=== PATIENT | female | born 1960 | race Caucasian/White ===

== ENCOUNTER 2022-11-28 16:02 | Outpatient (OUT) | payer OTHER, SELFPAY ==
--- NOTE | 2022-11-28 16:08 | MM_ITS ---
Patient: MONICA SMITH Exam Date: 11/28/2022 : 1960 Gender:F Ordering : KATH Deidre [facility] Admission #: [id number] Family : Order #: [id number] CLICK HERE TO VIEW EXAM RADIOLOGY REPORT PROCEDURE: MM TOMOSYNTHESIS SCREENING BI COMPARISON: MG MAMM SCREEN 3D KAROL CAD, 10/01/2021. MG MAMM SCREEN KAROL W CAD, 04/05/2020. MG MAMM SCREEN KAROL W CAD, 07/21/2018. MG MAMM KAROL SCRN W CAD DIG, 08/06/2013. INDICATIONS: Screening mammogram Z12.31 Calculator Name NCI Breast Cancer Risk Assessment Tool 5 Year Breast Cancer Risk 0.80% Lifetime Breast Cancer Risk 4.60% Personal Breast Cancer No Personal Ovarian Cancer No Treatments None Family Cancers Uncle-maternal with stomach cancer at age 40. LOCATION: [facility] BREAST COMPOSITION: Heterogeneously dense,which may obscure small masses. FINDINGS: DIAGNOSTIC CATEGORY 1--NEGATIVE. RIGHT BREAST: No significant suspicious finding. No significant change has occurred. LEFT BREAST: No significant suspicious finding. No significant change has occurred. RECOMMENDATIONS: ROUTINE MAMMOGRAM AND CLINICAL EVALUATION IN 12 MONTHS. PLEASE NOTE: A NORMAL MAMMOGRAM DOES NOT EXCLUDE THE POSSIBILITY OF BREAST CANCER. A CLINICALLY SUSPICIOUS PALPABLE LUMP SHOULD BE BIOPSIED. Dictated by: Jace Brown M.D. on 11/29/2022 at 14:49 Approved by: Jace Brown M.D. on 11/29/2022 at 14:51
== END 2022-11-28 16:03 | disposition home or self-care (01) ==
PROVIDERS: PCP Nurse Practitioner; Visit Provider Nurse Practitioner
DX: Z12.31 Encounter for screening mammogram for malignant neoplasm of breast (principal); Z80.0 Family history of malignant neoplasm of digestive organs
CPT/HCPCS: 77063; 77067

== ENCOUNTER 2023-02-19 06:34 | Outpatient (OUT) | payer OTHER, SELFPAY ==
[2023-02-19 07:04] LABS: Alanine Aminotransferase 21 U/L (14-59); Aspartate Amino Transferase 15 U/L (15-37); Chol HDL Ratio 3.8; Cholesterol 198 mg/dL (<=200); HDL Cholesterol 52 mg/dL (40-60); Triglycerides 151 mg/dL (<=150); VLDL CHOLESTEROL 30.2 mg/dL
== END 2023-02-19 06:35 | disposition home or self-care (01) ==
LOC: LAB 06:34
PROVIDERS: PCP Nurse Practitioner; Visit Provider Nurse Practitioner
DX: E78.5 Hyperlipidemia, unspecified (principal)
CPT/HCPCS: 36415; 80061; 84450; 84460

== ENCOUNTER 2023-03-11 17:16 | Inpatient (IN) | payer OTHER, SELFPAY ==
[2023-03-11 17:19] VITALS: BP 179/93; PULSE 82; RESP 16; TEMP 36.6; O2SAT 100; BMI 24.4
--- NOTE | 2023-03-11 17:27 | CT_ITS ---
[address] [address] Patient Name: MONICA SMITH MRN: [id number] date: 1960 Sex: F Assigned Patient Location: ER Current Patient Location: .MAIN Accession/Order Number: [id number] Exam Date: 03/11/2023 18:11 Report Date: 03/11/2023 19:18 At the request of: MELISSA BURCIAGA Procedure: CT abdomen pelvis w con EXAM: CT abdomen pelvis w con; [id number] REASON FOR EXAM: Abdominal pain TECHNIQUE: Helical CT images of the abdomen and pelvis were obtained after the administration of IV contrast. Multiplanar reformats were generated at the scanner. Dose reduction technique used: Automated exposure control and/or adjustment of the mA and/or kV according to patient size and/or use of iterative reconstruction technique. COMPARISON: None. FINDINGS: Visualized Chest: Small hiatal hernia containing less than 5% of the stomach. Abdomen: Liver: There are 3 2 cm and less well-circumscribed low-attenuation lesions scattered throughout the liver which likely represent benign cysts. Mild focal fatty infiltration along the falciform ligament. Gallbladder: Cholelithiasis without evidence of acute cholecystitis. Bile Ducts: No significant biliary ductal dilatation. Pancreas: No mass, ductal dilatation, or inflammatory changes. Spleen: No splenomegaly or focal lesion. Adrenals: No nodules. Kidneys: -No stones or hydronephrosis. -No mass. Vascular: No aortic aneurysm. Lymph Nodes: No adenopathy. Abdominal Wall: No hernia or mass. Pelvis: No mass or adenopathy. Bowel/Peritoneal Cavity/Mesentery: -Moderate distention of the proximal and mid small bowel with transition to completely decompressed mid/distal small bowel in the anterior left lower quadrant (series 3 image 86 and series 5 image 22). There is a small amount of free fluid and parenteric inflammatory changes in the region of the position point. -No colonic obstruction. -No free air. -Mild colonic diverticulosis without evidence of acute diverticulitis. Musculoskeletal: No acute fracture or suspicious osseous lesion. CT/CT abdomen pelvis w con IMPRESSION: 1. High-grade mid/distal small bowel obstruction with transition point in the anterior aspect of the left lower quadrant. There is a small amount of pelvic free fluid and mild small bowel inflammatory changes in the region of the transition point. No evidence perforation. 2. Cholelithiasis without evidence of acute cholecystitis. 3. Diverticulosis without evidence of acute diverticulitis. Electronically authenticated by: CELESTE TOUSSAINT Date: 03/11/2023 19:18
--- NOTE | 2023-03-11 17:31 | ED.ABDPAIN1 ---
HPI - Abdominal Pain General Chief Complaint: Abdominal Pain Stated Complaint: Flu Like Symptoms Time Seen by Provider: 03/11/23 17:21 Source: patient Mode of arrival: walk-in History of Present Illness HPI narrative: patient is a 8-year-old female who presents to the emergency department for the evaluation of vomiting and diarrhea that began earlier this morning. She reports hot and cold chills with no objective fevers. She reports significant pain across the low abdomen. She describes it as cramping. She reports approximately six episodes of vomiting and approximately six episodes of diarrhea. No recent antibiotics or travel. She denies any upper respiratory symptoms. No urinary symptoms. She has had a previous hysterectomy and appendectomy. Related Data Home Medications Medication Instructions Recorded Confirmed ezetimibe 10 mg tablet 10 mg PO DAILY 03/11/23 03/11/23 Allergies Allergy/AdvReac Type Severity Reaction Status Date / Time No Known Drug Allergies Allergy Verified 03/11/23 17:21 Review of Systems ROS Constitutional Reports: chills; Denies: fever Ears, nose, mouth, and throat Denies: throat pain or nasal congestion Cardiovascular Denies: chest pain Respiratory Denies: shortness of breath or cough Gastrointestinal Reports: abdominal pain, nausea, vomiting and diarrhea Genitourinary Denies: painful urination Musculoskeletal Denies: back pain Integumentary/Breast Denies: rash Neurological Denies: headache PFSH PFSH Surgical History History of appendectomy ?Z90.49 - Acquired absence of other specified parts of digestive tract (ICD-10) History of hysterectomy ?Z90.710 - Acquired absence of both cervix and uterus (ICD-10) Family History Mother Family history of COPD (chronic obstructive pulmonary disease) Family history of diabetes mellitus Daughter Family history of cancer Father Family history of diabetes mellitus Sister Family history of hypertension Social History Within the past year, how often did you have a drink containing alcohol: never Within the past year, how many standard drinks containing alcohol did you have on a typical day: 1 or 2 Within the past year, how often did you have six or more drinks on one occasion: never Total score: 0 Score interpretation: A score less than 3 is consistent with normal alcohol consumption. Smoking status: Never smoker Non-prescribed substance use: denies use Previous occupational history: [employer] Highest level of school completed/degree received: high school graduate Are you now , , , , never or living with a partner: In a typical week, how many times do you talk on the telephone with family, friends, or neighbors: 3 or more times per week How often do you get together with friends or relatives: 3 or more times per week How often do you attend taoism or evangelical services: never Little interest or pleasure in doing things: not at all Feeling down, depressed, or hopeless: not at all Feel stressed/tense/nervous/anxious/difficulty sleeping: not at all Do you think of yourself as: straight/heterosexual Gender Identity: female Exam Narrative Exam Narrative: Gen.: Awake, alert, in no distress Head: Normocephalic, atraumatic ENT: Moist mucous membranes Respiratory: No respiratory distress, lungs clear bilaterally Cardio: Regular rate and rhythm Gastrointestinal: Abdomen is soft, nondistended and diffusely tender to palpation in the bilateral lower quadrants of the abdomen, no guardingg or rebound Extremities: Moves extremities equally Psych: Normal mood and affect Neuro: No focal neuro deficit Skin: Warm, dry, intact Constitutional Vital Signs, click to edit/add: Last Vital Signs Temp 98.1 F 03/12/23 05:17 Pulse 58 L 03/12/23 05:17 Resp 18 03/12/23 05:17 BP 151/78 H 03/12/23 05:17 Pulse Ox 95 03/12/23 05:17 O2 Del Method Room Air 03/12/23 05:17 Course Vital Signs Vital signs: Vital Signs Temperature 97.9 F 03/11/23 17:19 Pulse Rate 82 03/11/23 17:19 Respiratory Rate 16 03/11/23 17:19 Blood Pressure 179/93 H 03/11/23 17:19 Pulse Oximetry 100 03/11/23 17:19 Oxygen Delivery Method Room Air 03/11/23 17:19 Temperature 98.1 F 03/12/23 05:17 Pulse Rate 58 L 03/12/23 05:17 Respiratory Rate 18 03/12/23 05:17 Blood Pressure 151/78 H 03/12/23 05:17 Pulse Oximetry 95 03/12/23 05:17 Oxygen Delivery Method Room Air 03/12/23 05:17 MDM - Abdominal Pain MDM Narrative Medical decision making narrative: patient treated with IV fluids, IV Toradol, Zofran and sublingual Levsin. She reported feeling much better. Vital signs are stable, lab studies show mild leukocytosis and minimally elevated lactic acid. She was noted to have a potassium of 3.2 and was treated with oral potassium replenishment in the Emergency Room. Urine specimen shows urinary tract infection and the patient is treated with IV Rocephin. CT the abdomen and pelvis with IV contrast was performed, patient was not able to tolerate oral contrast due to vomiting/nausea on arrival to the Emergency Room. CT shows a high-grade mid to distal small bowel obstruction with a focal transition point in the left lower quadrant. There is a small amount of free fluid in inflammatory change around the transition point. I discussed this with Dr. Rae, he recommended nasogastric tube insertion and admission to the hospitalist. Patient has seen him before for previous colonoscopy. Patient will be admitted to the hospitalist for further evaluation and treatment. Stable at time of admission. Medical Records Attestation: I reviewed the patient's medical records. Lab Data Attestation: I reviewed the patient's lab results. Labs: Lab Results 03/11/23 03/11/23 03/11/23 Range/Units 17:22 17:49 18:30 WBC 14.2 H (4.0-11.0) 10^3/uL RBC 5.03 (4.20-5.40) 10^6/uL Hgb 15.0 (12.0-16.0) g/dL Hct 44.5 (36.0-48.0) % MCV 88.5 (81.0-99.0) fL MCH 29.8 (26.7-34.0) pg MCHC 33.7 (29.9-35.2) g/dL RDW 13.2 (11.0-15.0) % Plt Count 284 (150-450) 10^3/uL MPV 10.4 (9.5-13.5) fL Neut % (Auto) 88.1 H (43.0-75.0) % Lymph % (Auto) 7.9 L (20.5-60.0) % [place] % (Auto) 3.3 (1.7-12.0) % Eos % (Auto) 0.1 L (0.9-7.0) % Baso % (Auto) 0.3 (0.2-2.0) % Neut # (Auto) 12.5 H (1.4-6.5) 10^3/uL Lymph # (Auto) 1.1 L (1.2-3.8) 10^3/uL Lancaster # (Auto) 0.5 (0.3-0.8) 10^3/uL Eos # (Auto) 0.0 (0.0-0.7) 10^3/uL Baso # (Auto) 0.0 (0.0-0.1) 10^3/uL Abs Immat Gran (auto) 0.04 H (0.00-0.03) 10^3/uL Imm/Tot Granulo (auto) 0.3 (0.0-0.5) % Sodium 138 (136-145) mmol/L Potassium 3.2 L (3.5-5.1) mmol/L Chloride 100 (98-107) mmol/L Carbon Dioxide 25.3 (21.0-32.0) mmol/L Anion Gap 15.9 BUN 19.0 H (7.0-18.0) mg/dL Creatinine 0.98 (0.55-1.02) mg/dL Est GFR ( Amer) >60 (>=60) Est GFR (Non-Af Amer) 58 L (>=60) BUN/Creatinine Ratio 19.4 Glucose 141 H (74-106) mg/dL Lactate 2.1 H (0.4-2.0) mmol/L Calcium 9.6 (8.5-10.1) mg/dL Total Bilirubin 0.6 (0.2-1.0) mg/dL AST 18 (15-37) U/L ALT 20 (14-59) U/L Alkaline Phosphatase 87 (46-116) U/L Total Protein 8.1 (6.4-8.2) g/dL Albumin 4.4 (3.4-5.0) g/dL Globulin 3.7 g/dL Albumin/Globulin Ratio 1.2 Lipase 24.0 (16.0-77.0) U/L Urine Color Lt. yellow (YELLOW) Urine Clarity Slightly cloudy A (CLEAR) Urine pH 7.5 (5.0-9.0) Ur Specific Kite 1.010 (1.005-1.025) Urine Protein Negative (NEG/TRACE) mg/dL Urine Glucose (UA) Negative (NEGATIVE) mg/dL Urine Ketones 40 A (NEGATIVE) mg/dL Urine Occult Blood Trace-i (NEGATIVE) Urine Nitrite Positive A (NEGATIVE) Urine Bilirubin Negative (NEGATIVE) Urine Urobilinogen 0.2 (0.2-1.0) EU/dL Ur Leukocyte Esterase Negative (NEGATIVE) Urine RBC None seen (0-2) #/HPF Urine WBC 2-5 A (NONE SEEN) #/HPF Ur Squamous Epith Cells Rare (NONE/RARE) #/LPF Urine Crystals None seen (None Seen) #/HPF Urine Bacteria Moderate A (NONE SEEN) #/HPF Urine Casts None seen (NONE SEEN) #/LPF Urine Mucus None seen (NONE SEEN) Ur Culture Indicated? Yes SARS-CoV-2 (PCR) Negative (NEGATIVE) Influenza Type A Ag Negative Influenza Type B Ag Negative 03/11/23 Range/Units 20:30 WBC (4.0-11.0) 10^3/uL RBC (4.20-5.40) 10^6/uL Hgb (12.0-16.0) g/dL Hct (36.0-48.0) % MCV (81.0-99.0) fL MCH (26.7-34.0) pg MCHC (29.9-35.2) g/dL RDW (11.0-15.0) % Plt Count (150-450) 10^3/uL MPV (9.5-13.5) fL Neut % (Auto) (43.0-75.0) % Lymph % (Auto) (20.5-60.0) % Lancaster % (Auto) (1.7-12.0) % Eos % (Auto) (0.9-7.0) % Baso % (Auto) (0.2-2.0) % Neut # (Auto) (1.4-6.5) 10^3/uL Lymph # (Auto) (1.2-3.8) 10^3/uL Lancaster # (Auto) (0.3-0.8) 10^3/uL Eos # (Auto) (0.0-0.7) 10^3/uL Baso # (Auto) (0.0-0.1) 10^3/uL Abs Immat Gran (auto) (0.00-0.03) 10^3/uL Imm/Tot Granulo (auto) (0.0-0.5) % Sodium (136-145) mmol/L Potassium (3.5-5.1) mmol/L Chloride (98-107) mmol/L Carbon Dioxide (21.0-32.0) mmol/L Anion Gap BUN (7.0-18.0) mg/dL Creatinine (0.55-1.02) mg/dL Est GFR ( Amer) (>=60) Est GFR (Non-Af Amer) (>=60) BUN/Creatinine Ratio Glucose (74-106) mg/dL Lactate 1.1 (0.4-2.0) mmol/L Calcium (8.5-10.1) mg/dL Total Bilirubin (0.2-1.0) mg/dL AST (15-37) U/L ALT (14-59) U/L Alkaline Phosphatase (46-116) U/L Total Protein (6.4-8.2) g/dL Albumin (3.4-5.0) g/dL Globulin g/dL Albumin/Globulin Ratio Lipase (16.0-77.0) U/L Urine Color (YELLOW) Urine Clarity (CLEAR) Urine pH (5.0-9.0) Ur Specific Kite (1.005-1.025) Urine Protein (NEG/TRACE) mg/dL Urine Glucose (UA) (NEGATIVE) mg/dL Urine Ketones (NEGATIVE) mg/dL Urine Occult Blood (NEGATIVE) Urine Nitrite (NEGATIVE) Urine Bilirubin (NEGATIVE) Urine Urobilinogen (0.2-1.0) EU/dL Ur Leukocyte Esterase (NEGATIVE) Urine RBC (0-2) #/HPF Urine WBC (NONE SEEN) #/HPF Ur Squamous Epith Cells (NONE/RARE) #/LPF Urine Crystals (None Seen) #/HPF Urine Bacteria (NONE SEEN) #/HPF Urine Casts (NONE SEEN) #/LPF Urine Mucus (NONE SEEN) Ur Culture Indicated? SARS-CoV-2 (PCR) (NEGATIVE) Influenza Type A Ag Influenza Type B Ag Imaging Data CT scan - abdomen: Attestation: I have reviewed the pertinent imaging results. Radiologist's impression: Procedure: CT abdomen pelvis w con EXAM: CT abdomen pelvis w con; [id number] REASON FOR EXAM: Abdominal pain TECHNIQUE: Helical CT images of the abdomen and pelvis were obtained after the administration of IV contrast. Multiplanar reformats were generated at the scanner. Dose reduction technique used: Automated exposure control and/or adjustment of the mA and/or kV according to patient size and/or use of iterative reconstruction technique. COMPARISON: None. FINDINGS: Visualized Chest: Small hiatal hernia containing less than 5% of the stomach. Abdomen: Liver: There are 3 2 cm and less well-circumscribed low-attenuation lesions scattered throughout the liver which likely represent benign cysts. Mild focal fatty infiltration along the falciform ligament. Gallbladder: Cholelithiasis without evidence of acute cholecystitis. Bile Ducts: No significant biliary ductal dilatation. Pancreas: No mass, ductal dilatation, or inflammatory changes. Spleen: No splenomegaly or focal lesion. Adrenals: No nodules. Kidneys: -No stones or hydronephrosis. -No mass. Vascular: No aortic aneurysm. Lymph Nodes: No adenopathy. Abdominal Wall: No hernia or mass. Pelvis: No mass or adenopathy. Bowel/Peritoneal Cavity/Mesentery: -Moderate distention of the proximal and mid small bowel with transition to completely decompressed mid/distal small bowel in the anterior left lower quadrant (series 3 image 86 and series 5 image 22). There is a small amount of free fluid and parenteric inflammatory changes in the region of the position point. -No colonic obstruction. -No free air. -Mild colonic diverticulosis without evidence of acute diverticulitis. Musculoskeletal: No acute fracture or suspicious osseous lesion. IMPRESSION: 1. High-grade mid/distal small bowel obstruction with transition point in the anterior aspect of the left lower quadrant. There is a small amount of pelvic free fluid and mild small bowel inflammatory changes in the region of the transition point. No evidence perforation. 2. Cholelithiasis without evidence of acute cholecystitis. 3. Diverticulosis without evidence of acute diverticulitis. Electronically authenticated by: CELESTE TOUSSAINT Date: 03/11/2023 19:18 Discharge Plan Discharge Chief Complaint: Abdominal Pain Clinical Impression: Urinary tract infection, Vomiting and diarrhea, Small bowel obstruction, Abdominal pain, Acute hypokalemia Patient Disposition: Admitted as Observation Time of Disposition Decision: 19:44 Condition: Good Discharge Date/Time: 03/11/23 21:53
[2023-03-11] MEDS: KETOROLAC TROMETHAMINE 30 MG/ML VIAL 15 MG IVP ×2 (17:45→23:16)
[2023-03-11 17:46] LABS: Basophils Percent Auto 0.3 % (0.2-2.0); Eosinophils Percent Auto 0.1 % (0.9-7.0); Hematocrit 44.5 % (36.0-48.0); Immature Granulocytes Abs Auto 0.04 10^3/uL (0.00-0.03); Immature Granulocytes Pct Auto 0.3 % (0.0-0.5); Lymphocytes Absolute Auto 1.1 10^3/uL (1.2-3.8); Lymphocytes Percent Auto 7.9 % (20.5-60.0); Mean Corpuscular HGB Conc 33.7 g/dL (29.9-35.2); Mean Corpuscular Hemoglobin 29.8 pg (26.7-34.0); Mean Corpuscular Volume 88.5 fL (81.0-99.0); Mean Platelet Volume 10.4 fL (9.5-13.5); Monocytes Absolute Auto 0.5 10^3/uL (0.3-0.8); Monocytes Percent Auto 3.3 % (1.7-12.0); Neutrophils Absolute Auto 12.5 10^3/uL (1.4-6.5); Neutrophils Percent Auto 88.1 % (43.0-75.0); Platelet Count 284 10^3/uL (150-450); Red Blood Count 5.03 10^6/uL (4.20-5.40); Red Cell Distribution Width 13.2 % (11.0-15.0); White Blood Count 14.2 10^3/uL (4.0-11.0)
[2023-03-11] MEDS: 0.9 % SODIUM CHLORIDE 1,000 ML 999 ML IV (17:46)
[2023-03-11] MEDS: ONDANSETRON PF 4 MG/2 ML VIAL IV ×2 (17:46→23:16)
[2023-03-11] MEDS: HYOSCYAMINE SULFATE 0.125 MG TAB.SUBL SL (17:46)
[2023-03-11 18:02] LABS: Alanine Aminotransferase 20 U/L (14-59); Albumin Globulin Ratio 1.2; Albumin Level 4.4 g/dL (3.4-5.0); Alkaline Phosphatase 87 U/L (46-116); Anion Gap 15.9; Aspartate Amino Transferase 18 U/L (15-37); BUN Creatinine Ratio 19.4; Bilirubin Total 0.6 mg/dL (0.2-1.0); Calcium 9.6 mg/dL (8.5-10.1); Carbon Dioxide 25.3 mmol/L (21.0-32.0); Chloride 100 mmol/L (98-107); Estimated GFR (African America >60 (>=60); Estimated GFR (Non-African Ame 58 (>=60); Globulin 3.7 g/dL; Glucose 141 mg/dL (74-106); Potassium 3.2 mmol/L (3.5-5.1); Sodium 138 mmol/L (136-145); Total Protein 8.1 g/dL (6.4-8.2)
[2023-03-11 18:06] LABS: Lactate/Lactic Acid 2.1 mmol/L (0.4-2.0)
[2023-03-11 18:11] LABS: Influenza Virus A Antigen Negative; Influenza Virus B Antigen Negative; Internal Control Within Normal Limits
[2023-03-11 18:11] LABS: SARS-CoV-2 Ag NEGATIVE (NEGATIVE)
[2023-03-11] MEDS: POTASSIUM CHLORIDE 10 MEQ ER TABLET 40 MEQ PO (18:27)
[2023-03-11 19:05] LABS: Bilirubin Urine NEGATIVE (NEGATIVE); Blood Urine TRACE-I (NEGATIVE); Color Urine LT. YELLOW (YELLOW); Glucose Urine UA NEGATIVE (NEGATIVE); Ketones Urine 40 mg/dL (NEGATIVE); Leukocyte Esterase Urine NEGATIVE (NEGATIVE); Nitrite Urine POSITIVE (NEGATIVE); Protein Urine NEGATIVE (NEG/TRACE); Urobilinogen Urine 0.2 EU/dL (0.2-1.0); pH Urine 7.5 (5.0-9.0)
[2023-03-11 19:06] LABS: Clarity Urine SLIGHTLY CLOUDY (CLEAR); Urine Microscopic Indicated YES
[2023-03-11 19:10] LABS: Bacteria Urine MODERATE #/HPF (NONE SEEN); Mucus Urine NONE SEEN (NONE SEEN); RBC Urine NONE SEEN #/HPF (0-2)
[2023-03-11 19:11] LABS: Cast Seen? NONE SEEN #/LPF (NONE SEEN); Crystals Seen? None Seen #/HPF (None Seen); Squamous Epithelial Cell Urine RARE #/LPF (NONE/RARE); Urine Culture Indicated YES
--- NOTE | 2023-03-11 19:41 | XR_ITS ---
[place] [id number] Patient Name: MONICA SMITH MRN: [id number] date: 1960 Sex: F Assigned Patient Location: ER Current Patient Location: ER Accession/Order Number: [id number] Exam Date: 03/11/2023 20:10 Report Date: 03/11/2023 21:08 At the request of: MELISSA BURCIAGA Procedure: XR abdomen 1V EXAMINATION: XR abdomen 1V, [id number] HISTORY: NG tube insertion COMPARISON: CT abdomen/pelvis 03/11/2023 FINDINGS/IMPRESSION: Enteric tube terminates in the distal stomach near the pylorus. Contrast within bilateral renal collecting systems and the bladder from the preceding contrast-enhanced CT. Electronically authenticated by: CELESTE TOUSSAINT Date: 03/11/2023 21:08
--- NOTE | 2023-03-11 19:48 | CT_ITS ---
The [address] [address] Patient Name: MONICA SMITH MRN: [id number] date: 1960 Sex: F Assigned Patient Location: ER Current Patient Location: MS Accession/Order Number: [id number] Exam Date: 03/11/2023 19:30 Report Date: 03/11/2023 22:22 At the request of: MELISSA BURCIAGA Procedure: CT abdomen pelvis wo con EXAM: CT abdomen pelvis wo con HISTORY: Abdominal pain small bowel obstruction performed with enteric contrast. COMPARISON: CT abdomen pelvis 03/11/2023 TECHNIQUE: Multiple axial views CT abdomen pelvis performed after administration of 2 cups of oral contrast mixed with water through NG tube (30 mL of Gastroview). No IV contrast performed. Coronal sagittal reformats performed. FINDINGS: Residual contrast within the urinary bladder from prior IV contrast injection. Visualized lung bases demonstrate mild linear lung atelectatic changes. Visualized cardiac apex demonstrates borderline prominent heart size. Small hiatal hernia. Enteric contrast extends to the lower midline small bowel. Multiple loops of dilated small bowel measuring up to 3 cm diameter and containing fecal matter within the lower midline small bowel lumen. Focal transition point at the left anterior lower quadrant abdomen (image 92 series 3) where there is trace mesenteric sleeve edema/stranding.The right lower quadrant small bowel is collapsed. The colon is underdistended. Mild colonic diverticula. No pneumatosis or pneumoperitoneum. Gallstones without hydropic gallbladder or pericholecystic fluid. Multiple left and right hepatic cysts. Pancreas, spleen, adrenal glands, kidneys, urinary bladder, and other pelvic structures are unremarkable. Appendix and uterus are surgically absent. No acute bony abnormality. CT/CT abdomen pelvis wo con IMPRESSION: High-grade small bowel obstruction with focal transition point at the anterior left lower quadrant abdomen. Finding is unchanged when compared to prior exam. Moderate amount of fecal matter within the small bowel lumen just proximal to the transition point. The enteric contrast is proximal to the small bowel fecal matter. No pneumatosis or pneumoperitoneum. However, there are peritoneal strandy changes and edema surrounding the focal transition point. Recommend close clinical surgical attention. Colonic diverticula. Cholelithiasis. Electronically authenticated by: KIM QUEEN Date: 03/11/2023 22:22
[2023-03-11 20:00] VITALS: BP 165/90
[2023-03-11] MEDS: CEFTRIAXONE 1,000 MG in 0.9 % SODIUM CHLORIDE 50 ML 100 MG IV (20:18)
--- NOTE | 2023-03-11 20:31 | PC.NURSE ---
NG clamped, contrast provided by radiology given by gravity, per nurse. Radiology called for repeat scan to take place in 1 hour. Pt tolerated well, denies further needs, call light within reach.
--- NOTE | 2023-03-11 20:36 | PC.NURSE ---
Oral contrast provided by radiology given through NG tube, fed by gravity, per nurse. Radiology called to perform scan in one hour. Pt tolerated well, denies further needs, call light within reach.
[2023-03-11 21:07] LABS: Lactate/Lactic Acid 1.1 mmol/L (0.4-2.0)
[2023-03-11 22:09] VITALS: BP 160/74; PULSE 66; RESP 18; TEMP 36.4; O2SAT 95; BMI 23.4
[2023-03-11 22:18] VITALS: O2SAT 95
[2023-03-11] MEDS: POTASSIUM CHLORIDE/D5-0.45NACL 1,000 ML 100 MEQ IV (23:01)
[2023-03-12] VITALS (22 sets, daily range): BP systolic 105–168; BP diastolic 68–115; PULSE 58–87; RESP 10–25; TEMP 36.1–36.9; O2SAT 92–100
[2023-03-12 00:53] LABS: Glucometer 130 mg/dL (74-106)
--- NOTE | 2023-03-12 01:13 | W.PM.TELEPN ---
Progress Note: Subjective Subjective Interval history: Patient is a 62-year-old female with history of hyperlipidemia and history of prior appendectomy, hysterectomy, and bladder surgery in the past presenting today with nausea, vomiting, diarrhea, diffuse abdominal pain, and subjective fever for 1 day duration. She reports that she woke up early Friday morning at around 2:30 AM yesterday with diffuse cramping abdominal pain primarily in the bilateral lower quadrants along with nausea, vomiting, and diarrhea. She reports having approximately 6 bouts of diarrhea and vomiting and was sweaty. She denies any chest pain or shortness of breath, denies any palpitations or dizziness, denies any urinary frequency or urgency, no paresthesia no difficulty with ambulation. Upon arrival to the ED, vital signs with initial BP 179/93, otherwise afebrile with normal O2 sat RA. Labs significant for the WBC of 14.2, K3.2, glucose 141, initial lactic acid 2.1. UA with ketones, positive nitrates but negative leuk esterase with WBC 2-5 and moderate bacteria present. Rest of labs within normal limits including normal renal function, LFTs, lipase and patient was negative for COVID/flu. CT A/P with high-grade mid to distal SBO with transition point in the anterior aspect of left lower quadrant with small amount of free pelvic fluid and mild inflammatory changes at the transition point. No evidence of perforation. Also incidental finding of 3 separate lesions of 2 cm or less within the liver felt likely C/W benign cysts. ED did consult surgery who rec admission to the hospitalist service with NG tube, n.p.o. Patient was treated in the ED with a dose of Rocephin, 1 L IVF, Toradol, Levsin. She is being admitted for further management. Exam Constitutional Vital Signs, click to edit/add: Last Vital Signs Temp 97.6 F 03/11/23 22:09 Pulse 66 03/11/23 22:09 Resp 18 03/11/23 22:09 BP 160/74 H 03/11/23 22:09 Pulse Ox 95 03/11/23 22:18 O2 Del Method Room Air 03/11/23 22:18 Common normals: no apparent distress Exam limitations: altered mental status General appearance: cooperative HENCT Common normals: normocephalic and head/scalp atraumatic Head and scalp: normal to inspection and normocephalic Nose: other (NGT in R nare) Eye Common normals: PERRL and EOMs intact bilaterally Neck & C-Spine Common normals: full ROM and supple Respiratory Common normals: normal respiratory effort and no use of accessory muscles Effort & inspection: able to speak in complete sentences Auscultation: clear to auscultation bilaterally Cardio Common normals: regular rate Rate: regular rate Rhythm: regular rhythm Heart sounds: S1 normal and S2 normal GI Inspection: normal to inspection Auscultation: hypoactive bowel sounds Palpation: soft Extremity Common normals: normal to inspection and full ROM Neuro Common normals: oriented x3 and CN's II-XII intact bilaterally Sensorium/orientation: awake, alert, oriented to person, oriented to place and oriented to time Psych Common normals: mental status grossly normal Appearance: grossly normal Attitude: calm Speech: normal speech Progress Note: Objective Labs Labs: Short CBC 03/11/23 Range/Units 17:22 WBC 14.2 H (4.0-11.0) 10^3/uL Hgb 15.0 (12.0-16.0) g/dL Hct 44.5 (36.0-48.0) % Plt Count 284 (150-450) 10^3/uL BMP 03/11/23 17:22 Sodium 138 Potassium 3.2 L Chloride 100 Carbon Dioxide 25.3 BUN 19.0 H Creatinine 0.98 Glucose 141 H Calcium 9.6 Liver Function 03/11/23 Range/Units 17:22 Total Bilirubin 0.6 (0.2-1.0) mg/dL AST 18 (15-37) U/L ALT 20 (14-59) U/L Alkaline Phosphatase 87 (46-116) U/L Albumin 4.4 (3.4-5.0) g/dL Urine 03/11/23 Range/Units 18:30 Urine Color Lt. yellow (YELLOW) Urine Clarity Slightly cloudy A (CLEAR) Urine pH 7.5 (5.0-9.0) Ur Specific [place] 1.010 (1.005-1.025) Urine Protein Negative (NEG/TRACE) mg/dL Urine Glucose (UA) Negative (NEGATIVE) mg/dL Imaging CT scan - abdomen: Radiologist's impression: High-grade mid to distal SBO with transition point in anterior aspect of LLQ with associated small amount of free pelvic fluid and mild small bowel inflammatory changes at the transition point. No evidence of perforation. Noted diverticulosis and cholelithiasis Progress Note: A&P Assessment and Plan (1) Small bowel obstruction: Assessment and Plan: - As noted per CT. History of prior appendectomy, hysterectomy, and bladder surgery -Surgery Dr. Rae consulted by ED, recommends NG tube and n.p.o. status -IVF -As needed Toradol which is helping to control her pain and she would prefer to avoid narcotics, prn Zofran -AXR in a.m. (2) Urinary tract infection: Assessment and Plan: -?UTI. UA only mildly positive and patient without symptoms. For now we will maintain on antibiotics given leukocytosis -Check urine culture. If negative can DC antibiotics -Received Rocephin in the ED, will continue for now until urine cultures are back or at least for 3 days (3) Vomiting and diarrhea: Assessment and Plan: - Secondary to SBO likely -IVF -As needed Zofran -Bowel rest (4) Acute hypokalemia: Assessment and Plan: - K3.2 on admit. Repleted -Check BMP, mag in a.m. Plan 5. Leukocytosis -Likely secondary to SPL and possible UTI. Otherwise afebrile -On Rocephin empirically -CBC in a.m. -Pending lactate level 6. Hyperglycemia, mild -Monitor for now, repeat -Check A1c in a.m. 7. Elevated BP -She denies any history of HTN. May be related to pain meds. Currently on states pain is much better -We will need to watch BP and if remains elevated then may need initiation of antihypertensive and close monitoring with PCP -As needed IV hydralazine added for now DVT prophylaxis Lovenox Full code Telemedicine Attestation Telemedicine Attestation I conducted this encounter from [MD] via secure live, [id number] video conference with the patient, located at [facility] with [Samara]. Prior to the interview, the risks and benefits of telemedicine were discussed with the patient and verbal consent was obtained.
[2023-03-12 04:40] LABS: Basophils Percent Auto 0.2 % (0.2-2.0); Eosinophils Percent Auto 0.3 % (0.9-7.0); Hematocrit 43.1 % (36.0-48.0); Hemoglobin 14.5 g/dL (12.0-16.0); Immature Granulocytes Abs Auto 0.04 10^3/uL (0.00-0.03); Immature Granulocytes Pct Auto 0.4 % (0.0-0.5); Lymphocytes Absolute Auto 1.1 10^3/uL (1.2-3.8); Lymphocytes Percent Auto 9.6 % (20.5-60.0); Mean Corpuscular HGB Conc 33.6 g/dL (29.9-35.2); Mean Corpuscular Hemoglobin 29.7 pg (26.7-34.0); Mean Corpuscular Volume 88.3 fL (81.0-99.0); Mean Platelet Volume 10.3 fL (9.5-13.5); Monocytes Absolute Auto 0.8 10^3/uL (0.3-0.8); Monocytes Percent Auto 7.5 % (1.7-12.0); Platelet Count 286 10^3/uL (150-450); Red Blood Count 4.88 10^6/uL (4.20-5.40); Red Cell Distribution Width 13.2 % (11.0-15.0)
[2023-03-12 05:03] LABS: Estimated Average Glucose 108 mg/dL; Glycohemoglobin A1C 5.4 % (4.5-6.2)
[2023-03-12] MEDS: KETOROLAC TROMETHAMINE 30 MG/ML VIAL 15 MG IVP ×3 (05:07→20:06)
[2023-03-12] MEDS: ONDANSETRON PF 4 MG/2 ML VIAL IV ×2 (05:07→08:40)
[2023-03-12 05:08] LABS: Anion Gap 12.9; BUN Creatinine Ratio 19.1; Calcium 8.5 mg/dL (8.5-10.1); Carbon Dioxide 25.8 mmol/L (21.0-32.0); Chloride 101 mmol/L (98-107); Estimated GFR (African America >60 (>=60); Estimated GFR (Non-African Ame >60 (>=60); Glucose 129 mg/dL (74-106); Potassium 3.7 mmol/L (3.5-5.1); Sodium 136 mmol/L (136-145)
--- NOTE | 2023-03-12 05:49 | P.GSCN_ITS ---
History of Present Illness Consult details Consult date: 03/12/23 Reason for consult: abdominal pain Requesting physician: Jose Alberto Doshi Narrative: Monica Smith is a 62-year-old female who presented to the Emergency Department last evening after awakening at 2 AM yesterday morning with nausea and vomiting and associated diarrhea. She also was having left lower quadrant abdominal pain. She thought initially it might of been or diverticulitis but something was wrong and she came to the Emergency Department where she had a CT scan performed without oral contrast which showed high-grade small bowel obstruction which I then asked for a CT scan with oral contrast with same findings. She rated her pain as a ten out of ten when she came in and was given Toradol with relief and receives Toradol again at 5 AM this morning due to pain. She had a nasogastric tube placed and is draining bilious contents currently and she's had about 500 mL out but continues to have pain in the left lower quadrant. She has prior surgical history of having had an abdominal hysterectomy for rectum he appendectomy and bladder sling last in two thousand eighteen. She denies any melena or hematochezia. She works at [employer]. She denies any significant medical problems other [place] [address] CT Scan Report Signed Patient: MONICA SMITH MR#: [id number] : 1960 Acct:[id number] Age/Sex: 62 / F ADM Date: 03/11/23 Loc: [place] 221-[address]: Harpreet Randall M.D. Ordering Physician: Melissa Burciaga Date of Service: 03/11/23 Procedure(s): CT abdomen pelvis wo con Accession Number(s): [id number] cc: Deidre Valdivia ~ The [address] [address] Patient Name: MONICA SMITH MRN: [id number] date: 1960 Sex: F Assigned Patient Location: ER Current Patient Location: DC Accession/Order Number: [id number] Exam Date: 03/11/2023 19:30 Report Date: 03/11/2023 22:22 At the request of: MELISSA BURCIAGA Procedure: CT abdomen pelvis wo con EXAM: CT abdomen pelvis wo con HISTORY: Abdominal pain small bowel obstruction performed with enteric contrast. COMPARISON: CT abdomen pelvis 03/11/2023 TECHNIQUE: Multiple axial views CT abdomen pelvis performed after administration of 2 cups of oral contrast mixed with water through NG tube (30 mL of Gastroview). No IV contrast performed. Coronal sagittal reformats performed. FINDINGS: Residual contrast within the urinary bladder from prior IV contrast injection. Visualized lung bases demonstrate mild linear lung atelectatic changes. Visualized cardiac apex demonstrates borderline prominent heart size. Small hiatal hernia. Enteric contrast extends to the lower midline small bowel. Multiple loops of dilated small bowel measuring up to 3 cm diameter and containing fecal matter within the lower midline small bowel lumen. Focal transition point at the left anterior lower quadrant abdomen (image 92 series 3) where there is trace mesenteric sleeve edema/stranding.The right lower quadrant small bowel is collapsed. The colon is underdistended. Mild colonic diverticula. No pneumatosis or pneumoperitoneum. Gallstones without hydropic gallbladder or pericholecystic fluid. Multiple left and right hepatic cysts. Pancreas, spleen, adrenal glands, kidneys, urinary bladder, and other pelvic structures are unremarkable. Appendix and uterus are surgically absent. No acute bony abnormality. CT/CT abdomen pelvis wo con IMPRESSION: High-grade small bowel obstruction with focal transition point at the anterior left lower quadrant abdomen. Finding is unchanged when compared to prior exam. Moderate amount of fecal matter within the small bowel lumen just proximal to the transition point. The enteric contrast is proximal to the small bowel fecal matter. No pneumatosis or pneumoperitoneum. However, there are peritoneal strandy changes and edema surrounding the focal transition point. Recommend close clinical surgical attention. Colonic diverticula. Cholelithiasis. Electronically authenticated by: KIM DIAZ Date: 03/11/2023 22:22 Dictated By: Kim Diaz M.D. Signed By: 03/11/234 Review of Systems ROS Status of ROS 10 or more systems reviewed and unremarkable except as noted in history and below PFSH PFSH Surgical History History of appendectomy ?Z90.49 - Acquired absence of other specified parts of digestive tract (ICD-10) History of hysterectomy ?Z90.710 - Acquired absence of both cervix and uterus (ICD-10) Family History Mother Family history of COPD (chronic obstructive pulmonary disease) Family history of diabetes mellitus Daughter Family history of cancer Father Family history of diabetes mellitus Sister Family history of hypertension Social History Within the past year, how often did you have a drink containing alcohol: never Within the past year, how many standard drinks containing alcohol did you have on a typical day: 1 or 2 Within the past year, how often did you have six or more drinks on one occasion: never Total score: 0 Score interpretation: A score less than 3 is consistent with normal alcohol consumption. Smoking status: Never smoker Non-prescribed substance use: denies use Previous occupational history: [employer] Highest level of school completed/degree received: high school graduate Are you now , , , , never or living with a partner: In a typical week, how many times do you talk on the telephone with family, friends, or neighbors: 3 or more times per week How often do you get together with friends or relatives: 3 or more times per week How often do you attend jew or zoroastrian services: never Little interest or pleasure in doing things: not at all Feeling down, depressed, or hopeless: not at all Feel stressed/tense/nervous/anxious/difficulty sleeping: not at all Do you think of yourself as: straight/heterosexual Gender Identity: female Meds Home Medications and Allergies Home Medications Medication Instructions Recorded Confirmed Type ezetimibe 10 mg tablet 10 mg PO DAILY 03/11/23 03/11/23 History Allergies Allergy/AdvReac Type Severity Reaction Status Date / Time No Known Drug Allergies Allergy Verified 03/11/23 17:21 Exam Constitutional Vital Signs, click to edit/add: Last Vital Signs Temp 98.1 F 03/12/23 05:17 Pulse 58 L 03/12/23 05:17 Resp 18 03/12/23 05:17 BP 151/78 H 03/12/23 05:17 Pulse Ox 95 03/12/23 05:17 O2 Del Method Room Air 03/12/23 05:17 Documenting provider has reviewed patient's vital signs: yes Common normals: no apparent distress, average body habitus, oriented x3 and healthy appearing General appearance: cooperative and well developed HENMT Common normals: normocephalic (nasogastric tube and nares draining bilious contents) Respiratory Common normals: normal respiratory effort and clear to auscultation bilaterally Cardio Common normals: no JVD, regular rate, regular rhythm and no murmurs GI Inspection: abdominal distension Auscultation: absent bowel sounds Palpation: tender Details: LLQ and guarding in the LLQ Neuro Common normals: oriented x3, CN's II-XII intact bilaterally and moves all extremities Results Labs Labs: Abnormal lab results 03/11/23 03/11/23 03/12/23 Range/Units 17:22 18:30 00:44 WBC 14.2 H (4.0-11.0) 10^3/uL Neut % (Auto) 88.1 H (43.0-75.0) % Lymph % (Auto) 7.9 L (20.5-60.0) % Eos % (Auto) 0.1 L (0.9-7.0) % Neut # (Auto) 12.5 H (1.4-6.5) 10^3/uL Lymph # (Auto) 1.1 L (1.2-3.8) 10^3/uL Abs Immat Gran (auto) 0.04 H (0.00-0.03) 10^3/uL Potassium 3.2 L (3.5-5.1) mmol/L BUN 19.0 H (7.0-18.0) mg/dL Est GFR (Non-Af Amer) 58 L (>=60) Glucose 141 H (74-106) mg/dL Lactate 2.1 H (0.4-2.0) mmol/L Urine Clarity Slightly cloudy A (CLEAR) Urine Ketones 40 A (NEGATIVE) mg/dL Urine Nitrite Positive A (NEGATIVE) Urine WBC 2-5 A (NONE SEEN) #/HPF Urine Bacteria Moderate A (NONE SEEN) #/HPF POC Glucose 130 H (74-106) mg/dL 03/12/23 Range/Units 04:05 WBC (4.0-11.0) 10^3/uL Neut % (Auto) 82.0 H (43.0-75.0) % Lymph % (Auto) 9.6 L (20.5-60.0) % Eos % (Auto) 0.3 L (0.9-7.0) % Neut # (Auto) 9.0 H (1.4-6.5) 10^3/uL Lymph # (Auto) 1.1 L (1.2-3.8) 10^3/uL Abs Immat Gran (auto) 0.04 H (0.00-0.03) 10^3/uL Potassium (3.5-5.1) mmol/L BUN (7.0-18.0) mg/dL Est GFR (Non-Af Amer) (>=60) Glucose (74-106) mg/dL Lactate (0.4-2.0) mmol/L Urine Clarity (CLEAR) Urine Ketones (NEGATIVE) mg/dL Urine Nitrite (NEGATIVE) Urine WBC (NONE SEEN) #/HPF Urine Bacteria (NONE SEEN) #/HPF POC Glucose (74-106) mg/dL Diabetes panel 03/11/23 Range/Units 17:22 Sodium 138 (136-145) mmol/L Potassium 3.2 L (3.5-5.1) mmol/L Chloride 100 (98-107) mmol/L Carbon Dioxide 25.3 (21.0-32.0) mmol/L BUN 19.0 H (7.0-18.0) mg/dL Creatinine 0.98 (0.55-1.02) mg/dL Glucose 141 H (74-106) mg/dL Calcium 9.6 (8.5-10.1) mg/dL AST 18 (15-37) U/L ALT 20 (14-59) U/L Alkaline Phosphatase 87 (46-116) U/L Total Protein 8.1 (6.4-8.2) g/dL Albumin 4.4 (3.4-5.0) g/dL Calcium panel 03/11/23 Range/Units 17:22 Calcium 9.6 (8.5-10.1) mg/dL Albumin 4.4 (3.4-5.0) g/dL Pituitary panel 03/11/23 Range/Units 17:22 Sodium 138 (136-145) mmol/L Potassium 3.2 L (3.5-5.1) mmol/L Chloride 100 (98-107) mmol/L Carbon Dioxide 25.3 (21.0-32.0) mmol/L BUN 19.0 H (7.0-18.0) mg/dL Creatinine 0.98 (0.55-1.02) mg/dL Glucose 141 H (74-106) mg/dL Calcium 9.6 (8.5-10.1) mg/dL Adrenal panel 03/11/23 Range/Units 17:22 Sodium 138 (136-145) mmol/L Potassium 3.2 L (3.5-5.1) mmol/L Chloride 100 (98-107) mmol/L Carbon Dioxide 25.3 (21.0-32.0) mmol/L BUN 19.0 H (7.0-18.0) mg/dL Creatinine 0.98 (0.55-1.02) mg/dL Glucose 141 H (74-106) mg/dL Calcium 9.6 (8.5-10.1) mg/dL Total Bilirubin 0.6 (0.2-1.0) mg/dL AST 18 (15-37) U/L ALT 20 (14-59) U/L Alkaline Phosphatase 87 (46-116) U/L Total Protein 8.1 (6.4-8.2) g/dL Albumin 4.4 (3.4-5.0) g/dL All other labs normal. Imaging Abdominal x-ray: report reviewed Abdomen CT scan report/results: report reviewed Assessment and Plan Assessment and Plan (1) Small bowel obstruction: (2) Urinary tract infection: (3) Vomiting and diarrhea: (4) Acute hypokalemia: Plan Patient has had two CT scans showing high-grade obstruction and abdominal series this morning continues to show obstruction therefore patient offered surgery with exporter laparotomy with possible small bowel resection. Risks benefits and alternatives to surgery may include infection, bleeding, anastomotic leak from anastomosis, blood clots to the legs or lungs, pneumonia, heart attack, stroke, and/or . She voiced understanding of all the above and wish to proceed. She was told to call her employer and let them know that should be off work for at least six weeks if not longer. 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
--- NOTE | 2023-03-12 05:55 | PM.GSPRC ---
Date of procedure: 03/12/23 Indications for Procedure: acute small bowel obstruction Pre-op diagnosis: acute small bowel obstruction Post-op diagnosis: same as pre-op Procedure: exploratory laparotomy with extensive lysis of adhesions requiring one hour and small bowel resection with primary anastomosis partial omentectomy with LigaSure device Findings: small bowel obstruction with adhesions in the pelvis and feculization proximal to obstruction Anesthesia: LIEN Surgeon: Eduardo Rae Procedure Summary: 62-year-old female presented to the Emergency Department with nausea and vomiting and diarrhea for almost 24 hours and found have an acute small bowel obstruction on two CT scans and abdominal series. Nasogastric tube was placed with no improvement over eight hours. She was taken to the OR placed in the supine position and given a general anesthetic by the correspondence clerk. A Perez catheter was placed into the bladder preoperatively and nasogastric tube was already in the nares.abdomen was prepped and draped usual sterile fashion.timeout was taken and preoperative antibiotics were given. SCDs were placed on bilateral lower Wero's.A standard lower midline incision was made down through all layers entering the peritoneal cavity very carefully.patient had many pelvic adhesions of the small bowel to the lower abdominal wall as well as to the bladder and omentum.extensive lysis of adhesions requiring 1.5 hoursof small bowel were taken down and one small enterotomy was made and closed with 3-0 Vicryl suture until that section could be resected. Anterior abdominal wall was put on traction and lysis was carried out with sharp scissors and electrocautery maintaining hemostasis as well as with LigaSure device maintaining hemostasis. Eventually was able to bring up a large ball of small bowel and lysed all of these adhesions very carefully and she had fecalization of the small bowel proximal to the obstruction as a CAT scan had reported.once all the small bowel was freed up it was withdrawn from the terminal ileum and cecum where she did not have an appendix from prior appendectomy to the ligament of Treitz. There was a section of bowel that contained a lot of undigested food and I resected that along with the area where I made an enterotomy and inadvertently by making a window in the mesentery proximal and distal to that area and firing a KATI stapler across proximal and distal ends and then resecting the mesentery with a LigaSure device maintaining hemostasis. Next a functional end-to-end doen-es-baij anastomosis was made by the remaining small bowel by placing the KATI stapler forming a common channel and then a TA sixty across that. There was a slight leak from that that was closed with 3-0 silk suture in interrupted fashion ?2 and then the rest of the anastomosis was imbricated with 3-0 silk suture in interrupted fashion to cover the anastomosis. There was no leakage afterwards and contents from the proximal small bowel were going to the distal small bowel without problems. Hemostasis being maintained then the mesentery was closed with 3-0 Vicryl suture in a running continuous fashion. There was a portion of the omentum which was inflammatory and this was resected with a LigaSure device maintaining hemostasis. She did not have much remaining omentum. The small bowel was placed back into the abdominal cavity and irrigation was carried out with sterile normal saline warm and all this irrigant was aspirated. The omentum was placed down as far in the pelvis as possible. All lap pads and retractors were removed from the abdomen and sponge needle and instrument counts were correct. Anterior rectus fascia was closed with 0 PDS suture in running continuous fashion and skin was closed with skin clips and a sterile dressing was applied. Case was contaminated emergency Nurse Researcher: MARCO A Fraga; Bryce Torooms3 Estimated blood loss (mL): 75 Specimens: small bowel; omentum Complications: No Condition: stable Disposition: PACU
--- NOTE | 2023-03-12 06:00 | XR_ITS ---
The [address] [address] Patient Name: MONICA SMITH MRN: [id number] date: 1960 Sex: F Assigned Patient Location: MS Current Patient Location: MS Accession/Order Number: [id number] Exam Date: 03/12/2023 04:45 Report Date: 03/12/2023 04:59 At the request of: PAPA IVORY Procedure: XR acute abdomen series EXAM: XR acute abdomen series HISTORY: SBO- Dr. de león patient standing for scan COMPARISON: Correlation is made with CT abdomen and pelvis examination dated 03/11/2023. TECHNIQUE: One view of the chest and 2 views of the abdomen were obtained. FINDINGS: A nasogastric tube terminates in the mid abdomen, likely within the stomach. There are multiple air and fluid-filled dilated loops of small bowel measuring up to 3.2 cm with multiple air-fluid levels on the upright view. No intraperitoneal free air is seen. No acute osseous abnormality is seen. Contrast is seen within the urinary bladder from the recent contrast-enhanced examination. XR/XR acute abdomen series IMPRESSION: 1. Multiple air and fluid-filled dilated loops of small bowel with multiple air-fluid levels on the upright view. These findings are in keeping with the patient's known small bowel obstruction. Electronically authenticated by: Gabo TIPTON Date: 03/12/2023 04:59
[2023-03-12] MEDS: LACTATED RINGER'S SOLUTION 1,000 ML 50 ML IV (07:31)
[2023-03-12] MEDS: HYDROMORPHONE HCL 0.5 MG/0.5 ML SYRINGE 0.4 MG IV (08:48)
[2023-03-12] MEDS: LACTATED RINGER'S SOLUTION 1,000 ML 125 ML IV ×2 (10:29→20:05)
[2023-03-12] MEDS: ENOXAPARIN SODIUM 40 MG/0.4 ML SYRINGE SUBQ (10:29)
[2023-03-12] MEDS: CEFAZOLIN SODIUM/DEXTROSE,ISO 2 GM/50 ML PIGGYBACK IV ×2 (10:29→20:06)
--- NOTE | 2023-03-12 11:52 | P.HP_ITS ---
Pt seen an examined shortlu after post period 03/12 agree wit Input and plan from PROFESSOR OF THEOLOGY Added Dx of Hypertension - PRN hydraazine Leukocytosis - improved - cont with current AB as outlined H&P: HPI History of Present Illness Chief complaint: Nausea/Vomiting/Abd pain Narrative: Date/Exam 03/12/23 1120 This is a 62-year-old female patient with a relatively benign past medical history as outlined below, who presented to the ED last night complaining of severe abdominal pain, nausea, vomiting, diarhhea, and fevers. She reports onset of symptoms in the early a.m. hours yesterday. Her pain was sharp and stabbing across the lower abdomen but focused more in the left lower quadrant. She experienced multiple episodes of vomiting and eventually presented to the ED for further evaluation. Work-up in the ED revealed leukocytosis (14.2), mild hypokalemia (3.2), but was otherwise unremarkable labs. CT of the abdomen and pelvis revealed a high-grade mid/distal small bowel obstruction w/ transition point in the anterior aspect of the LLQ and a small amount of pelvic free fluid. An NGT was placed for gastric decompression and General Surgery, Dr Rae, was consulted. She was admitted to the hospitalist service for a SBO. The pt was taken to the OR early this morning for a SB resection per Dr Rae. At the time of my exam the pt had returned from recovery and was awake and alert in her bed. She reports adequate pain control but notes that her pain is starting to rise a bit. She reports resolution of nausea after the NGT was placed. She denies any CP, SOB, melena or hematochezia. Her post operative course has been unremarkable so far. Review of Systems ROS Status of ROS 10 or more systems reviewed and unremarkable except as noted in history and below [facility] Medical History (Updated 03/12/23 @ 11:54 by Earnestine Fowler NP) Hyperlipidemia ?E78.5 - Hyperlipidemia, unspecified (ICD-10) Surgical History History of appendectomy ?Z90.49 - Acquired absence of other specified parts of digestive tract (ICD- 10) History of hysterectomy ?Z90.710 - Acquired absence of both cervix and uterus (ICD-10) Family History Mother Family history of COPD (chronic obstructive pulmonary disease) Family history of diabetes mellitus Daughter Family history of cancer Father Family history of diabetes mellitus Sister Family history of hypertension Social History Within the past year, how often did you have a drink containing alcohol: never Within the past year, how many standard drinks containing alcohol did you have on a typical day: 1 or 2 Within the past year, how often did you have six or more drinks on one occasion: never Total score: 0 Score interpretation: A score less than 3 is consistent with normal alcohol consumption. Smoking status: Never smoker Non-prescribed substance use: denies use Previous occupational history: [employer] Highest level of school completed/degree received: high school graduate Are you now , , , , never or living with a partner: In a typical week, how many times do you talk on the telephone with family, friends, or neighbors: 3 or more times per week How often do you get together with friends or relatives: 3 or more times per week How often do you attend catholic or baptist services: never Little interest or pleasure in doing things: not at all Feeling down, depressed, or hopeless: not at all Feel stressed/tense/nervous/anxious/difficulty sleeping: not at all Do you think of yourself as: straight/heterosexual Gender Identity: female Meds Home Medications and Allergies Home Medications Medication Instructions Recorded Confirmed Type ezetimibe 10 mg tablet 10 mg PO DAILY 03/11/23 03/11/23 History Allergies Allergy/AdvReac Type Severity Reaction Status Date / Time No Known Drug Allergies Allergy Verified 03/11/23 17:21 Exam Constitutional Vital Signs, click to edit/add: Last Vital Signs Temp 98.4 F 03/12/23 09:30 Pulse 82 03/12/23 10:39 Resp 18 03/12/23 10:39 BP 134/72 03/12/23 10:39 Pulse Ox 93 L 03/12/23 10:39 O2 Del Method Room Air 03/12/23 09:45 Common normals: no apparent distress, oriented x3, alert and well nourished General appearance: cooperative Orientation/consciousness: Yes awake HENIA Common normals: normocephalic, head/scalp atraumatic, hearing grossly normal bilaterally, external ears normal, external nose normal and moist oral mucous membranes Head and scalp: normocephalic and atraumatic Face and sinus: normal facial exam Nose: external nose normal External ear: external ears normal Eye Common normals: PERRL, EOMs intact bilaterally, conjunctivae normal and no scleral icterus General eye: normal appearance of both eyes Alignment: alignment normal Eyelid: eyelids normal Conjunctiva: conjunctiva(e) normal Pupil: PERRL Neck & C-Spine Common normals: full ROM, supple and no JVD Chest Common normals: inspection of chest normal Chest: symmetrical chest wall rise Respiratory Common normals: normal respiratory effort, no retractions, no use of accessory muscles and clear to auscultation bilaterally Effort & inspection: able to speak in complete sentences Auscultation: clear to auscultation bilaterally Cardio Common normals: no JVD, regular rate, regular rhythm, S1 normal heart sound, S2 normal heart sound, no gallops, no clicks, no murmurs, no rub and peripheral pulses 2+ throughout Rate: regular rate Rhythm: regular rhythm Heart sounds: S1 normal and S2 normal Peripheral pulses: pulses 2+ throughout GI Common normals: soft to palpation, no hepatosplenomegaly, no masses and no bruits Auscultation: hypoactive bowel sounds Palpation: soft, tender (BLQ, greatest to sonny-umbilical to LLQ) and no hepatosplenomegaly; no guarding and not rigid Bladder/kidney exam: bladder normal to palpation Back & Pelvis Common normals: thoracic and lumbar spine normal to inspection Extremity Common normals: normal capillary refill and no pedal edema General: normal exam except as noted; no clubbing and no cyanosis Neuro [place] Coma Scale: GCS not evaluated Common normals: oriented x3, CN's II-XII intact bilaterally, moves all extremities, no focal motor deficits and no sensory deficits noted Sensorium/orientation: awake and alert Speech: speech normal Motor exam: strength 5/5 throughout Psych Common normals: mental status grossly normal, thought process normal, affect normal and activity/motor behavior normal Thought process: normal thought process Results Labs Labs: Short CBC 03/11/23 03/12/23 Range/Units 17:22 04:05 WBC 14.2 H 11.0 (4.0-11.0) 10^3/uL Hgb 15.0 14.5 (12.0-16.0) g/dL Hct 44.5 43.1 (36.0-48.0) % Plt Count 284 286 (150-450) 10^3/uL BMP 03/11/23 03/12/23 17:22 04:05 Sodium 138 136 Potassium 3.2 L 3.7 Chloride 100 101 Carbon Dioxide 25.3 25.8 BUN 19.0 H 17.0 Creatinine 0.98 0.89 Glucose 141 H 129 H Calcium 9.6 8.5 Liver Function 03/11/23 Range/Units 17:22 Total Bilirubin 0.6 (0.2-1.0) mg/dL AST 18 (15-37) U/L ALT 20 (14-59) U/L Alkaline Phosphatase 87 (46-116) U/L Albumin 4.4 (3.4-5.0) g/dL Urine 03/11/23 Range/Units 18:30 Urine Color Lt. yellow (YELLOW) Urine Clarity Slightly cloudy A (CLEAR) Urine pH 7.5 (5.0-9.0) Ur Specific [place] 1.010 (1.005-1.025) Urine Protein Negative (NEG/TRACE) mg/dL Urine Glucose (UA) Negative (NEGATIVE) mg/dL Pulse Oximetry Attestation: I have reviewed the pertinent pulse oximetry results. Imaging CT scan - abdomen: Attestation: I have reviewed the pertinent imaging results. Radiologist's impression: 03/11/231726 IMPRESSION: 1. High-grade mid/distal small bowel obstruction with transition point in the anterior aspect of the left lower quadrant. There is a small amount of pelvic free fluid and mild small bowel inflammatory changes in the region of the transition point. No evidence perforation. 2. Cholelithiasis without evidence of acute cholecystitis. 3. Diverticulosis without evidence of acute diverticulitis. 03/11/23 194 IMPRESSION: High-grade small bowel obstruction with focal transition point at the anterior left lower quadrant abdomen. Finding is unchanged when compared to prior exam. Moderate amount of fecal matter within the small bowel lumen just proximal to the transition point. The enteric contrast is proximal to the small bowel fecal matter. No pneumatosis or pneumoperitoneum. However, there are peritoneal strandy changes and edema surrounding the focal transition point. Recommend close clinical surgical attention. Colonic diverticula. Cholelithiasis. Abdominal x-ray: Attestation: I have reviewed the pertinent imaging results. Radiologist's impression: FINDINGS/IMPRESSION: Enteric tube terminates in the distal stomach near the pylorus. Contrast within bilateral renal collecting systems and the bladder from the preceding contrast-enhanced CT. Chest/Abdomen XR: Attestation: I have reviewed the pertinent imaging results. Radiologist's impression: IMPRESSION: 1. Multiple air and fluid-filled dilated loops of small bowel with multiple air-fluid levels on the upright view. These findings are in keeping with the patient's known small bowel obstruction. Assessment and Plan Assessment and Plan (1) Small bowel obstruction: Assessment and Plan: ACUTE * Adm inpatient * c/s Dr Rae, general surgeon * All post op orders including NT management, diet, pain management, IVF hydration, deferred to the surgical service * NGT to LIS maintained post-operatively - Nursing OK to give PO pain meds and clamp NGT for 45 min post medical coding technician per Dr Rae * Add Flagyl for improved anaerobic coverage after extensive intra-abdominal procedure. Continue Ancef as ordered by Dr Rae * Encourage frequent ambulation to help induce bowel motility * CBC, BMP daily (2) Urinary tract infection: Assessment and Plan: ACUTE * Equivocal finding on ED labs. Bacteria present but pt asymptomatic * Rocephin given in ED, pt now on cefazolin * Consider adding broader gram neg coverage pending clinical course and urine CX results. Consider PO Bactrim (3) Acute hypokalemia: Assessment and Plan: ACUTE * Suspect 2/2 GI losses from vomiting and diarrhea * KCL repleted in ED * Repeat BMP in AM (4) Hyperlipidemia: Assessment and Plan: CHRONIC * Hold home ezetimibe for now, plan to resume at discharge
[2023-03-12 14:20] LABS: Glucometer 112 mg/dL (74-106)
[2023-03-12 15:50] LABS: SARS-CoV-2 NAA NOT DETECTED (NOT DETECTE)
[2023-03-12] MEDS: METRONIDAZOLE/SODIUM CHLORIDE 500 MG/100 ML PREMIX 100 MG IV (16:20)
[2023-03-12] MEDS: OXYCODONE HCL/ACETAMINOPHEN 5MG/325MG 1 TAB PO (17:46)
[2023-03-13] VITALS (7 sets, daily range): BP systolic 109–135; BP diastolic 63–79; PULSE 89–96; RESP 17–18; TEMP 36.6–36.9; O2SAT 93–97
[2023-03-13] MEDS: METRONIDAZOLE/SODIUM CHLORIDE 500 MG/100 ML PREMIX 100 MG IV ×4 (00:18→23:33)
[2023-03-13 00:37] LABS: Glucometer 111 mg/dL (74-106)
[2023-03-13] MEDS: KETOROLAC TROMETHAMINE 30 MG/ML VIAL 15 MG IVP ×4 (02:43→19:37)
[2023-03-13] MEDS: CEFAZOLIN SODIUM/DEXTROSE,ISO 2 GM/50 ML PIGGYBACK IV ×3 (04:37→19:37)
[2023-03-13 05:25] LABS: Basophils Percent Auto 0.2 % (0.2-2.0); Hematocrit 32.8 % (36.0-48.0); Hemoglobin 10.9 g/dL (12.0-16.0); Immature Granulocytes Abs Auto 0.03 10^3/uL (0.00-0.03); Immature Granulocytes Pct Auto 0.3 % (0.0-0.5); Lymphocytes Absolute Auto 0.9 10^3/uL (1.2-3.8); Lymphocytes Percent Auto 8.4 % (20.5-60.0); Mean Corpuscular HGB Conc 33.2 g/dL (29.9-35.2); Mean Corpuscular Hemoglobin 29.5 pg (26.7-34.0); Mean Corpuscular Volume 88.9 fL (81.0-99.0); Mean Platelet Volume 10.8 fL (9.5-13.5); Monocytes Absolute Auto 0.8 10^3/uL (0.3-0.8); Monocytes Percent Auto 7.7 % (1.7-12.0); Neutrophils Percent Auto 83.4 % (43.0-75.0); Platelet Count 202 10^3/uL (150-450); Red Blood Count 3.69 10^6/uL (4.20-5.40); Red Cell Distribution Width 13.4 % (11.0-15.0); White Blood Count 10.8 10^3/uL (4.0-11.0)
[2023-03-13 05:45] LABS: Anion Gap 13.9; BUN Creatinine Ratio 22.6; Calcium 7.6 mg/dL (8.5-10.1); Carbon Dioxide 26.6 mmol/L (21.0-32.0); Chloride 102 mmol/L (98-107); Estimated GFR (African America >60 (>=60); Estimated GFR (Non-African Ame >60 (>=60); Glucose 99 mg/dL (74-106); Potassium 3.5 mmol/L (3.5-5.1); Sodium 139 mmol/L (136-145)
[2023-03-13] MEDS: LACTATED RINGER'S SOLUTION 1,000 ML 125 ML IV (06:25)
[2023-03-13] MEDS: ENOXAPARIN SODIUM 40 MG/0.4 ML SYRINGE SUBQ (08:00)
--- NOTE | 2023-03-13 08:38 | CM.NOTE ---
Rounding with Dr. Randall. NG remains in place and draining. Dr. Randall encouraged patient to get up into chair to assess bowel function. Discussed antibiotics for possible UTI. Patient denies any needs at this time. Continue to follow for any anticipated discharge needs.
--- NOTE | 2023-03-13 12:57 | P.PN_ITS ---
Pt seen and examined this am No new complaints Agree with documentation from REEL REPAIRER Added Dx - Acute blood loss anemia as expected with surgery. Cont to monitor daily] Hypocalcemia - not sig enough for IV calcium COnsiderations for TPN based on longevity of NPO status Progress Note: Subjective Subjective Interval history: Date/time of exam: 03/13/23904 The patient is currently resting in a bedside chair with NG tube remaining in place to LIS. She reports that her pain is adequately controlled with her current pain regimen. She denies chest pain, shortness of breath, N/V/D, or any other acute complaint. She has not noted any passing of flatus postoperatively. We defer NG tube management and diet advancement to the surgical service. Exam Constitutional Vital Signs, click to edit/add: Last Vital Signs Temp 98.4 F 03/13/23 05:55 Pulse 89 03/13/23 05:55 Resp 18 03/13/23 05:55 BP 109/64 03/13/23 05:55 Pulse Ox 97 03/13/23 11:22 O2 Del Method Room Air 03/13/23 11:22 Common normals: no apparent distress, oriented x3, alert and well nourished Orientation/consciousness: Yes awake HENMT Common normals: normocephalic, head/scalp atraumatic, hearing grossly normal bilaterally, external ears normal, external nose normal and moist oral mucous membranes Head and scalp: normocephalic and atraumatic Face and sinus: normal facial exam Nose: external nose normal External ear: external ears normal Eye Common normals: PERRL, EOMs intact bilaterally, conjunctivae normal and no scleral icterus General eye: normal appearance of both eyes Alignment: alignment normal Eyelid: eyelids normal Conjunctiva: conjunctiva(e) normal Pupil: PERRL Respiratory Common normals: normal respiratory effort, no retractions, no use of accessory muscles and clear to auscultation bilaterally Effort & inspection: able to speak in complete sentences Auscultation: clear to auscultation bilaterally Cardio Common normals: no JVD, regular rate, regular rhythm, S1 normal heart sound, S2 normal heart sound, no gallops, no clicks, no murmurs, no rub and peripheral pulses 2+ throughout Rate: regular rate Rhythm: regular rhythm Heart sounds: S1 normal and S2 normal Peripheral pulses: pulses 2+ throughout GI Common normals: soft to palpation, no hepatosplenomegaly, no masses and no bruits Auscultation: hypoactive bowel sounds Palpation: soft, tender (BLQ, greatest to sonny-umbilical to LLQ) and no hepatosplenomegaly; no guarding and not rigid Bladder/kidney exam: bladder normal to palpation Extremity Common normals: normal capillary refill and no pedal edema General: normal exam except as noted; no clubbing and no cyanosis Neuro [place] Coma Scale: GCS not evaluated Common normals: oriented x3, CN's II-XII intact bilaterally, moves all extremities, no focal motor deficits and no sensory deficits noted Sensorium/orientation: awake and alert Speech: speech normal Motor exam: strength 5/5 throughout Psych Common normals: mental status grossly normal, thought process normal, affect normal and activity/motor behavior normal Thought process: normal thought process Progress Note: Objective Labs Labs: Short CBC 03/13/23 Range/Units 04:43 WBC 10.8 (4.0-11.0) 10^3/uL Hgb 10.9 L (12.0-16.0) g/dL Hct 32.8 L (36.0-48.0) % Plt Count 202 (150-450) 10^3/uL BMP 03/13/23 04:43 Sodium 139 Potassium 3.5 Chloride 102 Carbon Dioxide 26.6 BUN 19.0 H Creatinine 0.84 Glucose 99 Calcium 7.6 L Progress Note: A&P Assessment and Plan (1) Small bowel obstruction: Assessment and Plan: ACUTE * No acute complaints overnight, recovering well * c/s Dr Rae, general surgeon * s/p SB resection and lysis of adhesions per Dr Rae on 03/12/23 * All post op orders including NGT management, diet, pain management, IVF hydration, deferred to the surgical service * NGT to LIS maintained post-operatively - Nursing OK to give PO pain meds and clamp NGT for 45 min post medical office rep per Dr Rae * Continue Flagyl for improved anaerobic coverage after extensive intra- abdominal procedure. Continue Ancef as ordered by Dr Rae * Encourage frequent ambulation to help induce bowel motility * CBC, BMP daily (2) Urinary tract infection: Assessment and Plan: ACUTE * Equivocal finding on ED labs. Bacteria present but pt asymptomatic * Rocephin given in ED, pt now on cefazolin & Flagyl * Consider adding broader gram neg coverage pending clinical course and urine CX results - pending. * Consider PO Bactrim (3) Acute hypokalemia: Assessment and Plan: ACUTE * Resolved * Repeat BMP in AM (4) Hyperlipidemia: Assessment and Plan: CHRONIC * Hold home ezetimibe for now, plan to resume at discharge
--- NOTE | 2023-03-13 13:27 | PM.GSPN ---
Progress Note: A&P Assessment and Plan (1) Small bowel obstruction: (2) Urinary tract infection: (3) Acute hypokalemia: (4) Hyperlipidemia: Plan continue postop care; nasogastric tube to low intermittent suction; add Protonix for gastrointestinal protection until passing flatus Once passing flatus and advanced to clear liquids and clamp NG tube. Subjective Subjective Patient reports: no new complaints, feels better, pain is less, voiding w/o difficulty, no flatus and no bowel movement Interval history: postop day #1 exploratory laparoscopy for small bowel obstruction with findings of adhesions status post small bowel resection with primary anastomosis Not passing flatus yet but pain is better. Patient is ambulating. Nasogastric tube with twelve hundred over the last twentty-four hours brownish drainage will add Protonix. Exam Constitutional Vital Signs, click to edit/add: Last Vital Signs Temp 98.4 F 03/13/23 05:55 Pulse 89 03/13/23 05:55 Resp 18 03/13/23 05:55 BP 109/64 03/13/23 05:55 Pulse Ox 97 03/13/23 11:22 O2 Del Method Room Air 03/13/23 11:22 Documenting provider has reviewed patient's vital signs: yes Common normals: no apparent distress and oriented x3 GI Common normals: soft to palpation Auscultation: hypoactive bowel sounds Other: abdominal incision clean dry and intact Urinary Catheter Management Urinary Catheter Management Urethral: Cath placed during this visit: yes Urethral indwelling: No Insertion date: 03/12/23
[2023-03-13 13:46] LABS: Glucometer 76 mg/dL (74-106)
[2023-03-13] MEDS: DEXTROSE 5 %-0.45 % SOD CHLORD 1,000 ML 125 ML IV (14:32)
[2023-03-13] MEDS: PANTOPRAZOLE SODIUM 40 MG VIAL IV (15:09)
[2023-03-13 18:02] LABS: Glucometer 96 mg/dL (74-106)
[2023-03-14 00:40] LABS: Glucometer 80 mg/dL (74-106)
[2023-03-14] MEDS: KETOROLAC TROMETHAMINE 30 MG/ML VIAL 15 MG IVP (02:57)
[2023-03-14] MEDS: DEXTROSE 5 %-0.45 % SOD CHLORD 1,000 ML 125 ML IV (02:58)
[2023-03-14] MEDS: CEFAZOLIN SODIUM/DEXTROSE,ISO 2 GM/50 ML PIGGYBACK IV ×3 (03:02→20:53)
[2023-03-14 04:58] VITALS: BP 115/65; PULSE 83; RESP 18; TEMP 37.1; O2SAT 94
[2023-03-14 05:08] LABS: Hematocrit 28.5 % (36.0-48.0); Hemoglobin 9.5 g/dL (12.0-16.0); Mean Corpuscular HGB Conc 33.3 g/dL (29.9-35.2); Mean Corpuscular Hemoglobin 29.9 pg (26.7-34.0); Mean Corpuscular Volume 89.6 fL (81.0-99.0); Mean Platelet Volume 10.1 fL (9.5-13.5); Platelet Count 180 10^3/uL (150-450); Red Blood Count 3.18 10^6/uL (4.20-5.40)
[2023-03-14 05:31] LABS: Anion Gap 7.7; BUN Creatinine Ratio 16.9; Calcium 7.5 mg/dL (8.5-10.1); Carbon Dioxide 27.3 mmol/L (21.0-32.0); Chloride 103 mmol/L (98-107); Estimated GFR (African America >60 (>=60); Estimated GFR (Non-African Ame >60 (>=60); Glucose 118 mg/dL (74-106); Sodium 135 mmol/L (136-145)
[2023-03-14 08:00] VITALS: RESP 18
[2023-03-14 08:40] LABS: Red Cell Distribution Width 13.2 % (11.0-15.0)
--- NOTE | 2023-03-14 09:09 | CM.NOTE ---
Rounds made with Dr. Randall, no discharge today. Pt continues with NG, will see recommendations from Dr. Rae.
--- NOTE | 2023-03-14 09:13 | PM.GSPN ---
Progress Note: A&P Assessment and Plan (1) Small bowel obstruction: (2) Urinary tract infection: (3) Acute hypokalemia: (4) Hyperlipidemia: Plan postop day #2 lysis of adhesions and small bowel resection for SBO Urinary tract infection with Escherichia coli currently on Ancef and Flagyl We'll start clear liquids and clamp NG tube and release when necessary and replace potassium due to hypokalemia potassium was three this morning. Continue ambulation and postop care. Subjective Subjective Patient reports: no new complaints, feels better, pain is less, flatus and bowel movement Interval history: postoperative day #2 small bowel resection for SBO and lysis of adhesions; passing flatus and had small bowel movement. Exam Constitutional Vital Signs, click to edit/add: Last Vital Signs Temp 98.7 F 03/14/23 04:58 Pulse 83 03/14/23 04:58 Resp 18 03/14/23 08:00 BP 115/65 03/14/23 04:58 Pulse Ox 94 L 03/14/23 04:58 O2 Del Method Room Air 03/14/23 04:58 GI Inspection: normal to inspection Auscultation: absent bowel sounds Urinary Catheter Management Urinary Catheter Management Urethral: Cath placed during this visit: yes Urethral indwelling: No Insertion date: 03/12/23
[2023-03-14 09:35] LABS: Band Neutrophils Absolute 0.2 10^3/uL (0.0-0.3); Lymphocytes Absolute Manual 0.96 10^3/uL (1.20-3.80); Monocytes Absolute Manual 0.32 10^3/uL (0.30-0.80); Segmented Neut Absolute Manual 6.56 10^3/uL (1.4-6.5)
[2023-03-14] MEDS: POTASSIUM CHLORIDE IN 0.9%NACL 1,000 ML 100 MEQ IV ×2 (10:11→20:52)
[2023-03-14] MEDS: ENOXAPARIN SODIUM 40 MG/0.4 ML SYRINGE SUBQ (10:12)
[2023-03-14] MEDS: METRONIDAZOLE/SODIUM CHLORIDE 500 MG/100 ML PREMIX 100 MG IV ×3 (10:12→23:16)
[2023-03-14] MEDS: POTASSIUM CHLORIDE 10 MEQ ER TABLET 40 MEQ PO ×2 (10:12→20:53)
[2023-03-14] MEDS: CELECOXIB 200 MG CAPSULE PO (10:13)
[2023-03-14 11:23] VITALS: O2SAT 94
[2023-03-14 14:00] VITALS: BP 119/75; PULSE 80; RESP 16; TEMP 36.6; O2SAT 95
[2023-03-14 14:22] LABS: Glucometer 126 mg/dL (74-106)
--- NOTE | 2023-03-14 14:34 | P.PN_ITS ---
Pt seen and examined at 0740 on 03/14/2023 Documentation reviewed - agree with examination as documented added dx Hypertension - improved from initial admission Hyponatreemia - likely secondary to fluid loses for NG - that will be clamped today Acute blood loss secdonary to surgery and some GI losses in NG - on IV protonix Hypoicalcemia - not critical to supplement IV - will supplement when ng removed Progress Note: Subjective Subjective Interval history: Date/time of exam: 03/14/23 1450 The patient is sitting up in a bedside chair. Her NG tube has been clamped per surgery recommendations. She is tolerating this well and has been advanced to a clear liquid diet. The patient reports that she feels much better today. She continues to have postoperative pain in her abdomen but it is improving. She confirms passing flatus and starting loose BMs overnight. We defer further ma nagement of the patient's NG tube and diet to the surgical service. Exam Constitutional Vital Signs, click to edit/add: Last Vital Signs Temp 98.7 F 03/14/23 04:58 Pulse 83 03/14/23 04:58 Resp 18 03/14/23 08:00 BP 115/65 03/14/23 04:58 Pulse Ox 94 L 03/14/23 11:23 O2 Del Method Room Air 03/14/23 11:23 Common normals: no apparent distress, oriented x3, alert and well nourished Orientation/consciousness: Yes awake HENTX Common normals: normocephalic, head/scalp atraumatic, hearing grossly normal bilaterally, external ears normal, external nose normal and moist oral mucous membranes Head and scalp: normocephalic and atraumatic Face and sinus: normal facial exam Nose: external nose normal External ear: external ears normal Eye Common normals: PERRL, EOMs intact bilaterally, conjunctivae normal and no scleral icterus General eye: normal appearance of both eyes Alignment: alignment normal Eyelid: eyelids normal Conjunctiva: conjunctiva(e) normal Pupil: PERRL Chest Common normals: inspection of chest normal Chest: symmetrical chest wall rise Respiratory Common normals: normal respiratory effort, no retractions, no use of accessory muscles and clear to auscultation bilaterally Effort & inspection: able to speak in complete sentences Auscultation: clear to auscultation bilaterally Cardio Common normals: no JVD, regular rate, regular rhythm, S1 normal heart sound, S2 normal heart sound, no gallops, no clicks, no murmurs, no rub and peripheral pulses 2+ throughout Rate: regular rate Rhythm: regular rhythm Heart sounds: S1 normal and S2 normal Peripheral pulses: pulses 2+ throughout GI Common normals: soft to palpation, no hepatosplenomegaly, no masses and no bruits Auscultation: hypoactive bowel sounds Palpation: soft, tender (BLQ, greatest to sonny-umbilical to LLQ) and no hepatosplenomegaly; no guarding and not rigid Bladder/kidney exam: bladder normal to palpation Extremity Common normals: normal capillary refill and no pedal edema General: no clubbing and no cyanosis Neuro [place] Coma Scale: GCS not evaluated Common normals: oriented x3, CN's II-XII intact bilaterally, moves all extremities, no focal motor deficits and no sensory deficits noted Sensorium/orientation: awake and alert Speech: speech normal Motor exam: strength 5/5 throughout Psych Common normals: mental status grossly normal, thought process normal, affect normal and activity/motor behavior normal Thought process: normal thought process Progress Note: Objective Labs Labs: Short CBC 03/14/23 Range/Units 04:44 WBC 8.0 (4.0-11.0) 10^3/uL Hgb 9.5 L (12.0-16.0) g/dL Hct 28.5 L (36.0-48.0) % Plt Count 180 (150-450) 10^3/uL BMP 03/14/23 04:44 Sodium 135 L Potassium 3.0 L Chloride 103 Carbon Dioxide 27.3 BUN 14.0 Creatinine 0.83 Glucose 118 H Calcium 7.5 L Progress Note: A&P Assessment and Plan (1) Small bowel obstruction: Assessment and Plan: ACUTE * No acute complaints overnight, recovering well * Positive flatus and BM overnight * c/s Dr Rae, general surgeon * s/p SB resection and lysis of adhesions per Dr Rae on 03/12/23 * All post op orders including NGT management, diet, pain management, IVF hydration, deferred to the surgical service * NGT clamped today * Tolerating clear liquids well * Continue Flagyl for improved anaerobic coverage after extensive intra- abdominal procedure. Continue Ancef as ordered by Dr Rae * Encourage frequent ambulation to help induce bowel motility * CBC, BMP daily (2) Urinary tract infection: Assessment and Plan: ACUTE * Urine Cx growing e-coli sensitive to cefazolin - continue. Day 3/ (3) Acute hypokalemia: Assessment and Plan: ACUTE * Recurrent today - K+ 3.0 * KCL supplementation ordered by surgical service today * Repeat BMP in AM (4) Hyperlipidemia: Assessment and Plan: CHRONIC * Hold home ezetimibe for now, plan to resume at discharge
[2023-03-14] MEDS: PANTOPRAZOLE SODIUM 40 MG VIAL IV (15:50)
[2023-03-14 19:47] VITALS: BP 140/78; PULSE 78; RESP 16; TEMP 36.7; O2SAT 95
[2023-03-14 20:32] LABS: Glucometer 102 mg/dL (74-106)
[2023-03-14 20:43] VITALS: RESP 16
[2023-03-14] MEDS: OXYCODONE HCL/ACETAMINOPHEN 5MG/325MG 1 TAB PO (22:58)
[2023-03-15] MEDS: CEFAZOLIN SODIUM/DEXTROSE,ISO 2 GM/50 ML PIGGYBACK IV ×3 (03:27→19:52)
[2023-03-15] MEDS: OXYCODONE HCL/ACETAMINOPHEN 5MG/325MG 1 TAB PO (04:52)
[2023-03-15] MEDS: ONDANSETRON PF 4 MG/2 ML VIAL IV (04:52)
[2023-03-15 05:07] VITALS: BP 132/82; PULSE 67; RESP 18; TEMP 36.8; O2SAT 96
[2023-03-15 05:30] LABS: Basophils Percent Auto 0.6 % (0.2-2.0); Eosinophils Absolute Auto 0.2 10^3/uL (0.0-0.7); Eosinophils Percent Auto 2.9 % (0.9-7.0); Hematocrit 27.2 % (36.0-48.0); Hemoglobin 8.8 g/dL (12.0-16.0); Immature Granulocytes Abs Auto 0.02 10^3/uL (0.00-0.03); Immature Granulocytes Pct Auto 0.4 % (0.0-0.5); Lymphocytes Percent Auto 18.8 % (20.5-60.0); Mean Corpuscular HGB Conc 32.4 g/dL (29.9-35.2); Mean Corpuscular Hemoglobin 29.7 pg (26.7-34.0); Mean Corpuscular Volume 91.9 fL (81.0-99.0); Mean Platelet Volume 10.7 fL (9.5-13.5); Monocytes Absolute Auto 0.4 10^3/uL (0.3-0.8); Monocytes Percent Auto 7.5 % (1.7-12.0); Neutrophils Absolute Auto 3.6 10^3/uL (1.4-6.5); Neutrophils Percent Auto 69.8 % (43.0-75.0); Platelet Count 189 10^3/uL (150-450); Red Blood Count 2.96 10^6/uL (4.20-5.40); Red Cell Distribution Width 13.7 % (11.0-15.0); White Blood Count 5.2 10^3/uL (4.0-11.0)
[2023-03-15 05:38] LABS: Anion Gap 10.7; BUN Creatinine Ratio 9.2; Calcium 7.6 mg/dL (8.5-10.1); Carbon Dioxide 22.7 mmol/L (21.0-32.0); Chloride 108 mmol/L (98-107); Estimated GFR (African America >60 (>=60); Estimated GFR (Non-African Ame >60 (>=60); Glucose 101 mg/dL (74-106); Potassium 4.4 mmol/L (3.5-5.1); Sodium 137 mmol/L (136-145)
--- NOTE | 2023-03-15 07:06 | PC.NURSE ---
Dr. Rae removed abd. dressing while rounding on patient. Financial Processing Clerk replaced dressing to abd.
--- NOTE | 2023-03-15 07:11 | PM.GSPN ---
Progress Note: A&P Assessment and Plan (1) Small bowel obstruction: (2) Urinary tract infection: (3) Acute hypokalemia: (4) Hyperlipidemia: Plan discontinue nasogastric tube; advance diet as tolerated; Hep-Lock IV site Subjective Subjective Patient reports: no new complaints, feels better, pain is less, flatus and bowel movement Interval history: postop day #3 small bowel resection with NERISSA for SBO; having stools liquid and passing flatus and tolerating clear liquids although had to be medicated for nausea earlier this morning. Pain is getting better. Serum potassium up to four Exam Constitutional Vital Signs, click to edit/add: Last Vital Signs Temp 98.3 F 03/15/23 05:07 Pulse 67 03/15/23 05:07 Resp 18 03/15/23 05:07 BP 132/82 03/15/23 05:07 Pulse Ox 96 03/15/23 05:07 O2 Del Method Room Air 03/15/23 05:07 Documenting provider has reviewed patient's vital signs: yes Common normals: no apparent distress and oriented x3 GI Common normals: Normal to inspection, nondistended, normoactive bowel sounds present (incision clean dry and intact) Urinary Catheter Management Urinary Catheter Management Urethral: Cath placed during this visit: yes Urethral indwelling: No Insertion date: 03/12/23
[2023-03-15] MEDS: ENOXAPARIN SODIUM 40 MG/0.4 ML SYRINGE SUBQ (08:47)
[2023-03-15] MEDS: POTASSIUM CHLORIDE 10 MEQ ER TABLET 40 MEQ PO ×2 (08:48→19:52)
[2023-03-15] MEDS: CELECOXIB 200 MG CAPSULE PO (08:48)
[2023-03-15] MEDS: METRONIDAZOLE/SODIUM CHLORIDE 500 MG/100 ML PREMIX 100 MG IV ×3 (08:48→23:08)
--- NOTE | 2023-03-15 12:09 | P.PN_ITS ---
Progress Note: Subjective Subjective Interval history: Date/time of exam: 03/14/23 1450 The patient is sitting up in a bedside chair. Her NG tube has been clamped per surgery recommendations. She is tolerating this well and has been advanced to a clear liquid diet. The patient reports that she feels much better today. She continues to have postoperative pain in her abdomen but it is improving. She confirms passing flatus and starting loose BMs overnight. We defer further management of the patient's NG tube and diet to the surgical service. Exam Constitutional Vital Signs, click to edit/add: Last Vital Signs Temp 98.3 F 03/15/23 05:07 Pulse 67 03/15/23 05:07 Resp 18 03/15/23 05:07 BP 132/82 03/15/23 05:07 Pulse Ox 96 03/15/23 05:07 O2 Del Method Room Air 03/15/23 05:07 Progress Note: Objective Labs Labs: Short CBC 03/15/23 Range/Units 04:58 WBC 5.2 (4.0-11.0) 10^3/uL Hgb 8.8 L (12.0-16.0) g/dL Hct 27.2 L (36.0-48.0) % Plt Count 189 (150-450) 10^3/uL BMP 03/15/23 04:58 Sodium 137 Potassium 4.4 Chloride 108 H Carbon Dioxide 22.7 BUN 7.0 Creatinine 0.76 Glucose 101 Calcium 7.6 L Progress Note: A&P Assessment and Plan (1) Small bowel obstruction: (2) Urinary tract infection: (3) Acute hypokalemia: (4) Hyperlipidemia: Plan (1) Small bowel obstruction: Plan per Dr. Lynne's, NG tube has been removed this morning. Diet is being advanced. (2) Urinary tract infection:-Secondary to E. coli, continue current antibiotics (3) Acute hypokalemia: -Supplemented and is improved, continue to monitor Hypertension - improved from initial admission-continue to monitor Hyponatremia - likely secondary to fluid loses for NG -improved today Acute blood loss secondary to surgery and some GI losses in NG --down somewhat today but not significantly. Continue to monitor Hypocalcemia - not critical to supplement IV -supplement today.
[2023-03-15] MEDS: PANTOPRAZOLE SODIUM 40 MG VIAL IV (13:31)
[2023-03-15] MEDS: CALCIUM CARBONATE 500 MG (200MG ELEMENTAL) TAB CHEW PO ×3 (13:31→19:52)
[2023-03-15 14:00] VITALS: BP 142/85; PULSE 71; RESP 18; TEMP 36.8; O2SAT 98
[2023-03-15 19:25] VITALS: RESP 18
[2023-03-15 19:49] VITALS: BP 119/71; PULSE 74; RESP 16; TEMP 36.9; O2SAT 96
[2023-03-15 20:03] LABS: Glucometer 132 mg/dL (74-106)
[2023-03-16] MEDS: CEFAZOLIN SODIUM/DEXTROSE,ISO 2 GM/50 ML PIGGYBACK IV (03:06)
[2023-03-16 04:17] VITALS: BP 139/71; PULSE 65; RESP 18; TEMP 36.8; O2SAT 97
[2023-03-16 09:07] LABS: Basophils Percent Auto 0.7 % (0.2-2.0); Eosinophils Absolute Auto 0.1 10^3/uL (0.0-0.7); Eosinophils Percent Auto 2.3 % (0.9-7.0); Hematocrit 32.3 % (36.0-48.0); Hemoglobin 10.8 g/dL (12.0-16.0); Immature Granulocytes Abs Auto 0.05 10^3/uL (0.00-0.03); Immature Granulocytes Pct Auto 0.9 % (0.0-0.5); Lymphocytes Absolute Auto 0.9 10^3/uL (1.2-3.8); Lymphocytes Percent Auto 16.1 % (20.5-60.0); Mean Corpuscular HGB Conc 33.4 g/dL (29.9-35.2); Mean Corpuscular Hemoglobin 29.8 pg (26.7-34.0); Mean Corpuscular Volume 89.2 fL (81.0-99.0); Mean Platelet Volume 10.7 fL (9.5-13.5); Monocytes Absolute Auto 0.4 10^3/uL (0.3-0.8); Monocytes Percent Auto 6.5 % (1.7-12.0); Neutrophils Absolute Auto 4.1 10^3/uL (1.4-6.5); Neutrophils Percent Auto 73.5 % (43.0-75.0); Platelet Count 219 10^3/uL (150-450); Red Blood Count 3.62 10^6/uL (4.20-5.40); Red Cell Distribution Width 13.4 % (11.0-15.0); White Blood Count 5.5 10^3/uL (4.0-11.0)
[2023-03-16] MEDS: CALCIUM CARBONATE 500 MG (200MG ELEMENTAL) TAB CHEW PO ×2 (09:14→11:13)
[2023-03-16] MEDS: METRONIDAZOLE/SODIUM CHLORIDE 500 MG/100 ML PREMIX 100 MG IV (09:14)
[2023-03-16] MEDS: CELECOXIB 200 MG CAPSULE PO (09:15)
[2023-03-16] MEDS: ENOXAPARIN SODIUM 40 MG/0.4 ML SYRINGE SUBQ (09:15)
[2023-03-16 09:24] LABS: Alanine Aminotransferase 14 U/L (14-59); Albumin Globulin Ratio 0.8; Albumin Level 2.9 g/dL (3.4-5.0); Alkaline Phosphatase 64 U/L (46-116); Anion Gap 13.1; Aspartate Amino Transferase 26 U/L (15-37); BUN Creatinine Ratio 12.9; Bilirubin Total 0.5 mg/dL (0.2-1.0); Calcium 8.2 mg/dL (8.5-10.1); Carbon Dioxide 21.9 mmol/L (21.0-32.0); Chloride 104 mmol/L (98-107); Estimated GFR (African America >60 (>=60); Estimated GFR (Non-African Ame >60 (>=60); Globulin 3.6 g/dL; Glucose 115 mg/dL (74-106); Sodium 135 mmol/L (136-145); Total Protein 6.5 g/dL (6.4-8.2)
--- NOTE | 2023-03-16 09:25 | PM.GSPN ---
Progress Note: A&P Assessment and Plan (1) Small bowel obstruction: (2) Urinary tract infection: (3) Acute hypokalemia: (4) Hyperlipidemia: Plan discharge home on Tylenol when necessary pain and routine postsurgical instructions no lifting greater than 5 pounds no pushing or pulling no driving until follow-up with me in ten days for staple removal. Patient has been on for days of antibiotics for Escherichia coli for urinary tract infection and will be up to the hospitalist whether she is to continue at about oxygen outpatient. Subjective Subjective Patient reports: no new complaints, feels better, pain is less, tolerating a regular diet, flatus and bowel movement Interval history: postop day #4 small bowel resection with lysis of adhesions for SBO Doing much better. Tolerating regular diet and passing flatus and liquid stools. Exam Constitutional Vital Signs, click to edit/add: Last Vital Signs Temp 98.2 F 03/16/23 04:17 Pulse 65 03/16/23 04:17 Resp 18 03/16/23 04:17 BP 139/71 03/16/23 04:17 Pulse Ox 97 03/16/23 04:17 O2 Del Method Room Air 03/16/23 04:17 GI Common normals: Normal to inspection, nondistended, normoactive bowel sounds present and soft to palpation (iincision clean dry and intact) Urinary Catheter Management Urinary Catheter Management Urethral: Cath placed during this visit: yes Urethral indwelling: No Insertion date: 03/12/23
--- NOTE | 2023-03-16 10:47 | P.DS_ITS ---
DS: Providers Provider Date of admission: 03/12/23 15:37 Primary care physician: Deidre Valdivia DS: Diagnosis Discharge Diagnosis (1) Small bowel obstruction: (2) Urinary tract infection: (3) Acute hypokalemia: (4) Hyperlipidemia: Plan Small bowel obstruction Urinary tract infection Acute hypokalemia Hypertension Hyponatremia Acute blood loss secondary to surgery and some GI losses in NG Hypocalcemia DS: Summary Hospital Course Hospital Course: Patient presented to the emergency with increasing abdominal pain, severe nausea vomiting. In ER found to have small bowel obstruction. Patient was placed NPO. NG tube was placed. Repeat CT scan showed no improvement. 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 Small bowel resection with anastomosis completed. Patient also had positive UA. Treated with IV antibiotics at the hospital stay. He did have some blood loss likely secondary to dilution as well as possible acute blood loss related to surgery. Hemoglobin stable and improving. She tolerated diet last 2 days. NG tube been out 2 days. At this point with patient overall improved. She be discharged home in improving condition. Medications see list. Follow-up with PCP within the next week. Follow-up with surgery per protocol. Time Spent with Patient Time attestation: Total time spent providing and/or coordinating discharge services: Exam Constitutional Vital Signs, click to edit/add: Last Vital Signs Temp 98.2 F 03/16/23 04:17 Pulse 65 03/16/23 04:17 Resp 18 03/16/23 04:17 BP 139/71 03/16/23 04:17 Pulse Ox 97 03/16/23 04:17 O2 Del Method Room Air 03/16/23 04:17 Documenting provider has reviewed patient's vital signs: yes Common normals: no apparent distress [facility] Common normals: moist oral mucous membranes Chest Common normals: inspection of chest normal Respiratory Common normals: normal respiratory effort, no retractions and clear to auscultation bilaterally Cardio Common normals: regular rate and no murmurs GI Other: Deferred examination to surgery DS: Data Data Completed and Pending Labs on day of discharge: Labs from last 24 hours 03/16/23 03/15/23 09:04 20:02 WBC 5.5 RBC 3.62 L Hgb 10.8 L Hct 32.3 L MCV 89.2 MCH 29.8 MCHC 33.4 RDW 13.4 Plt Count 219 MPV 10.7 Neut % (Auto) 73.5 Lymph % (Auto) 16.1 L Fountain % (Auto) 6.5 Eos % (Auto) 2.3 Baso % (Auto) 0.7 Neut # (Auto) 4.1 Lymph # (Auto) 0.9 L [place] # (Auto) 0.4 Eos # (Auto) 0.1 Baso # (Auto) 0.0 Abs Immat Gran (auto) 0.05 H Imm/Tot Granulo (auto) 0.9 H Sodium 135 L Potassium 4.0 Chloride 104 Carbon Dioxide 21.9 Anion Gap 13.1 BUN 9.0 Creatinine 0.70 Est GFR ( Amer) >60 Est GFR (Non-Af Amer) >60 BUN/Creatinine Ratio 12.9 Glucose 115 H Calcium 8.2 L Total Bilirubin 0.5 AST 26 ALT 14 Alkaline Phosphatase 64 Total Protein 6.5 Albumin 2.9 L Globulin 3.6 Albumin/Globulin Ratio 0.8 POC Glucose 132 H Discharge Plan Discharge Disposition: Home, Self-Care Condition: Good Discharge Medications: New calcium carbonate 200 mg calcium (500 mg) Tablet,Chewable 500 mg PO ACHS Qty: 100 11RF cefdinir 300 mg capsule 600 mg PO DAILY 5 Days Qty: 10 0RF Continued ezetimibe 10 mg tablet 10 mg PO DAILY omeprazole 20 mg capsule,delayed release(DR/EC) 20 mg PO BID Activity: resume usual activities as tolerated Activity Detail: No lifting more than 5 pounds. No straining. Hold pillow to abdomen if coughing/sneezing. Diet: regular diet Diet Detail: Eat as tolerated, don't over eat. Ease into your regular diet Patient Instructions: Omeprazole (By mouth), Cefdinir (By mouth), Calcium Supplement (By mouth) (Antacid, Dmitry-Citrate, Calcarb 600,..., Abdominal Pain (DC), Bowel Resection (DC) Forms: Portal Instructions Follow Up Appointments: Call Dr. Rae' office on Friday to schedule a follow up for 10 days (03/26/23), and Dr. Rae wants to personally see you not the [employer]. [phone] Schedule Follow up with Deidre Hernandez NP for 1-2 weeks after discharge. Discharge Date/Time: 03/16/23 11:55
--- NOTE | 2023-03-17 14:14 | CM.DCFOLLOWU ---
Person spoke with: patient How are you feeling? pain is better, sometimes when coughing How is your pain? alright Did you understand your discharge instructions? yes Do you have any questions about your discharge instructions? no Were you given any prescriptions at discharge? yes Were you able to get your prescriptions filled? yes Do you understand how to take your medications as ordered? yes Do you have any questions about your follow up appointment and do you plan to keep your follow up appointment? no questions, follow up 03/26/23, will schedule follow up with PCP Is there anything else that you would like to discuss? she did did ask about some drainage and incision area being swollen. Advised her to call Dr. Rae's office with concerns Questions/Comments/Concerns/Other:
== END 2023-03-16 11:55 | disposition home or self-care (01) | DRG 330 ==
LOC: ER 19:44 → MS 21:57
PROVIDERS: Internal Medicine; Physician Assistant; Surgery; Admitting Provider Family Medicine; Emergency Provider Emergency Medicine; PCP Nurse Practitioner; Visit Provider Nurse Practitioner
PROC: 0DB80ZZ Excision of Small Intestine, Open Approach (ICD-10-PCS; principal; 2023-03-12 07:00)
DX: K56.52 Intestinal adhesions [bands] with complete obstruction (principal); D62 Acute posthemorrhagic anemia; K92.2 Gastrointestinal hemorrhage, unspecified; N39.0 Urinary tract infection, site not specified; E87.1 Hypo-osmolality and hyponatremia; Z16.23 Resistance to quinolones and fluoroquinolones; B96.20 Unspecified Escherichia coli [E. coli] as the cause of diseases classified elsewhere; E87.6 Hypokalemia; E83.51 Hypocalcemia; R73.9 Hyperglycemia, unspecified; E78.5 Hyperlipidemia, unspecified; I10 Essential (primary) hypertension; D72.829 Elevated white blood cell count, unspecified; Z79.899 Other long term (current) drug therapy; Z20.822 Contact with and (suspected) exposure to COVID-19; Z90.49 Acquired absence of other specified parts of digestive tract; Z90.710 Acquired absence of both cervix and uterus; Z83.3 Family history of diabetes mellitus; Z82.5 Family history of asthma and other chronic lower respiratory diseases; Z82.49 Family history of ischemic heart disease and other diseases of the circulatory system; Z80.9 Family history of malignant neoplasm, unspecified
CPT/HCPCS: 36415; 74018; 74022; 74176; 74177; 80048; 80053; 81001; 82948; 83036; 83605; 83690; 83735; 85025; 85027; 87086; 87150; 87186; 87635; 87804; 87811; 88307; 94667; 94668; 96361; 96365; 96366; 96367; 96368; 96372; 96375; 96376; 99285; G0378; J1170; J2704; Q3014; Q9963; Q9967

== ENCOUNTER 2023-06-10 22:57 | Outpatient (REF) | payer OTHER, SELFPAY ==
--- OUTSIDE RECORDS SUMMARY | 2023-06-10 23:00 | XMS_ITS | CCD ---
Author Name Unknown Address [address] [place] [address] Organization [facility] Care Team Providers Care Load Tester Name Role Phone 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 Unavailable AICHHOLZ, YOGA TEACHER SRIKANTH Admitting Unavailable AICHHOLZ, YOGA TEACHER SRIKANTH Attending Unavailable AICHHOLZ, YOGA TEACHER SRIKANTH Primary Care Unavailable DR ANTWAN KNIGHT V Consulting Unavailable AICHHOLZ, YOGA TEACHER SRIKANTH Consulting Unavailable DR JESU CARO Admitting Unavailable DR JESU CARO Attending Unavailable AICHHOLZ, YOGA TEACHER SRIKANTH Primary Care Unavailable DR JESU CARO Consulting Unavailable AICHHOLZ, YOGA TEACHER SRIKANTH Admitting Unavailable AICHHOLZ, YOGA TEACHER SRIKANTH Attending Unavailable AICHHOLZ, YOGA TEACHER SRIKANTH Primary Care Unavailable AICHHOLZ, YOGA TEACHER SRIKANTH Consulting Unavailable ANTWAN LAY Consulting Unavailable AICHHOLZ, YOGA TEACHER SRIKANTH Admitting Unavailable AICHHOLZ, YOGA TEACHER SRIKANTH Attending Unavailable AICHHOLZ, YOGA TEACHER SRIKANTH Primary Care Unavailable AICHHOLZ, YOGA TEACHER SRIKANTH Consulting Unavailable AICHHOLZ, YOGA TEACHER SRIKANTH Admitting Unavailable AICHHOLZ, YOGA TEACHER SRIKANTH Attending Unavailable AICHHOLZ, YOGA TEACHER SRIKANTH Primary Care Unavailable AICHHOLZ, YOGA TEACHER SRIKANTH Consulting Unavailable AICHHOLZ, YOGA TEACHER SRIKANTH Admitting Unavailable AICHHOLZ, YOGA TEACHER SRIKANTH Attending Unavailable AICHHOLZ, YOGA TEACHER SRIKANTH Primary Care Unavailable AICHHOLZ, YOGA TEACHER SRIKANTH Consulting Unavailable AICHHOLZ, YOGA TEACHER SRIKANTH Admitting Unavailable AICHHOLZ, YOGA TEACHER SRIKANTH Attending Unavailable AICHHOLZ, YOGA TEACHER SRIKANTH Primary Care Unavailable AICHHOLZ, YOGA TEACHER SRIKANTH Consulting Unavailable 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 Attending Unavailable 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 Admitting Unavailable NO FAMILY, PHYSICIAN Primary Care Unavailable Medications Current Medications Medication Drug Class(es) Dates Sig (Normalized) Sig (Original) nitrofurantoin, macrocrystals 25 mg / nitrofurantoin, monohydrate 75 mg oral capsule (6 sources) Nitrofuran Antibacterial Start: 03-15-2022 take 1 capsule by mouth every twelve hours Macrobid 100 MG 1 cap(s) Orally bid for 5 day(s) Apr, Active phenazopyridine hydrochloride 200 mg oral tablet (2 sources) Start: 04-25-2023 take 1 tablet by mouth every eight hours Pyridium 200 MG 1 tablet after meals Orally Three times a day for 2 day(s) Apr, Active Completed/Discontinued Medications Medication Drug Class(es) Dates Sig (Normalized) Sig (Original) Omeprazole (4 sources) Proton Pump Inhibitor Omeprazole Not-Taking/PRN Omeprazole Activ e Simvastatin (4 sources) HMG-CoA Reductase Inhibitor Simv astatin Not-Taking/PRN Simvastatin Acti ve Problems Active Problems Problem Classification Problem Date Documented Date Episodic/Chronic Disorders of lipid metabolism (4 sources) Hyperlipidemia, unspecified; Translations: [HYPERLIPIDEMIA UNSPECIFIED] Onset: 05-08-2022 Chronic Genitourinary symptoms and ill-defined conditions (9 sources) Dysuria; Translations: [Dysuria] Onset: 04-25-2023 Episodic Other upper respiratory infections (4 sources) Streptococcal sore throat; Translations: [Strep pharyngitis] Episodic Urinary tract infections (9 sources) Urinary tract infection, site not specified; Translations: [Acute cystitis without hematuria] Onset: 08-31-2021 Episodic Past or Other Problems Problem Classification Problem Date Documented Date Episodic/Chronic Immunizations and screening for infectious disease (1 source) Encounter for screening for human papillomavirus (HPV); Translations: [ENC SCREENING HUMAN PAPILLOMAVIRUS] Onset: 10-05-2021 Episodic Other screening for suspected conditions (not mental disorders or infectious disease) (8 sources) Encounter for screening for malignant neoplasm of cervix; Translations: [Encounter for screening mammogram for malignant neoplasm of breast] Onset: 10-01-2021 Episodic Residual codes; unclassified (1 source) Family history of malignant neoplasm of digestive organs; Translations: [FAM HX MALIG NEOPLASM DIGESTIV ORGN] Onset: 10-05-2021 Episodic Unclassified (4 sources) Exposure to acute respiratory syndrome coronavirus 2; Translations: [Contact with and (suspected) exposure to covid-19] Unclassified (2 sources) Contact with and (suspected) exposure to covid-19 Z20.822 Viral infection (2 sources) COVID-19 Results Test Name Value Interpretation Reference Range Facility Urinalysis - AUTOMATEDon Appearance (U) clear [facility] Other Bilirubin Ql (U) Negative [employer] Other Color (U) pale yellow [employer] Other Glucose Ql (U) Negative [facility] Other Hemoglobin Ql (U) trace-intact [employer] Other Ketones Ql (U) Negative [facility] Other Leukocyte esterase Test strip Ql (U) trace [employer] Other Nitrite Ql (U) Negative [facility] Other pH (U) 6.0 [pH] [employer] Other Protein Ql (U) Negative [facility] Other Specific gravity (U) [Rel density] 1.010 [employer] Other Urobilinogen (U) [Mass/Vol] 0.2 mg/dL [facility] Other Urinalysis - AUTOMATED [employer] Other Urine Cultureon 04-25-2023 Bacteria identified Cx Nom (U) Reason for Exam Dysuria Urine <10,000 colonies/ml mixed bacterial skin contaminants including mixed gram negative bacilli - 2 Days PERFORMED BY: [place] [address] PATHOLOGIST SERVICE RIG OPERATOR DAVID PABLO M.D. Normal [facility] Comment on above: Performed By: #### C UU #### [address] Bacteria identified Cx Nom (U) [employer] Other LIPID PROFILEon 05-08-2022 CHOL-HDL RATIO NORM SEE BELOW Normal [facility] Comment on above: Result Comment: 3.3 - 4.4 LOW RISK 4.4 - 7.1 AVERAGE RISK 7.1 - 11.0 MODERATE RISK >11.0 HIGH RISK Performed By: #### L IPID, AST, ALT #### [facility] [address] [address] [address] Francisco Laboy Cholesterol [Mass/Vol] 191 mg/dL Normal <=[address] [facility] Comment on above: Performed By: #### L IPID, AST, ALT #### [facility] [address] [address] [address] Francisco Laboy Cholesterol in HDL [Mass/Vol] 56 mg/dL Normal 40-60 [facility] Comment on above: Performed By: #### L IPID, AST, ALT #### [facility] [address] [address] [address] Francisco Laboy Cholesterol in LDL [Mass/Vol] 94.2 mg/dL Normal [facility] Comment on above: Performed By: #### L IPID, AST, ALT #### [facility] [address] [address] [address] Francisco Laboy Cholesterol.total /Cholesterol in HDL [Mass ratio] 3.4 {ratio} Normal [facility] Comment on above: Performed By: #### L IPID, AST, ALT #### [facility] [address] [address] [address] Francisco Laboy HDL NORMAL > or = 60 mg/dl - LO W CARDIOVASCULAR RISK <40 mg/dl - HIGH CARDIOVASCULAR RISK Normal [facility] Comment on above: Performed By: #### L IPID, AST, ALT #### [facility] [address] [address] [address] Francisco Laboy LDL CALC NORMAL SEE BELOW Normal [facility] Comment on above: Result Comment: <100 mg/dl OPTIMAL 100 - 129 mg/dl NEAR OR ABOVE OPTIMAL 130 - 159 mg/dl BORDERLINE HIGH 160 - 189 mg/dl HIGH >190 mg/dl VERY HIGH Performed By: #### L IPID, AST, ALT #### [facility] [address] [address] [address] Francisco Laboy Triglyceride [Mass/Vol] 204 mg/dL Critically high <=[address] [facility] Comment on above: Performed By: #### L IPID, AST, ALT #### [facility] [address] [address] [address] Francisco Laboy VLDL CALC 40.8 mg/dL Normal [facility] Comment on above: Performed By: #### L IPID, AST, ALT #### [facility] [address] [place] [address] Dr. Francisco Laboy SGOTon 05-08-2022 AST [Catalytic activity/Vol] 20 U/L Normal 15-37 [facility] Comment on above: Performed By: #### L IPID, AST, ALT #### [facility] [address] [place] [address] Dr. Francisco Laboy SGPTon 05-08-2022 ALT [Catalytic activity/Vol] 23 U/L Normal 14-59 [facility] Comment on above: Performed By: #### L IPID, AST, ALT #### [facility] [address] [place] [address] Dr. Francisco Laboy SARS-CoV-2 (COVID-19) RNA NA A+probe Ql (Resp)on 03-15-2022 SARS-CoV-2 (COVID-19) RNA JAZ+probe Ql (Unsp spec) Positive [employer] Other Urinalysis - AUTOMATEDon Appearance (U) cloudy [facility] Other Bilirubin Ql (U) Negative [employer] Other Color (U) yellow [employer] Other Glucose Ql (U) Negative [facility] Other Hemoglobin Ql (U) moderate [employer] Other Ketones Ql (U) trace [facility] Other Leukocyte esterase Test strip Ql (U) small [employer] Other Nitrite Ql (U) Positive [facility] Other pH (U) 5.5 [pH] [employer] Other Protein Ql (U) trace [facility] Other Specific gravity (U) [Rel density] 1.025 [employer] Other Urobilinogen (U) [Mass/Vol] 0.2 mg/dL [employer] Other Urinalysis - AUTOMATED [employer] Other Urine Cultureon 03-15-2022 Urine Culture >100,000 [employer] Other Urine Culture <16 Susceptible [facility] Other Urine Culture <8 Susceptible [facility] Other Urine Culture <4 Susceptible [facility] Other Urine Culture <2 Susceptible [facility] Other Urine Culture <1 Susceptible [facility] Other Urine Culture >2 Resistant [employer] Other Urine Culture <0.5 Susceptible [facility] Other Urine Culture >4 Resistant [employer] Other Urine Culture <32 Susceptible [facility] Other Urine Culture <2/38 Susceptible [facility] Other LIPID PROFILEon 11-08-2021 CHOL-HDL RATIO NORM SEE BELOW Normal [facility] Comment on above: Result Comment: 3.3 - 4.4 LOW RISK 4.4 - 7.1 AVERAGE RISK 7.1 - 11.0 MODERATE RISK >11.0 HIGH RISK Performed By: #### U AMI #### [facility] [address] [place] [address] Dr. Francisco Laboy Cholesterol [Mass/Vol] 177 mg/dL Normal <=200 [facility] Comment on above: Performed By: #### U AMIC #### [facility] [address] [address] [address] Francisco Laboy Cholesterol in HDL [Mass/Vol] 47 mg/dL Normal 40-60 [facility] Comment on above: Performed By: #### U AMIC #### [facility] [address] [address] [address] Francisco Laboy Cholesterol in LDL [Mass/Vol] 92.2 mg/dL Normal [facility] Comment on above: Performed By: #### U AMIC #### [facility] [address] [address] [address] Francisco Laboy Cholesterol.total /Cholesterol in HDL [Mass ratio] 3.8 {ratio} Normal [facility] Comment on above: Performed By: #### U AMIC #### [facility] [address] [address] [address] Francisco Laboy HDL NORMAL > or = 60 mg/dl - LO W CARDIOVASCULAR RISK <40 mg/dl - HIGH CARDIOVASCULAR RISK Normal [facility] Comment on above: Performed By: #### U AMIC #### [facility] [address] [address] [address] Francisco Laboy LDL CALC NORMAL SEE BELOW Normal [facility] Comment on above: Result Comment: <100 mg/dl OPTIMAL 100 - 129 mg/dl NEAR OR ABOVE OPTIMAL 130 - 159 mg/dl BORDERLINE HIGH 160 - 189 mg/dl HIGH >190 mg/dl VERY HIGH Performed By: #### U AMIC #### [facility] [address] [address] [address] Francisco Laboy Triglyceride [Mass/Vol] 189 mg/dL Critically high <=[address] [facility] Comment on above: Performed By: #### U AMIC #### [facility] [address] [address] [address] Francisco Laboy VLDL CALC 37.8 mg/dL Normal [facility] Comment on above: Performed By: #### U AMIC #### [facility] [address] [address] [address] Francisco Laboy PROF 14(COMP METB)on 022 Albumin [Mass/Vol] 3.9 g/dL Normal 3.4-5.0 [facility] Comment on above: Performed By: #### U AMIC #### [facility] [address] [place] [address] Dr. Francisco Laboy Albumin/Globulin [Mass ratio] 1.2 {ratio} Normal [facility] Comment on above: Performed By: #### U AMIC #### [facility] [address] [place] [address] Dr. Francisco Laboy ALP [Catalytic activity/Vol] 88 U/L Normal 46-[address] [facility] Comment on above: Performed By: #### U AMIC #### [facility] [address] [place] [address] Dr. Francisco Laboy ALT [Catalytic activity/Vol] 44 U/L Normal 14-[address] [facility] Comment on above: Performed By: #### U AMIC #### [facility] [address] [place] [address] Dr. Francisco Laboy Anion gap [Moles/Vol] 12.7 mmol/L Normal [facility] Comment on above: Performed By: #### U AMIC #### [facility] [address] [place] [address] Dr. Francisco Laboy AST [Catalytic activity/Vol] 26 U/L Normal 15-[address] [facility] Comment on above: Performed By: #### U AMIC #### [facility] [address] [place] [address] Dr. Francisco Laboy Bilirubin [Mass/Vol] 0.4 mg/dL Normal 0.2-1.[address] [facility] Comment on above: Performed By: #### U AMIC #### [facility] [address] [place] [address] Dr. Francisco Laboy Calcium [Mass/Vol] 8.4 mg/dL Critically low 8.5-10.[address] [facility] Comment on above: Performed By: #### U AMIC #### [facility] [address] [address] [address] Francisco Laboy Chloride [Moles/Vol] 107 mmol/L Normal 98-[address] [facility] Comment on above: Performed By: #### U AMIC #### [facility] [address] [address] [address] Francisco Laboy CO2 [Moles/Vol] 24.3 mmol/L Normal 21.0-32.0 [facility] Comment on above: Performed By: #### U AMIC #### [facility] [address] [address] [address] Francisco Laboy Creatinine [Mass/Vol] 0.92 mg/dL Normal 0.55-1.[address] [facility] Comment on above: Performed By: #### U AMIC #### [facility] [address] [place] [address] Dr. Francisco Laboy EGFR-AF MAURITIAN >60 Normal >=60 [facility] Comment on above: Performed By: #### U AMIC #### [facility] [address] [place] [address] Dr. Francisco Laboy EGFR-NON AF MAURITIAN >60 Normal >=[address] [facility] Comment on above: Performed By: #### U AMIC #### [facility] [address] [address] [address] Francisco Laboy Globulin (S) [Mass/Vol] 3.3 g/dL Normal [facility] Comment on above: Performed By: #### U AMIC #### [facility] [address] [address] [address] Francisco Laboy Glucose [Mass/Vol] 95 mg/dL Normal 74-[address] [facility] Comment on above: Performed By: #### U AMIC #### [facility] [address] [address] [address] Francisco Laboy Potassium [Moles/Vol] 4.0 mmol/L Normal 3.5-5.[address] [facility] Comment on above: Performed By: #### U AMIC #### [facility] [address] [address] [address] Francisco Laboy Protein [Mass/Vol] 7.2 g/dL Normal 6.4-8.2 [facility] Comment on above: Performed By: #### U AMIC #### [facility] [address] [place] [address] Dr. Francisco Laboy Sodium [Moles/Vol] 140 mmol/L Normal 136-145 [facility] Comment on above: Performed By: #### U AMIC #### [facility] [address] [place] [address] Dr. Francisco Laboy Urea nitrogen [Mass/Vol] 11.0 mg/dL Normal 7.0-18.0 [facility] Comment on above: Performed By: #### U AMIC #### [facility] [address] [place] [address] Dr. Francisco Laboy Urea nitrogen/Creatini ne [Mass ratio] 11.9 mg/mg Normal [facility] Comment on above: Performed By: #### U AMIC #### [facility] [address] [place] [address] Dr. Francisco Laboy XR DEXA BONE DENSITYon 10-09 XR DEXA BONE DENSITY DEXA Bone Density Study CLINICAL: Evaluate bone mineral density. Postmenopausal COMPARISON: None FINDINGS: The bone density study was assessed by dual-energy x-ray absorptiometry with the [employer] scanner. The test results are expressed in T-Score, which is used for diagnosis for osteoporosis, and reflects the standard deviations from the mean peak bone mineral density in young adults. Additional information regarding the Z-Score reflects the standard deviations from the mean peak bone mineral density for age- and gender- matched subject. Lumbar Spine (L1-L4): BMD (gm/cm2): 1.246 T-Score: 0.6 Left Hip: BMD (gm/cm2): 0.999 T-Score: -0.1 Left Femoral Neck: BMD (gm/cm2): O.967 T-Score: -0.5 Right Hip: BMD (gm/cm2): 1.020 T-Score: O.1 Right Femoral Neck: BMD (gm/cm2): 0.950 T-Score: -0.6 IMPRESSION: 1. Lumbar spine indicates no osteopenia or osteoporosis. 2. Left hip indicates no osteopenia or osteoporosis. 3. Right hip indicates no osteopenia or osteoporosis. REFERENCE: In children, postmenopausal women and males under age 50 not at increased risk for fractures, only Z-Scores, not T-Scores, are used to indicate fracture risk. A Z-Score above -2.0 is defined as within the expected range for age and Z-Score at or less than -2.0 is below the expected range for age. A Z-Score below the expected range for age in a patient with recent fractures and/or chronic corticosteroid treatment is consistent with a diagnosis of osteoporosis. In postmenopausal women and males over 50, comparison of the measured bone mineral density with the average value in young normal subjects (the T-Score) has been found to be useful in assessing fracture risk. Fracture risk approximately doubles for each 1.0 standard deviation (SD) that the individual's hip or spine bone mineral density is below the average value of young normal subjects. The World health Organization (WHO) has provided the following definitions: 1. Normal: T-Score within one standard deviation of young adult mean value (T-Score greater than -1.0). 2. Osteopenia (low bone mass): T-Score more than one standard deviation below the young adult mean but less than 2.5 standard deviations below the young adult mean (T-Score between -1.0 and -2.5). 3. Osteoporosis: T-Score more than 2.5 standard deviations below the young adult mean (T-Score less than -2.5). 4. Sever Osteoporosis (established osteoporosis): T-Score more than 2.5 standard deviations below young adult and one or more fragility fracture (T-Score less than -2.5 + fragility fractures). Electronically authenticated by: ANTWAN LAY Date: 2021-10-09 08:51 Normal [facility] PAP ACOG PANEL 2: 30 to 65on 10-08-2021 . . Normal [facility] Comment on above: Result Comment: Perf ormed at: BA Performed By: #### U AMIC #### [facility] [address] [place] [address] Dr. Francisco Laboy Age Gdln ACOG Testing 30-65 Normal [facility] Comment on above: Performed By: #### U AMIC #### [facility] [address] [place], [place] [address] Dr. Francisco Laboy DIAGNOSIS: Comment Normal [facility] Comment on above: Result Comment: UNSA TISFACTORY FOR EVALUATION. THIS SPECIMEN WAS RESCREENED PART OF OUR DIGITAL ACCOUNT COORDINATOR PROGRAM. Performed at: BA Performed By: #### U AMIC #### [facility] [address] [place] [address] Dr. Francisco Laboy HPV Aptima Negative Normal Negative [facility] Comment on above: Result Comment: This nucleic acid amplification test detects fourteen high-risk HPV types (16,18,31,33,35,39,45,51,52,56,58,59,66,68) without differentiation. Performed at: =G Performed By: #### U AMIC #### [facility] [address] [place] [address] Dr. Francisco Laboy Methodology: Comment Normal [facility] Comment on above: Result Comment: This liquid based ThinPrep(R) pap test was screened with the use of an image guided system. Performed at: WB Performed By: #### U AMIC #### [facility] [address] [place] [address] Dr. Francisco Laboy Note: Comment Normal [facility] Comment on above: Result Comment: The Pap smear is a screening test designed to aid in the detection of premalignant and malignant conditions of the uterine cervix. It is not a diagnostic procedure and should not be used as the sole means of detecting cervical cancer. Both false-positive and false-negative reports do occur. . Performed at: WB Performed By: #### U AMIC #### [facility] [address] [place] [address] Dr. Francisco Laboy Performed by: Comment Normal The [facility] Comment on above: Result Comment: Liang Houser Order Make Up Clerk (ASCP) Performed at: BA Performed By: #### U AMIC #### [facility] [address] [place] [address] Dr. Francisco Laboy QC reviewed by: Comment Normal [facility] Comment on above: Result Comment: Rusty Ortiz, Order Make Up Clerk (ASCP) Performed at: BA Performed By: #### U AMIC #### [facility] [address] [address] [address] Francisco Laboy Specimen adequacy: Comment Normal [facility] Comment on above: Result Comment: Spec imen processed and examined but unsatisfactory for evaluation of epithelial abnormality because of insufficient cellularity. Performed at: Performed By: #### U AMIC #### [facility] [address] [address] [address] Francisco Laboy MG MAMM SCREEN 3D KAROL CADon 10-01-2021 MG MAMM SCREEN 3D KAROL CAD Patient: MONICA AMOR Exam Date: 10/01/2021 : 1960 Gender:F Ordering : KATH SRIKANTH LOPEZ YOGA TEACHER Admission #: [id number] Family : Order #: [id number] CLICK HERE TO VIEW EXAM RADIOLOGY REPORT PROCEDURE: MAMMOGRAM SCREENING 3D BILATERAL CAD COMPARISON: MG MAMM SCREEN KAROL W CAD, 07/21/2018. MG MAMM SCREEN KAROL W CAD, 04/05/2020. INDICATIONS: Screening mammography Calculator Name NCI Breast Cancer Risk Assessment Tool 5 Year Breast Cancer Risk 0.80% Lifetime Breast Cancer Risk 4.80% Personal Breast Cancer No Personal Ovarian Cancer No Treatments None Family Cancers Uncle-maternal with stomach cancer at age 40. LOCATION: [facility] BREAST COMPOSITION: Heterogeneously dense,which may obscure small masses. FINDINGS: DIAGNOSTIC CATEGORY 1--NEGATIVE. NO CHANGE FROM COMPARISON ASSESSMENT. Scattered benign-appearing calcifications are present. RIGHT BREAST: No significant suspicious finding. LEFT BREAST: No significant suspicious finding. RECOMMENDATIONS: ROUTINE MAMMOGRAM AND CLINICAL EVALUATION IN 12 MONTHS. PLEASE NOTE: A NORMAL MAMMOGRAM DOES NOT EXCLUDE THE POSSIBILITY OF BREAST CANCER. A CLINICALLY SUSPICIOUS PALPABLE LUMP SHOULD BE BIOPSIED. Dictated by: Antwan Knight MD on 10/01/2021 at 08:41 Approved by: Antwan Knight MD on 10/01/2021 at 08:[address] [facility] CULTURE URINEon 09-06-2021 CULTURE URINE Culture Observations : NO GROWTH. Normal [facility] Comment on above: Performed By: #### U AMIC #### [facility] [address] [place] [address] [address] [address] Francisco Laboy UA RANDOM W/MICROSCOPICon BACTERIA NONE SEEN Normal NONE SEEN [facility] Comment on above: Performed By: #### U AMIC #### [facility] [address] [address] [address] Francisco Laboy Bilirubin Ql (U) Negative Normal NEGATIVE [facility] Comment on above: Performed By: #### U AMIC #### [facility] [address] [address] [address] Francisco Laboy CAST NONE SEEN Normal NONE SEEN [facility] Comment on above: Performed By: #### U AMIC #### [facility] [address] [address] [address] Francisco Laboy Clarity (U) CLEAR Normal CLEAR [facility] Comment on above: Performed By: #### U AMIC #### [facility] [address] [address] [address] Francisco Laboy Color (U) LT. YELLOW Normal YELLOW [facility] Comment on above: Performed By: #### U AMIC #### [facility] [address] [address] [address] Francisco Laboy Crystals LM Nom (Urine sed) NONE SEEN Normal NONE SEEN [facility] Comment on above: Performed By: #### U AMIC #### [facility] [address] [address] [address] Francisco Laboy Epithelial cells LM Ql (Urine sed) FEW Abnormal NONE SEEN /RARE [facility] Comment on above: Performed By: #### U AMIC #### [facility] [address] [address] [address] Francisco Laboy Glucose Ql (U) Negative Normal NEGATIVE The [facility] Comment on above: Performed By: #### U AMIC #### [facility] [address] [address] [address] Francisco Laboy Hemoglobin Ql (U) Negative Normal NEGATIVE The [facility] Comment on above: Performed By: #### U AMIC #### [facility] [address] [address] [address] Francisco Laboy Ketones Ql (U) Negative Normal NEGATIVE [facility] Comment on above: Performed By: #### U AMIC #### [facility] [address] [address] [address] Francisco Laboy LEUKOCYTES Negative Normal NEGATIVE [facility] Comment on above: Performed By: #### U AMIC #### [facility] [address] [place] [address] Dr. Francisco Laboy MUCOUS NONE SEEN Normal NONE SEEN [facility] Comment on above: Performed By: #### U AMIC #### [facility] [address] [place] [address] Dr. Francisco Laboy Nitrite Ql (U) Negative Normal NEGATIVE [facility] Comment on above: Performed By: #### U AMIC #### [facility] [address] [place] [address] Dr. Francisco Laboy pH (U) 6.0 [pH] Normal 5-[address] [facility] Comment on above: Performed By: #### U AMIC #### [facility] [address] [place] [address] Dr. Francisco Laboy RBC NONE SEEN Abnormal 0-[address] [facility] Comment on above: Performed By: #### U AMIC #### [facility] [address] [place] [address] Dr. Francisco Laboy SPEC GRAVITY <=1.005 Abnormal 1.005-<=1.025 The [facility] Comment on above: Performed By: #### U AMIC #### [facility] [address] [place] [address] Dr. Francisco Laboy UA PROTEIN Negative Normal NEGATIVE/ TRACE [facility] Comment on above: Performed By: #### U AMIC #### [facility] [address] [place] [address] Dr. Francisco Laboy Urobilinogen Qn (U) 0.2 {Blanca'U}/dL Normal 0.2 - 1.[address] [facility] Comment on above: Performed By: #### U AMIC #### [facility] [address] [place] [address] Dr. Francisco Laboy WBC NONE SEEN Normal NONE SEEN [facility] Comment on above: Performed By: #### U AMIC #### [facility] [address] [place] [address] Dr. Francisco Laboy CULTURE URINEon 08-30-2021 CULTURE URINE Isolate 1 Escherichia coli >100,000 cfu/mL of ORGANISM 1 Escherichia coli ANTIBIOTIC M.I.C RX STATUS Ampicillin <=2 S F Ampicillin/Sulbactam <=2 S F Piperacillin/Tazobact am <=4 S F Cefazolin <=4 S F Ceftazidime <=1 S F Ceftriaxone <=1 S F Ertapenem <=0.5 S F Imipenem <=0.25 S F Amikacin <=2 S F Gentamicin <=1 S F Tobramycin <=1 S F Ciprofloxacin >=4 R F Levofloxacin >=8 R F Nitrofurantoin <=16 S F Trimethoprim/Sulfamet hoxazole <=20 S F Normal [address] [facility] Comment on above: Performed By: #### U RCX #### [facility] [address] [place] [address] Dr. Francisco Laboy CBC AUTO DIFFon 08-28-2021 BASO # 0.0 103/ul Normal 0.0-0.1 [facility] Comment on above: Performed By: #### U AMIC #### [facility] [address] [place] [address] Dr. Francisco Laboy Basophils/100 WBC (Bld) 0.7 % Normal 0.2-2.0 [facility] Comment on above: Performed By: #### U AMIC #### [facility] [address] [place] [address] Dr. Francisco Laboy EO # 0.2 103/ul Normal 0.0-0.7 [facility] Comment on above: Performed By: #### U AMIC #### [facility] [address] [place] [address] Dr. Francisco Laboy Eosinophils/100 WBC (Bld) 3.3 % Normal 0.9-7.0 [facility] Comment on above: Performed By: #### U AMIC #### [facility] [address] [place] [address] Dr. Francisco Laboy Erythrocyte distribution width (RBC) [Ratio] 13.6 % Normal 11.0-15.0 [facility] Comment on above: Performed By: #### U AMIC #### [facility] [address] [place] [address] Dr. Francisco Laboy Hematocrit (Bld) [Volume fraction] 40.9 % Normal 36.0-48.0 [facility] Comment on above: Performed By: #### U AMIC #### [facility] [address] [place] [address] Dr. Francisco Laboy Hemoglobin (Bld) [Mass/Vol] 13.3 g/dL Normal 12.0-16.0 [facility] Comment on above: Performed By: #### U AMIC #### [facility] [address] [place] [address] Dr. Francisco Laboy IG # 0.01 10e3/ul Normal 0.00-0.03 [facility] Comment on above: Performed By: #### U AMIC #### [facility] [address] [place] [address] Dr. Francisco Laboy IG % 0.2 % Normal 0.0-0.5 [facility] Comment on above: Performed By: #### U AMIC #### [facility] [address] [place] [address] Dr. Francisco Laboy LYMPH # 1.8 103/ul Normal 1.2-3.8 [facility] Comment on above: Performed By: #### U AMIC #### [facility] [address] [place] [address] Dr. Francisco Laboy Lymphocytes/100 WBC (Bld) 31.6 % Normal 20.5-60.0 [facility] Comment on above: Performed By: #### U AMIC #### [facility] [address] [place] [address] Dr. Francisco Laboy MANUAL DIFF REQ NO Normal [facility] Comment on above: Performed By: #### U AMIC #### [facility] [address] [place] [address] Dr. Francisco Laboy MCH (RBC) [Entitic mass] 29.1 pg Normal 26.7-34.0 [facility] Comment on above: Performed By: #### U AMIC #### [facility] [address] [address] [address] Francisco Laboy MCHC (RBC) [Mass/Vol] 32.5 g/dL Normal 29.9-35.[address] [facility] Comment on above: Performed By: #### U AMIC #### [facility] [address] [address] [address] Francisco Laboy MCV (RBC) [Entitic vol] 89.5 fL Normal 81.0-99.[address] [facility] Comment on above: Performed By: #### U AMIC #### [facility] [address] [address] [address] Francisco Laboy MONO # 0.5 103/ul Normal 0.3-0.8 [facility] Comment on above: Performed By: #### U AMIC #### [facility] [address] [address] [address] Francisco Laboy Monocytes/100 WBC (Bld) 8.7 % Normal 1.7-12.0 [facility] Comment on above: Performed By: #### U AMIC #### [facility] [address] [address] [address] Francisco Laboy NEUT # 3.2 103/ul Normal 1.4-6.5 [facility] Comment on above: Performed By: #### U AMIC #### [facility] [address] [address] [address] Francisco Laboy Neutrophils/100 WBC (Bld) 55.5 % Normal 43.0-75.[address] [facility] Comment on above: Performed By: #### U AMIC #### [facility] [address] [address] [address] Francisco Laboy Platelet mean volume (Bld) [Entitic vol] 10.5 fL Normal 9.5-13.[address] [facility] Comment on above: Performed By: #### U AMIC #### [facility] [address] [address] [address] Francisco Laboy PLT 261 103/ul Normal 150-[address] [facility] Comment on above: Performed By: #### U AMIC #### [facility] [address] [address] [address] Francisco Laboy RBC 4.57 106/ul Normal 4.20-5.[address] [facility] Comment on above: Performed By: #### U AMIC #### [facility] [address] [address] [address] Francisco Laboy WBC 5.8 103/ul Normal 4.0-11.[address] [facility] Comment on above: Performed By: #### U AMIC #### [facility] [address] [address] [address] Francisco Laboy LIPID PROFILEon 08-28-2021 CHOL-HDL RATIO NORM SEE BELOW Normal [facility] Comment on above: Result Comment: 3.3 - 4.4 LOW RISK 4.4 - 7.1 AVERAGE RISK 7.1 - 11.0 MODERATE RISK >11.0 HIGH RISK Performed By: #### T SH, LIPID, CMP #### [facility] [address] [address] [address] Francisco Laboy Cholesterol [Mass/Vol] 244 mg/dL Critically high <=[address] [facility] Comment on above: Performed By: #### T SH, LIPID, CMP #### [facility] [address] [place] [address] Dr. Francisco Laboy Cholesterol in HDL [Mass/Vol] 47 mg/dL Normal 40-60 [facility] Comment on above: Performed By: #### T SH, LIPID, CMP #### [facility] [address] [address] [address] Francisco Laboy Cholesterol in LDL [Mass/Vol] 155.2 mg/dL Normal [facility] Comment on above: Performed By: #### T SH, LIPID, CMP #### [facility] [address] [address] [address] Francisco Laboy Cholesterol.total /Cholesterol in HDL [Mass ratio] 5.2 {ratio} Normal [facility] Comment on above: Performed By: #### T SH, LIPID, CMP #### [facility] [address] [address] [address] Francisco Laboy HDL NORMAL > or = 60 mg/dl - LO W CARDIOVASCULAR RISK <40 mg/dl - HIGH CARDIOVASCULAR RISK Normal [facility] Comment on above: Performed By: #### T SH, LIPID, CMP #### [facility] [address] [address] [address] Francisco Laboy LDL CALC NORMAL SEE BELOW Normal [facility] Comment on above: Result Comment: <100 mg/dl OPTIMAL 100 - 129 mg/dl NEAR OR ABOVE OPTIMAL 130 - 159 mg/dl BORDERLINE HIGH 160 - 189 mg/dl HIGH >190 mg/dl VERY HIGH Performed By: #### T SH, LIPID, CMP #### [facility] [address] [address] [address] Francisco Laboy Triglyceride [Mass/Vol] 209 mg/dL Critically high <=150 [facility] Comment on above: Performed By: #### T SH, LIPID, CMP #### [facility] [address] [address] [address] Francisco Laboy VLDL CALC 41.8 mg/dL Normal [facility] Comment on above: Performed By: #### T SH, LIPID, CMP #### [facility] [address] [address] [address] Francisco Laboy PROF 14(COMP METB)on 022 Albumin [Mass/Vol] 4.0 g/dL Normal 3.4-5.0 [facility] Comment on above: Performed By: #### T SH, LIPID, CMP #### [facility] [address] [address] [address] Francisco Laboy Albumin/Globulin [Mass ratio] 1.3 {ratio} Normal [facility] Comment on above: Performed By: #### T SH, LIPID, CMP #### [facility] [address] [address] [address] Francisco Laboy ALP [Catalytic activity/Vol] 84 U/L Normal 46-116 [facility] Comment on above: Performed By: #### T SH, LIPID, CMP #### [facility] [address] [address] [address] Francisco Laboy ALT [Catalytic activity/Vol] 24 U/L Normal 14-59 [facility] Comment on above: Performed By: #### T SH, LIPID, CMP #### [facility] [address] [address] [address] Francisco Laboy Anion gap [Moles/Vol] 13.2 mmol/L Normal [facility] Comment on above: Performed By: #### T SH, LIPID, CMP #### [facility] [address] [place] [address] Dr. Francisco Laboy AST [Catalytic activity/Vol] 15 U/L Normal 15-[address] [facility] Comment on above: Performed By: #### T SH, LIPID, CMP #### [facility] [address] [place] [address] Dr. Francisco Laboy Bilirubin [Mass/Vol] 0.3 mg/dL Normal 0.2-1.[address] [facility] Comment on above: Performed By: #### T SH, LIPID, CMP #### [facility] [address] [place] [address] Dr. Francisco Laboy Calcium [Mass/Vol] 8.4 mg/dL Critically low 8.5-10.[address] [facility] Comment on above: Performed By: #### T SH, LIPID, CMP #### [facility] [address] [place] [address] Dr. Francisco Laboy Chloride [Moles/Vol] 105 mmol/L Normal 98-[address] [facility] Comment on above: Performed By: #### T SH, LIPID, CMP #### [facility] [address] [place] [address] Dr. Francisco Laboy CO2 [Moles/Vol] 26.8 mmol/L Normal 22.0-30.0 [facility] Comment on above: Performed By: #### T SH, LIPID, CMP #### [facility] [address] [place] [address] Dr. Francisco Laboy Creatinine [Mass/Vol] 0.84 mg/dL Normal 0.52-1.[address] [facility] Comment on above: Performed By: #### T SH, LIPID, CMP #### [facility] [address] [place] [address] Dr. Francisco Laboy EGFR-AF MAURITIAN >60 Normal >=60 [facility] Comment on above: Performed By: #### T SH, LIPID, CMP #### [facility] [address] [place] [address] Dr. Francisco Laboy EGFR-NON AF MAURITIAN >60 Normal >=60 [facility] Comment on above: Performed By: #### T SH, LIPID, CMP #### [facility] [address] [place] [address] Dr. Francisco Laboy Globulin (S) [Mass/Vol] 3.0 g/dL Normal [facility] Comment on above: Performed By: #### T SH, LIPID, CMP #### [facility] [address] [place] [address] Dr. Francisco Laboy Glucose [Mass/Vol] 101 mg/dL Normal 74-106 [facility] Comment on above: Performed By: #### T SH, LIPID, CMP #### [facility] [address] [place] [address] Dr. Francisco Laboy Potassium [Moles/Vol] 4.0 mmol/L Normal 3.4-5.0 [facility] Comment on above: Performed By: #### T SH, LIPID, CMP #### [facility] [address] [place] [address] Dr. Francisco Laboy Protein [Mass/Vol] 7.0 g/dL Normal 6.1-8.[address] [facility] Comment on above: Performed By: #### T SH, LIPID, CMP #### [facility] [address] [place] [address] Dr. Francisco Laboy Sodium [Moles/Vol] 141 mmol/L Normal 137-[address] [facility] Comment on above: Performed By: #### T SH, LIPID, CMP #### [facility] [address] [place] [address] Dr. Francisco Laboy Urea nitrogen [Mass/Vol] 15.0 mg/dL Normal 7.0-18.0 [facility] Comment on above: Performed By: #### T SH, LIPID, CMP #### [facility] [address] [place] [address] Dr. Francisco Laboy Urea nitrogen/Creatini ne [Mass ratio] 17.9 mg/mg Normal [facility] Comment on above: Performed By: #### T SH, LIPID, CMP #### [facility] [address] [place] [address] Dr. Francisco Laboy TSHon 08-28-2021 TSH 3.809 uIU/mL Normal 0.470-4.680 The [facility] Comment on above: Performed By: #### T SH, LIPID, CMP #### [facility] [address] [place] [address] Dr. Francisco Laboy TSH RANGE SEE BELOW Normal [facility] Comment on above: Result Comment: <0.3 4 UIU/ml HYPERTHYROID 0.34-5.60 UIU/ml EUTHYROID >5.60 UIU/ml HYPOTHYROID Performed By: #### T SH, LIPID, CMP #### [facility] [address] [place] [address] Dr. Francisco Laboy UA RANDOM W/MICROSCOPICon BACTERIA MODERATE Abnormal NONE SEEN [facility] Comment on above: Performed By: #### U AMIC #### [facility] [address] [place] [address] Dr. Francisco Laboy Bilirubin Ql (U) Negative Normal NEGATIVE [facility] Comment on above: Performed By: #### U AMIC #### [facility] [address] [place] [address] Dr. Francisco Laboy CAST NONE SEEN Normal NONE SEEN [facility] Comment on above: Performed By: #### U AMIC #### [facility] [address] [place] [address] Dr. Francisco Laboy Clarity (U) CLEAR Normal CLEAR [facility] Comment on above: Performed By: #### U AMIC #### [facility] [address] [place] [address] Dr. Francisco Laboy Color (U) LT. YELLOW Normal YELLOW [facility] Comment on above: Performed By: #### U AMIC #### [facility] [address] [place] [address] Dr. Francisco Laboy Crystals LM Nom (Urine sed) NONE SEEN Normal NONE SEEN [facility] Comment on above: Performed By: #### U AMIC #### [facility] [address] [address] [address] Francisco Laboy Epithelial cells LM Ql (Urine sed) RARE Normal NONE SEEN /RARE [facility] Comment on above: Performed By: #### U AMIC #### [facility] [address] [address] [address] Francisco Laboy Glucose Ql (U) Negative Normal NEGATIVE [facility] Comment on above: Performed By: #### U AMIC #### [facility] [address] [address] [address] Francisco Laboy Hemoglobin Ql (U) SMALL Abnormal NEGATIVE [facility] Comment on above: Performed By: #### U AMIC #### [facility] [address] [place] [address] Dr. Francisco Laboy Ketones Ql (U) Negative Normal NEGATIVE [facility] Comment on above: Performed By: #### U AMIC #### [facility] [address] [address] [address] Francisco Laboy LEUKOCYTES SMALL Abnormal NEGATIVE [facility] Comment on above: Performed By: #### U AMIC #### [facility] [address] [address] [address] Francisco Laboy MUCOUS SMALL Abnormal NONE SEEN [facility] Comment on above: Performed By: #### U AMIC #### [facility] [address] [address] [address] Francisco Laboy Nitrite Ql (U) Positive Abnormal NEGATIVE [facility] Comment on above: Performed By: #### U AMIC #### [facility] [address] [address] [address] Francisco Laboy pH (U) 6.5 [pH] Normal 5-[address] [facility] Comment on above: Performed By: #### U AMIC #### [facility] [address] [place] [address] Dr. Francisco Laboy RBC 0-2 Normal 0-[address] [facility] Comment on above: Performed By: #### U AMIC #### [facility] [address] [address] [address] Francisco Laboy SPEC GRAVITY 1.015 Normal 1.005-<=1.025 [facility] Comment on above: Performed By: #### U AMIC #### [facility] [address] [address] [address] Francisco Laboy UA PROTEIN Negative Normal NEGATIVE/ TRACE [facility] Comment on above: Performed By: #### U AMIC #### [facility] [address] [address] [address] Francisco Laboy Urobilinogen Qn (U) 0.2 {Blanca'U}/dL Normal 0.2 - 1.[address] [facility] Comment on above: Performed By: #### U AMIC #### [facility] [address] [address] [address] Francisco Laboy WBC 5-10 Abnormal NONE SEEN [facility] Comment on above: Performed By: #### U AMIC #### [facility] [address] [address] [address] Francisco Laboy Vital Signs Date Time Vital Sign Value Performing Clinician Facility 04-25-2023 09:25-0500 Body height 151.13 cm 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 Other [facility] Other 04-25-2023 09:25-0500 Body mass index (BMI) [Ratio] 22.88 kg/m2 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 Other [facility] Other 04-25-2023 09:25-0500 Body temperature 98.9 [degF] 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 Other [facility] Other 04-25-2023 09:25-0500 Body weight 52.25 kg 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 Other [facility] Other 04-25-2023 09:25-0500 Diastolic blood pressure 79 mm[Hg] Stephanie Preethi Other [facility] Other 04-25-2023 09:25-0500 Respiratory rate 18 /min Stephanie Preethi Other [facility] Other 04-25-2023 09:25-0500 SaO2% (BldA) [Mass fraction] 98 % Stephanie Preethi Other [facility] Other 04-25-2023 09:25-0500 Systolic blood pressure 140 mm[Hg] Stephanie Preethi Other [facility] Other 03-15-2022 14:30-0400 Body height 151.13 cm Stephanie Lazomond Other [facility] Other 03-15-2022 14:30-0400 Body mass index (BMI) [Ratio] 25.02 kg/m2 Stephanie Preethi Other [facility] Other 03-15-2022 14:30-0400 Body temperature 99.6 [degF] Stephanie Lazomond Other [facility] Other 03-15-2022 14:30-0400 Body weight 57.15 kg Stephanie Preethi Other [facility] Other 03-15-2022 14:30-0400 Respiratory rate 18 /min Stephanie Preethi Other [facility] Other 03-15-2022 14:30-0400 SaO2% (BldA) [Mass fraction] 97 % Stephanie Preethi Other [facility] Other Encounters Encounter Date Encounter Type Care Provider Facility Start: 04-25-2023 Office outpatient vi sit 15 minutes 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 [facility] Start: 04-25-2023 End: 04-25-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 [facility] Other Start: 05-08-2022 End: 05-09-2022 ambulatory KATH DUKE SERAJanellFABIÁN Facility:[facility] Start: 03-15-2022 End: 03-15-2022 Departed Referred BELLSTAFF-C 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 Work Phone: [facility] [place] Start: 03-15-2022 End: 03-15-2022 ambulatory BELLSTAFF-C 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 Work Phone: [facility] Work Phone: Start: 03-15-2022 Office outpatient ne w 20 minutes 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 [facility] Start: 11-08-2021 End: 11-09-2021 ambulatory KATH DUKE JOHN Facility:[facility] Start: 10-11-2021 Encounter for gynecological examination (general) (routine) without abnormal findings [employer] [facility] Start: 10-09-2021 End: 10-10-2021 ambulatory KATH DUKE JOHN Facility:[facility] Start: 10-09-2021 End: 10-10-2021 Encounter for gynecological examination (general) (routine) without abnormal findings KATH SRIKANTH JOHN Facility:[facility] Start: 10-02-2021 End: 10-02-[address] JESU CARO Facility:[facility] Start: 10-01-2021 End: 10-02-2021 ambulatory KATH DUKE SERAJanellFABIÁN Facility:[facility] Start: 09-06-2021 End: 09-07-2021 ambulatory KATH DUKE SERAJanellFABIÁN Facility:[facility] Start: 08-31-2021 Encounter for genera l adult medical examination without abnormal findings KATH SRIKANTH SERAFABIÁN [facility] Start: 08-28-2021 End: 08-29-2021 ambulatory KATH DUKE SERAJanellFABIÁN Facility:[facility] Start: 08-28-2021 End: 08-29-2021 Encounter for general adult medical examination without abnormal findings KATH SRIKANTH [facility] Facility:[facility] Procedures Date Procedure Procedure Detail Performing Clinician Start: 03-15-2022 Piperacillin/tazobactam 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 Other Plan of Treatment Date Care Activity Detail Author Bacteria identified in Urine by Culture Urine Culture [facility] Payers Date Payer Category Payer Self-pay 2023 Unknown [id number] [id number] 1960 Unknown [id number] 2.16.84 [id number] 1960 Unknown [id number] 2.16.84 [id number] 1962 Unknown [id number] 2.16.84 [id number] 1962 Unknown [id number] 2.16.84 [id number] 1960 Unknown [id number] 2.16.84 [id number] 1962 Unknown [id number] 2.16.84 [id number] 1962 Unknown [id number] 2.16.84 [id number] 1959 Unknown [id number] [id number]. [id number] Unknown [id number] 2.16.8 [id number] Social History Date Type Detail Facility Sex Assigned At [facility] Work Phone: Start: 1960 Sex Assigned At Female F [facility] Evaluation note 04-25-2023 Note Date & Type Note Facility 04-25-2023 Evaluation note Encounter Date Diagnosis Assessment Notes Apr, Dysuria (ICD-10 - R30.0) Urinary tract infection material was printed Apr, Acute cystitis without hematuria (ICD-10 - N30.00) Drink plenty fluids, get plenty of rest. Take the Macrobid and Pyridium as prescribed until gone. Take Tylenol or Motrin as needed for aches pains or fevers. Follow-up with your family physician if no improvement in 2 to 3 days. [facility] Other Evaluation note 03-15-2022 Note Date & Type Note Facility 03-15-2022 Evaluation note Encounter Date Diagnosis Assessment Notes Feb, Urinary tract infection, site not specified (ICD-10 - N39.0) Drink plenty fluids, get plenty of rest. Take the Macrobid as prescribed until gone. Take Tylenol or Motrin as needed for aches pains or fevers. Take Mucinex or Sudafed for congestion. You must quarantine for 5 days after the onset of your symptoms of COVID. Follow-up with your family physician if no improvement in 2 to 3 days., Urinary tract infection (UTI) home care material was printed Feb, COVID-19 (ICD-10 - U07.1) Discharge Instructions for COVID-19 (Suspected or Confirmed ) material was printed Feb, Contact with and (suspected) exposure to covid-19 (ICD-10 - Z20.822) Feb, Dysuria (ICD-10 - R30.0) Feb, Hematuria, unspecified (ICD-10 - R31.9) [facility] Other History general Narrative - Reported 10-17-2021 Note Date & Type Note Facility 10-17-2021 History general N arrative - Reported Type Medical History HTN Medical History hypercholesterolemia Medical History acid reflux Surgical History EGD OCTOBER 2021 [facility] Other Evaluation note Note Date & Type Note Facility Evaluation note No assessment information availa [facility] Work Phone: Summary Purpose Family History No Family History Records FoundNo Family History Records Found Advance Directives No Advanced Directives Records FoundNo Advanced Directives Records Found Additional Source Comments REASON FOR VISIT (unrecogniz ed section and content) CONGESTION COUGH B/ACONGESTI ON COUGH B/ADYSURIA, POSS UTIDYSURIA, POSS UTI Care Teams (unrecognized sec tion and content) Team Status: Inactive Member Role Status Dates STEFANIA Avelar Attending Provider Active Goals (unrecognized section and content) Goals may be documented in a n alternate section INFORMATION SOURCE (unrecogn ized section and content) DATE CREATED AUTHOR 05/15/2022 [facility] DATE CREATED AUTHOR AUTHOR'S NILSA BENEDICT 05/03/2023 [facility] FOR RECORDS PERTAINING TO PATIENTS WHO ARE OR HAVE BEEN ENROLLED IN A CHEMICAL DEPENDENCY/SUBSTANCEABUSE PROGRAM, SOME INFORMATION MAY BE OMITTED. This clinical summary was aggregated from multiple sources. Caution should be exercised in using it in the provision of clinical care. This summary normalizes information from multiple sources, and as a consequence, information in this document may materially change the coding, format and clinical context of patient data. In addition, data may be omitted in some cases. CLINICAL DECISIONS SHOULD BE BASED ON THE PRIMARY CLINICAL RECORDS. [employer] [facility]. provides no warranty or guarantee of the accuracy or completeness of information in this document.
[2023-06-16 11:08] LABS: Age Gdln ACOG Testing Note (.); HPV Aptima Negative (Negative); IGP, Aptima HPV, rfx 16/18,45 Note (.)
== END 2023-06-10 22:58 | disposition home or self-care (01) ==
LOC: LAB 22:57
PROVIDERS: PCP Nurse Practitioner; Visit Provider Physician Assistant
DX: Z01.419 Encounter for gynecological examination (general) (routine) without abnormal findings (principal)
CPT/HCPCS: 87624; G0145

== ENCOUNTER 2023-12-16 15:30 | Outpatient (OUT) | payer OTHER, SELFPAY ==
--- NOTE | 2023-12-16 15:35 | MM_ITS ---
Patient Name: MONICA SMITH MR#: [id number] : 1960 Exam Date: 12/16/2023 Ordering Doctor: KATH Valdivia CNP RADIOLOGY REPORT PROCEDURE: MM TOMOSYNTHESIS SCREENING BI COMPARISON: MG MAMM SCREEN 3D KAROL CAD, 10/01/2021. MM TOMOSYNTHESIS SCREENING BI, 11/28/2022. INDICATIONS: Screening Calculator Name NCI Breast Cancer Risk Assessment Tool 5 Year Breast Cancer Risk 0.90% Lifetime Breast Cancer Risk 4.40% Personal Breast Cancer No Personal Ovarian Cancer No Treatments None Family Cancers Uncle-maternal with stomach cancer at age 40. LOCATION: The [facility] BREAST COMPOSITION: The breasts are heterogeneously dense,which may obscure small masses. FINDINGS: DIAGNOSTIC CATEGORY 1--NEGATIVE. NO CHANGE FROM COMPARISON ASSESSMENT. Scattered benign-appearing calcifications are present. RIGHT BREAST: No significant suspicious finding. LEFT BREAST: No significant suspicious finding. RECOMMENDATIONS: ROUTINE MAMMOGRAM AND CLINICAL EVALUATION IN 12 MONTHS. PLEASE NOTE: A NORMAL MAMMOGRAM DOES NOT EXCLUDE THE POSSIBILITY OF BREAST CANCER. A CLINICALLY SUSPICIOUS PALPABLE LUMP SHOULD BE BIOPSIED. Dictated by: Lenny Padron MD on 12/16/2023 at 16:23 Approved by: Lenny Padron MD on 12/16/2023 at 16:24
--- OUTSIDE RECORDS SUMMARY | 2023-12-16 15:52 | XMS_ITS | CCD ---
Author Organization [facility] Inform ion Partnership [facility] Care Team Providers Care Ward Attendant Name Role Phone 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 Unavailable AICHHOLZ, TRIMMING CUTTER SRIKANTH Admitting Unavailable AICHHOLZ, TRIMMING CUTTER SRIKANTH Attending Unavailable AICHHOLZ, TRIMMING CUTTER SRIKANTH Primary Care Unavailable DR ANTWAN KNIGHT V Consulting Unavailable AICHHOLZ, TRIMMING CUTTER SRIKANTH Consulting Unavailable GORDO, DR NAILS Admitting Unavailable GORDO, DR NAILS Attending Unavailable AICHHOLZ, TRIMMING CUTTER SRIKANTH Primary Care Unavailable DR JESU CARO Consulting Unavailable AICHHOLZ, TRIMMING CUTTER SRIKANTH Admitting Unavailable AICHHOLZ, TRIMMING CUTTER SRIKANTH Attending Unavailable AICHHOLZ, TRIMMING CUTTER SRIKANTH Primary Care Unavailable AICHHOLZ, TRIMMING CUTTER SRIKANTH Consulting Unavailable ANWTAN LAY Consulting Unavailable AICHHOLZ, TRIMMING CUTTER SRIKANTH Admitting Unavailable AICHHOLZ, TRIMMING CUTTER SRIKANTH Attending Unavailable AICHHOLZ, TRIMMING CUTTER SRIKANTH Primary Care Unavailable AICHHOLZ, TRIMMING CUTTER SRIKANTH Consulting Unavailable AICHHOLZ, TRIMMING CUTTER SRIKANTH Admitting Unavailable AICHHOLZ, TRIMMING CUTTER SRIKANTH Attending Unavailable AICHHOLZ, TRIMMING CUTTER SRIKANTH Primary Care Unavailable AICHHOLZ, TRIMMING CUTTER SRIKANTH Consulting Unavailable AICHHOLZ, TRIMMING CUTTER SRIKANTH Admitting Unavailable AICHHOLZ, TRIMMING CUTTER SRIKANTH Attending Unavailable AICHHOLZ, TRIMMING CUTTER SRIKANTH Primary Care Unavailable AICHHOLZ, TRIMMING CUTTER SRIKANTH Consulting Unavailable AICHHOLZ, TRIMMING CUTTER SRIKANTH Admitting Unavailable AICHHOLZ, TRIMMING CUTTER SRIKANTH Attending Unavailable AICHHOLZ, TRIMMING CUTTER SRIKANTH Primary Care Unavailable AICHHOLZ, TRIMMING CUTTER SRIKANTH Consulting Unavailable 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 Attending Unavailable 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 Admitting Unavailable NO FAMILY, PHYSICIAN Primary Care Unavailable AICHHOLZ, SRIKANTH J Primary Care Physician SHANNEN NEGRETE Attending Unavailable SHANNEN NEGRETE Attending Unavailable SHANNEN NEGRETE Admitting Unavailable SHANNEN NEGRETE Attending Unavailable SHANNEN NEGRETE Attending Unavailable MELANIA WEISS Attending Unavailable SRIKANTH LOPEZ Attending Unavailable Medications Current Medications Medication Drug Class(es) Dates Sig (Normalized) Sig (Original) Excedrin Migraine (4 sources) Start: 09-09-2023 Excedrin Migraine Refill(s) 0 Start Date: 09/09/23 Status: Ordered Lactobacillus acidophilus (1 source) Start: 11-11-2023 lactobacillus acidophilus Daily, Refill(s) 0 Start Date: 11/11/23 Status: Ordered nitrofurantoin, macrocrystals 25 mg / nitrofurantoin, monohydrate 75 mg oral capsule (6 sources) Nitrofuran Antibacterial Start: 03-15-2022 take 1 capsule by mouth every twelve hours Macrobid 100 MG 1 cap(s) Orally bid for 5 day(s) Apr, Active Omeprazole (8 sources) Proton Pump Inhibitor Start: 09-09-2023 omeprazole Refills(s) 0 Start Date: 09/09/23 Status: Ordered Omeprazole Not-T aking/PRN Omeprazole Activ e phenazopyridine hydrochloride 200 mg oral tablet (2 sources) Start: 04-25-2023 take 1 tablet by mouth every eight hours Pyridium 200 MG 1 tablet after meals Orally Three times a day for 2 day(s) Apr, Active Sumatriptan (4 sources) Serotonin-1b and Serotonin-1d Receptor Agonist Start: 09-09-2023 sumatriptan Refills(s) 0 Start Date: 09/09/23 Status: Ordered trospium chloride 20 mg oral tablet (3 sources) Cholinergic Muscarinic Antagonist Start: 09-09-2023 take 1 tablet by mouth twice daily trospium 20 mg oral tablet 20 mg = 1 tab(s), Oral, BID, # 60 tab(s), Refills(s) 11, Pharmacy: [id number], 150, cm, 09/09/23 13:24:00 EDT, Height/Length Dosing, 54, kg, 09/09/23 13:24:00 EDT, Weight Dosing Start Date: 09/09/23 Status: Ordered Completed/Discontinued Medications Medication Drug Class(es) Dates Sig (Normalized) Sig (Original) Simvastatin (4 sources) HMG-CoA Reductase Inhibitor Simvastatin Not-Taking/PRN Simvastatin Acti ve Problems Active Problems Problem Classification Problem Date Documented Date Episodic/Chronic Disorders of lipid metabolism (4 sources) Hyperlipidemia, unspecified; Translations: [HYPERLIPIDEMIA UNSPECIFIED] Onset: 05-08-2022 Chronic Genitourinary symptoms and ill-defined conditions (15 sources) Dysuria; Translations: [Dysuria] Onset: 04-25-2023 Episodic Other upper respiratory infections (4 sources) Streptococcal sore throat; Translations: [Strep pharyngitis] Episodic Urinary tract infections (20 sources) Urinary tract infection, site not specified; [...] Test Name Value Interpretation Reference Range Facility [facility] 11-12-2023 Screens [id number]#[id number] [facility] Patient Educationon 11-11-19 Patient Education Obstetrics and Gynecology Urinary Tract Infection, Adult A urinary tract infection (UTI) is an infection of any part of the urinary tract. The urinary tract includes the kidneys, ureters, bladder, and urethra. These organs make, store, and get rid of urine in the body. An upper UTI affects the ureters and kidneys. A lower UTI affects the bladder and urethra. What are the causes? Most urinary tract infections are caused by bacteria in your genital area around your urethra, where urine leaves your body. These bacteria grow and cause inflammation of your urinary tract. What increases the risk? You are more likely to develop this condition if: ? You have a urinary catheter that stays in place. ? You are not able to control when you urinate or have a bowel movement (incontinence). ? You are female and you: ? Use a spermicide or diaphragm for control. ? Have low estrogen levels. ? Are . ? You have certain genes that increase your risk. ? You are sexually active. ? You take antibiotic medicines. ? You have a condition that causes your flow of urine to slow down, such as: ? An enlarged prostate, if you are male. ? Blockage in your urethra. ? A kidney stone. ? A nerve condition that affects your bladder control (neurogenic bladder). ? Not getting enough to drink, or not urinating often. ? You have certain medical conditions, such as: ? Diabetes. ? A weak disease-fighting system (immunesystem). ? Sickle cell disease. ? Gout. ? Spinal cord injury. What are the signs or symptoms? Symptoms of this condition include: ? Needing to urinate right away (urgency). ? Frequent urination. This may include small amounts of urine each time you urinate. ? Pain or burning with urination. ? Blood in the urine. ? Urine that smells bad or unusual. ? Trouble urinating. ? Cloudy urine. ? Vaginal discharge, if you are female. ? Pain in the abdomen or the lower back. You may also have: ? Vomiting or a decreased appetite. ? Confusion. ? Irritability or tiredness. ? A fever or chills. ? Diarrhea. The first symptom in older adults may be confusion. In some cases, they may not have any symptoms until the infection has worsened. How is this diagnosed? This condition is diagnosed based on your medical history and a physical exam. You may also have other tests, including: ? Urine tests. ? Blood tests. ? Tests for STIs (sexually transmitted infections). If you have had more than one UTI, a cystoscopy or imaging studies may be done to determine the cause of the infections. How is this treated? Treatment for this condition includes: ? Antibiotic medicine. ? Ydqz-xmc-bvufebt medicines to treat discomfort. ? Drinking enough water to stay hydrated. If you have frequent infections or have other conditions such as a kidney stone, you may need to see a health care provider who specializes in the urinary tract (urologist). In rare cases, urinary tract infections can cause sepsis. Sepsis is a life-threatening condition that occurs when the body responds to an infection. Sepsis is treated in the hospital with IV antibiotics, fluids, and other medicines. Follow these instructions at home: Medicines ? Take nrgj-pmu-mtgvclb and prescription medicines only as told by your health care provider. ? If you were prescribed an antibiotic medicine, take it as told by your health care provider. Do not stop using the antibiotic even if you start to feel better. General instructions ? Make sure you: ? Empty your bladder often and completely. Do not hold urine for long periods of time. ? Empty your bladder after sex. ? Wipe from front to back after urinating or having a bowel movement if you are female. Use each tissue only one time when you wipe. ? Drink enough fluid to keep your urine pale yellow. ? Keep all follow-up visits. This is important. Contact a health care provider if: ? Your symptoms do not get better after 1?2 days. ? Your symptoms go away and then return. Get help right away if: ? You have severe pain in your back or your lower abdomen. ? You have a fever or chills. ? You have nausea or vomiting. Summary ? A urinary tract infection (UTI) is an infection of any part of the urinary tract, which includes the kidneys, ureters, bladder, and urethra. ? Most urinary tract infections are caused by bacteria in your genital area. ? Treatment for this condition often includes antibiotic medicines. ? If you were prescribed an antibiotic medicine, take it as told by your health care provider. Do not stop using the antibiotic even if you start to feel better. ? Keep all follow-up visits. This is important. This information is not intended to replace advice given to you by your health care provider. Make sure you discuss any questions you have with your health care provider. Document Revised: 12/15/2020 Document Revie (more content not included)... Normal [facility] Urology Office/Clinic Noteon 11-11-2023 Urology Office/Clinic Note Chief Complaint 2m to starting Trospium Therapy HPI Staff 3m to starting Trospium 20mg bid therapy DX: Frequent UTI, Nocturia & Urethral Stricture +C&S 09/16/23 >100k E Coli Tx'd w/Bactrim therapy. Did not end up starting Trospium therapy. States sx resolved after abx therapy. Urgency greatly improved. Still getting up 1-2x/night. Content for now. Did start taking probiotic since last encounter. History of Present Illness staff HPI reviewed and agree. Tests Reviewed: Reviewed UA, ucx Review of Systems PHQ Score Initial Depression Screen Score: 0 SCORE no fever, chills, malaise, myalgia. no rash/lesions. no chest pain, palpitations, or SOB. no abdominal pain, nausea, vomiting. no unilateral calf swelling, redness, pain Physical Exam Vitals & Measurements HR: 68(Peripheral) RR: 16 BP: 130/72 HT: 59 in HT: 150 cm WT: 54.8 kg WT: 120.56 lb BMI: 24.36 General: nontoxic, NAD Mouth: moist mucosa Lungs: normal respiratory effort Cardio: regular rate, good distal perfusion Abdomen: nondistended, no suprapubic distention or tenderness, no CVA tenderness Neurologic: Grossly normal Skin: No rashes or suspicious lesions Assessment/Plan 1. Frequent UTI (N39.0: Urinary tract infection, site not specified) UCx 03/11/23 - >100k E. coli, tx'd w/ IV Rocephin while in [facility] for bowel obstruction 04/25/23 - <10k mixed skin contaminants 09/16/23 - >100k E. coli, PS. Tx'd with Bactrim DS bid x 10 days No hx of stones. A1c 03/12/23- 5.4 Typical UTI sx include frequency, burning with urination, and odorous urine.[1] CT AP w/wo 03/11/23 [facility] - No renal stones or hydro. UA shows trace leuks, asx. Pt was to start OTC preventative supplements at prior OV. She started taking a probiotic but was unable to find D-mannose. Pt has felt the best she has felt in years (as far as urinary sx) since completing the bactrim course. Nocturia, urgency, frequency, incontinence have all improved. IF PT CALLS W UTI SX IN FUTURE WILL USE BACTRIM 10D COURSE 2. Nocturia (R35.1: Nocturia) TVT Sling 06/14/15. Has tried VESIcare, Myrbetriq, Detrol, and Uribel in the past. [1] BBS 14 (9). Pt was to start Trospium 20 mg bid at prior OV however after her Bactrim course for #1, her sx resolved. Does not wish to try any meds at this time. 3. 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 reports good steady/strong stream. Follow-up With When Contact Information CADEN HARRINGTON, SHANNEN White, URL [id number] [facility] [place] [address] Additional Instructions: PRN Patient Education Urinary Tract Infection, Adult Documentation recorded by the saúlibmarbella Chau accurately reflects the services(s) I performed and decisions made by me. Authenticated by Shannen Negrete PA-C on 11/11/2023 12:10:33. I, Nati Chau, personally scribed for [employer] on 11/11/2023 11:57:16. . Problem List/Past Medical History Ongoing Frequent UTI Nocturia Postinfective urethral stricture in female Historical No qualifying data Procedure/Surgical History Sling procedure of bladder neck (06/14/2015), Cystoscopy (05/26/2015), Urodynamics (05/17/2015), Cystourethroscopy with dilation of urethral stricture (06/30/2014), Cystourethroscopy with dilation of urethral stricture (04/24/2010), Appendectomy, Colonoscopy, Hysterectomy. Medications Excedrin Migraine lactobacillus acidophilus, Daily omeprazole sumatriptan trospium 20 mg oral tablet, 20 mg= 1 tab(s), Oral, BID, 11 refills, Not taking Allergies No Known Allergies Social History Tobacco Never (less than 100 in lifetime) Tobacco Use:. Never Smokeless Tobacco Use:. Household tobacco concerns: No. Yes, 11/11/2023 Family History Alcoholism: Father. Anemia: Mother. Hyperlipidemia: Sister. Hypertension: Sister. Migraine: Sister. Immunizations Vaccine Date Status zoster vaccine, inactivated 07/05/2022 Recorded zoster vaccine, inactivated 03/30/2022 Recorded influenza virus vaccine, inactivated 03/30/2022 Recorded influenza virus vaccine, inactivated 02/08/2021 Recorded influenza virus vaccine, inactivated 02/13/2020 Recorded influenza virus vaccine, inactivated 02/27/2019 Recorded influenza virus vaccine, inactivated 03/26/2015 Recorded influenza virus vaccine, inactivated 03/23/2014 Recorded influenza virus vaccine, inactivated 05/22/2013 Recorded Lab Results Ambulatory Point of Care Results Bilirubin Urine Dipstick: Negative (11/11/23 11:19:00) Blood Urine Dipstick: Trace-intact (11/11/23 11:19:00) Glucose Urine Dipstick: Negative (11/11/23 11:19:00) Ketones Urine Dipstick: Negative (11/11/23 11:19:00) Leukocytes Urine Dipstick: Trace (11/11/23 11:19:00) Nitrite Urine Dipstick: Negative (11/11/23 11:19:00) Protein Urine Dipstick: Negative (11/11/23 11:19:00) Specific (more content not included)... Normal [facility] Comment on above: Result Comment: Elec tronically Signed By: SHANNEN NEGRETE PA-C\.br\Date and Time Signed: 11/11/23 12:10 EDT\.br\Electronically Co-Signed By: Nati Chau\.br\Date and Time Co-Signed: 11/11/23 12:00 EDT C Urineon 09-18-2023 Bacteria identified Cx Nom (U) Microbiology PROCEDURE: Urine Culture [R1] SOURCE: U CleanCatch BODY SITE: COLLECTED DATE/TIME: 09/16/2023 09:37 EDT RECEIVED DATE/TIME: 09/16/2023 18:31 EDT START DATE/TIME: 09/16/2023 18:31 EDT FREE TEXT SOURCE: SHANNEN NEGRETE PA-C, PA-C, JENNIFER E FINAL REPORTS Final Report [] Verified Date/Time: 09/18/2023 10:14 EDT >100,000 cfu/ml Escherichia coli SUSCEPTIBILITY RESULTS __ LEGEND: S=Susceptible, N/R=Not Reported, Blank=Data not available, or drug not advisable or tested, I=Intermediate, ESBL=Extended spectrum beta-lactamase, R=Resistant, TFG=Thymidine-dependen t strain, CABRERA=Beta-lactamase positive, GIBSON=mcg/m;(mg/L), S*=Predicted susceptible interp, R*=Predicted resistant interp EC Antibiotic GIBSON Dilutn GIBSON Interp Amikacin <=16 S Ampicillin <=8 S Ampicillin/ <=8/4 S Sulbactam Aztreonam <=4 S Cefazolin <=2 S Cefepime <=2 S Cefoxitin <=8 S Ceftazidime <=1 S Ceftazidime/ <=8 S Avibactam Ceftriaxone <=1 S Ciprofloxacin <=1 S Ertapenem <=0.5 S Gentamicin <=4 S Levofloxacin <=2 S Meropenem <=1 S Nitrofurantoin <=32 S Piperacillin/ <=16 S Tazobactam Tetracycline <=4 S Tigecycline <=2 S Tobramycin <=4 S Trimethoprim/ <=2/38 S Sulfa Performing Locations R1: This test [facility] performed at: [facility], [address] [place] [address], [id number] , , [facility] Comment on above: Performed By: #### [id number] ####[facility] [id number] [place] [address] Ambulatory Visit Summaryon 0 09-16-2023 Ambulatory Visit Summary MONICA SMITH :1960 Visit Date:09/16/2023 Ambulatory Visit Instructions Your Diagnosis Frequent UTI Your Care Team Attending Physician - SHANNEN NEGRETE PA-C Primary Care Physician - SRIKANTH LOPEZ CNP This Is Your Medications List APAP/ASA/caffeine (Excedrin Migraine) omeprazole sumatriptan trospium (trospium 20 mg oral tablet) Procedures Performed Sling procedure of bladder neck (06/14/2015), Cystoscopy (05/26/2015), Urodynamics (05/17/2015), Cystourethroscopy with dilation of urethral stricture (06/30/2014), Cystourethroscopy with dilation of urethral stricture (04/24/2010), Appendectomy, Colonoscopy, Hysterectomy. What to do next Scheduled Follow-Up Appointments Friday 3:40 PM EDT With: SHANNEN NEGRETE PA-C Where: [facility] 09-15-2023 Screens [id number]#1. 00TIFF [facility] Screens [id number]#1. 00TIFF [facility] Lab Reportson 09-10-2023 Lab Reports [id number]#1. 00TIFF [facility] Lab Reports [id number]#1. 00TIFF [facility] Lab Reports [id number]#1. 00TIFF [facility] Lab Reports [id number]#1. 00TIFF [facility] RAD - CT Reporton 09-10-2023 RAD - CT Report [id number]#1. 00TIFF [facility] RAD - CT Report [id number]#1.[address] [facility] RAD - MISCon 09-10-2023 RAD - MISC [id number]#1. 00TIFF [facility] RAD - MISC [id number]#1. 00TIFF [facility] Patient Educationon 09-09-19 Patient Education Obstetrics and Gynecology Urinary Tract Infection, Adult A urinary tract infection (UTI) is an infection of any part of the urinary tract. The urinary tract includes: ? The kidneys. ? The ureters. ? The bladder. ? The urethra. These organs make, store, and get rid of pee (urine) in the body. What are the causes? This infection is caused by germs (bacteria) in your genital area. These germs grow and cause swelling (inflammation) of your urinary tract. What increases the risk? The following factors may make you more likely to develop this condition: ? Using a small, thin tube (catheter) to drain pee. ? Not being able to control when you pee or poop (incontinence). ? Being female. If you are female, these things can increase the risk: ? Using these methods to prevent : ? A medicine that kills sperm (spermicide). ? A device that blocks sperm (diaphragm). ? Having low levels of a female hormone (estrogen). ? Being . You are more likely to develop this condition if: ? You have genes that add to your risk. ? You are sexually active. ? You take antibiotic medicines. ? You have trouble peeing because of: ? A prostate that is bigger than normal, if you are male. ? A blockage in the part of your body that drains pee from the bladder. ? A kidney stone. ? A nerve condition that affects your bladder. ? Not getting enough to drink. ? Not peeing often enough. ? You have other conditions, such as: ? Diabetes. ? A weak disease-fighting system (immune system). ? Sickle cell disease. ? Gout. ? Injury of the spine. What are the signs or symptoms? Symptoms of this condition include: ? Needing to pee right away. ? Peeing small amounts often. ? Pain or burning when peeing. ? Blood in the pee. ? Pee that smells bad or not like normal. ? Trouble peeing. ? Pee that is cloudy. ? Fluid coming from the vagina, if you are female. ? Pain in the belly or lower back. Other symptoms include: ? Vomiting. ? Not feeling hungry. ? Feeling mixed up (confused). This may be the first symptom in older adults. ? Being tired and grouchy (irritable). ? A fever. ? Watery poop (diarrhea). How is this treated? ? Taking antibiotic medicine. ? Taking other medicines. ? Drinking enough water. In some cases, you may need to see a specialist. Follow these instructions at home: Medicines ? Take gmti-pif-dlffngd and prescription medicines only as told by your doctor. ? If you were prescribed an antibiotic medicine, take it as told by your doctor. Do not stop taking it even if you start to feel better. General instructions ? Make sure you: ? Pee until your bladder is empty. ? Do not hold pee for a long time. ? Empty your bladder after sex. ? Wipe from front to back after peeing or pooping if you are a female. Use each tissue one time when you wipe. ? Drink enough fluid to keep your pee pale yellow. ? Keep all follow-up visits. Contact a doctor if: ? You do not get better after 1?2 days. ? Your symptoms go away and then come back. Get help right away if: ? You have very bad back pain. ? You have very bad pain in your lower belly. ? You have a fever. ? You have chills. ? You feeling like you will vomit or you vomit. Summary ? A urinary tract infection (UTI) is an infection of any part of the urinary tract. ? This condition is caused by germs in your genital area. ? There are many risk factors for a UTI. ? Treatment includes antibiotic medicines. ? Drink enough fluid to keep your pee pale yellow. This information is not intended to replace advice given to you by your health care provider. Make sure you discuss any questions you have with your health care provider. Document Revised: 12/15/2020 Document Reviewed: 12/15/2020 [employer] Patient Education ? 2022 [employer]. Cornelio Garcia [facility] Urology Office/Clinic Noteon 09-09-2023 Urology Office/Clinic Note Chief Complaint New patient c/o recurrent UTI's, frequency HPI Staff Pt is a new pt, last seen in our office 02/20/16 by DLS due to stress incontinence. Here today due to Recurrent UTI & Frequency S/P TVT Sling 06/14/15, Uro's 05/17/15 & Cysto/UD's in 2009 & 2014 Hx of Hysterectomy Has tried Myrbetriq, VESIcare & Uribel in past A1C 03/12/23- 5.4 CMP 03/16/23 *BUN 9.0 Crea 0.70 & eGFR >60 CT ab/p w/& wo *NEG Urogenital C&S 03/11/23 >100k *Tx'd w/IV Rocephin while in [facility] for bowel obstruction 04/25/23- <10k mixed skin contaminants Dysuria: denies Incomplete bladder emptying: yes Hematuria: denies Frequency: denies Urgency: denies Nocturia: 2-3 x a night Stream: stop and go Leaking: sometimes Post void dripping: sometimes Wearing pads/ Depends: denies Urge incontinence: denies Stress incontinence: denies Incontinence without Sensory Awareness: denies Abdominal pain: denies Flank pain: denies Sexual complaints: _ History of Present Illness staff HPI reviewed and agree. Review of Systems PHQ Score Initial Depression Screen Score: 0 SCORE no fever, chills, malaise, myalgia. no rash/lesions. no chest pain, palpitations, or SOB. no abdominal pain, nausea, vomiting. no unilateral calf swelling, redness, pain Physical Exam Vitals & Measurements T: 36.8 ?C(Temporal Artery) HR: 62(Peripheral) RR: 16 BP: 130/81 HT: 59 in HT: 150 cm WT: 54 kg WT: 118.8 lb BMI: 24 General: nontoxic, NAD Mouth: moist mucosa Lungs: normal respiratory effort Cardio: regular rate, good distal perfusion Abdomen: nondistended, no suprapubic distention or tenderness, no CVA tenderness Neurologic: Grossly normal Skin: No rashes or suspicious lesions Assessment/Plan Monica is a 62 yo female new pt here for recurrent UTI and urinary frequency. Prior DLS pt, last seen 02/20/16. 1. Frequent UTI (N39.0: Urinary tract infection, site not specified) UCx 03/11/23 - >100k E. coli, tx'd w/ IV Rocephin while in [facility] for bowel obstruction 04/25/23 - <10k mixed skin contaminants CT AP w/wo 03/11/23 [facility] - No renal stones or hydro. No hx of stones. A1c 03/12/23- 5.4 Typical UTI sx include frequency, burning with urination, and odorous urine. States last year she saw her PCP due to frequency and frequent UTIs. Worsened since last summer. Has been on at least 4 courses of abx for UTIs. Reports most recent infection improved on abx course. UA today shows small blood and trace leuks. Denies current UTI sxs so we will not send for cx. Discussed with pt. to start D-mannose, cranberry, and probiotics to help decrease the number of urinary tract infections. If UTIs persist may need to consider cysto +/- est cream. -Start OTC UTI preventative supplements. -Contact our office w all future UTI sx so we can monitor urine cx results, treat appropriately (may require extended course abx), and monitor frequency of infections. -If develops fever, severe flank pain, vomiting - needs to go to ER. 2. Nocturia (R35.1: Nocturia) TVT Sling 06/14/15. Has tried VESIcare, Myrbetriq, Detrol, and Uribel in the past. BBSQ 9. Gets up 2-3x/night to void. This is her most bothersome sx. Goes to bed around 7-8pm. Feels she voids more often in the evenings due to being more relaxed. Also c/o daytime urgency w some UUI. Discussed trying a new med, risks/benefits/side effects. Pt would like to proceed. -Start Trospium 20 mg bid. Discussed the medication side effects, and the patient will monitor closely for these, as well as for symptom improvement. If severe side effects occur, the medication should be stopped and the office notified. 3. 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 Stop and go stream at times. Does not always feel she empties completely. Some post-void dribbling. PVR today 0 mL. Discussed possible repeat UD. Pt would like to wait to proceed at this time. -If continues to get breakthrough UTIs, we will consider cysto/UD Follow-up With When Contact Information SHANNEN NEGRETE PA-C, URL [address] [place] [address] [phone] Additional Instructions: 3 mos (new med) Patient Education Urinary Tract Infection, Adult, [id number] Documentation recorded by the scribmarbella Lay accurately reflects the services(s) I performed and decisions made by me. Authenticated by Shannen Negrete PA-C on 09/09/2023 14:17:35. I, Alejandra Lay, personally scribed for Shannen Negrete PA-C on 09/09/2023 13:57:59. . Problem List/Past Medical History Ongoing Frequent UTI Nocturia Postinfective urethral stricture in female Historical No qualifying data Procedure/Surgical History Sling procedure of bladder neck (06/14/2015), Cystoscopy (05/26/2015), Urodynamics (05/17/2015), Cystourethroscopy with dilation of urethral stricture (06/30/2014), Cys (more content not included)... Normal [facility] Comment on above: Result Comment: Elec tronically Signed By: SHANNEN NEGRETE PA-C\.br\Date and Time Signed: 09/09/23 14:17 EDT\.br\Electronically Co-Signed By: Alejandra Laybr\Date and Time Co-Signed: 09/09/23 14:01 EDT Urinalysis - AUTOMATEDon Appearance (U) clear [employer] Other Bilirubin Ql (U) Negative Otonomy Other Color (U) pale yellow LVL6 Other Glucose Ql (U) Negative [employer] Other Hemoglobin Ql (U) trace-intact LVL6 Other Ketones Ql (U) Negative [employer] Other Leukocyte esterase Test strip Ql (U) trace LVL6 Other Nitrite Ql (U) Negative [employer] Other pH (U) 6.0 [pH] LVL6 Other Protein Ql (U) Negative [employer] Other Specific gravity (U) [Rel density] 1.010 LVL6 Other Urobilinogen (U) [Mass/Vol] 0.2 mg/dL LVL6 Other Urinalysis - AUTOMATED LVL6 Other Urine Cultureon 04-25-2023 Bacteria identified Cx Nom (U) Reason for Exam Dysuria Urine <10,000 colonies/ml mixed bacterial skin contaminants including mixed gram negative bacilli - 2 Days PERFORMED BY: [place] [address] PATHOLOGIST EXECUTIVE PASTRY CHEF DAVID PABLO M.D. Normal [facility] Comment on above: Performed By: #### C UU #### [address] Bacteria identified Cx Nom (U) LVL6 Other LIPID PROFILEon 05-08-2022 CHOL-HDL RATIO NORM SEE BELOW Normal [facility] Comment on above: Result Comment: 3.3 - 4.4 LOW RISK 4.4 - 7.1 AVERAGE RISK 7.1 - 11.0 MODERATE RISK >11.0 HIGH RISK Performed By: #### L IPID, AST, ALT #### [facility] [address] [place] [address] Dr. Francisco Laboy Cholesterol [Mass/Vol] 191 mg/dL Normal <=200 [facility] Comment on above: Performed By: #### L IPID, AST, ALT #### [facility] [address] [address] [address] Francisco Laboy Cholesterol in HDL [Mass/Vol] 56 mg/dL Normal 40-60 [facility] Comment on above: Performed By: #### L IPID, AST, ALT #### [facility] [address] [place] [address] Dr. Francisco Laboy Cholesterol in LDL [Mass/Vol] 94.2 mg/dL Normal [facility] Comment on above: Performed By: #### L IPID, AST, ALT #### [facility] [address] [place] [address] Dr. Francisco Laboy Cholesterol.total /Cholesterol in HDL [Mass ratio] 3.4 {ratio} Normal [facility] Comment on above: Performed By: #### L IPID, AST, ALT #### [facility] [address] [place] [address] Dr. Francisco Laboy HDL NORMAL > or = 60 mg/dl - LO W CARDIOVASCULAR RISK <40 mg/dl - HIGH CARDIOVASCULAR RISK Normal [facility] Comment on above: Performed By: #### L IPID, AST, ALT #### [facility] [address] [place] [address] Dr. Francisco Laboy LDL CALC NORMAL SEE BELOW Normal [facility] Comment on above: Result Comment: <100 mg/dl OPTIMAL 100 - 129 mg/dl NEAR OR ABOVE OPTIMAL 130 - 159 mg/dl BORDERLINE HIGH 160 - 189 mg/dl HIGH >190 mg/dl VERY HIGH Performed By: #### L IPID, AST, ALT #### [facility] [address] [place] [address] Dr. Francisco Laboy Triglyceride [Mass/Vol] 204 mg/dL Critically high <=150 [facility] Comment on above: Performed By: #### L IPID, AST, ALT #### [facility] [address] [address] [address] Francisco Laboy VLDL CALC 40.8 mg/dL Normal [facility] Comment on above: Performed By: #### L IPID, AST, ALT #### [facility] [address] [address] [address] Francisco Fuentesn 05-08-2022 AST [Catalytic activity/Vol] 20 U/L Normal 15-37 [facility] Comment on above: Performed By: #### L IPID, AST, ALT #### [facility] [address] [address] [address] [facility] 05[facility]08-[facility] ALT [Catalytic activity/Vol] 23 U/L Normal 14-59 [facility] Comment on above: Performed By: #### L IPID, AST, ALT #### [facility] [address] [address] [address] Francisco Laboy SARS-CoV-2 (COVID-19) RNA NA A+probe Ql (Resp)on 03-15-2022 SARS-CoV-2 (COVID-19) RNA JAZ+probe Ql (Unsp spec) Positive LVL6 Other Urinalysis - AUTOMATEDon Appearance (U) cloudy [employer] Other Bilirubin Ql (U) Negative Oton[employer] Other Color (U) yellow LVL6 Other Glucose Ql (U) Negative [employer] Other Hemoglobin Ql (U) moderate MDCapsule C [employer] Other Ketones Ql (U) trace [employer] Other Leukocyte esterase Test strip Ql (U) small LVL6 Other Nitrite Ql (U) Positive [employer] Other pH (U) 5.5 [pH] LVL6 Other Protein Ql (U) trace [employer] Other Specific gravity (U) [Rel density] 1.025 LVL6 Other Urobilinogen (U) [Mass/Vol] 0.2 mg/dL LVL6 Other Urinalysis - AUTOMATED LVL6 Other Urine Cultureon 03-15-2022 Urine Culture >100,000 LVL6 Other Urine Culture <16 Susceptible [facility] Other Urine Culture <8 Susceptible [facility] Other Urine Culture <4 Susceptible [facility] Other Urine Culture <2 Susceptible [employer] Other Urine Culture <1 Susceptible [facility] Other Urine Culture >2 Resistant LVL6 Other Urine Culture <0.5 Susceptible [facility] Other Urine Culture >4 Resistant LVL6 Other Urine Culture <32 Susceptible [facility] Other Urine Culture <2/38 Susceptible [facility] Other LIPID PROFILEon 11-08-2021 CHOL-HDL RATIO NORM SEE BELOW Normal [facility] Comment on above: Result Comment: 3.3 - 4.4 LOW RISK 4.4 - 7.1 AVERAGE RISK 7.1 - 11.0 MODERATE RISK >11.0 HIGH RISK Performed By: #### U AMIC #### [facility] [address] [address] [address] Francisco Laboy Cholesterol [Mass/Vol] 177 mg/dL Normal <=200 [facility] Comment on above: Performed By: #### U AMIC #### [facility] [address] [place], [place] [address] Dr. Francisco Laboy Cholesterol in HDL [Mass/Vol] 47 mg/dL Normal 40-60 [facility] Comment on above: Performed By: #### U AMIC #### [facility] [address] [place], [place] [address] Dr. Francisco Laboy Cholesterol in LDL [Mass/Vol] 92.2 mg/dL Normal [facility] Comment on above: Performed By: #### U AMIC #### [facility] [address] [address] [address] Francisco Laboy Cholesterol.total /Cholesterol in HDL [Mass ratio] 3.8 {ratio} Normal [facility] Comment on above: Performed By: #### U AMIC #### [facility] [address] [address] [address] Francisco Laboy HDL NORMAL > or = 60 mg/dl - LO W CARDIOVASCULAR RISK <40 mg/dl - HIGH CARDIOVASCULAR RISK Normal [facility] Comment on above: Performed By: #### U AMIC #### [facility] [address] [address] [address] Francisco Laboy LDL CALC NORMAL SEE BELOW Normal [facility] Comment on above: Result Comment: <100 mg/dl OPTIMAL 100 - 129 mg/dl NEAR OR ABOVE OPTIMAL 130 - 159 mg/dl BORDERLINE HIGH 160 - 189 mg/dl HIGH >190 mg/dl VERY HIGH Performed By: #### U AMIC #### [facility] [address] [address] [address] Francisco Laboy Triglyceride [Mass/Vol] 189 mg/dL Critically high <=150 [facility] Comment on above: Performed By: #### U AMIC #### [facility] [address] [address] [address] Francisco Laboy VLDL CALC 37.8 mg/dL Normal [facility] Comment on above: Performed By: #### U AMIC #### [facility] [address] [address] [address] Francisco Laboy PROF 14(COMP METB)on 06-23-2 022 Albumin [Mass/Vol] 3.9 g/dL Normal 3.4-5.0 [facility] Comment on above: Performed By: #### U AMIC #### [facility] [address] [place] [address] Dr. Francisco Laboy Albumin/Globulin [Mass ratio] 1.2 {ratio} Normal [facility] Comment on above: Performed By: #### U AMIC #### [facility] [address] [address] [address] Francisco Laboy ALP [Catalytic activity/Vol] 88 U/L Normal 46-116 [facility] Comment on above: Performed By: #### U AMIC #### [facility] [address] [place] [address] Dr. Francisco Laboy ALT [Catalytic activity/Vol] 44 U/L Normal 14-59 [facility] Comment on above: Performed By: #### U AMIC #### [facility] [address] [place] [address] Dr. Francisco Laboy Anion gap [Moles/Vol] 12.7 mmol/L Normal [facility] Comment on above: Performed By: #### U AMIC #### [facility] [address] [place] [address] Dr. Francisco Laboy AST [Catalytic activity/Vol] 26 U/L Normal 15-37 [facility] Comment on above: Performed By: #### U AMIC #### [facility] [address] [place] [address] Dr. Francisco Laboy Bilirubin [Mass/Vol] 0.4 mg/dL Normal 0.2-1.0 [facility] Comment on above: Performed By: #### U AMIC #### [facility] [address] [address] [address] Francisco Laboy Calcium [Mass/Vol] 8.4 mg/dL Critically low 8.5-10.1 [facility] Comment on above: Performed By: #### U AMIC #### [facility] [address] [address] [address] Francisco Laboy Chloride [Moles/Vol] 107 mmol/L Normal 98-107 [facility] Comment on above: Performed By: #### U AMIC #### [facility] [address] [address] [address] Francisco Laboy CO2 [Moles/Vol] 24.3 mmol/L Normal 21.0-32.0 [facility] Comment on above: Performed By: #### U AMIC #### [facility] [address] [address] [address] Francisco Laboy Creatinine [Mass/Vol] 0.92 mg/dL Normal 0.55-1.02 [facility] Comment on above: Performed By: #### U AMIC #### [facility] [address] [address] [address] Francisco Laboy EGFR-AF KYRGYZ >60 Normal >=60 [facility] Comment on above: Performed By: #### U AMIC #### [facility] [address] [address] [address] Francisco Laboy EGFR-NON AF KYRGYZ >60 Normal >=60 [facility] Comment on above: Performed By: #### U AMIC #### [facility] [address] [address] [address] Francisco Laboy Globulin (S) [Mass/Vol] 3.3 g/dL Normal [facility] Comment on above: Performed By: #### U AMIC #### [facility] [address] [address] [address] Francisco Laboy Glucose [Mass/Vol] 95 mg/dL Normal 74-106 [facility] Comment on above: Performed By: #### U AMIC #### [facility] [address] [address] [address] Francisco Laboy Potassium [Moles/Vol] 4.0 mmol/L Normal 3.5-5.1 [facility] Comment on above: Performed By: #### U AMIC #### [facility] [address] [address] [address] Francisco Laboy Protein [Mass/Vol] 7.2 g/dL Normal 6.4-8.2 [facility] Comment on above: Performed By: #### U AMIC #### [facility] [address] [place], [place] [address] Dr. Francisco Laboy Sodium [Moles/Vol] 140 mmol/L Normal 136-145 [facility] Comment on above: Performed By: #### U AMIC #### [facility] [address] [place], [place] [address] Dr. Francisco Laboy Urea nitrogen [Mass/Vol] 11.0 mg/dL Normal 7.0-18.0 [facility] Comment on above: Performed By: #### U AMIC #### [facility] [address] [place], [place] [address] Dr. Francisco Laboy Urea nitrogen/Creatini ne [Mass ratio] 11.9 mg/mg Normal [facility] Comment on above: Performed By: #### U AMIC #### [facility] [address] [address] [address] Francisco Laboy XR DEXA BONE DENSITYon 10-09 XR DEXA BONE DENSITY DEXA Bone Density Study CLINICAL: Evaluate bone mineral density. Postmenopausal COMPARISON: None FINDINGS: The bone density study was assessed by dual-energy x-ray absorptiometry with the Avantha scanner. The test results are expressed in [...] authenticated by: ANTWAN LAY Date: 2021-10-09 08:51 [facility] PAP ACOG PANEL 2: 30 to 65on 10-08-2021 . . Normal [facility] Comment on above: Result Comment: Perf ormed at: BA Performed By: #### U AMIC #### [facility] [address] [place], [place] [address] Dr. Francisco Laboy Age Gdln ACOG Testing 30-65 [facility] Comment on above: Performed By: #### U AMIC #### [facility] [address] [place], [place] [address] Dr. Francisco Laboy DIAGNOSIS: Comment [facility] Comment on above: Result Comment: UNSA TISFACTORY FOR EVALUATION. THIS SPECIMEN WAS RESCREENED PART OF OUR PRINCIPAL NETWORK ARCHITECT PROGRAM. Performed at: BA Performed By: #### U AMIC #### [facility] [address] [address] [address] Francisco Laboy HPV Aptima Negative Normal Negative [facility] Comment on above: Result Comment: This nucleic acid amplification test detects fourteen high-risk HPV types (16,18,31,33,35,39,45,51,52,56,58,59,66,68) without differentiation. Performed at: =G Performed By: #### U AMIC #### [facility] [address] [address] [address] Francisco Laboy Methodology: Comment Normal [facility] Comment on above: Result Comment: This liquid based ThinPrep(R) pap test was screened with the use of an image guided system. Performed at: WB Performed By: #### U AMIC #### [facility] [address] [place] [address] Dr. Francisco Laboy Note: Comment Normal [facility] Comment on above: Result Comment: The Pap smear is a screening test designed to aid in the detection of premalignant and malignant conditions of the uterine cervix. It is not a diagnostic procedure and should not be used as the sole means of detecting cervical cancer. Both false-positive and false-negative reports do occur. . Performed at: WB Performed By: #### U AMIC #### [facility] [address] [address] [address] Francisco Laboy Performed by: Comment Normal [facility] Comment on above: Result Comment: Liang Houser, After School Driver (ASCP) Performed at: BA Performed By: #### U AMIC #### [facility] [address] [address] [address] Francisco Laboy QC reviewed by: Comment Normal [facility] Comment on above: Result Comment: Rusty Ortiz, After School Driver (ASCP) Performed at: BA Performed By: #### U AMIC #### [facility] [address] [address] [address] Francisco Laboy Specimen adequacy: Comment Normal [facility] Comment on above: Result Comment: Spec imen processed and examined but unsatisfactory for evaluation of epithelial abnormality because of insufficient cellularity. Performed at: BA Performed By: #### U AMIC #### [facility] [address] [place], [place] [address] Dr. Francisco Laboy MG MAMM SCREEN 3D KAROL CADon 10-01-2021 MG MAMM SCREEN 3D KAROL CAD Patient: MONICA AMOR Exam Date: 10/01/2021 : 1960 Gender:F Ordering : [facility] Admission #: [id number] Family : Order #: [id number] CLICK HERE TO VIEW EXAM RADIOLOGY REPORT [...] stomach cancer at age 42. LOCATION: [facility] BREAST COMPOSITION: Heterogeneously dense,which may obscure small [...] MD on 10/01/2021 at 08:44 Normal [facility] CULTURE URINEon 09-06-2021 CULTURE URINE Culture Observations : NO GROWTH. Normal [facility] Comment on above: Performed By: #### U AMIC #### [facility] [address] [place], [place] [address] Dr. Francisco Laboy UA RANDOM W/MICROSCOPICon BACTERIA NONE SEEN Normal NONE SEEN [facility] Comment on above: Performed By: #### U AMIC #### [facility] [address] [place], [place] [address] Dr. Francisco Laboy Bilirubin Ql (U) Negative Normal NEGATIVE [facility] Comment on above: Performed By: #### U AMIC #### [facility] [address] [address] [address] Francisco Laboy CAST NONE SEEN Normal NONE SEEN [facility] Comment on above: Performed By: #### U AMIC #### [facility] [address] [address] [address] Francisco Laboy Clarity (U) CLEAR Normal CLEAR [facility] Comment on above: Performed By: #### U AMIC #### [facility] [address] [address] [address] Francisco Laboy Color (U) LT. YELLOW Normal YELLOW [facility] Comment on above: Performed By: #### U AMIC #### [facility] [address] [address] [address] Francisco Laboy Crystals LM Nom (Urine sed) NONE SEEN Normal NONE SEEN [facility] Comment on above: Performed By: #### U AMIC #### [facility] [address] [place] [address] Dr. Francisco Laboy Epithelial cells LM Ql (Urine sed) FEW Abnormal NONE SEEN /RARE [facility] Comment on above: Performed By: #### U AMIC #### [facility] [address] [address] [address] Francisco Laboy Glucose Ql (U) Negative Normal NEGATIVE [facility] Comment on above: Performed By: #### U AMIC #### [facility] [address] [address] [address] Francisco Laboy Hemoglobin Ql (U) Negative Normal NEGATIVE [facility] Comment on above: Performed By: #### U AMIC #### [facility] [address] [address] [address] Francisco Laboy Ketones Ql (U) Negative Normal NEGATIVE [facility] Comment on above: Performed By: #### U AMIC #### [facility] [address] [place] [address] Dr. Francisco Laboy LEUKOCYTES Negative Normal NEGATIVE [facility] Comment on above: Performed By: #### U AMIC #### [facility] [address] [address] [address] Francisco Laboy MUCOUS NONE SEEN Normal NONE SEEN [facility] Comment on above: Performed By: #### U AMIC #### [facility] [address] [place] [address] Dr. Francisco Laboy Nitrite Ql (U) Negative Normal NEGATIVE [facility] Comment on above: Performed By: #### U AMIC #### [facility] [address] [address] [address] Francisco Laboy pH (U) 6.0 [pH] Normal 5-9 [facility] Comment on above: Performed By: #### U AMIC #### [facility] [address] [place] [address] Dr. Francisco Laboy RBC NONE SEEN Abnormal 0-2 [facility] Comment on above: Performed By: #### U AMIC #### [facility] [address] [place] [address] Dr. Francisco Laboy SPEC GRAVITY <=1.005 Abnormal 1.005-<=1.025 [facility] Comment on above: Performed By: #### U AMIC #### [facility] [address] [place] [address] Dr. Francisco Laboy UA PROTEIN Negative Normal NEGATIVE/ TRACE [facility] Comment on above: Performed By: #### U AMIC #### [facility] [address] [place] [address] Dr. Francisco Laboy Urobilinogen Qn (U) 0.2 {Blanca'U}/dL Normal 0.2 - 1.0 [facility] Comment on above: Performed By: #### U AMIC #### [facility] [address] [place] [address] Dr. Francisco Laboy WBC NONE SEEN Normal NONE SEEN [facility] Comment on above: Performed By: #### U AMIC #### [facility] [address] [place] [address] Dr. Francisco Laboy CULTURE URINEon 08-30-2021 CULTURE URINE Isolate 1 Escherichia coli >100,000 cfu/mL of ORGANISM 1 Escherichia coli ANTIBIOTIC M.I.C RX STATUS Ampicillin <=2 S F Ampicillin/Sulbactam <=2 S F Piperacillin/Tazobacta m <=4 S F Cefazolin <=4 S F Ceftazidime <=1 S F Ceftriaxone <=1 S F Ertapenem <=0.5 S F Imipenem <=0.25 S F Amikacin <=2 S F Gentamicin <=1 S F Tobramycin <=1 S F Ciprofloxacin >=4 R F Levofloxacin >=8 R F Nitrofurantoin <=16 S F Trimethoprim/Sulfameth oxazole <=20 S F Normal [facility] Comment on above: Performed By: #### U RCX #### [facility] [address] [place] [address] Dr. Francisco Laboy CBC AUTO DIFFon 08-28-2021 BASO # 0.0 103/ul Normal 0.0-0.1 [facility] Comment on above: Performed By: #### U AMIC #### [facility] [address] [place] [address] Dr. Francisco Laboy Basophils/100 WBC (Bld) 0.7 % Normal 0.2-2.0 [facility] Comment on above: Performed By: #### U AMIC #### [facility] [address] [place] [address] Dr. Francisco Laboy EO # 0.2 103/ul Normal 0.0-0.7 [facility] Comment on above: Performed By: #### U AMIC #### [facility] [address] [place] [address] Dr. Francisco Laboy Eosinophils/100 WBC (Bld) 3.3 % Normal 0.9-7.0 [facility] Comment on above: Performed By: #### U AMIC #### [facility] [address] [place] [address] Dr. Francisco Laboy Erythrocyte distribution width (RBC) [Ratio] 13.6 % Normal 11.0-15.0 [facility] Comment on above: Performed By: #### U AMIC #### [facility] [address] [place] [address] Dr. Francisco Laboy Hematocrit (Bld) [Volume fraction] 40.9 % Normal 36.0-48.0 [facility] Comment on above: Performed By: #### U AMIC #### [facility] [address] [address] [address] Francisco Laboy Hemoglobin (Bld) [Mass/Vol] 13.3 g/dL Normal 12.0-16.0 [facility] Comment on above: Performed By: #### U AMIC #### [facility] [address] [address] [address] Francisco Laboy IG # 0.01 10e3/ul Normal 0.00-0.03 [facility] Comment on above: Performed By: #### U AMIC #### [facility] [address] [place] [address] Dr. Francisco Laboy IG % 0.2 % Normal 0.0-0.5 [facility] Comment on above: Performed By: #### U AMIC #### [facility] [address] [address] [address] Francisco Laboy LYMPH # 1.8 103/ul Normal 1.2-3.8 [facility] Comment on above: Performed By: #### U AMIC #### [facility] [address] [place] [address] Dr. Francisco Laboy Lymphocytes/100 WBC (Bld) 31.6 % Normal 20.5-60.0 [facility] Comment on above: Performed By: #### U AMIC #### [facility] [address] [address] [address] Francisco Laboy MANUAL DIFF REQ NO Normal [facility] Comment on above: Performed By: #### U AMIC #### [facility] [address] [address] [address] Francisco Laboy MCH (RBC) [Entitic mass] 29.1 pg Normal 26.7-34.0 [facility] Comment on above: Performed By: #### U AMIC #### [facility] [address] [address] [address] Francisco Laboy MCHC (RBC) [Mass/Vol] 32.5 g/dL Normal 29.9-35.2 [facility] Comment on above: Performed By: #### U AMIC #### [facility] [address] [place] [address] Dr. Francisco Laboy MCV (RBC) [Entitic vol] 89.5 fL Normal 81.0-99.0 [facility] Comment on above: Performed By: #### U AMIC #### [facility] [address] [address] [address] Francisco Laboy MONO # 0.5 103/ul Normal 0.3-0.8 [facility] Comment on above: Performed By: #### U AMIC #### [facility] [address] [place] [address] Dr. Francisco Laboy Monocytes/100 WBC (Bld) 8.7 % Normal 1.7-12.0 [facility] Comment on above: Performed By: #### U AMIC #### [facility] [address] [place] [address] Dr. Francisco Laboy NEUT # 3.2 103/ul Normal 1.4-6.5 [facility] Comment on above: Performed By: #### U AMIC #### [facility] [address] [place] [address] Dr. Francisco Laboy Neutrophils/100 WBC (Bld) 55.5 % Normal 43.0-75.0 [facility] Comment on above: Performed By: #### U AMIC #### [facility] [address] [place] [address] Dr. Francisco Laboy Platelet mean volume (Bld) [Entitic vol] 10.5 fL Normal 9.5-13.5 [facility] Comment on above: Performed By: #### U AMIC #### [facility] [address] [place] [address] Dr. Francisco Laboy PLT 261 103/ul Normal 150-450 [facility] Comment on above: Performed By: #### U AMIC #### [facility] [address] [place] [address] Dr. Francisco Laboy RBC 4.57 106/ul Normal 4.20-5.40 [facility] Comment on above: Performed By: #### U AMIC #### [facility] [address] [address] [address] Francisco Laboy WBC 5.8 103/ul Normal 4.0-11.0 [facility] Comment on above: Performed By: #### U AMIC #### [facility] [address] [address] [address] Francisco Laboy LIPID PROFILEon 08-28-2021 CHOL-HDL RATIO NORM SEE BELOW Normal [facility] Comment on above: Result Comment: 3.3 - 4.4 LOW RISK 4.4 - 7.1 AVERAGE RISK 7.1 - 11.0 MODERATE RISK >11.0 HIGH RISK Performed By: #### T SH, LIPID, CMP #### [facility] [address] [place] [address] Dr. Francisco Laboy Cholesterol [Mass/Vol] 244 mg/dL Critically high <=200 [facility] Comment on above: Performed By: #### T SH, LIPID, CMP #### [facility] [address] [place] [address] Dr. Francisco Laboy Cholesterol in HDL [Mass/Vol] 47 mg/dL Normal 40-60 [facility] Comment on above: Performed By: #### T SH, LIPID, CMP #### [facility] [address] [place] [address] Dr. Francisco Laboy Cholesterol in LDL [Mass/Vol] 155.2 mg/dL Normal [facility] Comment on above: Performed By: #### T SH, LIPID, CMP #### [facility] [address] [place] [address] Dr. Francisco Laboy Cholesterol.total /Cholesterol in HDL [Mass ratio] 5.2 {ratio} Normal [facility] Comment on above: Performed By: #### T SH, LIPID, CMP #### [facility] [address] [place] [address] Dr. Francisco Laboy HDL NORMAL > or = 60 mg/dl - LO W CARDIOVASCULAR RISK <40 mg/dl - HIGH CARDIOVASCULAR RISK Normal [facility] Comment on above: Performed By: #### T FEDE, LIPID, CMP #### [facility] [address] [place] [address] Dr. Francisco Laboy LDL CALC NORMAL SEE BELOW Normal [facility] Comment on above: Result Comment: <100 mg/dl OPTIMAL 100 - 129 mg/dl NEAR OR ABOVE OPTIMAL 130 - 159 mg/dl BORDERLINE HIGH 160 - 189 mg/dl HIGH >190 mg/dl VERY HIGH Performed By: #### T FEDE, LIPID, CMP #### [facility] [address] [address] [address] Francisco Laboy Triglyceride [Mass/Vol] 209 mg/dL Critically high <=150 [facility] Comment on above: Performed By: #### T FEDE, LIPID, CMP #### [facility] [address] [place] [address] Dr. Francisco Laboy VLDL CALC 41.8 mg/dL Normal [facility] Comment on above: Performed By: #### T FEDE, LIPID, CMP #### [facility] [address] [place] [address] Dr. Francisco Laboy PROF 14(COMP METB)on 022 Albumin [Mass/Vol] 4.0 g/dL Normal 3.4-5.0 [facility] Comment on above: Performed By: #### T FEDE LIPID, CMP #### [facility] [address] [place] [address] Dr. Francisco Laboy Albumin/Globulin [Mass ratio] 1.3 {ratio} Normal [facility] Comment on above: Performed By: #### T FEDE, LIPID, CMP #### [facility] [address] [place] [address] Dr. Francisco Laboy ALP [Catalytic activity/Vol] 84 U/L Normal 46-116 [facility] Comment on above: Performed By: #### T FEDE, LIPID, CMP #### [facility] [address] [place] [address] Dr. Francisco Laboy ALT [Catalytic activity/Vol] 24 U/L Normal 14-59 [facility] Comment on above: Performed By: #### T FEDE, LIPID, CMP #### [facility] [address] [address] [address] Francisco Laboy Anion gap [Moles/Vol] 13.2 mmol/L Normal [facility] Comment on above: Performed By: #### T SH, LIPID, CMP #### [facility] [address] [place] [address] Dr. Francisco Laboy AST [Catalytic activity/Vol] 15 U/L Normal 15-37 [facility] Comment on above: Performed By: #### T FEDE, LIPID, CMP #### [facility] [address] [place] [address] Dr. Francisco Laboy Bilirubin [Mass/Vol] 0.3 mg/dL Normal 0.2-1.3 [facility] Comment on above: Performed By: #### T FEDE, LIPID, CMP #### [facility] [address] [place] [address] Dr. Francisco Laboy Calcium [Mass/Vol] 8.4 mg/dL Critically low 8.5-10.1 [facility] Comment on above: Performed By: #### T FEDE, LIPID, CMP #### [facility] [address] [place] [address] Dr. Francisco Laboy Chloride [Moles/Vol] 105 mmol/L Normal 98-107 [facility] Comment on above: Performed By: #### T FEDE, LIPID, CMP #### [facility] [address] [place] [address] Dr. Francisco Laboy CO2 [Moles/Vol] 26.8 mmol/L Normal 22.0-30.0 [facility] Comment on above: Performed By: #### T SH, LIPID, CMP #### [facility] [address] [place] [address] Dr. Francisco Laboy Creatinine [Mass/Vol] 0.84 mg/dL Normal 0.52-1.04 [facility] Comment on above: Performed By: #### T SH, LIPID, CMP #### [facility] [address] [place] [address] Dr. Francisco Laboy EGFR-AF KYRGYZ >60 Normal >=60 [facility] Comment on above: Performed By: #### T SH, LIPID, CMP #### [facility] [address] [address] [address] Francisco Laboy EGFR-NON AF KYRGYZ >60 Normal >=60 [facility] Comment on above: Performed By: #### T SH, LIPID, CMP #### [facility] [address] [address] [address] Francisco Laboy Globulin (S) [Mass/Vol] 3.0 g/dL Normal [facility] Comment on above: Performed By: #### T SH, LIPID, CMP #### [facility] [address] [place] [address] Dr. Francisco Laboy Glucose [Mass/Vol] 101 mg/dL Normal 74-106 [facility] Comment on above: Performed By: #### T SH, LIPID, CMP #### [facility] [address] [place] [address] Dr. Francisco Laboy Potassium [Moles/Vol] 4.0 mmol/L Normal 3.4-5.0 [facility] Comment on above: Performed By: #### T SH, LIPID, CMP #### [facility] [address] [place] [address] Dr. Francisco Laboy Protein [Mass/Vol] 7.0 g/dL Normal 6.1-8.2 [facility] Comment on above: Performed By: #### T SH, LIPID, CMP #### [facility] [address] [place] [address] Dr. Francisco Laboy Sodium [Moles/Vol] 141 mmol/L Normal 137-145 [facility] Comment on above: Performed By: #### T SH, LIPID, CMP #### [facility] [address] [place] [address] Dr. Francisco Laboy Urea nitrogen [Mass/Vol] 15.0 mg/dL Normal 7.0-18.0 [facility] Comment on above: Performed By: #### T SH, LIPID, CMP #### [facility] [address] [place] [address] Dr. Francisco Laboy Urea nitrogen/Creatini ne [Mass ratio] 17.9 mg/mg Normal [facility] Comment on above: Performed By: #### T SH, LIPID, CMP #### [facility] [address] [place] [address] Dr. Francisco Laboy TSHon 08-28-2021 TSH 3.809 uIU/mL Normal 0.470-4.680 [facility] Comment on above: Performed By: #### T SH, LIPID, CMP #### [facility] [address] [place] [address] Dr. Francisco Laboy TSH RANGE SEE BELOW Normal [facility] Comment on above: Result Comment: <0.3 4 UIU/ml HYPERTHYROID 0.34-5.60 UIU/ml EUTHYROID >5.60 UIU/ml HYPOTHYROID Performed By: #### T SH, LIPID, CMP #### [facility] [address] [place] [address] Dr. Francisco Laboy UA RANDOM W/MICROSCOPICon BACTERIA MODERATE Abnormal NONE SEEN [facility] Comment on above: Performed By: #### U AMIC #### [facility] [address] [place] [address] Dr. Francisco Laboy Bilirubin Ql (U) Negative Normal NEGATIVE [facility] Comment on above: Performed By: #### U AMIC #### [facility] [address] [place] [address] Dr. Francisco Laboy CAST NONE SEEN Normal NONE SEEN [facility] Comment on above: Performed By: #### U AMIC #### [facility] [address] [place] [address] Dr. Francisco Laboy Clarity (U) CLEAR Normal CLEAR [facility] Comment on above: Performed By: #### U AMIC #### [facility] [address] [place] [address] Dr. Francisco Laboy Color (U) LT. YELLOW Normal YELLOW [facility] Comment on above: Performed By: #### U AMIC #### [facility] [address] [place] [address] Dr. Francisco Laboy Crystals LM Nom (Urine sed) NONE SEEN Normal NONE SEEN [facility] Comment on above: Performed By: #### U AMIC #### [facility] [address] [address] [address] Francisco Laboy Epithelial cells LM Ql (Urine sed) RARE Normal NONE SEEN /RARE [facility] Comment on above: Performed By: #### U AMIC #### [facility] [address] [address] [address] Francisco Laboy Glucose Ql (U) Negative Normal NEGATIVE [facility] Comment on above: Performed By: #### U AMIC #### [facility] [address] [address] [address] Francisco Laboy Hemoglobin Ql (U) SMALL Abnormal NEGATIVE [facility] Comment on above: Performed By: #### U AMIC #### [facility] [address] [place] [address] Dr. Francisco Laboy Ketones Ql (U) Negative Normal NEGATIVE [facility] Comment on above: Performed By: #### U AMIC #### [facility] [address] [place] [address] Dr. Francisco Laboy LEUKOCYTES SMALL Abnormal NEGATIVE [facility] Comment on above: Performed By: #### U AMIC #### [facility] [address] [address] [address] Francisco Laboy MUCOUS SMALL Abnormal NONE SEEN [facility] Comment on above: Performed By: #### U AMIC #### [facility] [address] [place] [address] Dr. Francisco Laboy Nitrite Ql (U) Positive Abnormal NEGATIVE [facility] Comment on above: Performed By: #### U AMIC #### [facility] [address] [place] [address] Dr. Francisco Laboy pH (U) 6.5 [pH] Normal 5-9 [facility] Comment on above: Performed By: #### U AMIC #### [facility] [address] [place] [address] Dr. Francisco Laboy RBC 0-2 Normal 0-2 [facility] Comment on above: Performed By: #### U AMIC #### [facility] [address] [place] [address] Dr. Francisco Laboy SPEC GRAVITY 1.015 Normal 1.005-<=1.025 [facility] Comment on above: Performed By: #### U AMIC #### [facility] [address] [address] [address] Francisco Laboy UA PROTEIN Negative Normal NEGATIVE/ TRACE [facility] Comment on above: Performed By: #### U AMIC #### [facility] [address] [address] [address] Francisco Laboy Urobilinogen Qn (U) 0.2 {Blanca'U}/dL Normal 0.2 - 1.0 [facility] Comment on above: Performed By: #### U AMIC #### [facility] [address] [address] [address] Francisco Laboy WBC 5-10 Abnormal NONE SEEN [facility] Comment on above: Performed By: #### U AMIC #### [facility] [address] [address] [address] Francisco Laboy Vital Signs Date Time Vital Sign Value Performing Clinician Facility 11-11-2023 11:22-0400 Blood Pressure Location [employer] [facility] 11-11-2023 11:22-0400 Diastolic blood pressure 72 mm[Hg] SHANNEN CADEN [facility] 11-11-2023 11:22-0400 Heart rate 68 /min SHANNEN CADEN [facility] 11-11-2023 11:22-0400 Respiratory rate 16 /min SHANNEN CADEN [facility] 11-11-2023 11:22-0400 Systolic blood pressure 130 mm[Hg] SHANNEN CADEN [facility] 09-09-2023 13:14-0400 Blood Pressure Location SHANNEN CADEN [facility] 09-09-2023 13:14-0400 Body temperature 98.24 [degF] SHANNEN CADEN [facility] 09-09-2023 13:14-0400 Diastolic blood pressure 81 mm[Hg] SHANNEN CADEN [facility] 09-09-2023 13:14-0400 Heart rate 62 /min SHANNEN CADEN [facility] 09-09-2023 13:14-0400 Respiratory rate 16 /min SHANNEN CADEN [facility] 09-09-2023 13:14-0400 Systolic blood pressure 130 mm[Hg] SHANNEN CADEN [facility] 04-25-2023 09:25-0500 Body height 151.13 cm 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 Other [facility] Other 04-25-2023 09:25-0500 Body mass index (BMI) [Ratio] 22.88 kg/m2 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 Other [facility] Other 04-25-2023 09:25-0500 Body temperature 98.9 [degF] 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 Other [facility] Other 04-25-2023 09:25-0500 Body weight 52.25 kg 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 Other [facility] Other 04-25-2023 09:25-0500 Diastolic blood pressure 79 mm[Hg] 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 Other [facility] Other 04-25-2023 09:25-0500 Respiratory rate 18 /min Stephanie Preethi Other [facility] Other 04-25-2023 09:25-0500 SaO2% (BldA) [Mass fraction] 98 % Stephanie Preethi Other [facility] Other 04-25-2023 09:25-0500 Systolic blood pressure 140 mm[Hg] Stephanie Preethi Other [facility] Other 03-15-2022 14:30-0400 Body height 151.13 cm Stephanie Preethi Other [facility] Other 03-15-2022 14:30-0400 Body mass index (BMI) [Ratio] 25.02 kg/m2 Stephanie Preethi Other [facility] Other 03-15-2022 14:30-0400 Body temperature 99.6 [degF] Stephanie Preethi Other [facility] Other 03-15-2022 14:30-0400 Body weight 57.15 kg Stephanie Preethi Other [facility] Other 03-15-2022 14:30-0400 Respiratory rate 18 /min Stephanie Preethi Other [facility] Other 03-15-2022 14:30-0400 SaO2% (BldA) [Mass fraction] 97 % Stephanie Preethi Other [facility] Other Encounters Encounter Date Encounter Type Care Provider Facility Start: 12-02-2023 End: 12-02-2023 [facility] Start: 11-11-2023 End: 11-11-2023 ambulatory SHANNEN Marbella CADEN Facility:[facility] Start: 11-11-2023 End: 11-11-2023 Patient encounter procedure SHANNEN E CADEN [facility] Start: 09-16-2023 End: 09-16-2023 Lab Drop off SHANNEN Marbella HOFFMANRY [facility] Start: 09-16-2023 End: 09-16-2023 ambulatory SHANNEN Marbella CADEN [place] [place] Start: 09-16-2023 End: 09-16-2023 Patient encounter procedure SHANNEN Marbella CADEN [facility] Start: 09-15-2023 ambulatory SHANNEN NEGRETE Facility :[facility] Start: 09-09-2023 End: 09-09-2023 ambulatory SHANNEN NEGRETE Facility:[facility] Start: 09-09-2023 End: 09-09-2023 Patient encounter procedure SHANNEN Marbella NEGRETE [facility] Start: 06-10-2023 End: 06-10-2023 ambulatory MELANIA WEISS Not Available Start: 04-25-2023 Office outpatient vi sit 15 minutes 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 [facility] Start: 04-25-2023 End: 04-25-2023 ambulatory 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 [facility] Other Start: 05-08-2022 End: 05-09-2022 ambulatory TRIMMING CUTTER SRIKANTHAshlee LOPEZ Facility: Start: 03-15-2022 End: 03-15-2022 Departed Referred TRANSLATOR-C 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 Work Phone: [facility] [place] Start: 03-15-2022 End: 03-15-2022 ambulatory TRANSLATOR-C 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 Work Phone: [facility] Work Phone: Start: 03-15-2022 Office outpatient ne w 20 minutes 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 [facility] Start: 11-08-2021 End: 11-09-2021 ambulatory KATH LOPEZ Facility:[facility] Start: 10-11-2021 Encounter for gynecological examination (general) (routine) without abnormal findings [facility] Start: 10-09-2021 End: 10-10-2021 ambulatory KATH LOPEZ Facility:[facility] Start: 10-09-2021 End: 10-10-2021 Encounter for gynecological examination (general) (routine) without abnormal findings KATH LOPEZ Facility:[facility] Start: 10-02-2021 End: 10-02-[address] JESU CARO Facility:[facility] Start: 10-01-2021 End: 10-02-2021 ambulatory KATH RITCHIEA JOHN Facility:[facility] Start: 09-06-2021 End: 09-07-2021 ambulatory KATH RITCHIEA JOHN Facility:[facility] Start: 08-31-2021 Encounter for genera l adult medical examination without abnormal findings [facility] Start: 08-28-2021 End: 08-29-2021 ambulatory KATH SRIKANTH JOHN Facility:[facility] Start: 08-28-2021 End: 08-29-2021 Encounter for general adult medical examination without abnormal findings TRIMMING CUTTER SRIKANTH SERAFABIÁN Facility:[facility] Procedures Date Procedure Procedure Detail Performing Clinician Start: 03-15-2022 Piperacillin/tazobactam 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 Other Start: 06-14-2015 Repair of stress inc ontinence by suprapubic sling SHANNEN NEGRETE Start: 05-26-2015 Transurethral cystoscopy SHANNEN NEGRETE Start: 05-17-2015 Urodynamic studies VICTORIANO NEGRETE Start: 06-30-2014 Cystourethroscopy wi th dilation of urethral stricture SHANNEN NEGRETE Start: 04-24-2010 Cystourethroscopy wi th dilation of urethral stricture SHANNEN NEGRETE Appendectomy SHANNEN NEGRETE Colonoscopy SHANNEN NEGRETE Hysterectomy SHANNEN NEGRETE Plan of Treatment Date Care Activity Detail Author Bacteria identified in Urine by Culture Urine Culture [facility] Immunizations Immunization Date Immunization Notes Care Provider Shai pisano 07-05-2022 zoster vaccine recombinant SHANNEN CADEN [facility] 03-30-2022 influenza virus vaccine, unspecified formulation SHANNEN CADEN [facility] 03-30-2022 zoster vaccine recombinant SHANNEN CADEN [facility] 02-08-2021 influenza virus vaccine, unspecified formulation SHANNEN CADEN [facility] 02-13-2020 influenza virus vaccine, unspecified formulation SHANNEN CADEN [facility] 02-27-2019 influenza virus vaccine, unspecified formulation SHANNEN CADEN [facility] 03-26-2015 influenza virus vaccine, unspecified formulation SHANNEN CADEN [facility] 03-23-2014 influenza virus vaccine, unspecified formulation SHANNEN CADEN [facility] 05-22-2013 influenza virus vaccine, unspecified formulation SHANNEN CADEN [facility] Payers Date Payer Category Payer Self-pay 2022 Unknown [id number] 2.16.8 [id number] 1960 Unknown [id number] 2.16.84 [id number] 1960 Unknown [id number] 2.16.84 [id number] 1962 Unknown [id number] 2.16.84 [id number] 1962 Unknown [id number] 2.16.84 [id number] 1962 Unknown [id number] 2.16.84 [id number] 1962 Unknown [id number] 2.16.84 [id number] 1962 Unknown [id number] 2.16.84 [id number] 1962 Unknown [id number] 2.16.8 [id number] 1962 Unknown [id number] 2.16.8 [id number] 1962 Unknown [id number] 2.16.8 [id number] 1962 Unknown [id number] 2.16.8 [id number] 1962 Unknown [id number] 2.16.84 [id number] 1962 Unknown [id number] 2.16.84 [id number] 1959 Unknown [id number] 2.16. [id number] Unknown [id number] 2.16.8 [id number] Social History Date Type Detail Facility Sex Assigned At [facility] Start: 1960 Sex Assigned At Female F [facility] Start: 09-09-2023 End: 11-11-2023 Tobacco smoking status Never smoked tobacco (finding) [facility] Tobacco smoking status Never [facility] Functional Status Date Assessment Result Facility 11-11-2023 Functional Status N/A [facility] 09-09-2023 Functional Status N/A [facility] Clinical Notes 10-17-2021 to 11-11-2023 Note Date & Type Note Facility 11-11-2023 Hospital Discharg e instructions Patient Education 11/11/2023 11:35:53 Urinary Tract Infection, Adult Urinary Tract Infection, Adult A urinary tract infection (UTI) is an infection of any part of the urinary tract. The urinary tract includes the kidneys, ureters, bladder, and urethra. These organs make, store, and get rid of urine in the body. An upper UTI affects the ureters and kidneys. A lower UTI affects the bladder and urethra. What are the causes? Most urinary tract infections are caused by bacteria in your genital area around your urethra, where urine leaves your body. These bacteria grow and cause inflammation of your urinary tract. What increases the risk? You are more likely to develop this condition if: You have a urinary catheter that stays in place. You are not able to control when you urinate or have a bowel movement (incontinence). You are female and you: ?Use a spermicide or diaphragm for control. ?Have low estrogen levels. ?Are . You have certain genes that increase your risk. You are sexually active. You take antibiotic medicines. You have a condition that causes your flow of urine to slow down, such as: ?An enlarged prostate, if you are male. ?Blockage in your urethra. ?A kidney stone. ?A nerve condition that affects your bladder control (neurogenic bladder). ?Not getting enough to drink, or not urinating often. You have certain medical conditions, such as: ?Diabetes. ?A weak disease-fighting system (immunesystem). ?Sickle cell disease. ?Gout. ?Spinal cord injury. What are the signs or symptoms? Symptoms of this condition include: Needing to urinate right away (urgency). Frequent urination. This may include small amounts of urine each time you urinate. Pain or burning with urination. Blood in the urine. Urine that smells bad or unusual. Trouble urinating. Cloudy urine. Vaginal discharge, if you are female. Pain in the abdomen or the lower back. You may also have: Vomiting or a decreased appetite. Confusion. Irritability or tiredness. A fever or chills. Diarrhea. The first symptom in older adults may be confusion. In some cases, they may not have any symptoms until the infection has worsened. How is this diagnosed? This condition is diagnosed based on your medical history and a physical exam. You may also have other tests, including: Urine tests. Blood tests. Tests for STIs (sexually transmitted infections). If you have had more than one UTI, a cystoscopy or imaging studies may be done to determine the cause of the infections. How is this treated? Treatment for this condition includes: Antibiotic medicine. Lggl-xye-senvhoh medicines to treat discomfort. Drinking enough water to stay hydrated. If you have frequent infections or have other conditions such as a kidney stone, you may need to see a health care provider who specializes in the urinary tract (urologist). In rare cases, urinary tract infections can cause sepsis. Sepsis is a life-threatening condition that occurs when the body responds to an infection. Sepsis is treated in the hospital with IV antibiotics, fluids, and other medicines. Follow these instructions at home: Medicines Take yjqj-gra-dktjnst and prescription medicines only as told by your health care provider. If you were prescribed an antibiotic medicine, take it as told by your health care provider. Do not stop using the antibiotic even if you start to feel better. General instructions Make sure you: ?Empty your bladder often and completely. Do not hold urine for long periods of time. ?Empty your bladder after sex. ?Wipe from front to back after urinating or having a bowel movement if you are female. Use each tissue only one time when you wipe. Drink enough fluid to keep your urine pale yellow. Keep all follow-up visits. This is important. Contact a health care provider if: Your symptoms do not get better after 1 2 days. Your symptoms go away and then return. Get help right away if: You have severe pain in your back or your lower abdomen. You have a fever or chills. You have nausea or vomiting. Summary A urinary tract infection (UTI) is an infection of any part of the urinary tract, which includes the kidneys, ureters, bladder, and urethra. Most urinary tract infections are caused by bacteria in your genital area. Treatment for this condition often includes antibiotic medicines. If you were prescribed an antibiotic medicine, take it as told by your health care provider. Do not stop using the antibiotic even if you start to feel better. Keep all follow-up visits. This is important. This information is not intended to replace advice given to you by your health care provider. Make sure you discuss any questions you have with your health care provider. Document Revised: 12/15/2020 Document Reviewed: 12/15/2020 [employer] Patient Education 2022 [employer]. Follow Up Care 09/09/2023 14:02:36 With:SHANNEN NEGRETE PA-C, URL Address: [facility] [address] [facility] [place] [address] When: Unknown [facility] 09-09-2023 Hospital Discharg e instructions Patient Education 09/09/2023 13:56:26 Urinary Tract Infection, Adult, [place] Urinary Tract Infection, Adult A urinary tract infection (UTI) is an infection of any part of the urinary tract. The urinary tract includes: The kidneys. The ureters. The bladder. The urethra. These organs make, store, and get rid of pee (urine) in the body. What are the causes? This infection is caused by germs (bacteria) in your genital area. These germs grow and cause swelling (inflammation) of your urinary tract. What increases the risk? The following factors may make you more likely to develop this condition: Using a small, thin tube (catheter) to drain pee. Not being able to control when you pee or poop (incontinence). Being female. If you are female, these things can increase the risk: ?Using these methods to prevent : ?A medicine that kills sperm (spermicide). ?A device that blocks sperm (diaphragm). ?Having low levels of a female hormone (estrogen). ?Being . You are more likely to develop this condition if: You have genes that add to your risk. You are sexually active. You take antibiotic medicines. You have trouble peeing because of: ?A prostate that is bigger than normal, if you are male. ?A blockage in the part of your body that drains pee from the bladder. ?A kidney stone. ?A nerve condition that affects your bladder. ?Not getting enough to drink. ?Not peeing often enough. You have other conditions, such as: ?Diabetes. ?A weak disease-fighting system (immune system). ?Sickle cell disease. ?Gout. ?Injury of the spine. What are the signs or symptoms? Symptoms of this condition include: Needing to pee right away. Peeing small amounts often. Pain or burning when peeing. Blood in the pee. Pee that smells bad or not like normal. Trouble peeing. Pee that is cloudy. Fluid coming from the vagina, if you are female. Pain in the belly or lower back. Other symptoms include: Vomiting. Not feeling hungry. Feeling mixed up (confused). This may be the first symptom in older adults. Being tired and grouchy (irritable). A fever. Watery poop (diarrhea). How is this treated? Taking antibiotic medicine. Taking other medicines. Drinking enough water. In some cases, you may need to see a specialist. Follow these instructions at home: Medicines Take pdtp-ltk-iodgkuw and prescription medicines only as told by your doctor. If you were prescribed an antibiotic medicine, take it as told by your doctor. Do not stop taking it even if you start to feel better. General instructions Make sure you: ?Pee until your bladder is empty. ?Do not hold pee for a long time. ?Empty your bladder after sex. ?Wipe from front to back after peeing or pooping if you are a female. Use each tissue one time when you wipe. Drink enough fluid to keep your pee pale yellow. Keep all follow-up visits. Contact a doctor if: You do not get better after 1 2 days. Your symptoms go away and then come back. Get help right away if: You have very bad back pain. You have very bad pain in your lower belly. You have a fever. You have chills. You feeling like you will vomit or you vomit. Summary A urinary tract infection (UTI) is an infection of any part of the urinary tract. This condition is caused by germs in your genital area. There are many risk factors for a UTI. Treatment includes antibiotic medicines. Drink enough fluid to keep your pee pale yellow. This information is not intended to replace advice given to you by your health care provider. Make sure you discuss any questions you have with your health care provider. Document Revised: 12/15/2020 Document Reviewed: 12/15/2020 [employer] Patient Education 2022 [employer]. Follow Up Care 06/11/2023 16:21:28 With:CADEN HARRINGTON, SHANNEN White, URL Address: [address] [facility] [place] [place] [address] [phone] When: Unknown [facility] 04-25-2023 Evaluation note Encounter Date Diagnosis Assessment [...] no improvement in 2 to 3 days. LVL6 Other 10-28-2022 Evaluation note* Encounter Date Diagnosis Assessment Notes Treatment Notes Treatment Clinical Notes Feb, Urinary tract infection, site not [...] R30.0) Feb, Hematuria, unspecified (ICD-10 - R31.9) LVL6 Other 06-01-2022 History general Narrative - Reported* Type Description Date Medical History HTN Medical History hypercholesterolemia Medical History acid reflux Surgical History EGD OCTOBER 2021 LVL6 Other Evaluation + Plan note Future Appointments Appointment Date:11/11/2023 03:40:00 PM Scheduled Provider:SHANNEN NEGRETE PA-C Location:[facility] Appointment Type:URO Office Visit [facility] evaluation + Plan note Future Appointments Appointment Date:11/11/2023 03:40:00 PM Scheduled Provider:SHANNEN NEGRETE PA-C Location:[facility] Appointment Type:URO Office Visit Diagnostic Tests Pending * Urine Culture 09/16/23 [facility] noteNo assessment information available [facility] Work Phone: Hospital course Narrative No data available for this section [facility] Hospital Discharge instructions No data available for this section [facility] progress note No data available for this section [facility] Summary Purpose Family History No Family History Records FoundNo Family History Records Found No data available for this section No data available for this section No data available for this section No data available for this section No Family History Records FoundNo Family History Records Found Advance Directives No Advanced Directives Records FoundNo Advanced Directives Records FoundNo Advanced Directives Records FoundNo Advanced Directives Records Found Additional Source Comments REASON FOR VISIT (unrecogniz ed section and content) CONGESTION COUGH B/ACONGESTI ON COUGH B/ADYSURIA, POSS UTIDYSURIA, POSS UTI Care Teams (unrecognized sec tion and content) Team Status: Inactive Member Role Status Dates 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 , TRANSLATOR-C Attending Provider Active Goals (unrecognized section and content) Goals may be documented in a n alternate section INFORMATION SOURCE (unrecogn ized section and content) DATE CREATED AUTHOR [facility]15/2022 [facility] DATE CREATED AUTHOR AUTHOR'S ORGANIZ ATION 05/03/2023 [facility] DATE CREATED AUTHOR AUTHOR'S ORGANIZ ATION 11/12/2023 [facility] DATE CREATED AUTHOR AUTHOR'S ORGANIZ ATION 12/06/2023 [facility] FOR RECORDS PERTAINING TO PATIENTS WHO ARE [...] BE BASED ON THE PRIMARY CLINICAL RECORDS. [employer] provides no warranty or guarantee of the accuracy or completeness of information in this document.
== END 2023-12-16 15:31 | disposition home or self-care (01) ==
LOC: MAMMO 15:30
PROVIDERS: PCP Nurse Practitioner; Visit Provider Nurse Practitioner
DX: Z12.31 Encounter for screening mammogram for malignant neoplasm of breast (principal); Z80.0 Family history of malignant neoplasm of digestive organs
CPT/HCPCS: 77063; 77067

== ENCOUNTER 2023-12-20 07:08 | Outpatient (OUT) | payer OTHER, SELFPAY ==
--- OUTSIDE RECORDS SUMMARY | 2023-12-20 07:14 | XMS_ITS | CCD ---
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 Name Role Phone 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 Unavailable AICHHOLZ, UI SOFTWARE ENGINEER SRIKANTH Admitting Unavailable AICHHOLZ, UI SOFTWARE ENGINEER SRIKANTH Attending Unavailable AICHHOLZ, UI SOFTWARE ENGINEER SRIKANTH Primary Care Unavailable DR ANTWAN KNIGHT V Consulting Unavailable AICHHOLZ, UI SOFTWARE ENGINEER SRIKANTH Consulting Unavailable GORDO, DR NAILS Admitting Unavailable GORDO, DR NAILS Attending Unavailable AICHHOLZ, UI SOFTWARE ENGINEER SRIKANTH Primary Care Unavailable DR JESU CARO Consulting Unavailable AICHHOLZ, UI SOFTWARE ENGINEER SRIKANTH Admitting Unavailable AICHHOLZ, UI SOFTWARE ENGINEER SRIKANTH Attending Unavailable AICHHOLZ, UI SOFTWARE ENGINEER SRIKATNH Primary Care Unavailable AICHHOLZ, UI SOFTWARE ENGINEER SRIKANTH Consulting Unavailable ANTWAN LAY Consulting Unavailable AICHHOLZ, UI SOFTWARE ENGINEER SRIKANTH Admitting Unavailable AICHHOLZ, UI SOFTWARE ENGINEER SRIKANTH Attending Unavailable AICHHOLZ, UI SOFTWARE ENGINEER SRIKANTH Primary Care Unavailable AICHHOLZ, UI SOFTWARE ENGINEER SRIKANTH Consulting Unavailable AICHHOLZ, UI SOFTWARE ENGINEER SRIKANTH Admitting Unavailable AICHHOLZ, UI SOFTWARE ENGINEER SRIKANTH Attending Unavailable AICHHOLZ, UI SOFTWARE ENGINEER SRIKANTH Primary Care Unavailable AICHHOLZ, UI SOFTWARE ENGINEER SRIKANHT Consulting Unavailable AICHHOLZ, UI SOFTWARE ENGINEER SRIKANTH Admitting Unavailable AICHHOLZ, UI SOFTWARE ENGINEER SRIKANTH Attending Unavailable AICHHOLZ, UI SOFTWARE ENGINEER SRIKANTH Primary Care Unavailable AICHHOLZ, UI SOFTWARE ENGINEER SRIKANTH Consulting Unavailable AICHHOLZ, UI SOFTWARE ENGINEER SRIKANTH Admitting Unavailable AICHHOLZ, UI SOFTWARE ENGINEER SRIKANTH Attending Unavailable AICHHOLZ, UI SOFTWARE ENGINEER SRIKANTH Primary Care Unavailable AICHHOLZ, UI SOFTWARE ENGINEER SRIKANTH Consulting Unavailable 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 Attending Unavailable [...] BID, # 60 tab(s), Refills(s) 11, Pharmacy: [id number], 150, cm, 09/09/23 13:24:00 EDT, Height/Length Dosing, [...] Interpretation Reference Range Facility [facility] 11-12-2023 Screens [id number] 0TIFF Normal [facility] Patient Educationon 11-11-19 Patient Education Obstetrics [...] this condition includes: ? Antibiotic medicine. ? Kmwv-vuo-ohwsoau medicines to treat discomfort. ? Drinking enough [...] these instructions at home: Medicines ? Take lrug-yjx-cjtgyif and prescription medicines only as told by [...] Document Revie (more content not included)... Normal [facility] Urology Office/Clinic Noteon 11-11-2023 Urology Office/Clinic [...] Contact Information CADEN HARRINGTON, SHANNEN White, URL [address] [facility] [place] [address] Additional Instructions: PRN Patient Education Urinary Tract [...] 11:19:00) Specific (more content not included)... Normal [facility] Comment on above: Result Comment: Elec [...] beta-lactamase, R=Resistant, TFG=Thymidine-dependen t strain, CABRERA=Beta-lactamase positive, GBISON=mcg/m;(mg/L), S*=Predicted susceptible interp, R*=Predicted resistant interp EC [...] Locations R1: [facility] [address] [place] [address], [address] , , [facility] Comment on above: Performed By: #### 2 [id number] ####[facility] [address] [place] [address] Ambulatory Visit Summaryon 0 09-16-2023 Ambulatory Visit [...] SHANNEN NEGRETE PA-C Where: [facility] 09-15-2023 Screens [id number]. 00TIFF [facility] Screens [id number]. 00TIFF [facility] Lab Reportson 09-10-2023 Lab Reports [id number]. 00TIFF [facility] Lab Reports [id number]. 00TIFF [facility] Lab Reports [id number]. 00TIFF [facility] Lab Reports [id number]. 00TIFF Normal [facility] RAD - CT Reporton 09-10-2023 RAD - CT Report [id number]. 00TIFF Normal [facility] RAD - CT Report [id number] 0TIFF Normal [facility] RAD - MISCon 09-10-2023 RAD - MISC [id number]#1. 00TIFF Normal [facility] RAD - MISC [id number]#1. 00TIFF Normal [facility] Patient Educationon 09-09-19 Patient Education Obstetrics [...] these instructions at home: Medicines ? Take lekw-zam-ruwddyd and prescription medicines only as told by [...] provider. Document Revised: 12/15/2020 Document Reviewed: 12/15/2020 [employer] Patient Education ? 2022 [employer]. Cornelio Garcia [facility] Urology Office/Clinic Noteon 09-09-2023 Urology Office/Clinic Note [...] When Contact Information SHANNEN NEGRETE PA-C, URL [address] [place] [place] [address] [phone] Additional Instructions: 3 mos (new med) Patient Education Urinary Tract Infection, Adult, Ssvd-tl-Hnwe Documentation recorded by the scribmarbella Lay accurately [...] (06/30/2014), Cys (more content not included)... Normal [facility] Comment on above: Result Comment: Elec tronically Signed By: SHANNEN NEGRETE PA-C\.br\Date and Time Signed: 09/09/23 14:17 EDT\.br\Electronically Co-Signed By: Alejandra Laybr\Date and Time Co-Signed: 09/09/23 14:01 EDT Urinalysis - AUTOMATEDon Appearance (U) clear [place] Other Bilirubin Ql (U) Negative [place] Other Color (U) pale yellow [employer] Other Glucose Ql (U) Negative [place] Other Hemoglobin Ql (U) trace-intact [employer] Other Ketones Ql (U) Negative [place] Other Leukocyte esterase Test strip Ql (U) trace [employer] Other Nitrite Ql (U) Negative [place] Other pH (U) 6.0 [pH] [employer] Other Protein Ql (U) Negative [place] Other Specific gravity (U) [Rel density] 1.010 [employer] Other Urobilinogen (U) [Mass/Vol] 0.2 mg/dL [employer] [facility] Other Urinalysis - AUTOMATED [employer] Other Urine Cultureon 04-25-2023 Bacteria identified Cx Nom (U) Reason for Exam Dysuria Urine <10,000 colonies/ml mixed bacterial skin contaminants including mixed gram negative bacilli - 2 Days PERFORMED BY: [place] [address] PATHOLOGIST FOOD SERVICE DIRECTOR DAVID PABLO M.D. Normal [facility] Comment on above: Performed By: #### C UU #### [address] Bacteria identified Cx Nom (U) [employer] Other LIPID PROFILEon 05-08-2022 CHOL-HDL RATIO NORM SEE BELOW Normal [facility] Comment on above: Result Comment: 3.3 - 4.4 LOW RISK 4.4 - 7.1 AVERAGE RISK 7.1 - 11.0 MODERATE RISK >11.0 HIGH RISK Performed By: #### L IPID, AST, ALT #### [facility] [address] [place] [address] Dr. Francisco Laboy Cholesterol [Mass/Vol] 191 mg/dL Normal <=200 [facility] Comment on above: Performed By: #### L IPID, AST, ALT #### [facility] [address] [address] [address] Francisco Laboy Cholesterol in HDL [Mass/Vol] 56 mg/dL Normal 40-60 [facility] Comment on above: Performed By: #### L IPID, AST, ALT #### [facility] [address] [place] [address] Dr. Francisco Laboy Cholesterol in LDL [Mass/Vol] 94.2 mg/dL Normal [facility] Comment on above: Performed By: #### L IPID, AST, ALT #### [facility] [address] [place] [address] Dr. Francisco Laboy Cholesterol.total /Cholesterol in HDL [Mass ratio] 3.4 {ratio} Normal [facility] Comment on above: Performed By: #### L IPID, AST, ALT #### [facility] [address] [place] [address] Dr. Francisco Laboy HDL NORMAL > or = 60 mg/dl - LO W CARDIOVASCULAR RISK <40 mg/dl - HIGH CARDIOVASCULAR RISK Normal [facility] Comment on above: Performed By: #### L IPID, AST, ALT #### [facility] [address] [place] [address] Dr. Francisco Laboy LDL CALC NORMAL SEE BELOW Normal [facility] Comment on above: Result Comment: <100 mg/dl OPTIMAL 100 - 129 mg/dl NEAR OR ABOVE OPTIMAL 130 - 159 mg/dl BORDERLINE HIGH 160 - 189 mg/dl HIGH >190 mg/dl VERY HIGH Performed By: #### L IPID, AST, ALT #### [facility] [address] [place] [address] Dr. Francisco Laboy Triglyceride [Mass/Vol] 204 mg/dL Critically high <=150 [facility] Comment on above: Performed By: #### L IPID, AST, ALT #### [facility] [address] [address] [address] Francisco Laboy VLDL CALC 40.8 mg/dL Normal [facility] Comment on above: Performed By: #### L IPID, AST, ALT #### [facility] [address] [address] [address] Francisco Fuentesn 05-08-2022 AST [Catalytic activity/Vol] 20 U/L Normal 15-37 [facility] Comment on above: Performed By: #### L IPID, AST, ALT #### [facility] [address] [address] [address] [facility]22 ALT [Catalytic activity/Vol] 23 U/L Normal 14-59 [facility] Comment on above: Performed By: #### L IPID, AST, ALT #### [facility] [address] [address] [address] Francisco Laboy SARS-CoV-2 (COVID-19) RNA NA A+probe Ql (Resp)on 03-15-2022 SARS-CoV-2 (COVID-19) RNA JAZ+probe Ql (Unsp spec) Positive [employer] Other Urinalysis - AUTOMATEDon Appearance (U) cloudy [place] Other Bilirubin Ql (U) Negative [place] Other Color (U) yellow [employer] Other Glucose Ql (U) Negative [place] Other Hemoglobin Ql (U) moderate [employer] Other Ketones Ql (U) trace [place] Other Leukocyte esterase Test strip Ql (U) small [employer] Other Nitrite Ql (U) Positive [place] Other pH (U) 5.5 [pH] [employer] Other Protein Ql (U) trace [place] Other Specific gravity (U) [Rel density] 1.025 [employer] Other Urobilinogen (U) [Mass/Vol] 0.2 mg/dL [employer] [facility] Other Urinalysis - AUTOMATED [employer] [facility] Other Urine Cultureon 03-15-2022 Urine Culture >100,000 [employer] Other Urine Culture <16 Susceptible [place] Other Urine Culture <8 Susceptible [place] Other Urine Culture <4 Susceptible [place] Other Urine Culture <2 Susceptible [place] Other Urine Culture <1 Susceptible [place] Other Urine Culture >2 Resistant [employer] Other Urine Culture <0.5 Susceptible [place] Other Urine Culture >4 Resistant [employer] Other Urine Culture <32 Susceptible [place] Other Urine Culture <2/38 Susceptible [place] Other LIPID PROFILEon 11-08-2021 CHOL-HDL RATIO NORM SEE BELOW Normal [facility] Comment on above: Result Comment: 3.3 - 4.4 LOW RISK 4.4 - 7.1 AVERAGE RISK 7.1 - 11.0 MODERATE RISK >11.0 HIGH RISK Performed By: #### U AMIC #### [facility] [address] [address] [address] Francisco Laboy Cholesterol [Mass/Vol] 177 mg/dL Normal <=200 [facility] Comment on above: Performed By: #### U AMIC #### [facility] [address], [place] [address] Dr. Francisco Laboy Cholesterol in HDL [Mass/Vol] 47 mg/dL Normal 40-60 [facility] Comment on above: Performed By: #### U AMIC #### [facility] [address], [place] [address] Dr. Francisco Laboy Cholesterol in LDL [Mass/Vol] 92.2 mg/dL Normal [facility] Comment on above: Performed By: #### U AMIC #### [facility] [address] [address] [address] Francisco Laboy Cholesterol.total /Cholesterol in HDL [Mass ratio] 3.8 {ratio} Normal [facility] Comment on above: Performed By: #### U AMIC #### [facility] [address] [address] [address] Francisco Laboy HDL NORMAL > or = 60 mg/dl - LO W CARDIOVASCULAR RISK <40 mg/dl - HIGH CARDIOVASCULAR RISK Normal [facility] Comment on above: Performed By: #### U AMIC #### [facility] [address] [address] [address] Francisco Laboy LDL CALC NORMAL SEE BELOW Normal [facility] Comment on above: Result Comment: <100 mg/dl OPTIMAL 100 - 129 mg/dl NEAR OR ABOVE OPTIMAL 130 - 159 mg/dl BORDERLINE HIGH 160 - 189 mg/dl HIGH >190 mg/dl VERY HIGH Performed By: #### U AMIC #### [facility] [address] [address] [address] Francisco Laboy Triglyceride [Mass/Vol] 189 mg/dL Critically high <=150 [facility] Comment on above: Performed By: #### U AMIC #### [facility] [address] [address] [address] Francisco Laboy VLDL CALC 37.8 mg/dL Normal [facility] Comment on above: Performed By: #### U AMIC #### [facility] [address] [address] [address] Francisco Laboy PROF 14(COMP METB)on 06-23-2 022 Albumin [Mass/Vol] 3.9 g/dL Normal 3.4-5.0 [facility] Comment on above: Performed By: #### U AMIC #### [facility] [address] [place] [address] Dr. Francisco Laboy Albumin/Globulin [Mass ratio] 1.2 {ratio} Normal [facility] Comment on above: Performed By: #### U AMIC #### [facility] [address] [address] [address] Francisco Laboy ALP [Catalytic activity/Vol] 88 U/L Normal 46-116 [facility] Comment on above: Performed By: #### U AMIC #### [facility] [address] [place] [address] Dr. Francisco Laboy ALT [Catalytic activity/Vol] 44 U/L Normal 14-59 [facility] Comment on above: Performed By: #### U AMIC #### [facility] [address] [place] [address] Dr. Francisco Laboy Anion gap [Moles/Vol] 12.7 mmol/L Normal [facility] Comment on above: Performed By: #### U AMIC #### [facility] [address] [place] [address] Dr. Francisco Laboy AST [Catalytic activity/Vol] 26 U/L Normal 15-37 [facility] Comment on above: Performed By: #### U AMIC #### [facility] [address] [place] [address] Dr. Francisco Laboy Bilirubin [Mass/Vol] 0.4 mg/dL Normal 0.2-1.0 [facility] Comment on above: Performed By: #### U AMIC #### [facility] [address] [address] [address] Francisco Laboy Calcium [Mass/Vol] 8.4 mg/dL Critically low 8.5-10.1 [facility] Comment on above: Performed By: #### U AMIC #### [facility] [address] [address] [address] Francisco Laboy Chloride [Moles/Vol] 107 mmol/L Normal 98-107 [facility] Comment on above: Performed By: #### U AMIC #### [facility] [address] [address] [address] Francisco Laboy CO2 [Moles/Vol] 24.3 mmol/L Normal 21.0-32.0 [facility] Comment on above: Performed By: #### U AMIC #### [facility] [address] [address] [address] Francisco Laboy Creatinine [Mass/Vol] 0.92 mg/dL Normal 0.55-1.02 [facility] Comment on above: Performed By: #### U AMIC #### [facility] [address] [address] [address] Francisco Laboy EGFR-AF JORDANIAN >60 Normal >=60 [facility] Comment on above: Performed By: #### U AMIC #### [facility] [address] [address] [address] Francisco Laboy EGFR-NON AF JORDANIAN >60 Normal >=60 [facility] Comment on above: Performed By: #### U AMIC #### [facility] [address] [address] [address] Francisco Laboy Globulin (S) [Mass/Vol] 3.3 g/dL Normal [facility] Comment on above: Performed By: #### U AMIC #### [facility] [address] [address] [address] Francisco Laboy Glucose [Mass/Vol] 95 mg/dL Normal 74-106 [facility] Comment on above: Performed By: #### U AMIC #### [facility] [address] [address] [address] Francisco Laboy Potassium [Moles/Vol] 4.0 mmol/L Normal 3.5-5.1 [facility] Comment on above: Performed By: #### U AMIC #### [facility] [address] [address] [address] Francisco Laboy Protein [Mass/Vol] 7.2 g/dL Normal 6.4-8.2 [facility] Comment on above: Performed By: #### U AMIC #### [facility] [address], [place] [address] Dr. Francisco Laboy Sodium [Moles/Vol] 140 mmol/L Normal 136-145 [facility] Comment on above: Performed By: #### U AMIC #### [facility] [address], [place] [address] Dr. Francisco Laboy Urea nitrogen [Mass/Vol] 11.0 mg/dL Normal 7.0-18.0 [facility] Comment on above: Performed By: #### U AMIC #### [facility] [address], [place] [address] Dr. Francisco Laboy Urea nitrogen/Creatini ne [Mass ratio] 11.9 mg/mg Normal [facility] Comment on above: Performed By: #### U AMIC #### [facility] [address] [address] [address] Francisco Laboy XR DEXA BONE DENSITYon 10-09 XR DEXA BONE DENSITY DEXA Bone Density Study CLINICAL: Evaluate bone mineral density. Postmenopausal COMPARISON: None FINDINGS: The bone density study was assessed by dual-energy x-ray absorptiometry with the [employer] scanner. The test results are expressed in [...] authenticated by: ANTWAN LAY Date: 2021-10-09 08:51 [facility] PAP ACOG PANEL 2: 30 to 65on 10-08-2021 . . Normal [facility] Comment on above: Result Comment: Perf ormed at: BA Performed By: #### U AMIC #### [facility] [address], [place] [address] Dr. Francisco Laboy Age Gdln ACOG Testing 30-65 [facility] Comment on above: Performed By: #### U AMIC #### [facility] [address], [place] [address] Dr. Francisco Laboy DIAGNOSIS: Comment [facility] Comment on above: Result Comment: UNSA TISFACTORY FOR EVALUATION. THIS SPECIMEN WAS RESCREENED PART OF OUR MIX MILL TENDER PROGRAM. Performed at: BA Performed By: #### U AMIC #### [facility] [address] [address] [address] Francisco Laboy HPV Aptima Negative Normal Negative [facility] Comment on above: Result Comment: This nucleic acid amplification test detects fourteen high-risk HPV types (16,18,31,33,35,39,45,51,52,56,58,59,66,68) without differentiation. Performed at: =G Performed By: #### U AMIC #### [facility] [address] [address] [address] Francisco Laboy Methodology: Comment Normal [facility] Comment on above: Result Comment: This liquid based ThinPrep(R) pap test was screened with the use of an image guided system. Performed at: WB Performed By: #### U AMIC #### [facility] [address] [place] [address] Dr. Francisco Laboy Note: Comment Normal [facility] Comment on above: Result Comment: The Pap smear is a screening test designed to aid in the detection of premalignant and malignant conditions of the uterine cervix. It is not a diagnostic procedure and should not be used as the sole means of detecting cervical cancer. Both false-positive and false-negative reports do occur. . Performed at: WB Performed By: #### U AMIC #### [facility] [address] [address] [address] Francisco Laboy Performed by: Comment Normal [facility] Comment on above: Result Comment: Liang Houser, Spot Washer (ASCP) Performed at: BA Performed By: #### U AMIC #### [facility] [address] [address] [address] Francisco Laboy QC reviewed by: Comment Normal [facility] Comment on above: Result Comment: Rusty Ortiz, Spot Washer (ASCP) Performed at: BA Performed By: #### U AMIC #### [facility] [address] [address] [address] Francisco Laboy Specimen adequacy: Comment Normal [facility] Comment on above: Result Comment: Spec imen processed and examined but unsatisfactory for evaluation of epithelial abnormality because of insufficient cellularity. Performed at: BA Performed By: #### U AMIC #### [facility] [address], [place] [address] Dr. Francisco Laboy MG MAMM SCREEN 3D KAROL CADon 10-01-2021 MG MAMM SCREEN 3D KAROL CAD Patient: MONICA AMOR Exam Date: 10/01/2021 : 1960 Gender:F Ordering : KATH SRIKANTH LOPEZ [facility] Admission #: [id number] Family : Order #: [id number] CLICK HERE TO VIEW EXAM RADIOLOGY REPORT [...] stomach cancer at age 42. LOCATION: [facility] BREAST COMPOSITION: Heterogeneously dense,which may obscure [...] MD on 10/01/2021 at 08:44 Normal [facility] CULTURE URINEon 09-06-2021 CULTURE URINE Culture Observations : NO GROWTH. Normal [facility] Comment on above: Performed By: #### U AMIC #### [facility] [address], [place] [address] Dr. Francisco Laboy UA RANDOM W/MICROSCOPICon BACTERIA NONE SEEN Normal NONE SEEN [facility] Comment on above: Performed By: #### U AMIC #### [facility] [address], [place] [address] Dr. Francisco Laboy Bilirubin Ql (U) Negative Normal NEGATIVE [facility] Comment on above: Performed By: #### U AMIC #### [facility] [address] [address] [address] Francisco Laboy CAST NONE SEEN Normal NONE SEEN [facility] Comment on above: Performed By: #### U AMIC #### [facility] [address] [address] [address] Francisco Laboy Clarity (U) CLEAR Normal CLEAR [facility] Comment on above: Performed By: #### U AMIC #### [facility] [address] [address] [address] Francisco Laboy Color (U) LT. YELLOW Normal YELLOW [facility] Comment on above: Performed By: #### U AMIC #### [facility] [address] [address] [address] Francisco Laboy Crystals LM Nom (Urine sed) NONE SEEN Normal NONE SEEN [facility] Comment on above: Performed By: #### U AMIC #### [facility] [address] [place] [address] Dr. Francisco Laboy Epithelial cells LM Ql (Urine sed) FEW Abnormal NONE SEEN /RARE [facility] Comment on above: Performed By: #### U AMIC #### [facility] [address] [address] [address] Francisco Laboy Glucose Ql (U) Negative Normal NEGATIVE [facility] Comment on above: Performed By: #### U AMIC #### [facility] [address] [address] [address] Francisco Laboy Hemoglobin Ql (U) Negative Normal NEGATIVE [facility] Comment on above: Performed By: #### U AMIC #### [facility] [address] [address] [address] Francisco Laboy Ketones Ql (U) Negative Normal NEGATIVE [facility] Comment on above: Performed By: #### U AMIC #### [facility] [address] [place] [address] Dr. Francisco Laboy LEUKOCYTES Negative Normal NEGATIVE [facility] Comment on above: Performed By: #### U AMIC #### [facility] [address] [address] [address] Francisco Laboy MUCOUS NONE SEEN Normal NONE SEEN [facility] Comment on above: Performed By: #### U AMIC #### [facility] [address] [place] [address] Dr. Francisco Laboy Nitrite Ql (U) Negative Normal NEGATIVE [facility] Comment on above: Performed By: #### U AMIC #### [facility] [address] [address] [address] Francisco Laboy pH (U) 6.0 [pH] Normal 5-9 [facility] Comment on above: Performed By: #### U AMIC #### [facility] [address] [place] [address] Dr. Francisco Laboy RBC NONE SEEN Abnormal 0-2 [facility] Comment on above: Performed By: #### U AMIC #### [facility] [address] [place] [address] Dr. Francisco Laboy SPEC GRAVITY <=1.005 Abnormal 1.005-<=1.025 [facility] Comment on above: Performed By: #### U AMIC #### [facility] [address] [place] [address] Dr. Francisco Laboy UA PROTEIN Negative Normal NEGATIVE/ TRACE [facility] Comment on above: Performed By: #### U AMIC #### [facility] [address] [place] [address] Dr. Francisco Laboy Urobilinogen Qn (U) 0.2 {Blanca'U}/dL Normal 0.2 - 1.0 [facility] Comment on above: Performed By: #### U AMIC #### [facility] [address] [place] [address] Dr. Francisco Laboy WBC NONE SEEN Normal NONE SEEN [facility] Comment on above: Performed By: #### U AMIC #### [facility] [address] [place] [address] Dr. Francisco Laboy CULTURE URINEon 08-30-2021 CULTURE [...] Trimethoprim/Sulfameth oxazole <=20 S F Normal [facility] Comment on above: Performed By: #### U RCX #### [facility] [address] [place] [address] Dr. Francisco Laboy CBC AUTO DIFFon 08-28-2021 BASO # 0.0 103/ul Normal 0.0-0.1 [facility] Comment on above: Performed By: #### U AMIC #### [facility] [address] [place] [address] Dr. Francisco Laboy Basophils/100 WBC (Bld) 0.7 % Normal 0.2-2.0 [facility] Comment on above: Performed By: #### U AMIC #### [facility] [address] [place] [address] Dr. Francisco Laboy EO # 0.2 103/ul Normal 0.0-0.7 [facility] Comment on above: Performed By: #### U AMIC #### [facility] [address] [place] [address] Dr. Francisco Laboy Eosinophils/100 WBC (Bld) 3.3 % Normal 0.9-7.0 [facility] Comment on above: Performed By: #### U AMIC #### [facility] [address] [place] [address] Dr. Francisco Laboy Erythrocyte distribution width (RBC) [Ratio] 13.6 % Normal 11.0-15.0 [facility] Comment on above: Performed By: #### U AMIC #### [facility] [address] [place] [address] Dr. Francisco Laboy Hematocrit (Bld) [Volume fraction] 40.9 % Normal 36.0-48.0 [facility] Comment on above: Performed By: #### U AMIC #### [facility] [address] [address] [address] Francisco Laboy Hemoglobin (Bld) [Mass/Vol] 13.3 g/dL Normal 12.0-16.0 [facility] Comment on above: Performed By: #### U AMIC #### [facility] [address] [address] [address] Francisco Laboy IG # 0.01 10e3/ul Normal 0.00-0.03 [facility] Comment on above: Performed By: #### U AMIC #### [facility] [address] [place] [address] Dr. Francisco Laboy IG % 0.2 % Normal 0.0-0.5 [facility] Comment on above: Performed By: #### U AMIC #### [facility] [address] [address] [address] Francisco Laboy LYMPH # 1.8 103/ul Normal 1.2-3.8 [facility] Comment on above: Performed By: #### U AMIC #### [facility] [address] [place] [address] Dr. Francisco Laboy Lymphocytes/100 WBC (Bld) 31.6 % Normal 20.5-60.0 [facility] Comment on above: Performed By: #### U AMIC #### [facility] [address] [address] [address] Francisco Laboy MANUAL DIFF REQ NO Normal [facility] Comment on above: Performed By: #### U AMIC #### [facility] [address] [address] [address] Francisco Laboy MCH (RBC) [Entitic mass] 29.1 pg Normal 26.7-34.0 [facility] Comment on above: Performed By: #### U AMIC #### [facility] [address] [address] [address] Francisco Laboy MCHC (RBC) [Mass/Vol] 32.5 g/dL Normal 29.9-35.2 [facility] Comment on above: Performed By: #### U AMIC #### [facility] [address] [place] [address] Dr. Francisco Laboy MCV (RBC) [Entitic vol] 89.5 fL Normal 81.0-99.0 [facility] Comment on above: Performed By: #### U AMIC #### [facility] [address] [address] [address] Francisco Laboy MONO # 0.5 103/ul Normal 0.3-0.8 [facility] Comment on above: Performed By: #### U AMIC #### [facility] [address] [place] [address] Dr. Francisco Laboy Monocytes/100 WBC (Bld) 8.7 % Normal 1.7-12.0 [facility] Comment on above: Performed By: #### U AMIC #### [facility] [address] [place] [address] Dr. Francisco Laboy NEUT # 3.2 103/ul Normal 1.4-6.5 [facility] Comment on above: Performed By: #### U AMIC #### [facility] [address] [place] [address] Dr. Francisco Laboy Neutrophils/100 WBC (Bld) 55.5 % Normal 43.0-75.0 [facility] Comment on above: Performed By: #### U AMIC #### [facility] [address] [place] [address] Dr. Francisco Laboy Platelet mean volume (Bld) [Entitic vol] 10.5 fL Normal 9.5-13.5 [facility] Comment on above: Performed By: #### U AMIC #### [facility] [address] [place] [address] Dr. Francisco Laboy PLT 261 103/ul Normal 150-450 [facility] Comment on above: Performed By: #### U AMIC #### [facility] [address] [place] [address] Dr. Francisco Laboy RBC 4.57 106/ul Normal 4.20-5.40 [facility] Comment on above: Performed By: #### U AMIC #### [facility] [address] [address] [address] Francisco Laboy WBC 5.8 103/ul Normal 4.0-11.0 [facility] Comment on above: Performed By: #### U AMIC #### [facility] [address] [address] [address] Francisco Laboy LIPID PROFILEon 08-28-2021 CHOL-HDL RATIO NORM SEE BELOW Normal [facility] Comment on above: Result Comment: 3.3 - 4.4 LOW RISK 4.4 - 7.1 AVERAGE RISK 7.1 - 11.0 MODERATE RISK >11.0 HIGH RISK Performed By: #### T SH, LIPID, CMP #### [facility] [address] [place] [address] Dr. Francisco Laboy Cholesterol [Mass/Vol] 244 mg/dL Critically high <=200 [facility] Comment on above: Performed By: #### T SH, LIPID, CMP #### [facility] [address] [place] [address] Dr. Francisco Laboy Cholesterol in HDL [Mass/Vol] 47 mg/dL Normal 40-60 [facility] Comment on above: Performed By: #### T SH, LIPID, CMP #### [facility] [address] [place] [address] Dr. Francisco Laboy Cholesterol in LDL [Mass/Vol] 155.2 mg/dL Normal [facility] Comment on above: Performed By: #### T SH, LIPID, CMP #### [facility] [address] [place] [address] Dr. Francisco Laboy Cholesterol.total /Cholesterol in HDL [Mass ratio] 5.2 {ratio} Normal [facility] Comment on above: Performed By: #### T SH, LIPID, CMP #### [facility] [address] [place] [address] Dr. Francisco Laboy HDL NORMAL > or = 60 mg/dl - LO W CARDIOVASCULAR RISK <40 mg/dl - HIGH CARDIOVASCULAR RISK Normal [facility] Comment on above: Performed By: #### T FEDE, LIPID, CMP #### [facility] [address] [place] [address] Dr. Francisco Laboy LDL CALC NORMAL SEE BELOW Normal [facility] Comment on above: Result Comment: <100 mg/dl OPTIMAL 100 - 129 mg/dl NEAR OR ABOVE OPTIMAL 130 - 159 mg/dl BORDERLINE HIGH 160 - 189 mg/dl HIGH >190 mg/dl VERY HIGH Performed By: #### T FEDE, LIPID, CMP #### [facility] [address] [address] [address] Francisco Laboy Triglyceride [Mass/Vol] 209 mg/dL Critically high <=150 [facility] Comment on above: Performed By: #### T FEDE, LIPID, CMP #### [facility] [address] [place] [address] Dr. Francisco Laboy VLDL CALC 41.8 mg/dL Normal [facility] Comment on above: Performed By: #### T FEDE, LIPID, CMP #### [facility] [address] [place] [address] Dr. Francisco Laboy PROF 14(COMP METB)on 022 Albumin [Mass/Vol] 4.0 g/dL Normal 3.4-5.0 [facility] Comment on above: Performed By: #### T FEDE LIPID, CMP #### [facility] [address] [place] [address] Dr. Francisco Laboy Albumin/Globulin [Mass ratio] 1.3 {ratio} Normal [facility] Comment on above: Performed By: #### T FEDE, LIPID, CMP #### [facility] [address] [place] [address] Dr. Francisco Laboy ALP [Catalytic activity/Vol] 84 U/L Normal 46-116 [facility] Comment on above: Performed By: #### T FEDE, LIPID, CMP #### [facility] [address] [place] [address] Dr. Francisco Laboy ALT [Catalytic activity/Vol] 24 U/L Normal 14-59 [facility] Comment on above: Performed By: #### T FEDE, LIPID, CMP #### [facility] [address] [address] [address] Francisco Laboy Anion gap [Moles/Vol] 13.2 mmol/L Normal [facility] Comment on above: Performed By: #### T SH, LIPID, CMP #### [facility] [address] [place] [address] Dr. Francisco Laboy AST [Catalytic activity/Vol] 15 U/L Normal 15-37 [facility] Comment on above: Performed By: #### T FEDE, LIPID, CMP #### [facility] [address] [place] [address] Dr. Francisco Laboy Bilirubin [Mass/Vol] 0.3 mg/dL Normal 0.2-1.3 [facility] Comment on above: Performed By: #### T FEDE, LIPID, CMP #### [facility] [address] [place] [address] Dr. Francisco Laboy Calcium [Mass/Vol] 8.4 mg/dL Critically low 8.5-10.1 [facility] Comment on above: Performed By: #### T FEDE, LIPID, CMP #### [facility] [address] [place] [address] Dr. Francisco Laboy Chloride [Moles/Vol] 105 mmol/L Normal 98-107 [facility] Comment on above: Performed By: #### T FEDE, LIPID, CMP #### [facility] [address] [place] [address] Dr. Francisco Laboy CO2 [Moles/Vol] 26.8 mmol/L Normal 22.0-30.0 [facility] Comment on above: Performed By: #### T SH, LIPID, CMP #### [facility] [address] [place] [address] Dr. Francisco Laboy Creatinine [Mass/Vol] 0.84 mg/dL Normal 0.52-1.04 [facility] Comment on above: Performed By: #### T SH, LIPID, CMP #### [facility] [address] [place] [address] Dr. Francisco Laboy EGFR-AF JORDANIAN >60 Normal >=60 [facility] Comment on above: Performed By: #### T SH, LIPID, CMP #### [facility] [address] [address] [address] Francisco Laboy EGFR-NON AF JORDANIAN >60 Normal >=60 [facility] Comment on above: Performed By: #### T SH, LIPID, CMP #### [facility] [address] [address] [address] Francisco Laboy Globulin (S) [Mass/Vol] 3.0 g/dL Normal [facility] Comment on above: Performed By: #### T SH, LIPID, CMP #### [facility] [address] [place] [address] Dr. Francisco Laboy Glucose [Mass/Vol] 101 mg/dL Normal 74-106 [facility] Comment on above: Performed By: #### T SH, LIPID, CMP #### [facility] [address] [place] [address] Dr. Francisco Laboy Potassium [Moles/Vol] 4.0 mmol/L Normal 3.4-5.0 [facility] Comment on above: Performed By: #### T SH, LIPID, CMP #### [facility] [address] [place] [address] Dr. Francisco Laboy Protein [Mass/Vol] 7.0 g/dL Normal 6.1-8.2 [facility] Comment on above: Performed By: #### T SH, LIPID, CMP #### [facility] [address] [place] [address] Dr. Francisco Laboy Sodium [Moles/Vol] 141 mmol/L Normal 137-145 [facility] Comment on above: Performed By: #### T SH, LIPID, CMP #### [facility] [address] [place] [address] Dr. Francisco Laboy Urea nitrogen [Mass/Vol] 15.0 mg/dL Normal 7.0-18.0 [facility] Comment on above: Performed By: #### T SH, LIPID, CMP #### [facility] [address] [place] [address] Dr. Francisco Laboy Urea nitrogen/Creatini ne [Mass ratio] 17.9 mg/mg Normal [facility] Comment on above: Performed By: #### T SH, LIPID, CMP #### [facility] [address] [place] [address] Dr. Francisco Laboy TSHon 08-28-2021 TSH 3.809 uIU/mL Normal 0.470-4.680 [facility] Comment on above: Performed By: #### T SH, LIPID, CMP #### [facility] [address] [place] [address] Dr. Francisco Laboy TSH RANGE SEE BELOW Normal [facility] Comment on above: Result Comment: <0.3 4 UIU/ml HYPERTHYROID 0.34-5.60 UIU/ml EUTHYROID >5.60 UIU/ml HYPOTHYROID Performed By: #### T SH, LIPID, CMP #### [facility] [address] [place] [address] Dr. Francisco Laboy UA RANDOM W/MICROSCOPICon BACTERIA MODERATE Abnormal NONE SEEN [facility] Comment on above: Performed By: #### U AMIC #### [facility] [address] [place] [address] Dr. Francisco Laboy Bilirubin Ql (U) Negative Normal NEGATIVE [facility] Comment on above: Performed By: #### U AMIC #### [facility] [address] [place] [address] Dr. Francisco Laboy CAST NONE SEEN Normal NONE SEEN [facility] Comment on above: Performed By: #### U AMIC #### [facility] [address] [place] [address] Dr. Francisco Laboy Clarity (U) CLEAR Normal CLEAR [facility] Comment on above: Performed By: #### U AMIC #### [facility] [address] [place] [address] Dr. Francisco Laboy Color (U) LT. YELLOW Normal YELLOW [facility] Comment on above: Performed By: #### U AMIC #### [facility] [address] [place] [address] Dr. Francisco Laboy Crystals LM Nom (Urine sed) NONE SEEN Normal NONE SEEN [facility] Comment on above: Performed By: #### U AMIC #### [facility] [address] [address] [address] Francisco Laboy Epithelial cells LM Ql (Urine sed) RARE Normal NONE SEEN /RARE [facility] Comment on above: Performed By: #### U AMIC #### [facility] [address] [address] [address] Francisco Laboy Glucose Ql (U) Negative Normal NEGATIVE [facility] Comment on above: Performed By: #### U AMIC #### [facility] [address] [address] [address] Francisco Laboy Hemoglobin Ql (U) SMALL Abnormal NEGATIVE [facility] Comment on above: Performed By: #### U AMIC #### [facility] [address] [place] [address] Dr. Francisco Laboy Ketones Ql (U) Negative Normal NEGATIVE [facility] Comment on above: Performed By: #### U AMIC #### [facility] [address] [place] [address] Dr. Francisco Laboy LEUKOCYTES SMALL Abnormal NEGATIVE [facility] Comment on above: Performed By: #### U AMIC #### [facility] [address] [address] [address] Francisco Laboy MUCOUS SMALL Abnormal NONE SEEN [facility] Comment on above: Performed By: #### U AMIC #### [facility] [address] [place] [address] Dr. Francisco Laboy Nitrite Ql (U) Positive Abnormal NEGATIVE [facility] Comment on above: Performed By: #### U AMIC #### [facility] [address] [place] [address] Dr. Francisco Laboy pH (U) 6.5 [pH] Normal 5-9 [facility] Comment on above: Performed By: #### U AMIC #### [facility] [address] [place] [address] Dr. Francisco Laboy RBC 0-2 Normal 0-2 [facility] Comment on above: Performed By: #### U AMIC #### [facility] [address] [place] [address] Dr. Francisco Laboy SPEC GRAVITY 1.015 Normal 1.005-<=1.025 [facility] Comment on above: Performed By: #### U AMIC #### [facility] [address] [address] [address] Francisco Laboy UA PROTEIN Negative Normal NEGATIVE/ TRACE [facility] Comment on above: Performed By: #### U AMIC #### [facility] [address] [address] [address] Francisco Laboy Urobilinogen Qn (U) 0.2 {Blanca'U}/dL Normal 0.2 - 1.0 [facility] Comment on above: Performed By: #### U AMIC #### [facility] [address] [address] [address] Francisco Laboy WBC 5-10 Abnormal NONE SEEN [facility] Comment on above: Performed By: #### U AMIC #### [facility] [address] [address] [address] Francisco Laboy Vital Signs Date Time Vital Sign Value Performing Clinician Facility 11-11-2023 11:22-0400 Blood Pressure Location [facility] 11-11-2023 11:22-0400 Diastolic blood pressure 72 mm[Hg] SHANNEN CADEN [facility] 11-11-2023 11:22-0400 Heart rate 68 /min SHANNEN CADEN [facility] 11-11-2023 11:22-0400 Respiratory rate 16 /min SHANNEN CADEN [facility] 11-11-2023 11:22-0400 Systolic blood pressure 130 mm[Hg] SHANNEN CADEN [facility] 09-09-2023 13:14-0400 Blood Pressure Location SHANNEN CADEN [facility] 09-09-2023 13:14-0400 Body temperature 98.24 [degF] SHANNEN CADEN [facility] 09-09-2023 13:14-0400 Diastolic blood pressure 81 mm[Hg] SHANNEN CADEN [facility] 09-09-2023 13:14-0400 Heart rate 62 /min SHANNEN CADEN [facility] 09-09-2023 13:14-0400 Respiratory rate 16 /min SHANNEN CADEN [facility] 09-09-2023 13:14-0400 Systolic blood pressure 130 mm[Hg] SHANNEN CADEN [facility] 04-25-2023 09:25-0500 Body height 151.13 cm 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 Other [employer] [facility] [employer] Other 04-25-2023 09:25-0500 Body mass index (BMI) [Ratio] 22.88 kg/m2 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 Other [employer] Other 04-25-2023 09:25-0500 Body temperature 98.9 [degF] 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 Other [employer] Other 04-25-2023 09:25-0500 Body weight 52.25 kg 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 Other [employer] Other 04-25-2023 09:25-0500 Diastolic blood pressure 79 mm[Hg] 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 Other [employer] Other 04-25-2023 09:25-0500 Respiratory rate 18 /min Stephanie Preethi Other [employer] Other 04-25-2023 09:25-0500 SaO2% (BldA) [Mass fraction] 98 % Stephanie Preethi Other [employer] Other 04-25-2023 09:25-0500 Systolic blood pressure 140 mm[Hg] Stephanie Preethi Other [employer] Other 03-15-2022 14:30-0400 Body height 151.13 cm Stephanie Preethi Other [employer] Other 03-15-2022 14:30-0400 Body mass index (BMI) [Ratio] 25.02 kg/m2 Stephanie Preethi Other [employer] Other 03-15-2022 14:30-0400 Body temperature 99.6 [degF] Stephanie Preethi Other [employer] Other 03-15-2022 14:30-0400 Body weight 57.15 kg Stephanie Preethi Other [employer] Other 03-15-2022 14:30-0400 Respiratory rate 18 /min Stephanie Preethi Other [employer] Other 03-15-2022 14:30-0400 SaO2% (BldA) [Mass fraction] 97 % Stephanie Preethi Other [employer] Other Encounters Encounter Date Encounter Type Care Provider Facility Start: 12-02-2023 End: 12-02-2023 [facility] Start: 11-11-2023 End: 11-11-2023 ambulatory SHANNEN Marbella CADEN Facility:[facility] Start: 11-11-2023 End: 11-11-2023 Patient encounter procedure SHANNEN E CADEN [facility] [address] Start: 09-16-2023 End: 09-16-2023 Lab Drop off SHANNEN Marbella HOFFMANRY [facility] Start: 09-16-2023 End: 09-16-2023 ambulatory SHANNEN Marbella CADEN Facility:[facility] Start: 09-16-2023 End: 09-16-2023 Patient encounter procedure SHANNEN Marbella CADEN [facility] Start: 09-15-2023 ambulatory SHANNEN NEGRETE Facility :[facility] Start: 09-09-2023 End: 09-09-2023 ambulatory SHANNEN NEGRETE Facility:[facility] Start: 09-09-2023 End: 09-09-2023 Patient encounter procedure [facility] Start: 06-10-2023 End: 06-10-2023 ambulatory MELANIA WEISS Not Available Start: 04-25-2023 Office outpatient vi sit 15 minutes 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 [facility] Start: 04-25-2023 End: 04-25-2023 ambulatory 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 [facility] [employer] Other Start: 05-08-2022 End: 05-09-2022 ambulatory [employer] SOFTWARE ENGINE[employer] SRIKANTHAshlee LOPEZ Facility: Start: 03-15-2022 End: 03-15-2022 Departed 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 Work Phone: [facility] [place] Start: 03-15-2022 End: 03-15-2022 ambulatory 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 Work Phone: [facility] Work Phone: Start: 03-15-2022 Office outpatient ne w 20 minutes 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 [facility] Start: 11-08-2021 End: 11-09-2021 ambulatory KATH LOPEZ Facility:[facility] Start: 10-11-2021 Encounter for gynecological examination (general) (routine) without abnormal findings [facility] Start: 10-09-2021 End: 10-10-2021 ambulatory KATH LOPEZ [...] medical examination without abnormal findings [facility] Start: 08-28-2021 End: 08-29-2021 ambulatory KATH SRIKANTH JOHN Facility:[facility] Start: 08-28-2021 End: 08-29-2021 Encounter for general adult medical examination without abnormal findings [employer] SOFTWARE ENGINE[employer] SRIKANTH SERAFABIÁN Facility:[facility] Procedures Date Procedure Procedure [...] identified in Urine by Culture Urine Culture [facility] Immunizations Immunization Date Immunization Notes Care Provider Shai pisano 07-05-2022 zoster vaccine recombinant SHANNEN CADEN [facility] 03-30-2022 influenza virus vaccine, unspecified formulation SHANNEN CADEN [facility] 03-30-2022 zoster vaccine recombinant SHANNEN CADEN [facility] 02-08-2021 influenza virus vaccine, unspecified formulation SHANNEN CADEN [facility] 02-13-2020 influenza virus vaccine, unspecified formulation SHANNEN CADEN [facility] 02-27-2019 influenza virus vaccine, unspecified formulation SHANNEN CADEN [facility] 03-26-2015 influenza virus vaccine, unspecified formulation [facility] CADEN [facility] [facility] 03[facility]2014 influenza virus vaccine, unspecified formulation SHANNEN CADEN [facility] 05-22-2013 influenza virus vaccine, unspecified formulation SHANNEN CADEN [facility] Payers Date Payer Category Payer Self-pay 2022 Unknown [id number] 2.16.8 [id number] 1960 Unknown [id number] 2.16.84 0.1.457586.3.579.2.593 1962 Unknown [id number] 2.16.84 0.1.835199.3.579.2.593 1962 Unknown [id number] 2.16.84 0.1.994934.3.579.2.593 1962 Unknown [id number] 2.16.84 0.1.859949.3.579.2.593 1962 Unknown [id number] 2.16.84 0.1.788169.3.579.2.593 1962 Unknown [id number] 2.16.84 0.1.164512.3.579.2.593 1962 Unknown [id number] 2.16.84 0.1.742931.3.579.2.593 1962 Unknown [id number] 2.16.8 40.1.365841.3.579.2.727 1962 Unknown [id number] 2.16.8 40.1.330519.3.579.2.727 1962 Unknown [id number] 2.16.8 40.1.123351.3.579.2.727 1962 Unknown [id number] 2.16.8 40.1.850454.3.579.2.727 1962 Unknown [id number] 2.16.84 0.1.106972.3.579.2.1259 1962 Unknown [id number] 2.16.84 0.1.526551.3.579.2.1259 1959 Unknown [id number] 2.16. 840.1.716296.19 Unknown [id number] 2.16.8 40.1.287111.3.579.2.531 Social History Date Type Detail Facility Sex Assigned At [facility] Start: 1960 Sex Assigned At Female F [facility] Start: 09-09-2023 End: 11-11-2023 Tobacco smoking status Never smoked tobacco (finding) [facility] Tobacco smoking status Never [facility] Functional Status Date Assessment Result Facility 11-11-2023 Functional Status N/A [facility] 09-09-2023 Functional Status N/A [facility] Clinical Notes 10-17-2021 to 11-11-2023 Note Date [...] Treatment for this condition includes: Antibiotic medicine. Jedz-uou-iyhnygt medicines to treat discomfort. Drinking enough water [...] Follow these instructions at home: Medicines Take vvqf-jwn-pzwaujb and prescription medicines only as told by [...] provider. Document Revised: 12/15/2020 Document Reviewed: 12/15/2020 [employer] Patient Education 2022 [employer]. Follow Up Care 09/09/2023 14:02:36 With:SHANNEN NEGRETE PA-C, URL Address: [facility] [address] [facility] [place] [address] When: Unknown [facility] 09-09-2023 Hospital Discharg e instructions Patient Education 09/09/2023 13:56:26 Urinary Tract Infection, Adult, Wylg-vi-Vput Urinary Tract Infection, Adult A urinary tract [...] Follow these instructions at home: Medicines Take ollu-bni-jzmtdka and prescription medicines only as told by [...] provider. Document Revised: 12/15/2020 Document Reviewed: 12/15/2020 [employer] Patient Education 2022 [employer]. Follow Up Care 06/11/2023 16:21:28 With:CADEN HARRINGTON, SHANNEN White, URL Address: [address] [facility] [place] [address] [phone] When: Unknown [facility] 04-25-2023 Evaluation note Encounter Date Diagnosis Assessment [...] no improvement in 2 to 3 days. [facility] Other 10-28-2022 Evaluation note* Encounter Date Diagnosis [...] R30.0) Feb, Hematuria, unspecified (ICD-10 - R31.9) [facility] Other 06-01-2022 History general Narrative - Reported* Type Description Date Medical History HTN Medical History hypercholesterolemia Medical History acid reflux Surgical History EGD OCTOBER 2021 [facility] Other Evaluation + Plan note Future Appointments Appointment Date:11/11/2023 03:40:00 PM Scheduled Provider:SHANNEN NEGREET PA-C Location:[facility] Appointment Type:URO Office Visit [facility] evaluation + Plan note Future Appointments Appointment Date:11/11/2023 03:40:00 PM Scheduled Provider:SHANNEN NEGRETE PA-C Location:[facility] Appointment Type:URO Office Visit Diagnostic Tests Pending * Urine Culture 09/16/23 [facility] noteNo assessment information available [facility] Work Phone: Hospital course Narrative No data available for this section [facility] Hospital Discharge instructions No data available for this section [facility] progress note No data available for this section [facility] Summary Purpose Family History No Family History [...] Member Role Status Dates 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 , 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 Attending Provider Active Goals (unrecognized section and content) Goals may be documented in a n alternate section INFORMATION SOURCE (unrecogn ized section and content) DATE CREATED AUTHOR 05/15/2022 [facility] DATE CREATED AUTHOR AUTHOR'S ORGANIZ ATION 05/03/2023 [facility] DATE CREATED AUTHOR AUTHOR'S ORGANIZ ATION 11/12/2023 [facility] DATE CREATED AUTHOR AUTHOR'S ORGANIZ ATION 12/06/2023 [facility] FOR RECORDS PERTAINING TO PATIENTS WHO ARE [...] BE BASED ON THE PRIMARY CLINICAL RECORDS. [employer] provides no warranty or guarantee of the accuracy or completeness of information in this document.
[2023-12-20 07:33] LABS: Basophils Percent Auto 0.8 % (0.2-2.0); Eosinophils Absolute Auto 0.2 10^3/uL (0.0-0.7); Eosinophils Percent Auto 4.4 % (0.9-7.0); Hematocrit 39.8 % (36.0-48.0); Immature Granulocytes Abs Auto 0.01 10^3/uL (0.00-0.03); Immature Granulocytes Pct Auto 0.2 % (0.0-0.5); Lymphocytes Absolute Auto 1.4 10^3/uL (1.2-3.8); Lymphocytes Percent Auto 29.6 % (20.5-60.0); Mean Corpuscular HGB Conc 32.7 g/dL (29.9-35.2); Mean Corpuscular Hemoglobin 27.8 pg (26.7-34.0); Mean Corpuscular Volume 85.2 fL (81.0-99.0); Mean Platelet Volume 10.4 fL (9.5-13.5); Monocytes Absolute Auto 0.4 10^3/uL (0.3-0.8); Monocytes Percent Auto 8.8 % (1.7-12.0); Neutrophils Absolute Auto 2.7 10^3/uL (1.4-6.5); Neutrophils Percent Auto 56.2 % (43.0-75.0); Platelet Count 254 10^3/uL (150-450); Red Blood Count 4.67 10^6/uL (4.20-5.40); Red Cell Distribution Width 15.7 % (11.0-15.0); White Blood Count 4.8 10^3/uL (4.0-11.0)
[2023-12-20 07:36] LABS: Alanine Aminotransferase 20 U/L (14-59); Albumin Globulin Ratio 1.1; Albumin Level 3.7 g/dL (3.4-5.0); Alkaline Phosphatase 86 U/L (46-116); Anion Gap 12.3; Aspartate Amino Transferase 17 U/L (15-37); BUN Creatinine Ratio 19.1; Bilirubin Total 0.5 mg/dL (0.2-1.0); Calcium 8.5 mg/dL (8.5-10.1); Carbon Dioxide 26.7 mmol/L (21.0-32.0); Chloride 105 mmol/L (98-107); Chol HDL Ratio 3.7; Cholesterol 232 mg/dL (<=200); Estimated GFR (African America >60 (>=60); Estimated GFR (Non-African Ame >60 (>=60); Globulin 3.3 g/dL; Glucose 103 mg/dL (74-106); HDL Cholesterol 62 mg/dL (40-60); Sodium 140 mmol/L (136-145); Triglycerides 61 mg/dL (<=150); VLDL CHOLESTEROL 12.2 mg/dL
[2023-12-20 08:14] LABS: Bilirubin Urine NEGATIVE (NEGATIVE); Blood Urine TRACE-I (NEGATIVE); Clarity Urine CLEAR (CLEAR); Color Urine LT. YELLOW (YELLOW); Glucose Urine UA NEGATIVE (NEGATIVE); Ketones Urine NEGATIVE (NEGATIVE); Leukocyte Esterase Urine SMALL (NEGATIVE); Nitrite Urine POSITIVE (NEGATIVE); Protein Urine NEGATIVE (NEG/TRACE); Specific Gravity Urine 1.015 (1.005-1.025); Urobilinogen Urine 0.2 EU/dL (0.2-1.0); pH Urine 6.5 (5.0-9.0)
[2023-12-20 08:23] LABS: Urine Microscopic Indicated YES
[2023-12-20 08:47] LABS: Bacteria Urine LARGE #/HPF (NONE SEEN); Mucus Urine TRACE (NONE SEEN); RBC Urine 0-2 #/HPF (0-2); Squamous Epithelial Cell Urine RARE #/LPF (NONE/RARE)
[2023-12-20 08:48] LABS: Cast Seen? NONE SEEN #/LPF (NONE SEEN); Crystals Seen? None Seen #/HPF (None Seen); Urine Culture Indicated YES
== END 2023-12-20 07:09 | disposition home or self-care (01) ==
LOC: LAB 07:11
PROVIDERS: PCP Nurse Practitioner; Visit Provider Nurse Practitioner
DX: E78.2 Mixed hyperlipidemia (principal); K22.719 Barrett's esophagus with dysplasia, unspecified; R31.21 Asymptomatic microscopic hematuria
CPT/HCPCS: 36415; 80053; 80061; 81001; 85025; 87086; 87186

== ENCOUNTER 2024-01-13 06:41 | Outpatient (OUT) | payer OTHER, SELFPAY ==
--- OUTSIDE RECORDS SUMMARY | 2024-01-13 06:43 | XMS_ITS | CCD ---
Author Organization [facility] Inform ion [facility] Care Team Providers Care Regulatory Services Consultant Name Role Phone 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 Unavailable AICHHOLZ, TELECOMMUNICATION LINES REPAIRER SRIKANTH Admitting Unavailable AICHHOLZ, TELECOMMUNICATION LINES REPAIRER SRIKANTH Attending Unavailable AICHHOLZ, TELECOMMUNICATION LINES REPAIRER SRIKANTH Primary Care Unavailable DR ANTWAN KNIGHT V Consulting Unavailable AICHHOLZ, TELECOMMUNICATION LINES REPAIRER SRIKANTH Consulting Unavailable GORDO, DR NAILS Admitting Unavailable GORDO, DR NAILS Attending Unavailable AICHHOLZ, TELECOMMUNICATION LINES REPAIRER SRIKANTH Primary Care Unavailable DR JESU CARO Consulting Unavailable AICHHOLZ, TELECOMMUNICATION LINES REPAIRER SRIKANTH Admitting Unavailable AICHHOLZ, TELECOMMUNICATION LINES REPAIRER SRIKANTH Attending Unavailable AICHHOLZ, TELECOMMUNICATION LINES REPAIRER SRIKANTH Primary Care Unavailable AICHHOLZ, TELECOMMUNICATION LINES REPAIRER SRIKANTH Consulting Unavailable ANTWAN LAY Consulting Unavailable AICHHOLZ, TELECOMMUNICATION LINES REPAIRER SRIKANTH Admitting Unavailable AICHHOLZ, TELECOMMUNICATION LINES REPAIRER SRIKANTH Attending Unavailable AICHHOLZ, TELECOMMUNICATION LINES REPAIRER SRIKANTH Primary Care Unavailable AICHHOLZ, TELECOMMUNICATION LINES REPAIRER SRIKANTH Consulting Unavailable AICHHOLZ, TELECOMMUNICATION LINES REPAIRER SRIKANTH Admitting Unavailable AICHHOLZ, TELECOMMUNICATION LINES REPAIRER SRIKANTH Attending Unavailable AICHHOLZ, TELECOMMUNICATION LINES REPAIRER SRIKANTH Primary Care Unavailable AICHHOLZ, TELECOMMUNICATION LINES REPAIRER SRIKANTH Consulting Unavailable AICHHOLZ, TELECOMMUNICATION LINES REPAIRER SRIKANTH Admitting Unavailable AICHHOLZ, TELECOMMUNICATION LINES REPAIRER SRIKANTH Attending Unavailable AICHHOLZ, TELECOMMUNICATION LINES REPAIRER SRIKANTH Primary Care Unavailable AICHHOLZ, TELECOMMUNICATION LINES REPAIRER SRIKANTH Consulting Unavailable AICHHOLZ, TELECOMMUNICATION LINES REPAIRER SRIKANTH Admitting Unavailable AICHHOLZ, TELECOMMUNICATION LINES REPAIRER SRIKANTH Attending Unavailable AICHHOLZ, TELECOMMUNICATION LINES REPAIRER SRIKANTH Primary Care Unavailable AICHHOLZ, TELECOMMUNICATION LINES REPAIRER SRIKANTH Consulting Unavailable 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 Attending Unavailable [...] BID, # 60 tab(s), Refills(s) 11, Pharmacy: [id number], 150, cm, 09/09/23 13:24:00 EDT, Height/Length Dosing, [...] Interpretation Reference Range Facility [facility] 11-12-2023 Screens [id number] 0TIFF Normal [facility] Patient Educationon 11-11-19 Patient Education Obstetrics and [...] this condition includes: ? Antibiotic medicine. ? Ihje-klu-jcqdvkh medicines to treat discomfort. ? Drinking enough [...] these instructions at home: Medicines ? Take tilt-nvy-uunpvtf and prescription medicines only as told by [...] Document Revie (more content not included)... Normal [facility] Urology Office/Clinic Noteon 11-11-2023 Urology Office/Clinic Note [...] Contact Information CADEN HARRINGTON, SHANNEN White, URL [address] [facility] [place] [address] Additional Instructions: PRN Patient Education Urinary Tract [...] 11:19:00) Specific (more content not included)... Normal [facility] Comment on above: Result Comment: Elec tronically Signed By: SHANNEN NEGRETE PA-C\.br\Date and Time Signed: 11/11/23 12:10 EDT\.br\Electronically Co-Signed By: Nati Cahu\.br\Date and Time Co-Signed: 11/11/23 12:00 EDT C [...] Locations R1: [facility] [address] [place] [address], [id number] , , [facility] Comment on above: Performed By: #### 2 [id number] ####[facility] [address] [place] [address] Ambulatory Visit Summaryon 0 09-16-2023 Ambulatory Visit [...] SHANNEN NEGRETE PA-C Where: [facility] 09-15-2023 Screens [id number]. 00TIFF [facility] Screens [id number]#1. 00TIFF [facility] Lab Reportson 09-10-2023 Lab Reports [id number]. 00TIFF [facility] Lab Reports [id number]#1. 00TIFF [facility] Lab Reports [id number]. 00TIFF [facility] Lab Reports [id number]. 00TIFF Normal [facility] RAD - CT Reporton 09-10-2023 RAD - CT Report [id number]#1. 00TIFF Normal [facility] RAD - CT Report [id number]#1.0 0TIFF Normal [facility] RAD - MISCon 09-10-2023 RAD - MISC [id number]#1. 00TIFF Normal [facility] RAD - MISC [id number]#1. 00TIFF Normal [facility] Patient Educationon 09-09-19 Patient Education Obstetrics and [...] these instructions at home: Medicines ? Take eath-cad-jjewjgc and prescription medicines only as told by [...] provider. Document Revised: 12/15/2020 Document Reviewed: 12/15/2020 [employer] Patient Education ? 2022 [employer]. Cornelio Garcia [facility] Urology Office/Clinic Noteon 09-09-2023 Urology [...] When Contact Information SHANNEN NEGRETE PA-C, URL [address] [place] [address] [phone] Additional Instructions: 3 mos (new med) Patient Education Urinary Tract Infection, Adult, Llgx-pp-Tqso Documentation recorded by the scribmarbella Lay accurately [...] (06/30/2014), Cys (more content not included)... Normal [facility] Comment on above: Result Comment: Elec tronically Signed By: SHANNEN NEGRETE PA-C\.br\Date and Time Signed: 09/09/23 14:17 EDT\.br\Electronically Co-Signed By: Alejandra Laybr\Date and Time Co-Signed: 09/09/23 14:01 EDT Urinalysis - AUTOMATEDon Appearance (U) clear [employer] Other Bilirubin Ql (U) Negative [email or web address] Other Color (U) pale yellow [employer] Other Glucose Ql (U) Negative [employer] Other Hemoglobin Ql (U) trace-intact [employer] Other Ketones Ql (U) Negative [employer] Other Leukocyte esterase Test strip Ql (U) trace [employer] Other Nitrite Ql (U) Negative [employer] Other pH (U) 6.0 [pH] [employer]na Other Protein Ql (U) Negative [employer] Other Specific gravity (U) [Rel density] 1.010 [employer] Other Urobilinogen (U) [Mass/Vol] 0.2 mg/dL luc[employer]na Other Urinalysis - AUTOMATED [employer]na Other Urine Cultureon 04-25-2023 Bacteria identified Cx Nom (U) Reason for Exam Dysuria Urine <10,000 colonies/ml mixed bacterial skin contaminants including mixed gram negative bacilli - 2 Days PERFORMED BY: [place] [address] PATHOLOGIST TAMPING MACHINE OPERATOR DAVID PABLO M.D. Normal [facility] Comment on above: Performed By: #### C UU #### [address] Bacteria identified Cx Nom (U) lucierna Other LIPID PROFILEon 05-08-2022 CHOL-HDL RATIO NORM SEE BELOW Normal [facility] Comment on above: Result Comment: 3.3 - 4.4 LOW RISK 4.4 - 7.1 AVERAGE RISK 7.1 - 11.0 MODERATE RISK >11.0 HIGH RISK Performed By: #### L IPID, AST, ALT #### [facility] [address] [place] [address] Dr. Francisco Laboy Cholesterol [Mass/Vol] 191 mg/dL Normal <=200 Comment on above: Performed By: #### L IPID, AST, ALT #### [facility] [address] [address] [address] Francisco Laboy Cholesterol in HDL [Mass/Vol] 56 mg/dL Normal 40-60 Comment on above: Performed By: #### L IPID, AST, ALT #### [facility] [address] [place] [address] Dr. Francisco Laboy Cholesterol in LDL [Mass/Vol] 94.2 mg/dL Normal Comment on above: Performed By: #### L IPID, AST, ALT #### [facility] [address] [place] [address] Dr. Francisco Laboy Cholesterol.total /Cholesterol in HDL [Mass ratio] 3.4 {ratio} Normal Comment on above: Performed By: #### L IPID, AST, ALT #### [facility] [address] [place] [address] Dr. Francisco Laboy HDL NORMAL > or = 60 mg/dl - LO W CARDIOVASCULAR RISK <40 mg/dl - HIGH CARDIOVASCULAR RISK Normal Comment on above: Performed By: #### L IPID, AST, ALT #### [facility] [address] [place] [address] Dr. Francisco Laboy LDL CALC NORMAL SEE BELOW Normal [facility] Comment on above: Result Comment: <100 mg/dl OPTIMAL 100 - 129 mg/dl NEAR OR ABOVE OPTIMAL 130 - 159 mg/dl BORDERLINE HIGH 160 - 189 mg/dl HIGH >190 mg/dl VERY HIGH Performed By: #### L IPID, AST, ALT #### [facility] [address] [place] [address] Dr. Francisco Laboy Triglyceride [Mass/Vol] 204 mg/dL Critically high <=150 Comment on above: Performed By: #### L IPID, AST, ALT #### [facility] [address] [address] [address] Francisco Laboy VLDL CALC 40.8 mg/dL Normal Comment on above: Performed By: #### L IPID, AST, ALT #### [facility] [address] [address] [address] Francisco Fuentesn 05-08-2022 AST [Catalytic activity/Vol] 20 U/L Normal 15-37 Comment on above: Performed By: #### L IPID, AST, ALT #### [facility] [address] [address] [address] [facility] ALT [Catalytic activity/Vol] 23 U/L Normal 14-59 Comment on above: Performed By: #### L IPID, AST, ALT #### [facility] [address] [address] [address] Francisco Laboy SARS-CoV-2 (COVID-19) RNA NA A+probe Ql (Resp)on 03-15-2022 SARS-CoV-2 (COVID-19) RNA JAZ+probe Ql (Unsp spec) Positive luc[employer]na Other Urinalysis - AUTOMATEDon Appearance (U) cloudy [employer] Other Bilirubin Ql (U) Negative [email or web address] Other Color (U) yellow [employer] Other Glucose Ql (U) Negative [employer] Other Hemoglobin Ql (U) moderate [employer] Other Ketones Ql (U) trace [employer] Other Leukocyte esterase Test strip Ql (U) small [employer] Other Nitrite Ql (U) Positive [employer] Other pH (U) 5.5 [pH] lucierna Other Protein Ql (U) trace [employer] Other Specific gravity (U) [Rel density] 1.025 [employer]na Other Urobilinogen (U) [Mass/Vol] 0.2 mg/dL luc[employer]na Other Urinalysis - AUTOMATED [employer]na Other Urine Cultureon 03-15-2022 Urine Culture >100,000 [employer]na Other Urine Culture <16 Susceptible [employer] Other Urine Culture <8 Susceptible [employer] Other Urine Culture <4 Susceptible [employer] Other Urine Culture <2 Susceptible [employer] Other Urine Culture <1 Susceptible [employer] Other Urine Culture >2 Resistant luc[employer]na Other Urine Culture <0.5 Susceptible [employer] Other Urine Culture >4 Resistant lucierna Other Urine Culture <32 Susceptible [employer] Other Urine Culture <2/38 Susceptible [employer] Other LIPID PROFILEon 11-08-2021 CHOL-HDL RATIO NORM SEE BELOW Normal [facility] Comment on above: Result Comment: 3.3 - 4.4 LOW RISK 4.4 - 7.1 AVERAGE RISK 7.1 - 11.0 MODERATE RISK >11.0 HIGH RISK Performed By: #### U AMIC #### [facility] [address] [address] [address] Francisco Laboy Cholesterol [Mass/Vol] 177 mg/dL Normal <=200 [facility] Comment on above: Performed By: #### U AMIC #### [facility] [address] [place], [place] [address] Dr. Francisco Laboy Cholesterol in HDL [Mass/Vol] 47 mg/dL Normal 40-60 Comment on above: Performed By: #### U AMIC #### [facility] [address] [place], [place] [address] Dr. Francisco Laboy Cholesterol in LDL [Mass/Vol] 92.2 mg/dL Normal Comment on above: Performed By: #### U AMIC #### [facility] [address] [address] [address] Francisco Laboy Cholesterol.total /Cholesterol in HDL [Mass ratio] 3.8 {ratio} Normal Comment on above: Performed By: #### U AMIC #### [facility] [address] [address] [address] Francisco Laboy HDL NORMAL > or = 60 mg/dl - LO W CARDIOVASCULAR RISK <40 mg/dl - HIGH CARDIOVASCULAR RISK Normal Comment on above: Performed By: #### U AMIC #### [facility] [address] [address] [address] Francisco Laboy LDL CALC NORMAL SEE BELOW Normal [facility] Comment on above: Result Comment: <100 mg/dl OPTIMAL 100 - 129 mg/dl NEAR OR ABOVE OPTIMAL 130 - 159 mg/dl BORDERLINE HIGH 160 - 189 mg/dl HIGH >190 mg/dl VERY HIGH Performed By: #### U AMIC #### [facility] [address] [address] [address] Francisco Laboy Triglyceride [Mass/Vol] 189 mg/dL Critically high <=150 [facility] Comment on above: Performed By: #### U AMIC #### [facility] [address] [address] [address] Francisco Laboy VLDL CALC 37.8 mg/dL Normal Comment on above: Performed By: #### U AMIC #### [facility] [address] [address] [address] Francisco Laboy PROF 14(COMP METB)on 06-23-2 022 Albumin [Mass/Vol] 3.9 g/dL Normal 3.4-5.0 Comment on above: Performed By: #### U AMIC #### [facility] [address] [place] [address] Dr. Francisco Laboy Albumin/Globulin [Mass ratio] 1.2 {ratio} Normal Comment on above: Performed By: #### U AMIC #### [facility] [address] [address] [address] Francisco Laboy ALP [Catalytic activity/Vol] 88 U/L Normal 46-116 [facility] Comment on above: Performed By: #### U AMIC #### [facility] [address] [place] [address] Dr. Francisco Laboy ALT [Catalytic activity/Vol] 44 U/L Normal 14-59 Comment on above: Performed By: #### U AMIC #### [facility] [address] [place] [address] Dr. Francisco Laboy Anion gap [Moles/Vol] 12.7 mmol/L Normal Comment on above: Performed By: #### U AMIC #### [facility] [address] [place] [address] Dr. Francisco Laboy AST [Catalytic activity/Vol] 26 U/L Normal 15-37 [facility] Comment on above: Performed By: #### U AMIC #### [facility] [address] [place] [address] Dr. Francisco Laboy Bilirubin [Mass/Vol] 0.4 mg/dL Normal 0.2-1.0 [facility] Comment on above: Performed By: #### U AMIC #### [facility] [address] [address] [address] Francisco Laboy Calcium [Mass/Vol] 8.4 mg/dL Critically low 8.5-10.1 [facility] Comment on above: Performed By: #### U AMIC #### [facility] [address] [address] [address] Francisco Laboy Chloride [Moles/Vol] 107 mmol/L Normal 98-107 [facility] Comment on above: Performed By: #### U AMIC #### [facility] [address] [address] [address] Francisco Laboy CO2 [Moles/Vol] 24.3 mmol/L Normal 21.0-32.0 [facility] Comment on above: Performed By: #### U AMIC #### [facility] [address] [address] [address] Francisco Laboy Creatinine [Mass/Vol] 0.92 mg/dL Normal 0.55-1.02 [facility] Comment on above: Performed By: #### U AMIC #### [facility] [address] [address] [address] Francisco Laboy EGFR-AF CAMBODIAN >60 Normal >=60 [facility] Comment on above: Performed By: #### U AMIC #### [facility] [address] [address] [address] Francisco Laboy EGFR-NON AF CAMBODIAN >60 Normal >=60 [facility] Comment on above: Performed By: #### U AMIC #### [facility] [address] [address] [address] Francisco Laboy Globulin (S) [Mass/Vol] 3.3 g/dL Normal Comment on above: Performed By: #### U AMIC #### [facility] [address] [address] [address] Francisco Laboy Glucose [Mass/Vol] 95 mg/dL Normal 74-106 [facility] Comment on above: Performed By: #### U AMIC #### [facility] [address] [address] [address] Francisco Laboy Potassium [Moles/Vol] 4.0 mmol/L Normal 3.5-5.1 [facility] Comment on above: Performed By: #### U AMIC #### [facility] [address] [address] [address] Francisco Laboy Protein [Mass/Vol] 7.2 g/dL Normal 6.4-8.2 [facility] Comment on above: Performed By: #### U AMIC #### [facility] [address] [place], [place] [address] Dr. Francisco Laboy Sodium [Moles/Vol] 140 mmol/L Normal 136-145 Comment on above: Performed By: #### U AMIC #### [facility] [address] [place], [place] [address] Dr. Francisco Laboy Urea nitrogen [Mass/Vol] 11.0 mg/dL Normal 7.0-18.0 Comment on above: Performed By: #### U AMIC #### [facility] [address] [place], [place] [address] Dr. Francisco Laboy Urea nitrogen/Creatini ne [Mass ratio] 11.9 mg/mg Normal Comment on above: Performed By: #### U AMIC #### [facility] [address] [address] [address] Francisco Laboy XR DEXA BONE DENSITYon 10-09 XR DEXA BONE DENSITY DEXA Bone Density Study CLINICAL: Evaluate bone mineral density. Postmenopausal COMPARISON: None FINDINGS: The bone density study was assessed by dual-energy x-ray absorptiometry with the Gaikai scanner. The test results are expressed in [...] authenticated by: ANTWAN LAY Date: 2021-10-09 08:51 [facility] PAP ACOG PANEL 2: 30 to 65on 10-08-2021 . . Normal [facility] Comment on above: Result Comment: Perf ormed at: BA Performed By: #### U AMIC #### [facility] [address] [place], [place] [address] Dr. Francisco Laboy Age Gdln ACOG Testing 30-65 [facility] Comment on above: Performed By: #### U AMIC #### [facility] [address] [place], [place] [address] Dr. Francisco Laboy DIAGNOSIS: Comment [facility] Comment on above: Result Comment: UNSA TISFACTORY FOR EVALUATION. THIS SPECIMEN WAS RESCREENED PART OF OUR INTEGRATION TECHNICIAN PROGRAM. Performed at: BA Performed By: #### U AMIC #### [facility] [address] [address] [address] Francisco Laboy HPV Aptima Negative Normal Negative Comment on above: Result Comment: This nucleic acid amplification test detects fourteen high-risk HPV types (16,18,31,33,35,39,45,51,52,56,58,59,66,68) without differentiation. Performed at: =G Performed By: #### U AMIC #### [facility] [address] [address] [address] Francisco Laboy Methodology: Comment Normal Comment on above: Result Comment: This liquid based ThinPrep(R) pap test was screened with the use of an image guided system. Performed at: WB Performed By: #### U AMIC #### [facility] [address] [place] [address] Dr. Francisco Laboy Note: Comment Normal Comment on above: Result Comment: The Pap smear is a screening test designed to aid in the detection of premalignant and malignant conditions of the uterine cervix. It is not a diagnostic procedure and should not be used as the sole means of detecting cervical cancer. Both false-positive and false-negative reports do occur. . Performed at: WB Performed By: #### U AMIC #### [facility] [address] [address] [address] Francisco Laboy Performed by: Comment Normal [facility] Comment on above: Result Comment: Liang Houser, Ingredient Scaler (ASCP) Performed at: BA Performed By: #### U AMIC #### [facility] [address] [address] [address] Francisco Laboy QC reviewed by: Comment Normal [facility] Comment on above: Result Comment: Rusty Ortiz, Ingredient Scaler (ASCP) Performed at: BA Performed By: #### U AMIC #### [facility] [address] [address] [address] Francisco Laboy Specimen adequacy: Comment Normal Comment on above: Result Comment: Spec imen processed and examined but unsatisfactory for evaluation of epithelial abnormality because of insufficient cellularity. Performed at: BA Performed By: #### U AMIC #### [facility] [address] [place], [place] [address] Dr. Francisco Laboy MG MAMM SCREEN 3D KAROL CADon 10-01-2021 MG MAMM SCREEN 3D KAROL CAD Patient: MONICA AMOR Exam Date: 10/01/2021 : 1960 Gender:F Ordering : KATH SRIKANTH LOPEZ [facility] Admission #: [id number] Family : Order #: [id number] CLICK HERE TO VIEW EXAM RADIOLOGY REPORT [...] stomach cancer at age 42. LOCATION: [facility] BREAST COMPOSITION: Heterogeneously dense,which may [...] LUMP SHOULD BE BIOPSIED. Dictated by: Antwan Kinght MD on 10/01/2021 at 08:41 Approved by: Antwan Knight MD on 10/01/2021 at 08:44 Normal [facility] CULTURE URINEon 09-06-2021 CULTURE URINE Culture Observations : NO GROWTH. Normal [facility] Comment on above: Performed By: #### U AMIC #### [facility] [address] [place], [place] [address] Dr. Francisco Laboy UA RANDOM W/MICROSCOPICon BACTERIA NONE SEEN Normal NONE SEEN [facility] Comment on above: Performed By: #### U AMIC #### [facility] [address] [place], [place] [address] Dr. Francisco Laboy Bilirubin Ql (U) Negative Normal NEGATIVE [facility] Comment on above: Performed By: #### U AMIC #### [facility] [address] [address] [address] Francisco Laboy CAST NONE SEEN Normal NONE SEEN Comment on above: Performed By: #### U AMIC #### [facility] [address] [address] [address] Francisco Laboy Clarity (U) CLEAR Normal CLEAR [facility] Comment on above: Performed By: #### U AMIC #### [facility] [address] [address] [address] Francisco Laboy Color (U) LT. YELLOW Normal YELLOW [facility] Comment on above: Performed By: #### U AMIC #### [facility] [address] [address] [address] Francisco Laboy Crystals LM Nom (Urine sed) NONE SEEN Normal NONE SEEN Comment on above: Performed By: #### U AMIC #### [facility] [address] [place] [address] Dr. Francisco Laboy Epithelial cells LM Ql (Urine sed) FEW Abnormal NONE SEEN /RARE [facility] Comment on above: Performed By: #### U AMIC #### [facility] [address] [address] [address] Francisco Laboy Glucose Ql (U) Negative Normal NEGATIVE [facility] Comment on above: Performed By: #### U AMIC #### [facility] [address] [address] [address] Francisco Laboy Hemoglobin Ql (U) Negative Normal NEGATIVE The [facility] Comment on above: Performed By: #### U AMIC #### [facility] [address] [address] [address] Francisco Laboy Ketones Ql (U) Negative Normal NEGATIVE The [facility] Comment on above: Performed By: #### U AMIC #### [facility] [address] [place] [address] Dr. Francisco Laboy LEUKOCYTES Negative Normal NEGATIVE The [facility] Comment on above: Performed By: #### U AMIC #### [facility] [address] [address] [address] Francisco Laboy MUCOUS NONE SEEN Normal NONE SEEN The [facility] Comment on above: Performed By: #### U AMIC #### [facility] [address] [place] [address] Dr. Francisco Laboy Nitrite Ql (U) Negative Normal NEGATIVE The [facility] Comment on above: Performed By: #### U AMIC #### [facility] [address] [address] [address] Francisco Laboy pH (U) 6.0 [pH] Normal 5-9 The [facility] Comment on above: Performed By: #### U AMIC #### [facility] [address] [place] [address] Dr. Francisco Laboy RBC NONE SEEN Abnormal 0-2 Comment on above: Performed By: #### U AMIC #### [facility] [address] [place] [address] Dr. Francisco Laboy SPEC GRAVITY <=1.005 Abnormal 1.005-<=1.025 [facility] Comment on above: Performed By: #### U AMIC #### [facility] [address] [place] [address] Dr. Francisco Laboy UA PROTEIN Negative Normal NEGATIVE/ TRACE The [facility] Comment on above: Performed By: #### U AMIC #### [facility] [address] [place] [address] Dr. Francisco Laboy Urobilinogen Qn (U) 0.2 {Blanca'U}/dL Normal 0.2 - 1.0 Comment on above: Performed By: #### U AMIC #### [facility] [address] [place] [address] Dr. Francisco Laboy WBC NONE SEEN Normal NONE SEEN The [facility] Comment on above: Performed By: #### U AMIC #### [facility] [address] [place] [address] Dr. Francisco Laboy CULTURE URINEon 08-30-2021 CULTURE [...] Trimethoprim/Sulfameth oxazole <=20 S F Normal The [facility] Comment on above: Performed By: #### U RCX #### [facility] [address] [place] [address] Dr. Francisco Laboy CBC AUTO DIFFon 08-28-2021 BASO # 0.0 103/ul Normal 0.0-0.1 Comment on above: Performed By: #### U AMIC #### [facility] [address] [place] [address] Dr. Francisco Laboy Basophils/100 WBC (Bld) 0.7 % Normal 0.2-2.0 Comment on above: Performed By: #### U AMIC #### [facility] [address] [place] [address] Dr. Francisco Laboy EO # 0.2 103/ul Normal 0.0-0.7 Comment on above: Performed By: #### U AMIC #### [facility] [address] [place] [address] Dr. Francisco Laboy Eosinophils/100 WBC (Bld) 3.3 % Normal 0.9-7.0 Comment on above: Performed By: #### U AMIC #### [facility] [address] [place] [address] Dr. Francisco Laboy Erythrocyte distribution width (RBC) [Ratio] 13.6 % Normal 11.0-15.0 Comment on above: Performed By: #### U AMIC #### [facility] [address] [place] [address] Dr. Francisco Laboy Hematocrit (Bld) [Volume fraction] 40.9 % Normal 36.0-48.0 Comment on above: Performed By: #### U AMIC #### [facility] [address] [address] [address] Francisco Laboy Hemoglobin (Bld) [Mass/Vol] 13.3 g/dL Normal 12.0-16.0 Comment on above: Performed By: #### U AMIC #### [facility] [address] [address] [address] Francisco Laboy IG # 0.01 10e3/ul Normal 0.00-0.03 Comment on above: Performed By: #### U AMIC #### [facility] [address] [place] [address] Dr. Francisco Laboy IG % 0.2 % Normal 0.0-0.5 Comment on above: Performed By: #### U AMIC #### [facility] [address] [address] [address] Francisco Laboy LYMPH # 1.8 103/ul Normal 1.2-3.8 Comment on above: Performed By: #### U AMIC #### [facility] [address] [place] [address] Dr. Francisco Laboy Lymphocytes/100 WBC (Bld) 31.6 % Normal 20.5-60.0 Comment on above: Performed By: #### U AMIC #### [facility] [address] [address] [address] Francisco Laboy MANUAL DIFF REQ NO Normal [facility] Comment on above: Performed By: #### U AMIC #### [facility] [address] [address] [address] Francisco Laboy MCH (RBC) [Entitic mass] 29.1 pg Normal 26.7-34.0 Comment on above: Performed By: #### U AMIC #### [facility] [address] [address] [address] Francisco Laboy MCHC (RBC) [Mass/Vol] 32.5 g/dL Normal 29.9-35.2 Comment on above: Performed By: #### U AMIC #### [facility] [address] [place] [address] Dr. Francisco Laboy MCV (RBC) [Entitic vol] 89.5 fL Normal 81.0-99.0 Comment on above: Performed By: #### U AMIC #### [facility] [address] [address] [address] Francisco Laboy MONO # 0.5 103/ul Normal 0.3-0.8 Comment on above: Performed By: #### U AMIC #### [facility] [address] [place] [address] Dr. Francisco Laboy Monocytes/100 WBC (Bld) 8.7 % Normal 1.7-12.0 Comment on above: Performed By: #### U AMIC #### [facility] [address] [place] [address] Dr. Francisco Laboy NEUT # 3.2 103/ul Normal 1.4-6.5 Comment on above: Performed By: #### U AMIC #### [facility] [address] [place] [address] Dr. Francisco Laboy Neutrophils/100 WBC (Bld) 55.5 % Normal 43.0-75.0 Comment on above: Performed By: #### U AMIC #### [facility] [address] [place] [address] Dr. Francisco Laboy Platelet mean volume (Bld) [Entitic vol] 10.5 fL Normal 9.5-13.5 The [facility] Comment on above: Performed By: #### U AMIC #### [facility] [address] [place] [address] Dr. Francisco Laboy PLT 261 103/ul Normal 150-450 The [facility] Comment on above: Performed By: #### U AMIC #### [facility] [address] [place] [address] Dr. Francisco Laboy RBC 4.57 106/ul Normal 4.20-5.40 Comment on above: Performed By: #### U AMIC #### [facility] [address] [address] [address] Francisco Laboy WBC 5.8 103/ul Normal 4.0-11.0 Comment on above: Performed By: #### U AMIC #### [facility] [address] [address] [address] Francisco Laboy LIPID PROFILEon 08-28-2021 CHOL-HDL RATIO NORM SEE BELOW Normal Comment on above: Result Comment: 3.3 - 4.4 LOW RISK 4.4 - 7.1 AVERAGE RISK 7.1 - 11.0 MODERATE RISK >11.0 HIGH RISK Performed By: #### T SH, LIPID, CMP #### [facility] [address] [place] [address] Dr. Francisco Laboy Cholesterol [Mass/Vol] 244 mg/dL Critically high <=200 The [facility] Comment on above: Performed By: #### T SH, LIPID, CMP #### [facility] [address] [place] [address] Dr. Francisco Laboy Cholesterol in HDL [Mass/Vol] 47 mg/dL Normal 40-60 Comment on above: Performed By: #### T SH, LIPID, CMP #### [facility] [address] [place] [address] Dr. Francisco Laboy Cholesterol in LDL [Mass/Vol] 155.2 mg/dL Normal The [facility] Comment on above: Performed By: #### T SH, LIPID, CMP #### [facility] [address] [place] [address] Dr. Francisco Laboy Cholesterol.total /Cholesterol in HDL [Mass ratio] 5.2 {ratio} Normal Comment on above: Performed By: #### T SH, LIPID, CMP #### [facility] [address] [place] [address] Dr. Francisco Laboy HDL NORMAL > or = 60 mg/dl - LO W CARDIOVASCULAR RISK <40 mg/dl - HIGH CARDIOVASCULAR RISK Normal Comment on above: Performed By: #### T FEDE, LIPID, CMP #### [facility] [address] [place] [address] Dr. Francisco Laboy LDL CALC NORMAL SEE BELOW Normal [facility] Comment on above: Result Comment: <100 mg/dl OPTIMAL 100 - 129 mg/dl NEAR OR ABOVE OPTIMAL 130 - 159 mg/dl BORDERLINE HIGH 160 - 189 mg/dl HIGH >190 mg/dl VERY HIGH Performed By: #### T FEDE, LIPID, CMP #### [facility] [address] [address] [address] Francisco Laboy Triglyceride [Mass/Vol] 209 mg/dL Critically high <=150 The [facility] Comment on above: Performed By: #### T FEDE, LIPID, CMP #### [facility] [address] [place] [address] Dr. Francisco Laboy VLDL CALC 41.8 mg/dL Normal Comment on above: Performed By: #### T FEDE, LIPID, CMP #### [facility] [address] [place] [address] Dr. Francisco Laboy PROF 14(COMP METB)on 022 Albumin [Mass/Vol] 4.0 g/dL Normal 3.4-5.0 Comment on above: Performed By: #### T FEDE LIPID, CMP #### [facility] [address] [place] [address] Dr. Francisco Laboy Albumin/Globulin [Mass ratio] 1.3 {ratio} Normal The [facility] Comment on above: Performed By: #### T FEDE, LIPID, CMP #### [facility] [address] [place] [address] Dr. Francisco Laboy ALP [Catalytic activity/Vol] 84 U/L Normal 46-116 The [facility] Comment on above: Performed By: #### T FEDE, LIPID, CMP #### [facility] [address] [place] [address] Dr. Francisco Laboy ALT [Catalytic activity/Vol] 24 U/L Normal 14-59 The [facility] Comment on above: Performed By: #### T FEDE, LIPID, CMP #### [facility] [address] [address] [address] Francisco Laboy Anion gap [Moles/Vol] 13.2 mmol/L Normal The [facility] Comment on above: Performed By: #### T SH, LIPID, CMP #### [facility] [address] [place] [address] Dr. Francisco Laboy AST [Catalytic activity/Vol] 15 U/L Normal 15-37 The [facility] Comment on above: Performed By: #### T FEDE, LIPID, CMP #### [facility] [address] [place] [address] Dr. Francisco Laboy Bilirubin [Mass/Vol] 0.3 mg/dL Normal 0.2-1.3 The [facility] Comment on above: Performed By: #### T FEDE, LIPID, CMP #### [facility] [address] [place] [address] Dr. Francisco Laboy Calcium [Mass/Vol] 8.4 mg/dL Critically low 8.5-10.1 The [facility] Comment on above: Performed By: #### T FEDE, LIPID, CMP #### [facility] [address] [place] [address] Dr. Francisco Laboy Chloride [Moles/Vol] 105 mmol/L Normal 98-107 The [facility] Comment on above: Performed By: #### T FEDE, LIPID, CMP #### [facility] [address] [place] [address] Dr. Francisco Laboy CO2 [Moles/Vol] 26.8 mmol/L Normal 22.0-30.0 The [facility] Comment on above: Performed By: #### T SH, LIPID, CMP #### [facility] [address] [place] [address] Dr. Francisco Laboy Creatinine [Mass/Vol] 0.84 mg/dL Normal 0.52-1.04 The [facility] Comment on above: Performed By: #### T SH, LIPID, CMP #### [facility] [address] [place] [address] Dr. Francisco Laboy EGFR-AF CAMBODIAN >60 Normal >=60 The [facility] Comment on above: Performed By: #### T SH, LIPID, CMP #### [facility] [address] [address] [address] Francisco Laboy EGFR-NON AF CAMBODIAN >60 Normal >=60 The [facility] Comment on above: Performed By: #### T SH, LIPID, CMP #### [facility] [address] [address] [address] Francisco Laboy Globulin (S) [Mass/Vol] 3.0 g/dL Normal The [facility] Comment on above: Performed By: #### T SH, LIPID, CMP #### [facility] [address] [place] [address] Dr. Francisco Laboy Glucose [Mass/Vol] 101 mg/dL Normal 74-106 Comment on above: Performed By: #### T SH, LIPID, CMP #### [facility] [address] [place] [address] Dr. Francisco Laboy Potassium [Moles/Vol] 4.0 mmol/L Normal 3.4-5.0 Comment on above: Performed By: #### T SH, LIPID, CMP #### [facility] [address] [place] [address] Dr. Francisco Laboy Protein [Mass/Vol] 7.0 g/dL Normal 6.1-8.2 Comment on above: Performed By: #### T SH, LIPID, CMP #### [facility] [address] [place] [address] Dr. Francisco Laboy Sodium [Moles/Vol] 141 mmol/L Normal 137-145 The [facility] Comment on above: Performed By: #### T SH, LIPID, CMP #### [facility] [address] [place] [address] Dr. Francisco Laboy Urea nitrogen [Mass/Vol] 15.0 mg/dL Normal 7.0-18.0 Comment on above: Performed By: #### T SH, LIPID, CMP #### [facility] [address] [place] [address] Dr. Francisco Laboy Urea nitrogen/Creatini ne [Mass ratio] 17.9 mg/mg Normal Comment on above: Performed By: #### T SH, LIPID, CMP #### [facility] [address] [place] [address] Dr. Francisco Laboy TSHon 08-28-2021 TSH 3.809 uIU/mL Normal 0.470-4.680 The [facility] Comment on above: Performed By: #### T SH, LIPID, CMP #### [facility] [address] [place] [address] Dr. Francisco Laboy TSH RANGE SEE BELOW Normal Comment on above: Result Comment: <0.3 4 UIU/ml HYPERTHYROID 0.34-5.60 UIU/ml EUTHYROID >5.60 UIU/ml HYPOTHYROID Performed By: #### T SH, LIPID, CMP #### [facility] [address] [place] [address] Dr. Francisco Laboy UA RANDOM W/MICROSCOPICon BACTERIA MODERATE Abnormal NONE SEEN Comment on above: Performed By: #### U AMIC #### [facility] [address] [place] [address] Dr. Francisco Laboy Bilirubin Ql (U) Negative Normal NEGATIVE [facility] Comment on above: Performed By: #### U AMIC #### [facility] [address] [place] [address] Dr. Francisco Laboy CAST NONE SEEN Normal NONE SEEN Comment on above: Performed By: #### U AMIC #### [facility] [address] [place] [address] Dr. Francisco Laboy Clarity (U) CLEAR Normal CLEAR The [facility] Comment on above: Performed By: #### U AMIC #### [facility] [address] [place] [address] Dr. Francisco Laboy Color (U) LT. YELLOW Normal YELLOW The [facility] Comment on above: Performed By: #### U AMIC #### [facility] [address] [place] [address] Dr. Francisco Laboy Crystals LM Nom (Urine sed) NONE SEEN Normal NONE SEEN Comment on above: Performed By: #### U AMIC #### [facility] [address] [address] [address] Francisco Laboy Epithelial cells LM Ql (Urine sed) RARE Normal NONE SEEN /RARE The [facility] Comment on above: Performed By: #### U AMIC #### [facility] [address] [address] [address] Francisco Laboy Glucose Ql (U) Negative Normal NEGATIVE The [facility] Comment on above: Performed By: #### U AMIC #### [facility] [address] [address] [address] Francisco Laboy Hemoglobin Ql (U) SMALL Abnormal NEGATIVE [facility] Comment on above: Performed By: #### U AMIC #### [facility] [address] [place] [address] Dr. Francisco Laboy Ketones Ql (U) Negative Normal NEGATIVE [facility] Comment on above: Performed By: #### U AMIC #### [facility] [address] [place] [address] Dr. Francisco Laboy LEUKOCYTES SMALL Abnormal NEGATIVE The [facility] Comment on above: Performed By: #### U AMIC #### [facility] [address] [address] [address] Francisco Laboy MUCOUS SMALL Abnormal NONE SEEN The [facility] Comment on above: Performed By: #### U AMIC #### [facility] [address] [place] [address] Dr. Francisco Laboy Nitrite Ql (U) Positive Abnormal NEGATIVE [facility] Comment on above: Performed By: #### U AMIC #### [facility] [address] [place] [address] Dr. Francisco Laboy pH (U) 6.5 [pH] Normal 5-9 Comment on above: Performed By: #### U AMIC #### [facility] [address] [place] [address] Dr. Francisco Laboy RBC 0-2 Normal 0-2 Comment on above: Performed By: #### U AMIC #### [facility] [address] [place] [address] Dr. Francisco Laboy SPEC GRAVITY 1.015 Normal 1.005-<=1.025 [facility] Comment on above: Performed By: #### U AMIC #### [facility] [address] [address] [address] Francisco Laboy UA PROTEIN Negative Normal NEGATIVE/ TRACE The [facility] Comment on above: Performed By: #### U AMIC #### [facility] [address] [address] [address] Francisco Laboy Urobilinogen Qn (U) 0.2 {Blanca'U}/dL Normal 0.2 - 1.0 Comment on above: Performed By: #### U AMIC #### [facility] [address] [address] [address] Francisco Laboy WBC 5-10 Abnormal NONE SEEN The [facility] Comment on above: Performed By: #### U AMIC #### [facility] [address] [address] [address] Francisco Laboy Vital Signs Date Time Vital Sign Value Performing Clinician Facility 11-11-2023 11:22-0400 Blood Pressure Location [facility] 11-11-2023 11:22-0400 Diastolic blood pressure 72 mm[Hg] SHANNEN CADEN [facility] 11-11-2023 11:22-0400 Heart rate 68 /min SHANNEN CADEN [facility] 11-11-2023 11:22-0400 Respiratory rate 16 /min SHANNEN CADEN [facility] 11-11-2023 11:22-0400 Systolic blood pressure 130 mm[Hg] SHANNEN CADEN [facility] 09-09-2023 13:14-0400 Blood Pressure Location SHANNEN CADEN [facility] 09-09-2023 13:14-0400 Body temperature 98.24 [degF] SHANNEN CADEN [facility] 09-09-2023 13:14-0400 Diastolic blood pressure 81 mm[Hg] SHANNEN CADEN [facility] 09-09-2023 13:14-0400 Heart rate 62 /min SHANNEN CADEN [facility] 09-09-2023 13:14-0400 Respiratory rate 16 /min SHANNEN CADEN [facility] 09-09-2023 13:14-0400 Systolic blood pressure 130 mm[Hg] SHANNEN CADEN [facility] 04-25-2023 09:25-0500 Body height 151.13 cm 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 Other [facility] Other 04-25-2023 09:25-0500 Body mass index (BMI) [Ratio] 22.88 kg/m2 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 Other [facility] Other 04-25-2023 09:25-0500 Body temperature 98.9 [degF] 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 Other [facility] Other 04-25-2023 09:25-0500 Body weight 52.25 kg 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 Other [facility] Other 04-25-2023 09:25-0500 Diastolic blood pressure 79 mm[Hg] 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 Other [facility] Other 04-25-2023 09:25-0500 Respiratory rate 18 /min Stephanie Preethi Other [facility] Other 04-25-2023 09:25-0500 SaO2% (BldA) [Mass fraction] 98 % Stephanie Preethi Other [facility] Other 04-25-2023 09:25-0500 Systolic blood pressure 140 mm[Hg] Stephanie Preethi Other [facility] Other 03-15-2022 14:30-0400 Body height 151.13 cm Stephanie Preethi Other [facility] Other 03-15-2022 14:30-0400 Body mass index (BMI) [Ratio] 25.02 kg/m2 Stephanie Preethi Other [facility] Other 03-15-2022 14:30-0400 Body temperature 99.6 [degF] Stephanie Preethi Other [facility] Other 03-15-2022 14:30-0400 Body weight 57.15 kg Stephanie Preethi Other [facility] Other 03-15-2022 14:30-0400 Respiratory rate 18 /min Stephanie Preethi Other [facility] Other 03-15-2022 14:30-0400 SaO2% (BldA) [Mass fraction] 97 % Stephanie Preethi Other [facility] Other Encounters Encounter Date Encounter Type Care Provider Facility Start: 12-02-2023 End: 12-02-2023 [facility] Start: 11-11-2023 End: 11-11-2023 ambulatory SHANNEN Marbella CADEN Facility:[facility] Start: 11-11-2023 End: 11-11-2023 Patient encounter procedure SHANNEN E CADEN [facility] Start: 09-16-2023 End: 09-16-2023 Lab Drop off SHANNEN Marbella HOFFMANRY [facility] Start: 09-16-2023 End: 09-16-2023 ambulatory SHANNEN Marbella CADEN Facility:[facility] Start: 09-16-2023 End: 09-16-2023 Patient encounter procedure SHANNEN Marbella CADEN [facility] Start: 09-15-2023 ambulatory SHANNEN NEGRETE Facility :[facility] Start: 09-09-2023 End: 09-09-2023 ambulatory SHANNEN NEGRETE Facility:[facility] Start: 09-09-2023 End: 09-09-2023 Patient encounter procedure [facility] Marbella [facility]GRETE [facility] Start: 06-10-2023 End: 06-10-2023 ambulatory MELANIA WEISS Not Available Start: 04-25-2023 Office outpatient vi sit 15 minutes 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 [facility] Start: 04-25-2023 End: 04-25-2023 ambulatory 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 [facility] [place] Other Start: 05-08-2022 End: 05-09-2022 ambulatory [employer] REPAIRER SRIKANTHAshlee LOPEZ Facility: Start: 03-15-2022 End: 03-15-2022 Departed Referred DIRECTOR OF ONCOLOGY-C 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 Work Phone: [facility] [place] Start: 03-15-2022 End: 03-15-2022 ambulatory DIRECTOR OF ONCOLOGY-C 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 Work Phone: [facility] Work Phone: Start: 03-15-2022 Office outpatient ne w 20 minutes 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 [facility] Start: 11-08-2021 End: 11-09-2021 ambulatory KATH LOPEZ Facility:[facility] Start: 10-11-2021 Encounter for gynecological examination (general) (routine) without abnormal findings [facility] Start: 10-09-2021 End: 10-10-2021 ambulatory KATH LOPEZ [...] medical examination without abnormal findings [facility] Start: 08-28-2021 End: 08-29-2021 ambulatory KATH SRIKANTH JOHN Facility:[facility] Start: 08-28-2021 End: 08-29-2021 Encounter for general adult medical examination without abnormal findings [employer] REPAIRER SRIKANTH SERAFABIÁN Facility:[facility] Procedures Date Procedure Procedure [...] identified in Urine by Culture Urine Culture [facility] Immunizations Immunization Date Immunization Notes Care Provider Shai pisano 07-05-2022 zoster vaccine recombinant SHANNEN CADEN [facility] 03-30-2022 influenza virus vaccine, unspecified formulation SHANNEN CADEN [facility] 03-30-2022 zoster vaccine recombinant SHANNEN CADEN [facility] 02-08-2021 influenza virus vaccine, unspecified formulation SHANNEN CADEN [facility] 02-13-2020 influenza virus vaccine, unspecified formulation SHANNEN CADEN [facility] 02-27-2019 influenza virus vaccine, unspecified formulation SHANNEN CADEN [facility] 03-26-2015 influenza virus vaccine, unspecified formulation SHANNEN CADEN [facility] 03-23-2014 influenza virus vaccine, unspecified formulation SHANNEN CADEN [facility] 05-22-2013 influenza virus vaccine, unspecified formulation SHANNEN CADEN [facility] Payers Date Payer Category Payer Self-pay 2022 Unknown [id number] 2.16.8 [id number] 1960 Unknown [id number] 2.16.84 0.1.636071.3.579.2.593 1962 Unknown [id number] 2.16.84 0.1.554700.3.579.2.593 1962 Unknown [id number] 2.16.84 0.1.113196.3.579.2.593 1962 Unknown [id number] 2.16.84 0.1.922025.3.579.2.593 1962 Unknown [id number] 2.16.84 0.1.010430.3.579.2.593 1962 Unknown [id number] 2.16.84 0.1.596781.3.579.2.593 1962 Unknown [id number] 2.16.84 0.1.014975.3.579.2.593 1962 Unknown [id number] 2.16.8 40.1.612447.3.579.2.727 1962 Unknown [id number] 2.16.8 40.1.020733.3.579.2.727 1962 Unknown [id number] 2.16.8 40.1.799211.3.579.2.727 1962 Unknown [id number] 2.16.8 40.1.142938.3.579.2.727 1962 Unknown [id number] 2.16.84 0.1.736098.3.579.2.1259 1962 Unknown [id number] 2.16.84 0.1.559774.3.579.2.1259 1959 Unknown [id number] 2.16. 840.1.366110.19 Unknown [id number] 2.16.8 40.1.009886.3.579.2.531 Social History Date Type Detail Facility Sex Assigned At [facility] Start: 1960 Sex Assigned At Female F [facility] Start: 09-09-2023 End: 11-11-2023 Tobacco smoking status Never smoked tobacco (finding) [facility] Tobacco smoking status Never [facility] Functional Status Date Assessment Result Facility 11-11-2023 Functional Status N/A [facility] 09-09-2023 Functional Status N/A [facility] Clinical Notes 10-17-2021 to 11-11-2023 Note Date [...] Treatment for this condition includes: Antibiotic medicine. Mcsk-aiz-evwqffa medicines to treat discomfort. Drinking enough water [...] Follow these instructions at home: Medicines Take orue-zuk-edbthoz and prescription medicines only as told by [...] provider. Document Revised: 12/15/2020 Document Reviewed: 12/15/2020 [employer] Patient Education 2022 [employer]. Follow Up Care 09/09/2023 14:02:36 With:SHANNEN NEGRETE PA-C, URL Address: [facility] [address] [facility] [place] [address] When: Unknown [facility] 09-09-2023 Hospital Discharg e instructions Patient Education 09/09/2023 13:56:26 Urinary Tract Infection, Adult, Oolo-wx-Nvcp Urinary Tract Infection, Adult A urinary tract [...] Follow these instructions at home: Medicines Take emne-mrh-sbjadil and prescription medicines only as told by [...] provider. Document Revised: 12/15/2020 Document Reviewed: 12/15/2020 [employer] Patient Education 2022 [employer]. Follow Up Care 06/11/2023 16:21:28 With:CADEN HARRINGTON, SHANNEN White, URL Address: [address] [facility] [place] [address] [phone] When: Unknown [facility] 04-25-2023 Evaluation note Encounter Date Diagnosis [...] no improvement in 2 to 3 days. lucierna Other 10-28-2022 Evaluation note* Encounter Date Diagnosis [...] R30.0) Feb, Hematuria, unspecified (ICD-10 - R31.9) lucierna Other 06-01-2022 History general Narrative - Reported* Type Description Date Medical History HTN Medical History hypercholesterolemia Medical History acid reflux Surgical History EGD OCTOBER 2021 lucierna Other Evaluation + Plan note Future Appointments Appointment Date:11/11/2023 03:40:00 PM Scheduled Provider:SHANNEN NEGRETE PA-C Location:[facility] Appointment Type:URO Office Visit [facility] evaluation + Plan note Future Appointments Appointment Date:11/11/2023 03:40:00 PM Scheduled Provider:SHANNEN NEGRETE PA-C Location:[facility] Appointment Type:URO Office Visit Diagnostic Tests Pending * Urine Culture 09/16/23 [facility] noteNo assessment information available [facility] Work Phone: Hospital course Narrative No data available for this section [facility] Hospital Discharge instructions No data available for this section [facility] progress note No data available for this section [facility] Summary Purpose Family History No Family [...] Member Role Status Dates 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 , DIRECTOR OF ONCOLOGY-C Attending Provider Active Goals (unrecognized section and content) Goals may be documented in a n alternate section INFORMATION SOURCE (unrecogn ized section and content) DATE CREATED AUTHOR [facility]/15/2022 [facility] DATE CREATED AUTHOR AUTHOR'S ORGANIZ ATION 05/03/2023 [facility] DATE CREATED AUTHOR AUTHOR'S ORGANIZ ATION 11/12/2023 [facility] DATE CREATED AUTHOR AUTHOR'S ORGANIZ ATION 12/06/2023 [facility] FOR RECORDS PERTAINING TO PATIENTS WHO ARE [...] BE BASED ON THE PRIMARY CLINICAL RECORDS. [employer] provides no warranty or guarantee of the accuracy or completeness of information in this document.
[2024-01-13 07:02] LABS: Bilirubin Urine NEGATIVE (NEGATIVE); Blood Urine TRACE-L (NEGATIVE); Clarity Urine CLEAR (CLEAR); Color Urine LT. YELLOW (YELLOW); Glucose Urine UA NEGATIVE (NEGATIVE); Ketones Urine NEGATIVE (NEGATIVE); Leukocyte Esterase Urine TRACE (NEGATIVE); Nitrite Urine POSITIVE (NEGATIVE); Protein Urine NEGATIVE (NEG/TRACE); Urobilinogen Urine 0.2 EU/dL (0.2-1.0)
[2024-01-13 07:07] LABS: Urine Microscopic Indicated YES
[2024-01-13 07:18] LABS: Bacteria Urine LARGE #/HPF (NONE SEEN); Cast Seen? NONE SEEN #/LPF (NONE SEEN); Crystals Seen? None Seen #/HPF (None Seen); Mucus Urine TRACE (NONE SEEN); Squamous Epithelial Cell Urine RARE #/LPF (NONE/RARE); Urine Culture Indicated ALREADY ORDERED; WBC Urine 0-2 #/HPF (NONE SEEN)
== END 2024-01-13 06:42 | disposition home or self-care (01) ==
LOC: LAB 06:42
PROVIDERS: PCP Nurse Practitioner; Visit Provider Nurse Practitioner
DX: N39.0 Urinary tract infection, site not specified (principal)
CPT/HCPCS: 81001; 87086

== ENCOUNTER 2024-03-22 21:51 | Emergency (ER) | payer OTHER, SELFPAY ==
--- OUTSIDE RECORDS SUMMARY | 2024-03-22 21:56 | XMS_ITS | CCD ---
Author Organization [facility] Inform ion [facility] Care Team Providers Care Water Softener Service Supervisor Name Role Phone 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 Unavailable AICHHOLZ, ORACLE SOA DEVELOPER SRIKANTH Admitting Unavailable AICHHOLZ, ORACLE SOA DEVELOPER SRIKANTH Attending Unavailable AICHHOLZ, ORACLE SOA DEVELOPER SRIKANTH Primary Care Unavailable DR ANTWAN KNIGHT V Consulting Unavailable AICHHOLZ, ORACLE SOA DEVELOPER SRIKANTH Consulting Unavailable GORDO, DR NAILS Admitting Unavailable GORDO, DR NAILS Attending Unavailable AICHHOLZ, ORACLE SOA DEVELOPER SRIKANTH Primary Care Unavailable DR JESU CARO Consulting Unavailable AICHHOLZ, ORACLE SOA DEVELOPER SRIKANTH Admitting Unavailable AICHHOLZ, ORACLE SOA DEVELOPER SRIKANTH Attending Unavailable AICHHOLZ, ORACLE SOA DEVELOPER SRIKANTH Primary Care Unavailable AICHHOLZ, ORACLE SOA DEVELOPER SRIKANTH Consulting Unavailable ANTWAN LAY Consulting Unavailable AICHHOLZ, ORACLE SOA DEVELOPER SRIKANTH Admitting Unavailable AICHHOLZ, ORACLE SOA DEVELOPER SRIKANTH Attending Unavailable AICHHOLZ, ORACLE SOA DEVELOPER SRIKANTH Primary Care Unavailable AICHHOLZ, ORACLE SOA DEVELOPER SRIKANTH Consulting Unavailable AICHHOLZ, ORACLE SOA DEVELOPER SRIKANTH Admitting Unavailable AICHHOLZ, ORACLE SOA DEVELOPER SRIKANTH Attending Unavailable AICHHOLZ, ORACLE SOA DEVELOPER SRIKANTH Primary Care Unavailable AICHHOLZ, ORACLE SOA DEVELOPER SRIKANTH Consulting Unavailable AICHHOLZ, ORACLE SOA DEVELOPER SRIKANTH Admitting Unavailable AICHHOLZ, ORACLE SOA DEVELOPER SRIKANTH Attending Unavailable AICHHOLZ, ORACLE SOA DEVELOPER SRIKANTH Primary Care Unavailable AICHHOLZ, ORACLE SOA DEVELOPER SRIKANTH Consulting Unavailable AICHHOLZ, ORACLE SOA DEVELOPER SRIKANTH Admitting Unavailable AICHHOLZ, ORACLE SOA DEVELOPER SRIKNATH Attending Unavailable AICHHOLZ, ORACLE SOA DEVELOPER SRIKANTH Primary Care Unavailable AICHHOLZ, ORACLE SOA DEVELOPER SRIKANTH Consulting Unavailable 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 Attending Unavailable 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 Admitting Unavailable NO FAMILY, PHYSICIAN Primary Care Unavailable AICHHOLZ, SRIKANTH J Primary Care Physician SHANNEN NEGRETE Attending Unavailable SHANNEN NEGRETE Attending Unavailable SHANNEN NEGRETE Admitting Unavailable SHANNEN NEGERTE Attending Unavailable SHANNEN NEGRETE Attending Unavailable MELANIA WEISS Attending Unavailable JOHN, SRIKANTH Attending Unavailable AICSRIKANTH CARRION Attending Unavailable SRIKANTH LOPEZ Attending Unavailable Medications [...] BID, # 60 tab(s), Refills(s) 11, Pharmacy: [id number], 150, cm, 09/09/23 13:24:00 EDT, Height/Length Dosing, [...] Interpretation Reference Range Facility Scre[facility] 11-12-2023 Screens [id number] 0TIFF Normal [facility] Patient Educationon 11-11-19 Patient Education Obstetrics and [...] this condition includes: ? Antibiotic medicine. ? Gfzs-ckm-jdvsary medicines to treat discomfort. ? Drinking enough [...] these instructions at home: Medicines ? Take svtt-plp-hpvmlan and prescription medicines only as told by [...] Document Revie (more content not included)... Normal [facility] Urology Office/Clinic Noteon 11-11-2023 Urology Office/Clinic Note [...] and odorous urine.[1] CT AP w/wo 03/11/23 [facility] - No renal stones or hydro. UA [...] Contact Information CADEN HARRINGTON, SHANNEN White, URL [address] [facility] [place] [address] Additional Instructions: PRN Patient Education Urinary Tract Infection, Adult Documentation recorded by the scribmarbella Chau accurately reflects the services(s) I performed [...] 11:19:00) Specific (more content not included)... Normal [facility] Comment on above: Result Comment: Elec tronically [...] Locations R1: This test was performed at: [facility], [address] [place] [address], [id number]- , [place], [facility] Comment on above: Performed By: #### 2 [id number] ####[facility] [address] [place] [address] Ambulatory Visit Summaryon 0 09-16-2023 Ambulatory Visit Summary MONICA SMITH :1960 Visit Date:09/16/2023 Ambulatory Visit Instructions Your Diagnosis Frequent UTI Your Care Team Attending Physician - SHANNEN NEGRETE PA-C Primary Care Physician - SRIKANHT LOPEZ CNP This Is Your Medications List [...] SHANNEN NEGRETE PA-C Where: [facility] 09-15-2023 Screens [id number]. 00TIFF [facility] Screens [id number]#1. 00TIFF [facility] Lab Reportson 09-10-2023 Lab Reports [id number]. 00TIFF [facility] Lab Reports [id number]. 00TIFF [facility] Lab Reports [id number]. 00TIFF [facility] Lab Reports [id number]#1. 00TIFF Normal [facility] RAD - CT Reporton 09-10-2023 RAD - CT Report [id number]. 00TIFF Normal [facility] RAD - CT Report [id number]#1.0 0TIFF Normal [facility] RAD - MISCon 09-10-2023 RAD - MISC [id number]#1. 00TIFF Normal [facility] RAD - MISC [id number]#1. 00TIFF Normal [facility] Patient Educationon 09-09-19 Patient Education Obstetrics and [...] these instructions at home: Medicines ? Take ssce-utg-rwjijgd and prescription medicines only as told by [...] provider. Document Revised: 12/15/2020 Document Reviewed: 12/15/2020 [employer] Patient Education ? 2022 [employer]. Take5 [facility] Urology Office/Clinic Noteon 09-09-2023 Urology Office/Clinic [...] 03/11/23 >100k *Tx'd w/IV Rocephin while in [place] for bowel obstruction 04/25/23- <10k mixed skin [...] mixed skin contaminants CT AP w/wo 03/11/23 [facility] - No renal stones or hydro. No [...] When Contact Information SHANNEN NEGRETE PA-C, URL [address] [place] [address] [phone] Additional Instructions: 3 mos (new med) Patient Education Urinary Tract Infection, Adult, Dyvr-sg-Dykc Documentation recorded by the nany Lay accurately reflects the services(s) I performed and decisions made by me. Authenticated by Shannen Negrete PA-C on 09/09/2023 14:17:35. I, Alejandra Lay, personally scribed for Shannen eNgrete PA-C on 09/09/2023 13:57:59. . Problem List/Past Medical History Ongoing Frequent UTI Nocturia Postinfective urethral stricture in female Historical No qualifying data Procedure/Surgical History Sling procedure of bladder neck (06/14/2015), Cystoscopy (05/26/2015), Urodynamics (05/17/2015), Cystourethroscopy with dilation of urethral stricture (06/30/2014), Cys (more content not included)... Normal [facility] Comment on above: Result Comment: Elec tronically Signed By: SHANNEN NEGRETE PA-C\.br\Date and Time Signed: 09/09/23 14:17 EDT\.br\Electronically Co-Signed By: Alejandra Laybr\Date and Time Co-Signed: 09/09/23 14:01 EDT Urinalysis - AUTOMATEDon Appearance (U) clear [employer] Other Bilirubin Ql (U) Negative [employer] Other Color (U) pale yellow [employer] Other Glucose Ql (U) Negative [employer] Other Hemoglobin Ql (U) trace-intact [employer] Other Ketones Ql (U) Negative [employer] Other Leukocyte esterase Test strip Ql (U) trace [employer] Other Nitrite Ql (U) Negative [employer] Other pH (U) 6.0 [pH] [employer] Other Protein Ql (U) Negative [employer] Other Specific gravity (U) [Rel density] 1.010 [employer] Other Urobilinogen (U) [Mass/Vol] 0.2 mg/dL [employer] Other Urinalysis - AUTOMATED [employer] Other Urine Cultureon 04-25-2023 Bacteria identified Cx Nom (U) Reason for Exam Dysuria Urine <10,000 colonies/ml mixed bacterial skin contaminants including mixed gram negative bacilli - 2 Days PERFORMED BY: [place] [address] PATHOLOGIST PRODUCTION LAPPING MACHINE OPERATOR DAVID PABLO M.D. Normal [facility] Comment on above: Performed By: #### C UU #### [address] Bacteria identified Cx Nom (U) [employer] Other LIPID PROFILEon 05-08-2022 CHOL-HDL RATIO NORM SEE BELOW Normal [facility] Comment on above: Result Comment: 3.3 - 4.4 LOW RISK 4.4 - 7.1 AVERAGE RISK 7.1 - 11.0 MODERATE RISK >11.0 HIGH RISK Performed By: #### L IPID, AST, ALT #### [facility] [address] [address] [address] Francisco Laboy Cholesterol [Mass/Vol] 191 mg/dL Normal <=200 [facility] Comment on above: Performed By: #### L IPID, AST, ALT #### [facility] [address] [address] [address] Francisco Laboy Cholesterol in HDL [Mass/Vol] 56 mg/dL Normal 40-60 [facility] Comment on above: Performed By: #### L IPID, AST, ALT #### [facility] [address] [address] [address] Francisco Laboy Cholesterol in LDL [Mass/Vol] 94.2 mg/dL Normal [facility] Comment on above: Performed By: #### L IPID, AST, ALT #### [facility] [address] [address] [address] Francisco Laboy Cholesterol.total /Cholesterol in HDL [Mass ratio] 3.4 {ratio} Normal [facility] Comment on above: Performed By: #### L IPID, AST, ALT #### [facility] [address] [address] [address] Francisco Laboy HDL NORMAL > or = 60 mg/dl - LO W CARDIOVASCULAR RISK <40 mg/dl - HIGH CARDIOVASCULAR RISK Normal [facility] Comment on above: Performed By: #### L IPID, AST, ALT #### [facility] [address] [address] [address] Francisco Laboy LDL CALC NORMAL SEE BELOW Normal [facility] Comment on above: Result Comment: <100 mg/dl OPTIMAL 100 - 129 mg/dl NEAR OR ABOVE OPTIMAL 130 - 159 mg/dl BORDERLINE HIGH 160 - 189 mg/dl HIGH >190 mg/dl VERY HIGH Performed By: #### L IPID, AST, ALT #### [facility] [address] [address] [address] Farncisco Laboy Triglyceride [Mass/Vol] 204 mg/dL Critically high <=150 [facility] Comment on above: Performed By: #### L IPID, AST, ALT #### [facility] [address] [address] [address] Francisco Laboy VLDL CALC 40.8 mg/dL Normal [facility] Comment on above: Performed By: #### L IPID, AST, ALT #### [facility] [address] [place] [address] Dr. Francisco Laboy [place] 05-08-2022 AST [Catalytic activity/Vol] 20 U/L Normal 15-37 [facility] Comment on above: Performed By: #### L IPID, AST, ALT #### [facility] [address] [place] [address] Dr. Francisco Laboy [facility] 05-08-2022 ALT [Catalytic activity/Vol] 23 U/L Normal 14-59 [facility] Comment on above: Performed By: #### L IPID, AST, ALT #### [facility] [address] [place] [address] Dr. Francisco Laboy SARS-CoV-2 (COVID-19) RNA NA A+probe Ql (Resp)on 03-15-2022 SARS-CoV-2 (COVID-19) RNA JAZ+probe Ql (Unsp spec) Positive [employer] Other Urinalysis - AUTOMATEDon Appearance (U) cloudy [employer] Other Bilirubin Ql (U) Negative [employer] Other Color (U) yellow [employer] Other Glucose Ql (U) Negative [employer] Other Hemoglobin Ql (U) moderate [employer] Other Ketones Ql (U) trace [employer] Other Leukocyte esterase Test strip Ql (U) small [employer] Other Nitrite Ql (U) Positive [employer] Other pH (U) 5.5 [pH] [employer] Other Protein Ql (U) trace [employer] Other Specific gravity (U) [Rel density] 1.025 [employer] Other Urobilinogen (U) [Mass/Vol] 0.2 mg/dL [employer] Other Urinalysis - AUTOMATED [employer] Other Urine Cultureon 03-15-2022 Urine Culture >100,000 [employer] Other Urine Culture <16 Susceptible [employer] Other Urine Culture <8 Susceptible [employer] Other Urine Culture <4 Susceptible [employer] Other Urine Culture <2 Susceptible [employer] Other Urine Culture <1 Susceptible [employer] Other Urine Culture >2 Resistant [employer] Other Urine Culture <0.5 Susceptible [employer] Other Urine Culture >4 Resistant [employer] Other Urine Culture <32 Susceptible [employer] Other Urine Culture <2/38 Susceptible [employer] Other LIPID PROFILEon 11-08-2021 CHOL-HDL RATIO NORM SEE BELOW Normal [facility] Comment on above: Result Comment: 3.3 - 4.4 LOW RISK 4.4 - 7.1 AVERAGE RISK 7.1 - 11.0 MODERATE RISK >11.0 HIGH RISK Performed By: #### U AMI #### [facility] [address] [place] [address] Dr. Francisco Laboy Cholesterol [Mass/Vol] 177 mg/dL Normal <=200 [facility] Comment on above: Performed By: #### U AMIC #### [facility] [address] [address] [address] Francisco Laboy Cholesterol in HDL [Mass/Vol] 47 mg/dL Normal 40-60 [facility] Comment on above: Performed By: #### U AMIC #### [facility] [address] [address] [address] Francisco Laboy Cholesterol in LDL [Mass/Vol] 92.2 mg/dL Normal [facility] Comment on above: Performed By: #### U AMIC #### [facility] [address] [address] [address] Francisco Laboy Cholesterol.total /Cholesterol in HDL [Mass ratio] 3.8 {ratio} Normal [facility] Comment on above: Performed By: #### U AMIC #### [facility] [address] [address] [address] Francisco Laboy HDL NORMAL > or = 60 mg/dl - LO W CARDIOVASCULAR RISK <40 mg/dl - HIGH CARDIOVASCULAR RISK Normal [facility] Comment on above: Performed By: #### U AMIC #### [facility] [address] [address] [address] Francisco Laboy LDL CALC NORMAL SEE BELOW Normal [facility] Comment on above: Result Comment: <100 mg/dl OPTIMAL 100 - 129 mg/dl NEAR OR ABOVE OPTIMAL 130 - 159 mg/dl BORDERLINE HIGH 160 - 189 mg/dl HIGH >190 mg/dl VERY HIGH Performed By: #### U AMIC #### [facility] [address] [address] [address] Francisco Laboy Triglyceride [Mass/Vol] 189 mg/dL Critically high <=150 [facility] Comment on above: Performed By: #### U AMIC #### [facility] [address] [address] [address] Francisco Laboy VLDL CALC 37.8 mg/dL Normal [facility] Comment on above: Performed By: #### U AMIC #### [facility] [address] [address] [address] Francisco Laboy PROF 14(COMP METB)on 022 Albumin [Mass/Vol] 3.9 g/dL Normal 3.4-5.0 [facility] Comment on above: Performed By: #### U AMIC #### [facility] [address] [place] [address] Dr. Francisco Laboy Albumin/Globulin [Mass ratio] 1.2 {ratio} Normal [facility] Comment on above: Performed By: #### U AMIC #### [facility] [address] [place] [address] Dr. Francisco Laboy ALP [Catalytic activity/Vol] 88 U/L Normal 46-116 [facility] Comment on above: Performed By: #### U AMIC #### [facility] [address] [place] [address] Dr. Francisco Laboy ALT [Catalytic activity/Vol] 44 U/L Normal 14-59 [facility] Comment on above: Performed By: #### U AMIC #### [facility] [address] [place] [address] Dr. Francisco Laboy Anion gap [Moles/Vol] 12.7 mmol/L Normal [facility] Comment on above: Performed By: #### U AMIC #### [facility] [address] [place] [address] Dr. Francisco Laboy AST [Catalytic activity/Vol] 26 U/L Normal 15-37 [facility] Comment on above: Performed By: #### U AMIC #### [facility] [address] [place] [address] Dr. Francisco Laboy Bilirubin [Mass/Vol] 0.4 mg/dL Normal 0.2-1.0 [facility] Comment on above: Performed By: #### U AMIC #### [facility] [address] [place] [address] Dr. Francisco Laboy Calcium [Mass/Vol] 8.4 mg/dL Critically low 8.5-10.1 [facility] Comment on above: Performed By: #### U AMIC #### [facility] [address] [place] [address] Dr. Francisco Laboy Chloride [Moles/Vol] 107 mmol/L Normal 98-107 [facility] Comment on above: Performed By: #### U AMIC #### [facility] [address] [address] [address] Francisco Laboy CO2 [Moles/Vol] 24.3 mmol/L Normal 21.0-32.0 [facility] Comment on above: Performed By: #### U AMIC #### [facility] [address] [address] [address] Francisco Laboy Creatinine [Mass/Vol] 0.92 mg/dL Normal 0.55-1.02 [facility] Comment on above: Performed By: #### U AMIC #### [facility] [address] [place] [address] Dr. Francisco Laboy EGFR-AF AUSTRIAN >60 Normal >=60 [facility] Comment on above: Performed By: #### U AMIC #### [facility] [address] [address] [address] Francisco Laboy EGFR-NON AF AUSTRIAN >60 Normal >=60 [facility] Comment on above: Performed By: #### U AMIC #### [facility] [address] [place] [address] Dr. Francisco Laboy Globulin (S) [Mass/Vol] 3.3 g/dL Normal [facility] Comment on above: Performed By: #### U AMIC #### [facility] [address] [place] [address] Dr. Francisco Laboy Glucose [Mass/Vol] 95 mg/dL Normal 74-106 [facility] Comment on above: Performed By: #### U AMIC #### [facility] [address] [address] [address] Francisco Laboy Potassium [Moles/Vol] 4.0 mmol/L Normal 3.5-5.1 [facility] Comment on above: Performed By: #### U AMIC #### [facility] [address] [place] [address] Dr. Francisco Laboy Protein [Mass/Vol] 7.2 g/dL Normal 6.4-8.2 [facility] Comment on above: Performed By: #### U AMIC #### [facility] [address] [address] [address] Francisco Laboy Sodium [Moles/Vol] 140 mmol/L Normal 136-145 [facility] Comment on above: Performed By: #### U AMIC #### [facility] [address] [address] [address] Francisco Laboy Urea nitrogen [Mass/Vol] 11.0 mg/dL Normal 7.0-18.0 [facility] Comment on above: Performed By: #### U AMIC #### [facility] [address] [address] [address] Francisco Laboy Urea nitrogen/Creatini ne [Mass ratio] 11.9 mg/mg Normal [facility] Comment on above: Performed By: #### U AMIC #### [facility] [address] [address] [address] Francisco Laboy XR DEXA BONE DENSITYon 10-09 XR DEXA BONE DENSITY DEXA Bone Density Study CLINICAL: Evaluate bone mineral density. Postmenopausal COMPARISON: None FINDINGS: The bone density study was assessed by dual-energy x-ray absorptiometry with the MashON scanner. The test results are expressed in [...] authenticated by: ANTWAN LAY Date: 2021-10-09 08:51 [facility] PAP ACOG PANEL 2: 30 to 65on 10-08-2021 . . Normal [facility] Comment on above: Result Comment: Perf ormed at: BA Performed By: #### U AMIC #### [facility] [address] [place], [place] [address] Dr. Francisco Laboy Age Gdln ACOG Testing 30-65 [facility] Comment on above: Performed By: #### U AMIC #### [facility] [address] [place], [place] [address] Dr. Francisco Laboy DIAGNOSIS: Comment [facility] Comment on above: Result Comment: UNSA TISFACTORY FOR EVALUATION. THIS SPECIMEN WAS RESCREENED PART OF OUR VETERINARY MEDICINE TEACHER PROGRAM. Performed at: BA Performed By: #### U AMIC #### [facility] [address] [address] [address] Francisco Laboy HPV Aptima Negative Normal Negative [facility] Comment on above: Result Comment: This nucleic acid amplification test detects fourteen high-risk HPV types (16,18,31,33,35,39,45,51,52,56,58,59,66,68) without differentiation. Performed at: =G Performed By: #### U AMIC #### [facility] [address] [address] [address] Francisco Laboy Methodology: Comment Normal [facility] Comment on above: Result Comment: This liquid based ThinPrep(R) pap test was screened with the use of an image guided system. Performed at: WB Performed By: #### U AMIC #### [facility] [address] [place] [address] Dr. Francisco Laboy Note: Comment Normal [facility] Comment on above: Result Comment: The [...] WB Performed By: #### U AMIC #### [facility] [address] [address] [address] Francisco Laboy Performed by: Comment Normal [facility] Comment on above: Result Comment: Liang Houser Supervisor Mail Carriers (ASCP) Performed at: BA Performed By: #### U AMIC #### [facility] [address] [address] [address] Francisco Laboy QC reviewed by: Comment Normal [facility] Comment on above: Result Comment: Rusty Ortiz, Supervisor Mail Carriers (ASCP) Performed at: BA Performed By: #### U AMIC #### [facility] [address] [place] [address] Dr. Francisco Laboy Specimen adequacy: Comment Normal [facility] Comment on above: Result Comment: Spec imen processed and examined but unsatisfactory for evaluation of epithelial abnormality because of insufficient cellularity. Performed at: Performed By: #### U AMIC #### [facility] [address] [address] [address] Francisco Laboy MG MAMM SCREEN 3D KAROL CADon 10-01-2021 MG MAMM SCREEN 3D KAROL CAD Patient: MONICA AMOR Exam Date: 10/01/2021 : 1960 Gender:F Ordering : KATH SRIKANTH LOPEZ ORACLE SOA DEVELOPER Admission #: [id number] Family : Order #: [id number] CLICK HERE TO VIEW EXAM RADIOLOGY REPORT [...] stomach cancer at age 42. LOCATION: [facility] BREAST COMPOSITION: Heterogeneously dense,which may obscure small [...] MD on 10/01/2021 at 08:44 Normal [facility] CULTURE URINEon 09-06-2021 CULTURE URINE Culture Observations : NO GROWTH. Normal [facility] Comment on above: Performed By: #### U AMIC #### [facility] Laboratory [id number] Francisco Laboy UA RANDOM W/MICROSCOPICon BACTERIA NONE SEEN Normal NONE SEEN [facility] Comment on above: Performed By: #### U AMIC #### [facility] [address] [address] [address] Francisco Laboy Bilirubin Ql (U) Negative Normal NEGATIVE [facility] Comment on above: Performed By: #### U AMIC #### [facility] [address] [address] [address] Francisco Laboy CAST NONE SEEN Normal NONE SEEN [facility] Comment on above: Performed By: #### U AMIC #### [facility] [address] [address] [address] Francisco Laboy Clarity (U) CLEAR Normal CLEAR [facility] Comment on above: Performed By: #### U AMIC #### [facility] [address] [address] [address] Francisco Laboy Color (U) LT. YELLOW Normal YELLOW [facility] Comment on above: Performed By: #### U AMIC #### [facility] [address] [place] [address] Dr. Francisco Laboy Crystals LM Nom (Urine sed) NONE SEEN Normal NONE SEEN [facility] Comment on above: Performed By: #### U AMIC #### [facility] [address] [place] [address] Dr. Francisco Laboy Epithelial cells LM Ql (Urine sed) FEW Abnormal NONE SEEN /RARE [facility] Comment on above: Performed By: #### U AMIC #### [facility] [address] [place] [address] Dr. Francisco Laboy Glucose Ql (U) Negative Normal NEGATIVE [facility] Comment on above: Performed By: #### U AMIC #### [facility] [address] [address] [address] Francisco Laboy Hemoglobin Ql (U) Negative Normal NEGATIVE [facility] Comment on above: Performed By: #### U AMIC #### [facility] [address] [address] [address] Francisco Laboy Ketones Ql (U) Negative Normal NEGATIVE [facility] Comment on above: Performed By: #### U AMIC #### [facility] [address] [place] [address] Dr. Francisco Laboy LEUKOCYTES Negative Normal NEGATIVE [facility] Comment on above: Performed By: #### U AMIC #### [facility] [address] [address] [address] Francisco Laboy MUCOUS NONE SEEN Normal NONE SEEN [facility] Comment on above: Performed By: #### U AMIC #### [facility] [address] [address] [address] Francisco Laboy Nitrite Ql (U) Negative Normal NEGATIVE [facility] Comment on above: Performed By: #### U AMIC #### [facility] [address] [place] [address] Dr. Francisco Laboy pH (U) 6.0 [pH] Normal 5-9 [facility] Comment on above: Performed By: #### U AMIC #### [facility] [address] [place] [address] Dr. Francisco Laboy RBC NONE SEEN Abnormal 0-2 [facility] Comment on above: Performed By: #### U AMIC #### [facility] [address] [place] [address] Dr. Francisco Laboy SPEC GRAVITY <=1.005 Abnormal 1.005-<=1.025 [facility] Comment on above: Performed By: #### U AMIC #### [facility] [address] [place] [address] Dr. Francisco Laboy UA PROTEIN Negative Normal NEGATIVE/ TRACE [facility] Comment on above: Performed By: #### U AMIC #### [facility] [address] [place] [address] Dr. Francisco Laboy Urobilinogen Qn (U) 0.2 {Blanca'U}/dL Normal 0.2 - 1.0 [facility] Comment on above: Performed By: #### U AMIC #### [facility] [address] [place] [address] Dr. Francisco Laboy WBC NONE SEEN Normal NONE SEEN [facility] Comment on above: Performed By: #### U AMIC #### [facility] [address] [place] [address] Dr. Francisco Laboy CULTURE URINEon 08-30-2021 CULTURE [...] Trimethoprim/Sulfameth oxazole <=20 S F Normal [facility] Comment on above: Performed By: #### U RCX #### [facility] [address] [place] [address] Dr. Francisco Laboy CBC AUTO DIFFon 08-28-2021 BASO # 0.0 103/ul Normal 0.0-0.1 [facility] Comment on above: Performed By: #### U AMIC #### [facility] [address] [place] [address] Dr. Francisco Laboy Basophils/100 WBC (Bld) 0.7 % Normal 0.2-2.0 [facility] Comment on above: Performed By: #### U AMIC #### [facility] [address] [place] [address] Dr. Francisco Laboy EO # 0.2 103/ul Normal 0.0-0.7 [facility] Comment on above: Performed By: #### U AMIC #### [facility] [address] [place] [address] Dr. Francisco Laboy Eosinophils/100 WBC (Bld) 3.3 % Normal 0.9-7.0 [facility] Comment on above: Performed By: #### U AMIC #### [facility] [address] [place] [address] Dr. Francisco Laboy Erythrocyte distribution width (RBC) [Ratio] 13.6 % Normal 11.0-15.0 [facility] Comment on above: Performed By: #### U AMIC #### [facility] [address] [address] [address] Francisco Laboy Hematocrit (Bld) [Volume fraction] 40.9 % Normal 36.0-48.0 [facility] Comment on above: Performed By: #### U AMIC #### [facility] [address] [address] [address] Francisco Laboy Hemoglobin (Bld) [Mass/Vol] 13.3 g/dL Normal 12.0-16.0 [facility] Comment on above: Performed By: #### U AMIC #### [facility] [address] [address] [address] Francisco Laboy IG # 0.01 10e3/ul Normal 0.00-0.03 [facility] Comment on above: Performed By: #### U AMIC #### [facility] [address] [place] [address] Dr. Francisco Laboy IG % 0.2 % Normal 0.0-0.5 [facility] Comment on above: Performed By: #### U AMIC #### [facility] [address] [address] [address] Francisco Laboy LYMPH # 1.8 103/ul Normal 1.2-3.8 [facility] Comment on above: Performed By: #### U AMIC #### [facility] [address] [place] [address] Dr. Francisco Laboy Lymphocytes/100 WBC (Bld) 31.6 % Normal 20.5-60.0 [facility] Comment on above: Performed By: #### U AMIC #### [facility] [address] [place] [address] Dr. Francisco Laboy MANUAL DIFF REQ NO Normal [facility] Comment on above: Performed By: #### U AMIC #### [facility] [address] [address] [address] Francisco Laboy MCH (RBC) [Entitic mass] 29.1 pg Normal 26.7-34.0 [facility] Comment on above: Performed By: #### U AMIC #### [facility] [address] [place], [place] [id number] Dr. Francisco Laboy MCHC (RBC) [Mass/Vol] 32.5 g/dL Normal 29.9-35.2 [facility] Comment on above: Performed By: #### U AMIC #### [facility] [address] [place] [address] Dr. Francisco Laboy MCV (RBC) [Entitic vol] 89.5 fL Normal 81.0-99.0 [facility] Comment on above: Performed By: #### U AMIC #### [facility] [address] [address] [address] Francisco Laboy MONO # 0.5 103/ul Normal 0.3-0.8 [facility] Comment on above: Performed By: #### U AMIC #### [facility] [address] [place] [address] Dr. Francisco Laboy Monocytes/100 WBC (Bld) 8.7 % Normal 1.7-12.0 [facility] Comment on above: Performed By: #### U AMIC #### [facility] [address] [place] [address] Dr. Francisco Laboy NEUT # 3.2 103/ul Normal 1.4-6.5 [facility] Comment on above: Performed By: #### U AMIC #### [facility] [address] [place] [address] Dr. Francisco Laboy Neutrophils/100 WBC (Bld) 55.5 % Normal 43.0-75.0 [facility] Comment on above: Performed By: #### U AMIC #### [facility] [address] [place] [address] Dr. Francisco Laboy Platelet mean volume (Bld) [Entitic vol] 10.5 fL Normal 9.5-13.5 [facility] Comment on above: Performed By: #### U AMIC #### [facility] [address] [place] [address] Dr. Francisco Laboy PLT 261 103/ul Normal 150-450 [facility] Comment on above: Performed By: #### U AMIC #### [facility] [address] [address] [address] Francisco Laboy RBC 4.57 106/ul Normal 4.20-5.40 [facility] Comment on above: Performed By: #### U AMIC #### [facility] [address] [address] [address] Francisco Laboy WBC 5.8 103/ul Normal 4.0-11.0 [facility] Comment on above: Performed By: #### U AMIC #### [facility] [address] [address] [address] Francisco Laboy LIPID PROFILEon 08-28-2021 CHOL-HDL RATIO NORM SEE BELOW Normal [facility] Comment on above: Result Comment: 3.3 - 4.4 LOW RISK 4.4 - 7.1 AVERAGE RISK 7.1 - 11.0 MODERATE RISK >11.0 HIGH RISK Performed By: #### T SH, LIPID, CMP #### [facility] [address] [place] [address] Dr. Francisco Laboy Cholesterol [Mass/Vol] 244 mg/dL Critically high <=200 [facility] Comment on above: Performed By: #### T SH, LIPID, CMP #### [facility] [address] [place] [address] Dr. Francisco Laboy Cholesterol in HDL [Mass/Vol] 47 mg/dL Normal 40-60 [facility] Comment on above: Performed By: #### T SH, LIPID, CMP #### [facility] [address] [place] [address] Dr. Francisco Laboy Cholesterol in LDL [Mass/Vol] 155.2 mg/dL Normal [facility] Comment on above: Performed By: #### T SH, LIPID, CMP #### [facility] [address] [place] [address] Dr. Francisco Laboy Cholesterol.total /Cholesterol in HDL [Mass ratio] 5.2 {ratio} Normal [facility] Comment on above: Performed By: #### T SH, LIPID, CMP #### [facility] [address] [place] [address] Dr. Francisco Laboy HDL NORMAL > or = 60 mg/dl - LO W CARDIOVASCULAR RISK <40 mg/dl - HIGH CARDIOVASCULAR RISK Normal [facility] Comment on above: Performed By: #### T FEDE, LIPID, CMP #### [facility] [address] [address] [address] Francisco Laboy LDL CALC NORMAL SEE BELOW Normal [facility] Comment on above: Result Comment: <100 mg/dl OPTIMAL 100 - 129 mg/dl NEAR OR ABOVE OPTIMAL 130 - 159 mg/dl BORDERLINE HIGH 160 - 189 mg/dl HIGH >190 mg/dl VERY HIGH Performed By: #### T SH, LIPID, CMP #### [facility] [address] [address] [address] Francisco Laboy Triglyceride [Mass/Vol] 209 mg/dL Critically high <=150 [facility] Comment on above: Performed By: #### T FEDE, LIPID, CMP #### [facility] [address] [place] [address] Dr. Francisco Laboy VLDL CALC 41.8 mg/dL Normal [facility] Comment on above: Performed By: #### T FEDE, LIPID, CMP #### [facility] [address] [place] [address] Dr. Francisco Laboy PROF 14(COMP METB)on 022 Albumin [Mass/Vol] 4.0 g/dL Normal 3.4-5.0 [facility] Comment on above: Performed By: #### T FEDE, LIPID, CMP #### [facility] [address] [place] [address] Dr. Francisco Laboy Albumin/Globulin [Mass ratio] 1.3 {ratio} Normal [facility] Comment on above: Performed By: #### T SH, LIPID, CMP #### [facility] [address] [place] [address] Dr. Francisco Laboy ALP [Catalytic activity/Vol] 84 U/L Normal 46-116 [facility] Comment on above: Performed By: #### T SH, LIPID, CMP #### [facility] [address] [address] [address] Francisco Laboy ALT [Catalytic activity/Vol] 24 U/L Normal 14-59 [facility] Comment on above: Performed By: #### T SH, LIPID, CMP #### [facility] [address] [address] [address] Francisco Laboy Anion gap [Moles/Vol] 13.2 mmol/L Normal [facility] Comment on above: Performed By: #### T SH, LIPID, CMP #### [facility] [address] [address] [address] Francisco Laboy AST [Catalytic activity/Vol] 15 U/L Normal 15-37 [facility] Comment on above: Performed By: #### T SH, LIPID, CMP #### [facility] [address] [address] [address] Francisco Laboy Bilirubin [Mass/Vol] 0.3 mg/dL Normal 0.2-1.3 [facility] Comment on above: Performed By: #### T SH, LIPID, CMP #### [facility] [address] [place] [address] Dr. Francisco Laboy Calcium [Mass/Vol] 8.4 mg/dL Critically low 8.5-10.1 [facility] Comment on above: Performed By: #### T SH, LIPID, CMP #### [facility] [address] [address] [address] Francisco Laboy Chloride [Moles/Vol] 105 mmol/L Normal 98-107 [facility] Comment on above: Performed By: #### T SH, LIPID, CMP #### [facility] [address] [address] [address] Francisco Laboy CO2 [Moles/Vol] 26.8 mmol/L Normal 22.0-30.0 [facility] Comment on above: Performed By: #### T SH, LIPID, CMP #### [facility] [address] [address] [address] Francisco Laboy Creatinine [Mass/Vol] 0.84 mg/dL Normal 0.52-1.04 [facility] Comment on above: Performed By: #### T SH, LIPID, CMP #### [facility] [address] [address] [address] Francisco Laboy EGFR-AF AUSTRIAN >60 Normal >=60 [facility] Comment on above: Performed By: #### T SH, LIPID, CMP #### [facility] [address] [address] [address] Francisco Laboy EGFR-NON AF AUSTRIAN >60 Normal >=60 [facility] Comment on above: Performed By: #### T SH, LIPID, CMP #### [facility] [address] [address] [address] Francisco Laboy Globulin (S) [Mass/Vol] 3.0 g/dL Normal [facility] Comment on above: Performed By: #### T SH, LIPID, CMP #### [facility] [address] [address] [address] Francisco Laboy Glucose [Mass/Vol] 101 mg/dL Normal 74-106 [facility] Comment on above: Performed By: #### T SH, LIPID, CMP #### [facility] [address] [place] [address] Dr. Francisco Laboy Potassium [Moles/Vol] 4.0 mmol/L Normal 3.4-5.0 [facility] Comment on above: Performed By: #### T SH, LIPID, CMP #### [facility] [address] [address] [address] Francisco Labyo Protein [Mass/Vol] 7.0 g/dL Normal 6.1-8.2 [facility] Comment on above: Performed By: #### T SH, LIPID, CMP #### [facility] [address] [address] [address] Francisco Laboy Sodium [Moles/Vol] 141 mmol/L Normal 137-145 [facility] Comment on above: Performed By: #### T SH, LIPID, CMP #### [facility] [address] [address] [address] Francisco Laboy Urea nitrogen [Mass/Vol] 15.0 mg/dL Normal 7.0-18.0 [facility] Comment on above: Performed By: #### T SH, LIPID, CMP #### [facility] [address] [place] [address] Dr. Francisco Laboy Urea nitrogen/Creatini ne [Mass ratio] 17.9 mg/mg Normal [facility] Comment on above: Performed By: #### T SH, LIPID, CMP #### [facility] [address] [place] [address] Dr. Francisco Laboy TSHon 08-28-2021 TSH 3.809 uIU/mL Normal 0.470-4.680 [facility] Comment on above: Performed By: #### T SH, LIPID, CMP #### [facility] [address] [place] [address] Dr. Francisco Laboy TSH RANGE SEE BELOW Normal [facility] Comment on above: Result Comment: <0.3 4 UIU/ml HYPERTHYROID 0.34-5.60 UIU/ml EUTHYROID >5.60 UIU/ml HYPOTHYROID Performed By: #### T SH, LIPID, CMP #### [facility] [address] [place] [address] Dr. Francisco Laboy UA RANDOM W/MICROSCOPICon BACTERIA MODERATE Abnormal NONE SEEN [facility] Comment on above: Performed By: #### U AMIC #### [facility] [address] [place] [address] Dr. Francisco Laboy Bilirubin Ql (U) Negative Normal NEGATIVE [facility] Comment on above: Performed By: #### U AMIC #### [facility] [address] [place] [address] Dr. Francisco Laboy CAST NONE SEEN Normal NONE SEEN [facility] Comment on above: Performed By: #### U AMIC #### [facility] [address] [place] [address] Dr. Francisco Laboy Clarity (U) CLEAR Normal CLEAR [facility] Comment on above: Performed By: #### U AMIC #### [facility] [address] [place] [address] Dr. Francisco Laboy Color (U) LT. YELLOW Normal YELLOW [facility] Comment on above: Performed By: #### U AMIC #### [facility] [address] [place] [address] Dr. Francisco Laboy Crystals LM Nom (Urine sed) NONE SEEN Normal NONE SEEN [facility] Comment on above: Performed By: #### U AMIC #### [facility] [address] [address] [address] Francisco Laboy Epithelial cells LM Ql (Urine sed) RARE Normal NONE SEEN /RARE [facility] Comment on above: Performed By: #### U AMIC #### [facility] [address] [address] [address] Francisco Laboy Glucose Ql (U) Negative Normal NEGATIVE [facility] Comment on above: Performed By: #### U AMIC #### [facility] [address] [address] [address] Francisco Laboy Hemoglobin Ql (U) SMALL Abnormal NEGATIVE [facility] Comment on above: Performed By: #### U AMIC #### [facility] [address] [address] [address] Francisco Laboy Ketones Ql (U) Negative Normal NEGATIVE [facility] Comment on above: Performed By: #### U AMIC #### [facility] [address] [address] [address] Francisco Laboy LEUKOCYTES SMALL Abnormal NEGATIVE [facility] Comment on above: Performed By: #### U AMIC #### [facility] [address] [address] [address] Francisco Laboy MUCOUS SMALL Abnormal NONE SEEN [facility] Comment on above: Performed By: #### U AMIC #### [facility] [address] [address] [address] Francisco Laboy Nitrite Ql (U) Positive Abnormal NEGATIVE [facility] Comment on above: Performed By: #### U AMIC #### [facility] [address] [address] [address] Francisco Laboy pH (U) 6.5 [pH] Normal 5-9 [facility] Comment on above: Performed By: #### U AMIC #### [facility] [address] [address] [address] Francisco Laboy RBC 0-2 Normal 0-2 [facility] Comment on above: Performed By: #### U AMIC #### [facility] [address] [address] [address] Francisco Laboy SPEC GRAVITY 1.015 Normal 1.005-<=1.025 [facility] Comment on above: Performed By: #### U AMIC #### [facility] [address] [address] [address] Francisco Laboy UA PROTEIN Negative Normal NEGATIVE/ TRACE [facility] Comment on above: Performed By: #### U AMIC #### [facility] [address] [address] Dr. Francisco Laboy Urobilinogen Qn (U) 0.2 {Blanca'U}/dL Normal 0.2 - 1.0 [facility] Comment on above: Performed By: #### U AMIC #### [facility] [address] [address] [address] Francisco Laboy WBC 5-10 Abnormal NONE SEEN [facility] Comment on above: Performed By: #### U AMIC #### [facility] [address] [address] [address] Francisco Laboy Vital Signs Date Time Vital Sign Value Performing Clinician Facility 11-11-2023 11:22-0400 Blood Pressure Location SHANNEN NEGRETE [facility] 11-11-2023 11:22-0400 Diastolic blood pressure 72 mm[Hg] SHANNEN NEGRETE [facility] 11-11-2023 11:22-0400 Heart rate 68 /min SHANNEN NEGRETE [facility] 11-11-2023 11:22-0400 Respiratory rate 16 /min SHANNENMICHELLE NEGRETE [facility] 11-11-2023 11:22-0400 Systolic blood pressure 130 mm[Hg] SHANNEN NEGRETE [facility] 09-09-2023 13:14-0400 Blood Pressure Location SHANNEN CADEN [facility] 09-09-2023 13:14-0400 Body temperature 98.24 [degF] SHANNEN CADEN [facility] 09-09-2023 13:14-0400 Diastolic blood pressure 81 mm[Hg] SHANNEN CADEN [facility] 09-09-2023 13:14-0400 Heart rate 62 /min SHANNEN CADEN [facility] 09-09-2023 13:14-0400 Respiratory rate 16 /min SHANNEN CADEN [facility] 09-09-2023 13:14-0400 Systolic blood pressure 130 mm[Hg] SHANNEN CADEN [facility] 04-25-2023 09:25-0500 Body height 151.13 cm 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 Other [facility] [place] Other 04-25-2023 09:25-0500 Body mass index (BMI) [Ratio] 22.88 kg/m2 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 Other [facility] Other 04-25-2023 09:25-0500 Body temperature 98.9 [degF] 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 Other [facility] Other 04-25-2023 09:25-0500 Body weight 52.25 kg 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 Other [facility] Other 04-25-2023 09:25-0500 Diastolic blood pressure 79 mm[Hg] Stephanie Preethi Other [facility] Other 04-25-2023 09:25-0500 Respiratory rate 18 /min Stephanie Preethi Other [facility] Other 04-25-2023 09:25-0500 SaO2% (BldA) [Mass fraction] 98 % Stephanie Preethi Other [facility] Other 04-25-2023 09:25-0500 Systolic blood pressure 140 mm[Hg] Stephanie Preethi Other [facility] Other 03-15-2022 14:30-0400 Body height 151.13 cm Stephanie Preethi Other [facility] Other 03-15-2022 14:30-0400 Body mass index (BMI) [Ratio] 25.02 kg/m2 Stephanie Preethi Other [facility] Other 03-15-2022 14:30-0400 Body temperature 99.6 [degF] Stephanie Preethi Other [facility] Other 03-15-2022 14:30-0400 Body weight 57.15 kg Stephanie Preethi Other [facility] Other 03-15-2022 14:30-0400 Respiratory rate 18 /min Stephanie Preethi Other [facility] Other 03-15-2022 14:30-0400 SaO2% (BldA) [Mass fraction] 97 % Stephanie Preethi Other [facility] Other Encounters Encounter Date Encounter Type Care Provider Facility Start: 02-02-2024 End: 02-02-2024 ambulatory SRIKANTH LAURENCEHOLZ Not Available Start: 01-12-2024 End: 01-12-2024 ambulatory SRIKANTH AICHHOLZ Not Available Start: 12-02-2023 End: 12-02-2023 ambulatory SRIKANTH AICHHOLZ Not Available Start: 11-11-2023 End: 11-11-2023 ambulatory SHANNEN NEGRETE Facility:[facility] Start: 11-11-2023 End: 11-11-2023 Patient encounter procedure SHANNEN E CADEN [facility] Start: 09-16-2023 End: 09-16-2023 Lab Drop off SHANNEN Marbella CADEN [facility] Start: 09-16-2023 End: 09-16-2023 ambulatory SHANNEN White CADEN [facility] Start: 09-16-2023 End: 09-16-2023 Patient encounter procedure [facility] E [facility] Start: 09-15-2023 [facility]ulatory [facility] Start: 09-09-2023 End: 09-09-2023 ambulatory SHANNEN NEGRETE Facility:[facility] Start: 09-09-2023 End: 09-09-2023 Patient encounter procedure SHANNEN Marbella CADEN [facility] Start: 06-10-2023 End: 06-10-2023 ambulatory MELANIA ABHISHEK Not Available Start: 04-25-2023 Office outpatient vi sit 15 minutes 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 [facility] Start: 04-25-2023 End: 04-25-2023 ambulatory 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 [facility] [place] Other Start: 05-08-2022 End: 05-09-2022 ambulatory KATH DUKE SERAJanellFABIÁN Facility:[facility] Start: 03-15-2022 End: 03-15-2022 Departed Referred INTERVENTIONAL RADIOLOGY TECHNOLOGIST-C 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 Work Phone: [facility] [place] Start: 03-15-2022 End: 03-15-2022 ambulatory INTERVENTIONAL RADIOLOGY TECHNOLOGIST-C 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 Work Phone: [facility] Work Phone: Start: 03-15-2022 Office outpatient ne w 20 minutes 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 [facility] Start: 11-08-2021 End: 11-09-2021 ambulatory ORACLE SOA DEVELOPER SRIKANTH SERAJanellFABIÁN Facility:[facility] Start: 10-11-2021 Encounter for gynecological examination (general) (routine) without abnormal findings [facility] Start: 10-09-2021 End: 10-10-2021 ambulatory ORACLE SOA DEVELOPER SRIKANTH SERAJanellFABIÁN Facility:[facility] Start: 10-09-2021 End: 10-10-2021 Encounter for gynecological examination (general) (routine) without abnormal findings KATH SRIKANTH JOHN Facility:[facility] Start: 10-02-2021 End: 10-02-[address] JESU CARO Facility:[facility] Start: 10-01-2021 End: 10-02-2021 ambulatory KATH DUKE SERAJanellFABIÁN Facility:[facility] Start: 09-06-2021 End: 09-07-2021 ambulatory KATH SRIKANTH SERAJanellFABIÁN Facility:[facility] Start: 08-31-2021 Encounter for genera l adult medical examination without abnormal findings [facility] Start: 08-28-2021 End: 08-29-2021 ambulatory KATH DUKE SERAJanellFABIÁN Facility:[facility] Start: 08-28-2021 End: 08-29-2021 Encounter for general adult medical examination without abnormal findings KATH SRIKANTH SERAJanellFABIÁN Facility:[facility] Procedures Date Procedure Procedure Detail Performing Clinician Start: 03-15-2022 Piperacillin/tazobactam 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 Other Start: 06-14-2015 Repair of stress inc ontinence by suprapubic sling SHANNEN CADEN Start: 05-26-2015 Transurethral cystoscopy SHANNEN NEGRETE Start: 05-17-2015 Urodynamic studies VICTORIANO NEGRETE Start: 06-30-2014 Cystourethroscopy wi th dilation of urethral stricture SHANNEN NEGRETE Start: 04-24-2010 Cystourethroscopy wi th dilation of urethral stricture SHANNEN NEGRETE Appendectomy SHANNEN NEGRETE Colonoscopy SHANNEN NEGRETE Hysterectomy SHANNEN NEGRETE Plan of Treatment Date Care Activity Detail Author Bacteria identified in Urine by Culture Urine Culture [facility] Immunizations Immunization Date Immunization Notes Care Provider Shai pisano 07-05-2022 zoster vaccine recombinant SHANNEN NEGRETE [facility] 03-30-2022 influenza virus vaccine, unspecified formulation SHANNEN NEGRETE [facility] 03-30-2022 zoster vaccine recombinant SHANNEN NEGRETE [facility] 02-08-2021 influenza virus vaccine, unspecified formulation SHANNEN NEGRETE [facility] 02-13-2020 influenza virus vaccine, unspecified formulation SHANNEN CADEN [facility] 02-27-2019 influenza virus vaccine, unspecified formulation SHANNEN CADEN [facility] 03-26-2015 influenza virus vaccine, unspecified formulation SHANNEN CADEN [facility] 03-23-2014 influenza virus vaccine, unspecified formulation SHANNEN NEGRETE [facility] 05-22-2013 influenza virus vaccine, unspecified formulation SHANNEN NEGRETE [facility] Payers Date Payer Category Payer Self-pay 2022 Unknown [id number] 2.16.8 [id number] 1960 Unknown [id number] 2.16.84 [id number] 1960 Unknown [id number] 2.16.84 0.1.515246.3.579.2.593 1962 Unknown [id number] 2.16.84 0.1.022752.3.579.2.593 1962 Unknown [id number] 2.16.84 0.1.032291.3.579.2.593 1962 Unknown [id number] 2.16.84 0.1.940306.3.579.2.593 1962 Unknown [id number] 2.16.84 0.1.581466.3.579.2.593 1962 Unknown [id number] 2.16.84 0.1.075859.3.579.2.593 1962 Unknown [id number] 2.16.8 40.1.188091.3.579.2.727 1962 Unknown [id number] 2.16.8 40.1.013046.3.579.2.727 1962 Unknown [id number] 2.16.8 40.1.501017.3.579.2.727 1962 Unknown [id number] 2.16.8 40.1.653233.3.579.2.727 1962 Unknown [id number] 2.16.84 0.1.471583.3.579.2.1259 1962 Unknown [id number] 2.16.84 0.1.985437.3.579.2.1259 1962 Unknown [id number] 2.16.84 0.1.372582.3.579.2.1259 1962 Unknown [id number] 2.16.84 0.1.639853.3.579.2.1259 1959 Unknown [id number] 2.16. [id number] Unknown [id number] 2.16.8 40.1.200181.3.579.2.531 Social History Date Type Detail Facility Sex Assigned At [facility] Start: 1960 Sex Assigned At Female [facility] Start: 09-09-2023 End: 11-11-2023 Tobacco smoking status Never smoked tobacco (finding) [facility] Tobacco smoking status Never [facility] Functional Status Date Assessment Result Facility 11-11-2023 Functional Status N/A [facility] 09-09-2023 Functional Status N/A [facility] Clinical Notes 10-17-2021 to 11-11-2023 Note [...] Treatment for this condition includes: Antibiotic medicine. Adnu-xid-fxlzobl medicines to treat discomfort. Drinking enough water [...] Follow these instructions at home: Medicines Take inwy-yps-ojqogws and prescription medicines only as told by [...] provider. Document Revised: 12/15/2020 Document Reviewed: 12/15/2020 [employer] Patient Education 2022 [employer]. Follow Up Care 09/09/2023 14:02:36 With:SHANNEN NEGRETE PA-C, URL Address: [facility] [address] When: Unknown [facility] 09-09-2023 Hospital Discharg e instructions Patient Education 09/09/2023 13:56:26 Urinary Tract Infection, Adult, Yfll-xv-Dcnm Urinary Tract Infection, Adult A urinary tract [...] Follow these instructions at home: Medicines Take txgb-vxx-cyzfrwd and prescription medicines only as told by [...] provider. Document Revised: 12/15/2020 Document Reviewed: 12/15/2020 [employer] Patient Education 2022 [employer]. Follow Up Care 06/11/2023 16:21:28 With:SHANNEN NEGRETE PA-C, URL Address: [address] [place] [address] [facility] [place] [address] [phone] When: Unknown [facility] 04-25-2023 Evaluation note Encounter Date Diagnosis Assessment [...] no improvement in 2 to 3 days. [facility] Other 10-28-2022 Evaluation note* Encounter Date Diagnosis [...] R30.0) Feb, Hematuria, unspecified (ICD-10 - R31.9) [facility] Other 06-01-2022 History general Narrative - Reported* Type Description Date Medical History HTN Medical History hypercholesterolemia Medical History acid reflux Surgical History EGD OCTOBER 2021 [facility] Other Evaluation + Plan note Future Appointments Appointment Date:11/11/2023 03:40:00 PM Scheduled Provider:SHANNEN NEGRETE PA-C Location:[facility] Appointment Type:URO Office Visit [facility] evaluation + Plan note Future Appointments Appointment Date:11/11/2023 03:40:00 PM Scheduled Provider:SHANNEN NEGRETE PA-C Location:[facility] Appointment Type:URO Office Visit Diagnostic Tests Pending * [facility] Work Phone: Hospital course Narrative No data available for this section [facility] Hospital Discharge instructions No data available for this section [facility] progress note No data available for this section [facility] Summary Purpose Family History No Family History [...] Team Status: Inactive Member Role Status Dates MARCELO AvelarC Attending Provider Active Goals (unrecognized section and content) Goals may be documented in a n alternate section INFORMATION SOURCE (unrecogn ized section and content) DATE CREATED AUTHOR 05/15/2022 [facility] DATE CREATED AUTHOR AUTHOR'S ORGANIZ ATION 05/03/2023 [facility] DATE CREATED AUTHOR AUTHOR'S ORGANIZ ATION 11/12/2023 [facility] DATE CREATED AUTHOR AUTHOR'S ORGANIZ ATION 02/04/2024 [facility] EPIC FOR RECORDS PERTAINING TO PATIENTS WHO ARE [...] BE BASED ON THE PRIMARY CLINICAL RECORDS. [employer] provides no warranty or guarantee of the accuracy or completeness of information in this document.
[2024-03-22 22:03] VITALS: BP 143/86; PULSE 70; TEMP 36.7; O2SAT 96; BMI 23.8
--- NOTE | 2024-03-22 22:40 | ED_ITS ---
HPI - Abdominal Pain General Chief Complaint: Abdominal Pain Stated Complaint: Abdominal Pain Time Seen by Provider: 03/22/24 22:18 Source: patient Mode of arrival: walk-in Limitations: no limitations History of Present Illness HPI narrative: This 63-year-old female with history of diverticulosis who also had a hysterectomy complicated by a perforated bladder and had a bowel obstruction requiring surgery with Dr. Rae last February presents for evaluation of lower abdominal pain that started yesterday. She states she has pressure in her lower abdomen and her bowels are weird. She states that she has a small bowel movement and then passes some gas and has another small bowel movement. She has not noticed any blood in her stool. She states she has some burning with urination but has not noticed any blood in her urine. She has no flank pain. She has not had a fever. She had a colonoscopy in the past and was told that she has diverticulosis as well. She denies any chest pain or shortness of dennys th. At this time she is not having any nausea but has been having intermittent episodes of nausea when the pain comes. Related Data Home Medications ?Medication ?Instructions ?Recorded ?Confirmed omeprazole 20 mg capsule,delayed 20 mg PO BID 03/14/23 03/22/24 release Allergies Allergy/AdvReac Type Severity Reaction Status Date / Time No Known Drug Allergies Allergy Verified 03/22/24 22:09 Review of Systems ROS Status of ROS 10 or more systems reviewed and unremark able except as noted in history and below [facility] Medical History (Updated 03/23/24 @ 04:28 by Leti Chau MD) Hyperlipidemia ?E78.5 - Hyperlipidemia, unspecified (ICD-10) Acute hypokalemia ?E87.6 - Hypokalemia (ICD-10) Abdominal pain ?R10.9 - Unspecified abdominal pain (ICD-10) Small bowel obstruction ?K56.609 - Unspecified intestinal obstruction, unspecified as to partial versus complete obstruction (ICD-10) Vomiting and diarrhea ?R11.10 - Vomiting, unspecified (ICD-10) ?R19.7 - Diarrhea, unspecified (ICD-10) Urinary tract infection ?N39.0 - Urinary tract infection, site not specified (ICD-10) Surgical History History of appendectomy ?Z90.49 - Acquired absence of other specified parts of digestive tract (ICD-10) History of hysterectomy ?Z90.710 - Acquired absence of both cervix and uterus (ICD-10) Family History Mother Family history of COPD (chronic obstructive pulmonary disease) Family history of diabetes mellitus Daughter Family history of cancer Father Family history of diabetes mellitus Sister Family history of hypertension Social History Within the past year, how often did you have a drink containing alcohol: never Within the past year, how many standard drinks containing alcohol did you have on a typical day: 1 or 2 Within the past year, how often did you have six or more drinks on one occasion: never Total score: 0 Score interpretation: A score less than 3 is consistent with normal alcohol consumption. Smoking status: Never smoker Non-prescribed substance use: denies use Previous occupational history: [employer] Highest level of school completed/degree received: high school graduate Are you now , , , , never or living with a partner: In a typical week, how many times do you talk on the telephone with family, friends, or neighbors: 3 or more times per week How often do you get together with friends or relatives: 3 or more times per week How often do you attend confucianist or gnosticist services: never Little interest or pleasure in doing things: not at all Feeling down, depressed, or hopeless: not at all Feel stressed/tense/nervous/anxious/difficulty sleeping: not at all Do you think of yourself as: straight/heterosexual Gender Identity: female Exam Narrative Exam Narrative: Vital signs and Nursing Notes reviewed: Patient is afebrile with a normal pulse, blood pressure is mildly elevated at 143/86, she is not hypoxic with pulse ox of 96% on room air General: Awake, alert, oriented, no acute distress, lying comfortably on the stretcher HEENT: Normocephalic atraumatic, mucous membranes are moist and pink, eyes are clear, normal conjunctiva, vision is grossly intact Chest: Lungs are clear to auscultation with good air entry, there is no wheezing rhonchi or rales appreciated no accessory muscle use, patient is speaking in complete sentences-no chest wall tenderness to palpation CVS: Regular rate and rhythm S1-S2, no murmurs rubs or gallops, pulses are brisk and equal bilaterally ABD: Soft, nondistended, mild tenderness in the left lower quadrant without rebound guarding or rigidity, healed lower abdominal incision, no pulsatile masses, bowel sounds are normal Extremities: Moving all extremities, no lower extremity tenderness or swelling noted, negative Homans' sign, pulses are brisk and equal bilaterally Skin: Normal in appearance without rash,pallor, petechiae or purpura Neuro: No focal deficits Constitutional Vital Signs, click to edit/add: Last Vital Signs Temp 98.0 F 03/22/24 22:03 Pulse 70 03/22/24 22:03 Resp 16 03/22/24 22:03 BP 143/86 H 03/22/24 22:03 Pulse Ox 96 03/22/24 22:03 O2 Del Method Room Air 03/22/24 22:03 Course Vital Signs Vital signs: Vital Signs Temperature 98.0 F 03/22/24 22:03 Pulse Rate 70 03/22/24 22:03 Respiratory Rate 16 03/22/24 22:03 Blood Pressure 143/86 H 03/22/24 22:03 Pulse Oximetry 96 03/22/24 22:03 Oxygen Delivery Method Room Air 03/22/24 22:03 Temperature 98.0 F 03/22/24 22:03 Pulse Rate 70 03/22/24 22:03 Respiratory Rate 16 03/22/24 22:03 Blood Pressure 143/86 H 03/22/24 22:03 Pulse Oximetry 96 03/22/24 22:03 Oxygen Delivery Method Room Air 03/22/24 22:03 MDM - Abdominal Pain MDM Narrative Medical decision making narrative: This 63-year-old female presents for evaluation of lower abdominal pain greatest on the left lower quadrant. She is status post hysterectomy that was complicated by a bladder perforation and ultimately had a small bowel obstruction that was thought to be due to adhesions from the hysterectomy and b ladder perforation in the past. Her surgery was performed approximately 1 year ago at this facility. She started having some discomfort in the lower abdomen yesterday and had been told in the past if she started having pain she should come to the emergency department immediately before he develops a small bowel obstruction. She also complains of some mild dysuria. She has not had a fever. She has been passing gas and having regular bowel movements. Her abdomen is soft with some mild tenderness in the left lower quadrant. An IV was placed and team labs are ordered and are reviewed. She has a normal white count and hemoglobin. Electrolytes are normal. Urine is positive for 5-10 white blood cells. It is negative for nitrites. CT scan of the abdomen pelvis with oral and IV contrast was ordered and it shows cholelithiasis with an area of diverticulitis in the mid sigmoid colon. The results of the CT scan were discussed with the patient and she was given a copy for her records. She feels comfortable being discharged home. She has not had any nausea fever or complaints of pain. She was given 650 of Tylenol for comfort. She was medicated with a dose of Cipro, Flagyl and Zofran prior to being discharged home. She will be discharged home with prescriptions for Cipro Flagyl and Zofran. She will be given instructions for the diverticulitis diet and referred to Dr. Bonilla's for further evaluation and treatment of both her diverticulitis and cholelithiasis. Medical Records Attestation: I reviewed the patient's medical records. Medical records narrative: [place] [address] CT Scan Report Signed Patient: MONICA SMITH MR#: [id number] : 1960 Acct:[id number] Age/Sex: 63 / F ADM Date: 03/22/24 Loc: ER Attending Dr: Ordering Physician: Leti Chau Date of Service: 03/22/24 Procedure(s): CT abdomen pelvis w con Accession Number(s): [id number] cc: Deidre Valdivia [facility] [place] [address] Patient Name: MONICA SMITH MRN: [id number] date: 1960 Sex: F Assigned Patient Location: ER Current Patient Location: ER Accession/Order Number: [id number] Exam Date: 03/22/2024 23:59 Report Date: 03/23/2024 04:12 At the request of: LETI CHAU Procedure: CT abdomen pelvis w con EXAM: CT abdomen pelvis w con HISTORY: R/O SBo vs divertic PO and IV contrast COMPARISON: CT abdomen pelvis, 03/11/2023. TECHNIQUE: IV and oral contrast enhanced CT imaging the abdomen and pelvis was performed with sagittal and coronal reconstructions. Dose reduction techniques were achieved by using automated exposure control and/or adjustment of mA and/or kV according to patient size and/or use of iterative reconstruction technique. FINDINGS: CT ABDOMEN: The lung bases are clear. The heart is unremarkable. The gallbladder is diffusely filled with stones. No definite CT findings of cholecystitis are seen. There is no biliary ductal dilatation. There are several hepatic cysts, measuring up to 1.2 cm in the lateral left hepatic segment. There is focal fatty infiltration of the liver along the anterior falciform ligament. The liver appears otherwise unremarkable. The pancreas, spleen, adrenal glands, kidneys, and stomach are unremarkable. There is focal dilatation of the right lower quadrant small bowel loop measuring 4.2 cm on image 76 favoring a focal paralytic segment at the level of a surgical anastomosis. The remainder the small bowel is otherwise unremarkable. CT PELVIS: Acute diverticulitis is noted with short segment wall thickening in the mid sigmoid colon at the level of a thick-walled lateral sigmoid diverticulum surrounded by prominent inflammatory fat stranding. There is no free air or abscess. Hysterectomy is noted. The urinary bladder and pelvic small bowel loops are unremarkable. The appendix is not seen. No acute osseous abnormality or suspicious bony lesion is seen. CT/CT abdomen pelvis w con IMPRESSION: 1. Uncomplicated mid sigmoid diverticulitis as above. No additional acute findings in the abdomen or pelvis. 2. Cholelithiasis. Please see above for additional nonemergent findings. Electronically authenticated by: JOSH CANTU Date: 03/23/2024 04:12 Lab Data Labs: Lab Results 03/22/24 03/22/24 Range/Units 22:45 22:50 WBC 9.9 (4.0-11.0) 10^3/uL RBC 4.28 (4.20-5.40) 10^6/uL Hgb 12.5 (12.0-16.0) g/dL Hct 37.1 (36.0-48.0) % MCV 86.7 (81.0-99.0) fL MCH 29.2 (26.7-34.0) pg MCHC 33.7 (29.9-35.2) g/dL RDW 13.6 (11.0-15.0) % Plt Count 233 (150-450) 10^3/uL MPV 10.7 (9.5-13.5) fL Neut % (Auto) 66.3 (43.0-75.0) % Lymph % (Auto) 19.1 L (20.5-60.0) % Irwin % (Auto) 11.8 (1.7-12.0) % Eos % (Auto) 2.0 (0.9-7.0) % Baso % (Auto) 0.6 (0.2-2.0) % Neut # (Auto) 6.6 H (1.4-6.5) 10^3/uL Lymph # (Auto) 1.9 (1.2-3.8) 10^3/uL Irwin # (Auto) 1.2 H (0.3-0.8) 10^3/uL Eos # (Auto) 0.2 (0.0-0.7) 10^3/uL Baso # (Auto) 0.1 (0.0-0.1) 10^3/uL Abs Immat Gran (auto) 0.02 (0.00-0.03) 10^3/uL Imm/Tot Granulo (auto) 0.2 (0.0-0.5) % Sodium 142 (136-145) mmol/L Potassium 3.6 (3.5-5.1) mmol/L Chloride 105 (98-107) mmol/L Carbon Dioxide 24.5 (21.0-32.0) mmol/L Anion Gap 16.1 BUN 16.0 (7.0-18.0) mg/dL Creatinine 0.97 (0.55-1.02) mg/dL Est GFR ( Amer) >60 (>=60 mL/min/1.73m^2) Est GFR (Non-Af Amer) 58 L (>=60 mL/min/1.73m^2) BUN/Creatinine Ratio 16.5 Glucose 115 H (74-106) mg/dL Lactate 0.6 (0.4-2.0) mmol/L Calcium 8.8 (8.5-10.1) mg/dL Total Bilirubin 0.5 (0.2-1.0) mg/dL AST 14 L (15-37) U/L ALT 17 (14-59) U/L Alkaline Phosphatase 95 (46-116) U/L Total Protein 7.0 (6.4-8.2) g/dL Albumin 3.4 (3.4-5.0) g/dL Globulin 3.6 g/dL Albumin/Globulin Ratio 0.9 Urine Color Lt. yellow (YELLOW) Urine Clarity Clear (CLEAR) Urine pH 6.0 (5.0-9.0) Ur Specific [place] 1.010 (1.005-1.025) Urine Protein Negative (NEG/TRACE) mg/dL Urine Glucose (UA) Negative (NEGATIVE) mg/dL Urine Ketones Negative (NEGATIVE) mg/dL Urine Occult Blood Small A (NEGATIVE) Urine Nitrite Negative (NEGATIVE) Urine Bilirubin Negative (NEGATIVE) Urine Urobilinogen 0.2 (0.2-1.0) EU/dL Ur Leukocyte Esterase Trace A (NEGATIVE) Urine RBC 2-5 A (0-2) #/HPF Urine WBC 5-10 A (NONE SEEN) #/HPF Ur Squamous Epith Cells Few A (NONE/RARE) #/LPF Urine Crystals None seen (None Seen) #/HPF Urine Bacteria None seen (NONE SEEN) #/HPF Urine Casts None seen (NONE SEEN) #/LPF Urine Mucus None seen (NONE SEEN) Ur Culture Indicated? Yes Discharge Plan Discharge Chief Complaint: Abdominal Pain Clinical Impression: Diverticulitis, Cholelithiasis Patient Disposition: Home, Self-Care Time of Disposition Decision: 04:28 Condition: Good Prescriptions / Home Meds: No Action omeprazole 20 mg capsule,delayed release(DR/EC) 20 mg PO BID Print Language: Salvadorean Instructions: Diverticulitis (ED), Gallstones (ED), Diverticulitis Diet (ED) Referrals: Deidre Valdivia NP [Primary Care Provider] - 1 week Eduardo Rae MD [Physician] - 1 week
[2024-03-22 22:59] LABS: Basophils Absolute Auto 0.1 10^3/uL (0.0-0.1); Basophils Percent Auto 0.6 % (0.2-2.0); Eosinophils Absolute Auto 0.2 10^3/uL (0.0-0.7); Hematocrit 37.1 % (36.0-48.0); Hemoglobin 12.5 g/dL (12.0-16.0); Immature Granulocytes Abs Auto 0.02 10^3/uL (0.00-0.03); Immature Granulocytes Pct Auto 0.2 % (0.0-0.5); Lymphocytes Absolute Auto 1.9 10^3/uL (1.2-3.8); Lymphocytes Percent Auto 19.1 % (20.5-60.0); Mean Corpuscular HGB Conc 33.7 g/dL (29.9-35.2); Mean Corpuscular Hemoglobin 29.2 pg (26.7-34.0); Mean Corpuscular Volume 86.7 fL (81.0-99.0); Mean Platelet Volume 10.7 fL (9.5-13.5); Monocytes Absolute Auto 1.2 10^3/uL (0.3-0.8); Monocytes Percent Auto 11.8 % (1.7-12.0); Neutrophils Absolute Auto 6.6 10^3/uL (1.4-6.5); Neutrophils Percent Auto 66.3 % (43.0-75.0); Platelet Count 233 10^3/uL (150-450); Red Blood Count 4.28 10^6/uL (4.20-5.40); Red Cell Distribution Width 13.6 % (11.0-15.0); White Blood Count 9.9 10^3/uL (4.0-11.0)
[2024-03-22 23:00] LABS: Bilirubin Urine NEGATIVE (NEGATIVE); Blood Urine SMALL (NEGATIVE); Clarity Urine CLEAR (CLEAR); Color Urine LT. YELLOW (YELLOW); Glucose Urine UA NEGATIVE (NEGATIVE); Ketones Urine NEGATIVE (NEGATIVE); Leukocyte Esterase Urine TRACE (NEGATIVE); Nitrite Urine NEGATIVE (NEGATIVE); Protein Urine NEGATIVE (NEG/TRACE); Urobilinogen Urine 0.2 EU/dL (0.2-1.0)
[2024-03-22 23:16] LABS: Bacteria Urine NONE SEEN #/HPF (NONE SEEN); Mucus Urine NONE SEEN (NONE SEEN); Squamous Epithelial Cell Urine FEW #/LPF (NONE/RARE)
[2024-03-22 23:17] LABS: Cast Seen? NONE SEEN #/LPF (NONE SEEN); Crystals Seen? None Seen #/HPF (None Seen); Urine Culture Indicated YES
[2024-03-22 23:25] LABS: Alanine Aminotransferase 17 U/L (14-59); Albumin Globulin Ratio 0.9; Albumin Level 3.4 g/dL (3.4-5.0); Alkaline Phosphatase 95 U/L (46-116); Anion Gap 16.1; Aspartate Amino Transferase 14 U/L (15-37); BUN Creatinine Ratio 16.5; Bilirubin Total 0.5 mg/dL (0.2-1.0); Calcium 8.8 mg/dL (8.5-10.1); Carbon Dioxide 24.5 mmol/L (21.0-32.0); Chloride 105 mmol/L (98-107); Estimated GFR (African America >60 (>=60 mL/min/1.73m^2); Estimated GFR (Non-African Ame 58 (>=60 mL/min/1.73m^2); Globulin 3.6 g/dL; Glucose 115 mg/dL (74-106); Potassium 3.6 mmol/L (3.5-5.1); Sodium 142 mmol/L (136-145)
[2024-03-22 23:29] LABS: Lactate/Lactic Acid 0.6 mmol/L (0.4-2.0)
[2024-03-23] MEDS: ACETAMINOPHEN 325 MG TABLET 650 MG PO (01:17)
[2024-03-23] MEDS: CIPROFLOXACIN HCL 500 MG TABLET PO (04:45)
[2024-03-23] MEDS: ONDANSETRON 4 MG RAPDIS TABLET SL (04:46)
[2024-03-23] MEDS: METRONIDAZOLE 250 MG TABLET 500 MG PO (04:46)
[2024-03-23 04:49] VITALS: BP 137/67; PULSE 61; O2SAT 98
== END 2024-03-23 04:49 | disposition home or self-care (01) ==
PROVIDERS: Emergency Provider Emergency Medicine; PCP Nurse Practitioner
DX: K57.32 Diverticulitis of large intestine without perforation or abscess without bleeding (principal); K80.20 Calculus of gallbladder without cholecystitis without obstruction; Z90.710 Acquired absence of both cervix and uterus; R30.0 Dysuria; K57.90 Diverticulosis of intestine, part unspecified, without perforation or abscess without bleeding
CPT/HCPCS: 36415; 74177; 80053; 81001; 83605; 85025; 87086; 99284; Q0162; Q9967

== ENCOUNTER 2024-10-16 06:34 | Outpatient (OUT) | payer OTHER, SELFPAY ==
--- OUTSIDE RECORDS SUMMARY | 2024-10-12 15:00 | XMS_ITS | Encounter Summary ---
Author Organization [facility] [address] [place] [address] Care Team Providers Care Object Oriented Programmer Name Role Phone Colin Nassar MD Primary Care Provider [phone] Reason for Visit * Reason Comments Follow-up Encounter Details Date Type Department Care Team (Late st Contact Info) Description 10/12/2024 3:00 PM EDT Office Visit [facility] [address] [place] [address] Deidre Valdivia, MEDICAL BILLING SPECIALIST [address] [place] [id number] Encounter for adult wellness visit (Primary Dx); Migraine without aura and without status migrainosus, not intractable (CMS/HCC); Encounter for screening mammogram for malignant neoplasm of breast Social History Tobacco Use Types Packs/Day Years Used Date Smoking Tobacco: Never Smokeless Tobacco: Never Alcohol Use Standard Drinks/Week Comments Not Asked 0 (1 standard drink = 0.6 oz pur e alcohol) caffine: no B1300 Health Literacy Answer Date Recor ded How often do you need to hav e someone help you when you read instructions, pamphlets, or other written material from your doctor or pharmacy? Never 04/06/2024 Social Connection and Isolation Panel [NHANES] A nswer Date Recorded In a typical week, how many times do you talk on the phone with family, friends, or neighbors? Patient declined 04/06/2024 How often do you get togethe r with friends or relatives? Patient declined 04/06/2024 How often do you attend sabianism or hoahaoism serv ices? Patient declined 04/06/2024 Do you belong to any clubs o r organizations such as sabianism groups, unions, fraternal or athletic groups, or school groups? Patient declined 04/06/2024 How often do you attend meet ings of the clubs or organizations you belong to? Patient declined 04/06/2024 Are you , , di vorced, , never , or living with a partner? 04/06/2024 AUDIT-C Answer Date Recorded Q1: How often do you have a drink containing alcohol? Never 04/06/2024 Q2: How many drinks containi ng alcohol do you have on a typical day when you are drinking? Patient does not drink Q3: How often do you have si x or more drinks on one occasion? Never 04/06/2024 Overall Financial Resource Strain (CARDIA) Answe r Date Recorded How hard is it for you to pa y for the very basics like food, housing, medical care, and heating? Not hard at all 04/06/2024 PHQ-2 Answer Date Recorded Patient Health Questionnaire-2 Score 0 [facility]20[facility] - Occupational Stress Questionnaire Answer Date Recorded Do you feel stress - tense, restless, nervous, or anxious, or unable to sleep at night because your mind is troubled all the time - these days? Not at all 01/27/2024 Exercise Vital Sign Answer Date Recorde d On average, how many days pe r week do you engage in moderate to strenuous exercise (like a brisk walk)? 3 days 04/06/2024 On average, how many minutes do you engage in exercise at this level? 40 min 04/06/2024 Hunger Vital Sign Answer Date Recorded Within the past 12 months, y ou worried that your food would run out before you got the money to buy more. Never true 04/06/20 24 Within the past 12 months, t he food you bought just didn't last and you didn't have money to get more. Never true 04/06/2024 PRAPARE - Transportation Answer Date Re corded In the past 12 months, has l ack of transportation kept you from medical appointments or from getting medications? No 03/19 In the past 12 months, has l ack of transportation kept you from meetings, work, or from getting things needed for daily living? No 04/06/2024 Housing Stability Vital Sign Answer Arnol e Recorded In the last 12 months, was t here a time when you were not able to pay the mortgage or rent on time? No 04/06/2024 In the past 12 months, how m any times have you moved where you were living? 0 04/06/2024 At any time in the past 12 m [facility], were you homeless or living in a group home (including now)? No 04/06/2024 Comments No Sex and Gender Information Value Date Recorded Sex Assigned at Not on file Legal Sex Female 11:47 PM EDT Gender Identity Not on file Sexual Orientation Not on file documented as of this encounter Last Filed Vital Signs Vital Sign Reading Time Taken Comments Blood Pressure 132/84 10/12/2024 3:19 PM EDT Pulse 68 10/12/2024 3:19 PM EDT Temperature 36.6 C (97.8 F) 10/12/2024 3:19 PM EDT Respiratory Rate 18 10/12/2024 3:19 PM EDT Oxygen Saturation 98% 10/12/2024 3:19 PM EDT Inhaled Oxygen Concentration - - Weight 55.4 kg (122 lb 3.2 oz) 10/12/2024 3:19 P M EDT Height 151.1 cm (4' 11.5 ) 10/12/2024 3:19 PM ED T Body Mass Index 24.27 10/12/2024 3:19 PM EDT documented in this encounter Patient Instructions * Patient Instructions* Deidre Valdivia NP - 10/12/2024 3:00 PM EDT Get labs fasting I will fax order to [facility] for mammogram: [phone] ext [phone] documented in this encounter Progress Notes * Deidre Valdivia NP - 10/12/2024 3:52 PM EDTAssociated Problem(s): Encounter for adult wellness visit Reviewed Ht/Wt/BMI Recommend eye exam yearly Recommend dental exams twice a year Balance work/leisure activities Exercises is recommended most days of the week (appropriate as chronic conditions allow) Follow up yearly and prn * WYATT BRANNON - 10/12/2024 3:00 PM EDT Colonoscopy in October Pt is retiring 12/17 She would like to get blood work and whatever else needed done before she looses her insurance withher workplace this includes a wellness if time * Deidre Valdivia NP - 10/12/2024 3:00 PM EDT Images from the original note were not included. Velma Diaz is a 63 y.o. female presents with chief complaint of Follow-up HPI: Diet:yes, not a lot of meat Activity: yoga, gazelle Mental Health Concerns:no Falls in the last year: no Any hearing problems:no Any Vision problems: no Any Hospitalizations in the last year: no Specialist: General surgeon Concerns: Migraine This is a chronic problem. The current episode started more than 1 year ago. The problem has been rapidly improving. The pain is located in the Bilateral region. The pain does not radiate. The pain quality is similar to prior headaches. Quality: pressure. The pain is mild. Associated symptoms include blurred vision, phonophobia, photophobia and vomiting. Pertinent negatives include no abdominal pain, back pain, coughing, dizziness, ear pain, eye pain, eye redness, fever, loss of balance, nausea, numbness, scalp tenderness, seizures, sinus pressure or sore throat. The symptoms are aggravated by weather changes and food. She has tried triptans and NSAIDs (ubrelvey) for the symptoms. The treatment provided significant relief. Her past medical history is significant for migraine headaches. SUBJECTIVE: MEDICATIONS: Current Outpatient Medications Medication Instructions Cranberry 500 MG capsule 1 each, Daily omeprazole (PRILOSEC) 20 mg, 2 times daily Ubrelvy 100 mg, Oral, Daily PRN ALLERGIES: Allergies Allergen Reactions Nitrofurantoin Other Reaction(s): Vomiting REVIEW OF SYMPTOMS: Review of Systems Constitutional: Negative for appetite change, chills and fever. HENT: Negative for congestion, ear pain, sinus pressure and sore throat. Eyes: Positive for blurred vision and photophobia. Negative for pain, discharge, redness and visualdisturbance. Respiratory: Negative for cough, shortness of breath and wheezing. Cardiovascular: Negative for chest pain, palpitations and leg swelling. Gastrointestinal: Positive for vomiting. Negative for abdominal pain, blood in stool, constipation,diarrhea and nausea. Genitourinary: Negative for difficulty urinating, dysuria and frequency. Musculoskeletal: Negative for arthralgias, back pain, joint swelling and myalgias. Skin: Negative for rash and wound. Neurological: Positive for headaches. Negative for dizziness, tremors, seizures, syncope, numbness and loss of balance. Psychiatric/Behavioral: Negative for behavioral problems, self-injury and suicidal ideas. The patient is not nervous/anxious. Hematological: Does not bruise/bleed easily. Endocrine: Negative for polydipsia, polyphagia and polyuria. Allergic/Immunologic: Negative for environmental allergies and food allergies. PAST MEDICAL HISTORY Past Medical History: Diagnosis Date Anxiety Park's esophagus Diverticulosis GERD (gastroesophageal reflux disease) Hyperlipidemia (CMS/HCC) Migraines (CMS/HCC) Mitral valve prolapse Vaginal fistula Vesicovaginal fistula Past Surgical History: Procedure Laterality Date APPENDECTOMY BILATERAL SALPINGOOPHORECTOMY BLADDER SUSPENSION CYSTOSCOPY ESOPHAGOGASTRODUODENOSCOPY EXPLORATORY LAPAROTOMY W/ BOWEL RESECTION 03/10/2023 HYSTERECTOMY TUBAL LIGATION family history is not on file. OBJECTIVE: Visit Vitals BP 132/84 (BP Location: Left arm, Patient Position: Sitting, BP Cuff Size: Adult long) Pulse 68 Temp 97.8 ??F (Temporal) Resp 18 Ht 4' 11.5 Wt 122 lb 3.2 oz SpO2 98% BMI 24.27 kg/m?? OB Status Hysterectomy Smoking Status Never BSA 1.52 m?? Physical Exam Vitals and nursing note reviewed. Constitutional: General: She is not in acute distress. Appearance: Normal appearance. HENT: Head: Normocephalic and atraumatic. Right Ear: External ear normal. Left Ear: External ear normal. Nose: Nose normal. Mouth/Throat: Mouth: Mucous membranes are moist. Eyes: Extraocular Movements: Extraocular movements intact. Conjunctiva/sclera: Conjunctivae normal. Cardiovascular: Rate and Rhythm: Normal rate and regular rhythm. Pulses: Normal pulses. Heart sounds: Normal heart sounds. Pulmonary: Effort: Pulmonary effort is normal. Breath sounds: Normal breath sounds. Abdominal: General: Bowel sounds are normal. There is no distension. Palpations: Abdomen is soft. There is no mass. Tenderness: There is no abdominal tenderness. Musculoskeletal: General: Normal range of motion. Cervical back: Normal range of motion and neck supple. Skin: General: Skin is warm and dry. Capillary Refill: Capillary refill takes 2 to 3 seconds. Findings: No rash. Neurological: General: No focal deficit present. Mental Status: She is alert and oriented to person, place, and time. Psychiatric: Mood and Affect: Mood normal. Behavior: Behavior normal. Thought Content: Thought content normal. Judgment: Judgment normal. ASSESSMENT AND PLAN: Follow up in about 6 months (around 04/14/2025) for Recheck. Problem List Items Addressed This Visit Migraine without aura and without status migrainosus, not intractable (CMS/HCC) Current migraine days per month: Triggers: Missed work: Current meds: ubrelvy Relevant Medications Ubrogepant (Ubrelvy) 100 MG tablet Encounter for screening mammogram for malignant neoplasm of breast Relevant Orders Bilateral screening mammogram Encounter for adult wellness visit - Primary Reviewed Ht/Wt/BMI Recommend eye exam yearly Recommend dental exams twice a year Balance work/leisure activities Exercises is recommended most days of the week (appropriate as chronic conditions allow) Follow up yearly and prn Relevant Orders CBC and differential Comprehensive metabolic panel Lipid panel Urinalysis with reflex microscopic (clean catch) * Deidre Valdivia NP - 10/12/2024 7:36 AM EDTAssociated Problem(s): Migraine without aura and without status migrainosus, not intractable (CMS/HCC) Current migraine days per month: Triggers: Missed work: Current meds: ubrelvy documented in this encounter Plan of Treatment Upcoming Encounters Date Type Department Care Team (Late st Contact Info) Description 04/12/2025 8:40 AM EST Office Visit [facility] [address] [place] [address] Deidre Valdivia NP [address] [place] [phone] Scheduled Orders Name Type Priority Associated Diagnoses Orde r Schedule CBC and differential Lab Routine Encounter For Adult Wellness Visit Expected: 10/12/2024 (Approximate), Expires: 10/12/2025 Comprehensive metabolic panel Lab Routine Encounter For Adult Wellness Visit Expected: 10/12/2024 (Approximate), Expires: 10/12/2025 Lipid panel Lab Routine Encounter For Adult Wellness Visit Expected: 10/12/2024 (Approximate), Expires: 10/12/2025 Urinalysis with reflex microscopic (clean catch) Lab Routine Encounter For Adult Wellness Visit Expected: 10/12/2024 (Approximate), Expires: 10/12/2025 Bilateral screening mammogram Imaging Routine Encounter for screening mammogram for malignant neoplasm of breast Expected: 12/06/2024 (Approximate), Expires: 12/12/2025 documented as of this encounter Visit Diagnoses Diagnosis Encounter for adult wellness visit- Primary Migraine without aura and without status migrainosus, not intractable (CMS/HCC) Encounter for screening mammogram for malignant neoplasm of breast documented in this encounter Care Teams Object Oriented Programmer Relationship Specialty Start Date End Date Colin Nassar MD [address] [place] [address] PCP - General Family Medicine 06/10/23 documented as of this encounter
--- OUTSIDE RECORDS SUMMARY | 2024-10-16 06:38 | XMS_ITS | CCD ---
Author Organization [facility] Inform ion [facility] Care Team Providers Care Tone Cabinet Assembler Name Role Phone 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 Unavailable AICHHOLZ, LINE TECHNICIAN DEIDRE Admitting Unavailable AICHHOLZ, LINE TECHNICIAN DEIDRE Attending Unavailable AICHHOLZ, LINE TECHNICIAN DEIDRE Primary Care Unavailable DR ANTWAN KNIGHT V Consulting Unavailable AICHHOLZ, LINE TECHNICIAN DEIDRE Consulting Unavailable GORDO, DR NAILS Admitting Unavailable GORDO, DR NAILS Attending Unavailable AICHHOLZ, LINE TECHNICIAN DEIDRE Primary Care Unavailable DR JESU CARO Consulting Unavailable AICHHOLZ, LINE TECHNICIAN DEIDRE Admitting Unavailable AICHHOLZ, LINE TECHNICIAN DEIDRE Attending Unavailable AICHHOLZ, LINE TECHNICIAN DEIDRE Primary Care Unavailable AICHHOLZ, LINE TECHNICIAN DEIDRE Consulting Unavailable ANTWAN LAY Consulting Unavailable AICHHOLZ, LINE TECHNICIAN DEIDRE Admitting Unavailable AICHHOLZ, LINE TECHNICIAN DEIDRE Attending Unavailable AICHHOLZ, LINE TECHNICIAN DEIDRE Primary Care Unavailable AICHHOLZ, LINE TECHNICIAN DEIDRE Consulting Unavailable AICHHOLZ, LINE TECHNICIAN DEIDRE Admitting Unavailable AICHHOLZ, LINE TECHNICIAN DEIDRE Attending Unavailable AICHHOLZ, LINE TECHNICIAN DEIDRE Primary Care Unavailable AICHHOLZ, LINE TECHNICIAN DEIDRE Consulting Unavailable AICHHOLZ, LINE TECHNICIAN DEIDRE Admitting Unavailable AICHHOLZ, LINE TECHNICIAN DEIDRE Attending Unavailable AICHHOLZ, LINE TECHNICIAN DEIDRE Primary Care Unavailable AICHHOLZ, LINE TECHNICIAN DEIDRE Consulting Unavailable AICHHOLZ, LINE TECHNICIAN DEIDRE Admitting Unavailable AICHHOLZ, LINE TECHNICIAN DEIDRE Attending Unavailable AICHHOLZ, LINE TECHNICIAN DEIDRE Primary Care Unavailable AICHHOLZ, LINE TECHNICIAN DEIDRE Consulting Unavailable 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 Attending Unavailable 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 Admitting Unavailable NO FAMILY, PHYSICIAN Primary Care Unavailable AICHHOLZ, DEIDRE J Primary Care Physician SHANNEN NEGRETE Attending Unavailable SHANNEN NEGRETE Attending Unavailable SHANNEN NEGRETE Admitting Unavailable SHANNEN NEGRETE Attending Unavailable SHANNEN NEGRETE Attending Unavailable Colin Nassar MD Primary Care Provider LYNETTE LEVIN Attending Unavailable DEIDRE VALDIVIA Referring Unavailable DEIDRE VALDIVIA Primary Care Unavailable DEIDRE VALDIVIA Attending Unavailable DEIDRE VALDIVIA Attending Unavailable DEIDRE VALDIVIA Attending Unavailable SKIP, DEIDRE Attending Unavailable SKIP, DEIDRE Attending Unavailable Allergies Allergy Classification Reported Allergen(s) Allergy Type Date of Onset Reaction(s) Facility (17 sources) Nitrofurantoin; Translations: [NITROFURANTOIN] Drug Allergy 03-19-2016 [facility] Medications Current Medications Medication Drug Class(es) Dates Sig (Normalized) Sig (Original) ciprofloxacin 500 mg oral tablet (1 source) Quinolone Antimicrobial Start: 01-14-2024 End: 01-21-2024 take 1 tablet by mouth in the morning ciprofloxacin (Cipro) 500 MG tablet Indications: Urinary tract infection, acute Take 1 tablet (500 mg) by mouth in the morning and 1 tablet (500 mg) before bedtime. Do all this for 7 days. 14 tablet 01/14/2024 01/21/2024 Active cranberry preparation 500 mg oral capsule (16 sources) Non-Standardized Food Allergenic Extract, Non-Standardized Plant Allergenic Extract take 1 capsule by mouth in the morning Cranberry 500 MG capsule Take 1 each by mouth in the morning. Active Excedrin Migraine (4 sources) Start: 09-09-2023 Excedrin [...] bid for 5 day(s) Apr, Active Omeprazole (20 sources) Proton Pump Inhibitor Start: 09-09-2023 omeprazole Refills(s) 0 Start Date: 09/09/23 Status: Ordered take 1 capsule by mouth in the m orning omeprazole (PriLOSEC) [address] capsule Take 20 mg by mouth in the morning and 20 mg in the evening. Active Omeprazole Not-T aking/PRN Omeprazole Activ e phenazopyridine hydrochloride 200 mg oral tablet (2 sources) Start: 04-25-2023 take 1 tablet by mouth every eight hours Pyridium 200 MG 1 tablet after meals Orally Three times a day for 2 day(s) Apr, Active trospium chloride 20 mg oral tablet (3 sources) Cholinergic Muscarinic Antagonist Start: 09-09-2023 take 1 tablet by mouth twice daily trospium 20 mg oral tablet 20 mg = 1 tab(s), Oral, BID, # 60 tab(s), Refills(s) 11, Pharmacy: [id number], 150, cm, 09/09/23 13:24:00 EDT, Height/Length Dosing, 54, kg, 09/09/23 13:24:00 EDT, Weight Dosing Start Date: 09/09/23 Status: Ordered ubrogepant 100 mg oral tablet (13 sources) Start: 04-16-2024 End: 11-11-2024 take 1 tablet by mouth once daily as needed Ubrogepant (Ubrelvy) 100 MG tablet Indications: Migraine without aura and without status migrainosus, not intractable (CMS/HCC) Take 100 mg by mouth Daily as needed (migraine WILSON) 16 tablet 1 10/12/2024 11/11/2024 Active Completed/Discontinued Medications Medication Drug Class(es) Dates Sig (Normalized) Sig (Original) estrogens, conjugated (fpc) 0.625 mg/ml vaginal cream (5 sources) Estrogen Start: 02-02-2024 End: 05-02-2024 Estrogens Conjugated (Premarin) 0.625 MG/GM cream Indications: Dyspareunia in female Insert 0.5 g into the vagina 2 (two) times a week 30 g 1 02/02/2024 04/12/2024 Discontinued (Therapy completed) fluconazole 150 mg oral tablet (7 sources) Azole Antifungal Start: 01-12-2024 End: 02-02-2024 fluconazole (Diflucan) 150 MG tablet Indications: Yeast infection 1 dose, repeat again in 3 days 2 tablet 01/12/2024 02/02/2024 Discontinued (Therapy completed) Simvastatin (4 sources) HMG-CoA Reductase Inhibitor Simvastatin Not-Taking/PRN Simvastatin Acti ve SUMAtriptan 25 mg oral tablet (11 sources) Serotonin-1b and Serotonin-1d Receptor Agonist Start: 10-20-2023 End: 02-02-2024 SUMAtriptan (Imitrex) 25 MG tablet Indications: Migraine without aura and without status migrainosus, not intractable (CMS/HCC) Take 1 tablet (25 mg) by mouth Daily as needed for migraine May take 1 pill at onset of migraine WILSON, repeat in 2 hours if needed. No more than 2 pills in 24 hours, no more than twice a week 9 tablet 10/20/2023 02/02/2024 Discontinued (Therapy completed) Start: 09-09-2023 sumatriptan Re fills(s) 0 Start Date: 09/09/23 Status: Ordered Problems Active Problems Problem Classification Problem Date Documented Date Episodic/Chronic Disorders of lipid metabolism (20 sources) Hyperlipidemia, unspecified; Translations: [Mixed hyperlipidemia] Onset: 05-08-2022 Chronic Diverticulosis and diverticulitis (10 sources) Diverticulitis of large intestine without perforation or abscess without bleeding; Translations: [Diverticulitis] Onset: 04-01-2024 04-12-2024 Chronic Esophageal disorders (18 sources) Park's esophagus; Translations: [Park's esophagus without dysplasia] Onset: 12-02-2023 12-02-2023 Chronic Headache; including migraine (20 sources) Migraine without aura, not refractory ; Translations: [Migraine without aura, not intractable, without status migrainosus] Onset: 10-20-2023 10-20-2023 Chronic Miscellaneous mental health disorders (16 sources) Primary insomnia; Translations: [Primary insomnia] Onset: 12-02-2023 12-02-2023 Chronic Other female genital disorders (16 sources) Vesicovaginal fistula; Translations: [Vesicovaginal fistula] Onset: 03-19-2016 12-02-2023 Chronic Other female genital disorders (12 sources) Pain in female genitalia on intercourse; Translations: [Unspecified dyspareunia] Onset: 02-02-2024 02-02-2024 Chronic Other screening for suspected conditions (not mental disorders or infectious disease) (20 sources) Encounter for screening for malignant neoplasm of cervix; Translations: [Encounter for screening mammogram for malignant neoplasm of breast] Onset: 10-01-2021 Episodic Other upper respiratory infections (4 sources) Streptococcal sore throat; Translations: [Strep pharyngitis] Episodic Unclassified (1 source) Diverticulosis Onset: 04-01-2024 Past or Other Problems Problem Classification Problem Date Documented Date Episodic/Chronic Genitourinary symptoms and ill-defined conditions (20 sources) Dysuria; Translations: [Dysuria] Onset: 04-25-2023 Episodic Immunizations and screening for infectious disease (1 source) Encounter for screening for human papillomavirus (HPV); Translations: [ENC SCREENING HUMAN PAPILLOMAVIRUS] Onset: 10-05-2021 Episodic Intestinal obstruction without hernia (16 sources) Small bowel obstruction; Translations: [Unspecified intestinal obstruction, unspecified as to partial versus complete obstruction] Onset: 12-02-2023 12-02-2023 Episodic Mycoses (17 sources) Mycosis; Translations: [Candidiasis, unspecified] Onset: 01-12-2024 01-12-2024 Episodic Other connective tissue disease (8 sources) Tendonitis of right shoulder; Translations: [Other enthesopathies, not elsewhere classified] Onset: 04-12-2024 04-12-2024 Episodic Residual codes; unclassified (1 source) Family history of malignant neoplasm of digestive organs; Translations: [FAM HX MALIG NEOPLASM DIGESTIV ORGN] Onset: 10-05-2021 Episodic Unclassified (4 sources) Exposure to acute respiratory syndrome coronavirus 2; Translations: [Contact with and (suspected) exposure to covid-19] Unclassified (2 sources) Contact with and (suspected) exposure to covid-19 Z20.822 Urinary tract infections (20 sources) Urinary tract infection, site not specified; Translations: [Acute cystitis without hematuria] Onset: 08-31-2021 Resolved: 10-12-2024 Episodic Viral infection (2 sources) COVID-19 Results Test Name Value Interpretation Reference Range Facility URINE CULTURE, ROUTINEon Bacteria identified Cx Nom (U) Urine Culture, Routine [facility] Bacteria identified Cx Nom (U) Mixed urogenital staci [facility] Bacteria identified Cx Nom (U) 10,000-25,000 colony forming units per mL [facility] Bacteria identified Cx Nom (U) [facility]formed at[facility] Bacteria identified Cx Nom (U) [address], [place] [id number] [facility] Bacteria identified Cx Nom (U) Harvest Worker Fruit: Conrad Byrd PhD, Phone: [phone] [facility] UA (CLEAN/CATCH) MICROSC OPIC IF INDICATEon 01-13-2024 BILIRUBIN URINE Negative NEGATIVE [facility] BLOOD URINE TRACE-L NEGATIVE [facility] Clarity (U) CLEAR CLEAR [facility] Color (U) LT. YELLOW YELLOW [facility] GLUCOSE URINE UA Negative NEGATIVE mg/dL [facility] Interpretation and review of laboratory results Abnormal [facility] Ketones Ql (U) Negative NEGATIVE mg/dL [facility] Leukocyte esterase Test strip Ql (U) TRACE Abnormal NEGATIVE [facility] NITRITE URINE Positive Abnormal NEGATIVE [facility] pH (U) 6.0 [pH] 5.0 - 9.0 [facility] PROTEIN URINE Negative NEG/TRACE mg/dL [facility] SPECIFIC GRAVITY URINE 1.020 1.005 - 1.025 [facility] URINE MICROSCOPIC INDICATED YES [facility] UROBILINOGEN URINE 0.2 EU/dL 0.2 - 1.0 EU/dL [facility] 11-12-2023 Screens [id number]#1 .00TIFF Normal [facility] Patient Educationon 11-11-19 Patient Education Obstetrics [...] this condition includes: ? Antibiotic medicine. ? Gjsq-bbc-nsdklol medicines to treat discomfort. ? Drinking enough [...] these instructions at home: Medicines ? Take pjtq-siq-pkzifdv and prescription medicines only as told by [...] Document Revie (more content not included)... Normal [facility] Urology Office/Clinic Noteon 11-11-2023 Urology Office/Clinic [...] Contact Information CADEN HARRINGTON, SHANNEN White, URL [address] [place] [address] Additional Instructions: PRN Patient Education Urinary Tract Infection, Adult Documentation recorded by the scribe Nati Chau accurately reflects the services(s) I performed [...] 11:19:00) Specific (more content not included)... Normal [facility] Comment on above: Result Comment: Elec [...] EDT >100,000 cfu/ml Escherichia coli SUSCEPTIBILITY RESULTS LEGEND: S=Susceptible, N/R=Not Reported, Blank=Data not available, or drug not advisable or tested, I=Intermediate, ESBL=Extended spectrum beta-lactamase, R=Resistant, TFG=Thymidine-depende nt strain, CABRERA=Beta-lactamase positive, GIBSON=mcg/m;(mg/L), S*=Predicted susceptible interp, [...] Locations R1: This test was performed at: [facility], [address] [place] [address], [phone] , , [facility] Comment on above: Performed By: #### 2 [id number] ####[facility] [address] [place] [address] Ambulatory Visit Summaryon 0 09-16-2023 Ambulatory Visit Summary MONICA DIAZ :1960 Visit Date:09/16/2023 Ambulatory Visit Instructions Your Diagnosis Frequent UTI Your Care Team Attending Physician - SHANNEN NEGRETE PA-C Primary Care Physician - DEIDRE VALDIVIA CNP This Is Your Medications List APAP/ASA/caffeine [...] NEGRETE PA-C Where: [facility] Scre[place] 09-15-2023 Screens [id number]# 1.00TIFF [facility] Screens [id number]# 1.00TIFF [facility] Lab Reportson 09-10-2023 Lab Reports [id number]# 1.00TIFF [facility] Lab Reports [id number]# 1.00TIFF [facility] Lab Reports [id number]# 1.00TIFF [facility] Lab Reports [id number]# 1.00TIFF [facility] RAD - CT Reporton 09-10-2023 RAD - CT Report [id number]# 1.00TIFF [facility] RAD - CT Report [id number]#1 .00TIFF Normal [facility] RAD - MISCon 09-10-2023 [facility] [id number]# 1.00TIFF Normal [facility] [id number]# 1.00TIFF Normal [facility] Patient Educationon 09-09-19 Patient Education Obstetrics [...] these instructions at home: Medicines ? Take tobi-gms-dictlxb and prescription medicines only as told by [...] provider. Document Revised: 12/15/2020 Document Reviewed: 12/15/2020 [employer] Patient Education ? 2022 [employer] Cornelio Garcia [facility] Urology Office/Clinic Noteon 09-09-2023 Urology Office/Clinic [...] mixed skin contaminants CT AP w/wo 03/11/23 [facility] - No renal stones or hydro. [...] When Contact Information SHANNEN NEGRETE PA-C, URL [address] [place] [address] [phone] Additional Instructions: 3 mos (new med) Patient Education Urinary Tract Infection, Adult, Zfav-kp-Qsgm Documentation recorded by the scribchristopher Lay accurately reflects the services(s) I performed [...] (06/30/2014), Cys (more content not included)... Normal [facility] Comment on above: Result Comment: Elec tronically Signed By: SHANNEN NEGRETE PA-C\.br\Date and Time Signed: 09/09/23 14:17 EDT\.br\Electronically Co-Signed By: Alejandra Lay\.br\Date and Time Co-Signed: 09/09/23 14:01 EDT Urinalysis - AUTOMATEDon Appearance (U) clear [employer] Other Bilirubin Ql (U) Negative [employer]Jam Other Color (U) pale yellow [employer] Other Glucose Ql (U) Negative [employer] Other Hemoglobin Ql (U) trace-intact [facility] Other Ketones Ql (U) Negative [employer] Other Leukocyte esterase Test strip Ql (U) trace [employer] Other Nitrite Ql (U) Negative [employer] Other pH (U) 6.0 [pH] [employer] Other Protein Ql (U) Negative [employer] Other Specific gravity (U) [Rel density] 1.010 [employer] Other Urobilinogen (U) [Mass/Vol] 0.2 mg/dL [employer] Other Urinalysis - AUTOMATED [employer] Other Urine Cultureon 04-25-2023 Bacteria identified Cx Nom (U) Reason for Exam Dysuria Urine <10,000 colonies/ml mixed bacterial skin contaminants including mixed gram negative bacilli - 2 Days PERFORMED BY: [place] [address] PATHOLOGIST ASSISTANT COMMUNITY DIRECTOR DAVID PABLO M.D. Normal [facility] Comment on above: Performed By: #### C UU #### [facility] [address] [place] [address] Bacteria identified Cx Nom (U) [employer] Other LIPID PROFILEon 05-08-2022 CHOL-HDL RATIO NORM SEE BELOW Normal [facility] Comment on above: Result Comment: 3.3 - 4.4 LOW RISK 4.4 - 7.1 AVERAGE RISK 7.1 - 11.0 MODERATE RISK >11.0 HIGH RISK Performed By: #### L IPID, AST, ALT #### [facility] [address] [address] [address] Francisco Laboy Cholesterol [Mass/Vol] 191 mg/dL Normal <=200 [facility] Comment on above: Performed By: #### L IPID, AST, ALT #### [facility] [address] [address] [address] Francisco Laboy Cholesterol in HDL [Mass/Vol] 56 mg/dL Normal 40-60 [facility] Comment on above: Performed By: #### L IPID, AST, ALT #### [facility] [address] [address] [address] Francisco Laboy Cholesterol in LDL [Mass/Vol] 94.2 mg/dL Normal [facility] Comment on above: Performed By: #### L IPID, AST, ALT #### [facility] [address] [address] [address] Francisco Laboy Cholesterol.total/C holesterol in HDL [Mass ratio] 3.4 {ratio} Normal [facility] Comment on above: Performed By: #### L IPID, AST, ALT #### [facility] [address] [address] [address] Francisco Laboy HDL NORMAL > or = 60 mg/dl - LO W CARDIOVASCULAR RISK <40 mg/dl - HIGH CARDIOVASCULAR RISK Normal [facility] Comment on above: Performed By: #### L IPID, AST, ALT #### [facility] [address] [address] [address] Francisco Laboy LDL CALC NORMAL SEE BELOW Normal [facility] Comment on above: Result Comment: <100 mg/dl OPTIMAL 100 - 129 mg/dl NEAR OR ABOVE OPTIMAL 130 - 159 mg/dl BORDERLINE HIGH 160 - 189 mg/dl HIGH >190 mg/dl VERY HIGH Performed By: #### L IPID, AST, ALT #### [facility] [address] [address] [address] Francisco Laboy Triglyceride [Mass/Vol] 204 mg/dL Critically high <=150 [facility] Comment on above: Performed By: #### L IPID, AST, ALT #### [facility] [address] [address] [address] Francisco Laboy VLDL CALC 40.8 mg/dL Normal [facility] Comment on above: Performed By: #### L IPID, AST, ALT #### [facility] [address] [place], [place] [address] Dr. Francisco Vazquez 05-08-2022 AST [Catalytic activity/Vol] 20 U/L Normal 15-37 [facility] Comment on above: Performed By: #### L IPID, AST, ALT #### [facility] [address], [place] [address] Dr. Francisco GAMEZPTon 05-08-2022 ALT [Catalytic activity/Vol] 23 U/L Normal 14-59 [facility] Comment on above: Performed By: #### L IPID, AST, ALT #### [facility] [address], [place] [address] Dr. Francisco Laboy SARS-CoV-2 (COVID-19) RNA NA A+probe Ql (Resp)on 03-15-2022 SARS-CoV-2 (COVID-19) RNA JAZ+probe Ql (Unsp spec) Positive [employer] Other Urinalysis - AUTOMATEDon Appearance (U) cloudy [employer]loop Other Bilirubin Ql (U) Negative [employer]Jam Other Color (U) yellow [employer] Other Glucose Ql (U) Negative [employer]loop Other Hemoglobin Ql (U) moderate [employer]in Other Ketones Ql (U) trace [employer]loop Other Leukocyte esterase Test strip Ql (U) small [employer] Other Nitrite Ql (U) Positive [employer]loop Other pH (U) 5.5 [pH] [employer] Other Protein Ql (U) trace [employer]loop Other Specific gravity (U) [Rel density] 1.025 [employer] Other Urobilinogen (U) [Mass/Vol] 0.2 mg/dL [employer] Other Urinalysis - AUTOMATED [employer] Other Urine Cultureon 03-15-2022 Urine Culture >100,000 [employer] Other Urine Culture <16 Susceptible wunderloop Other Urine Culture <8 Susceptible [employer]loop Other Urine Culture <4 Susceptible [employer]loop Other Urine Culture <2 Susceptible [employer]loop Other Urine Culture <1 Susceptible [employer]loop Other Urine Culture >2 Resistant [employer] Other Urine Culture <0.5 Susceptible [employer]underloop Other Urine Culture >4 Resistant [employer] Other Urine Culture <32 Susceptible [employer]loop Other Urine Culture <2/38 Susceptible [employer]loop Other LIPID PROFILEon 11-08-2021 CHOL-HDL RATIO NORM SEE BELOW Normal [facility] Comment on above: Result Comment: 3.3 - 4.4 LOW RISK 4.4 - 7.1 AVERAGE RISK 7.1 - 11.0 MODERATE RISK >11.0 HIGH RISK Performed By: #### U AMIC #### [facility] [address] [address] [address] Francisco Laboy Cholesterol [Mass/Vol] 177 mg/dL Normal <=200 [facility] Comment on above: Performed By: #### U AMIC #### [facility] [address] [address] [address] Francisco Laboy Cholesterol in HDL [Mass/Vol] 47 mg/dL Normal 40-60 [facility] Comment on above: Performed By: #### U AMIC #### [facility] [address], [place] [address] Dr. Francisco Laboy Cholesterol in LDL [Mass/Vol] 92.2 mg/dL Normal [facility] Comment on above: Performed By: #### U AMIC #### [facility] [id number] Francisco Laboy Cholesterol.total/C holesterol in HDL [Mass ratio] 3.8 {ratio} Normal [facility] Comment on above: Performed By: #### U AMIC #### [facility] [address] [address] [address] Francisco Laboy HDL NORMAL > or = 60 mg/dl - LO W CARDIOVASCULAR RISK <40 mg/dl - HIGH CARDIOVASCULAR RISK Normal [facility] Comment on above: Performed By: #### U AMIC #### [facility] [address] [address] [address] Francisco Laboy LDL CALC NORMAL SEE BELOW Normal [facility] Comment on above: Result Comment: <100 mg/dl OPTIMAL 100 - 129 mg/dl NEAR OR ABOVE OPTIMAL 130 - 159 mg/dl BORDERLINE HIGH 160 - 189 mg/dl HIGH >190 mg/dl VERY HIGH Performed By: #### U AMIC #### [facility] [address] [address] [address] Francisco Laboy Triglyceride [Mass/Vol] 189 mg/dL Critically high <=150 [facility] Comment on above: Performed By: #### U AMIC #### [facility] [address] [address] [address] Francisco Laboy VLDL CALC 37.8 mg/dL Normal [facility] Comment on above: Performed By: #### U AMIC #### [facility] [address] [address] [address] Francisco Laboy PROF 14(COMP METB)on 022 Albumin [Mass/Vol] 3.9 g/dL Normal 3.4-5.[address] [facility] Comment on above: Performed By: #### U AMIC #### [facility] [address] [address] [address] Francisco Laboy Albumin/Globulin [Mass ratio] 1.2 {ratio} Normal [facility] Comment on above: Performed By: #### U AMIC #### [facility] [address] [address] [address] Francisco Laboy ALP [Catalytic activity/Vol] 88 U/L Normal 46-116 [facility] Comment on above: Performed By: #### U AMIC #### [facility] [address] [address] [address] Francisco Laboy ALT [Catalytic activity/Vol] 44 U/L Normal 14-59 [facility] Comment on above: Performed By: #### U AMIC #### [facility] [address] [address] [address] Francisco Laboy Anion gap [Moles/Vol] 12.7 mmol/L Normal [facility] Comment on above: Performed By: #### U AMIC #### [facility] [address] [address] [address] Francisco Laboy AST [Catalytic activity/Vol] 26 U/L Normal 15-37 [facility] Comment on above: Performed By: #### U AMIC #### [facility] [address] [address] [address] Francisco Laboy Bilirubin [Mass/Vol] 0.4 mg/dL Normal 0.2-1.0 [facility] Comment on above: Performed By: #### U AMIC #### [facility] [address] [address] [address] Francisco Laboy Calcium [Mass/Vol] 8.4 mg/dL Critically low 8.5-10.1 [facility] Comment on above: Performed By: #### U AMIC #### [facility] [address] [address] [address] Francisco Laboy Chloride [Moles/Vol] 107 mmol/L Normal 98-107 [facility] Comment on above: Performed By: #### U AMIC #### [facility] [address] [address] [address] Francisco Laboy CO2 [Moles/Vol] 24.3 mmol/L Normal 21.0-32.0 [facility] Comment on above: Performed By: #### U AMIC #### [facility] [address] [address] [address] Francisco Laboy Creatinine [Mass/Vol] 0.92 mg/dL Normal 0.55-1.02 [facility] Comment on above: Performed By: #### U AMIC #### [facility] [address] [address] [address] Francisco Laboy EGFR-AF COLOMBIAN >60 Normal >=60 [facility] Comment on above: Performed By: #### U AMIC #### [facility] [address] [address] [address] Francisco Laboy EGFR-NON AF COLOMBIAN >60 Normal >=60 [facility] Comment on above: Performed By: #### U AMIC #### [facility] [address] [address] [address] Francisco Laboy Globulin (S) [Mass/Vol] 3.3 g/dL Normal [facility] Comment on above: Performed By: #### U AMIC #### [facility] [address] [address] [address] Francisco Laboy Glucose [Mass/Vol] 95 mg/dL Normal 74-[address] [facility] Comment on above: Performed By: #### U AMIC #### [facility] [address] [address] [address] Francisco Laboy Potassium [Moles/Vol] 4.0 mmol/L Normal 3.5-5.1 [facility] Comment on above: Performed By: #### U AMIC #### [facility] [address] [address] [address] Francisco Laboy Protein [Mass/Vol] 7.2 g/dL Normal 6.4-8.2 [facility] Comment on above: Performed By: #### U AMIC #### [facility] [address] [address] [address] Francisco Laboy Sodium [Moles/Vol] 140 mmol/L Normal 136-145 [facility] Comment on above: Performed By: #### U AMIC #### [facility] [address], [place] [address] Dr. Francisco Laboy Urea nitrogen [Mass/Vol] 11.0 mg/dL Normal 7.0-18.0 [facility] Comment on above: Performed By: #### U AMIC #### [facility] [address], [place] [address] Dr. Francisco Laboy Urea nitrogen/Creatinine [Mass ratio] 11.9 mg/mg Normal [facility] Comment on above: Performed By: #### U AMIC #### [facility] [address], [place] [address] Dr. Francisco Laboy XR DEXA BONE DENSITYon 10-09 XR DEXA BONE DENSITY DEXA Bone Density Study CLINICAL: Evaluate bone mineral density. Postmenopausal COMPARISON: None FINDINGS: The bone density study was assessed by dual-energy x-ray absorptiometry with the Trippy scanner. The test results are expressed in [...] by: ANTWAN LAY Date: 2021-10-09 08:51 Normal [facility] PAP ACOG PANEL 2: 30 to 65on 10-08-2021 . . Normal [facility] Comment on above: Result Comment: Perf ormed at: BA Performed By: #### U AMIC #### [facility] [address] [address] [address] Francisco Laboy Age Gdln ACOG Testing 30-65 Normal [facility] Comment on above: Performed By: #### U AMIC #### [facility] [address], [place] [address] Dr. Francisco Laboy DIAGNOSIS: Comment Normal [facility] Comment on above: Result Comment: UNSA TISFACTORY FOR EVALUATION. 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 Performed at: BA Performed By: #### U AMIC #### [facility] [address], [place] [address] Dr. Francisco Laboy HPV Aptima Negative Normal Negative [facility] Comment on above: Result Comment: This nucleic acid amplification test detects fourteen high-risk HPV types (16,18,31,33,35,39,45,51,52,56,58,59,66,68) without differentiation. Performed at: =G Performed By: #### U AMIC #### [facility] [address] [address] [address] Francisco Laboy Methodology: Comment Normal [facility] Comment on above: Result Comment: This liquid based ThinPrep(R) pap test was screened with the use of an image guided system. Performed at: WB Performed By: #### U AMIC #### [facility] [address] [address] [address] Francisco Laboy Note: Comment Normal [facility] Comment on above: Result Comment: [...] WB Performed By: #### U AMIC #### [facility] [address] [place] [address] Dr. Francisco Laboy Performed by: Comment Normal [facility] Comment on above: Result Comment: Liang Houser, Manager Of Community Relations (ASCP) Performed at: BA Performed By: #### U AMIC #### [facility] [address] [place] [address] Dr. Francisco Laboy QC reviewed by: Comment Normal [facility] Comment on above: Result Comment: Rusty Ortiz, Manager Of Community Relations (ASCP) Performed at: BA Performed By: #### U AMIC #### [facility] [id number] Francisco Laboy Specimen adequacy: Comment Normal [facility] Comment on above: Result Comment: Spec imen processed and examined but unsatisfactory for evaluation of epithelial abnormality because of insufficient cellularity. Performed at: BA Performed By: #### U AMIC #### [facility] [address] [address] [address] 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 LOCATION: [facility] BREAST COMPOSITION: Heterogeneously dense,which may obscure small [...] MD on 10/01/2021 at 08:44 Normal [facility] CULTURE URINEon 09-06-2021 CULTURE URINE Culture Observations : NO GROWTH. Normal [facility] Comment on above: Performed By: #### U AMIC #### [facility] [address] [address] [address] Francisco Laboy UA RANDOM W/MICROSCOPICon BACTERIA NONE SEEN Normal NONE SEEN [facility] Comment on above: Performed By: #### U AMIC #### [facility] [address] [address] [address] Francisco Laboy Bilirubin Ql (U) Negative Normal NEGATIVE [facility] Comment on above: Performed By: #### U AMIC #### [facility] [address] [address] [address] Francisco Laboy CAST NONE SEEN Normal NONE SEEN [facility] Comment on above: Performed By: #### U AMIC #### [facility] [address] [address] [address] Francisco Laboy Clarity (U) CLEAR Normal CLEAR [facility] Comment on above: Performed By: #### U AMIC #### [facility] [address] [address] [address] Francisco Laboy Color (U) LT. YELLOW Normal YELLOW [facility] Comment on above: Performed By: #### U AMIC #### [facility] [address] [address] [address] Francisco Laboy Crystals LM Nom (Urine sed) NONE SEEN Normal NONE SEEN [facility] Comment on above: Performed By: #### U AMIC #### [facility] [address] [place] [address] Dr. Francisco Laboy Epithelial cells LM Ql (Urine sed) FEW Abnormal NONE SEEN /RARE [facility] Comment on above: Performed By: #### U AMIC #### [facility] [address] [place] [address] Dr. Francisco Laboy Glucose Ql (U) Negative Normal NEGATIVE [facility] Comment on above: Performed By: #### U AMIC #### [facility] [address] [address] [address] Francisco Laboy Hemoglobin Ql (U) Negative Normal NEGATIVE [facility] Comment on above: Performed By: #### U AMIC #### [facility] [address] [address] [address] Francisco Laboy Ketones Ql (U) Negative Normal NEGATIVE [facility] Comment on above: Performed By: #### U AMIC #### [facility] [address] [address] [address] Francisco Laboy LEUKOCYTES Negative Normal NEGATIVE [facility] Comment on above: Performed By: #### U AMIC #### [facility] [address] [place] [address] Dr. Francisco Laboy MUCOUS NONE SEEN Normal NONE SEEN [facility] Comment on above: Performed By: #### U AMIC #### [facility] [address] [place] [address] Dr. Francisco Laboy Nitrite Ql (U) Negative Normal NEGATIVE [facility] Comment on above: Performed By: #### U AMIC #### [facility] [address] [place] [address] Dr. Francisco Laboy pH (U) 6.0 [pH] Normal 5-9 [facility] Comment on above: Performed By: #### U AMIC #### [facility] [address] [place] [address] Dr. Francisco Laboy RBC NONE SEEN Abnormal 0-2 [facility] Comment on above: Performed By: #### U AMIC #### [facility] [address] [place] [address] Dr. Francisco Laboy SPEC GRAVITY <=1.005 Abnormal 1.005-<=1.025 [facility] Comment on above: Performed By: #### U AMIC #### [facility] [address] [place] [address] Dr. Francisco Laboy UA PROTEIN Negative Normal NEGATIVE/ TRACE [facility] Comment on above: Performed By: #### U AMIC #### [facility] [address] [place] [address] Dr. Francisco Laboy Urobilinogen Qn (U) 0.2 {Blanca'U}/dL Normal 0.2 - 1. 0 [facility] Comment on above: Performed By: #### U AMIC #### [facility] [address] [place] [address] Dr. Francisco Laboy WBC NONE SEEN Normal NONE SEEN [facility] Comment on above: Performed By: #### U AMIC #### [facility] [address] [place] [address] Dr. Francisco Laboy CULTURE URINEon 08-30-2021 CULTURE [...] Trimethoprim/Sulfamet hoxazole <=20 S F Normal [facility] Comment on above: Performed By: #### U RCX #### [facility] [address] [place] [address] Dr. Francisco Laboy CBC AUTO DIFFon 08-28-2021 BASO # 0.0 103/ul Normal 0.0-0.1 [facility] Comment on above: Performed By: #### U AMIC #### [facility] [address] [place] [address] Dr. Francisco Laboy Basophils/100 WBC (Bld) 0.7 % Normal 0.2-2.0 [facility] Comment on above: Performed By: #### U AMIC #### [facility] [address] [place] [address] Dr. Francisco Laboy EO # 0.2 103/ul Normal 0.0-0.7 [facility] Comment on above: Performed By: #### U AMIC #### [facility] [address] [place] [address] Dr. Francisco Laboy Eosinophils/100 WBC (Bld) 3.3 % Normal 0.9-7.0 [facility] Comment on above: Performed By: #### U AMIC #### [facility] [address] [place] [address] Dr. Francisco Laboy Erythrocyte distribution width (RBC) [Ratio] 13.6 % Normal 11.0-15.0 [facility] Comment on above: Performed By: #### U AMIC #### [facility] [address] [place] [address] Dr. Francisco Laboy Hematocrit (Bld) [Volume fraction] 40.9 % Normal 36.0-48.0 [facility] Comment on above: Performed By: #### U AMIC #### [facility] [address] [place] [address] Dr. Francisco Laboy Hemoglobin (Bld) [Mass/Vol] 13.3 g/dL Normal 12.0-16.0 [facility] Comment on above: Performed By: #### U AMIC #### [facility] [address] [place] [address] Dr. Francisco Laboy IG # 0.01 10e3/ul Normal 0.00-0.03 [facility] Comment on above: Performed By: #### U AMIC #### [facility] [address] [place] [address] Dr. Francisco Laboy IG % 0.2 % Normal 0.0-0.5 [facility] Comment on above: Performed By: #### U AMIC #### [facility] [address] [place] [address] Dr. Francisco Laboy LYMPH # 1.8 103/ul Normal 1.2-3.8 [facility] Comment on above: Performed By: #### U AMIC #### [facility] [address] [place] [address] Dr. Francisco Laboy Lymphocytes/100 WBC (Bld) 31.6 % Normal 20.5-60.0 [facility] Comment on above: Performed By: #### U AMIC #### [facility] [address] [place] [address] Dr. Francisco Laboy MANUAL DIFF REQ NO Normal [facility] Comment on above: Performed By: #### U AMIC #### [facility] [address] [place] [address] Dr. Francisco Laboy MCH (RBC) [Entitic mass] 29.1 pg Normal 26.7-34.0 [facility] Comment on above: Performed By: #### U AMIC #### [facility] [address] [place] [address] Dr. Francisco Laboy MCHC (RBC) [Mass/Vol] 32.5 g/dL Normal 29.9-35.2 [facility] Comment on above: Performed By: #### U AMIC #### [facility] [address] [place] [address] Dr. Francisco Laboy MCV (RBC) [Entitic vol] 89.5 fL Normal 81.0-99.0 [facility] Comment on above: Performed By: #### U AMIC #### [facility] [address] [address] [address] Francisco Laboy MONO # 0.5 103/ul Normal 0.3-0.8 [facility] Comment on above: Performed By: #### U AMIC #### [facility] [address] [address] [address] Francisco Laboy Monocytes/100 WBC (Bld) 8.7 % Normal 1.7-12.0 [facility] Comment on above: Performed By: #### U AMIC #### [facility] [address] [place] [address] Dr. Francisco Laboy NEUT # 3.2 103/ul Normal 1.4-6.5 [facility] Comment on above: Performed By: #### U AMIC #### [facility] [address] [place] [address] Dr. Francisco Laboy Neutrophils/100 WBC (Bld) 55.5 % Normal 43.0-75.0 [facility] Comment on above: Performed By: #### U AMIC #### [facility] [address] [place] [address] Dr. Francisco Laboy Platelet mean volume (Bld) [Entitic vol] 10.5 fL Normal 9.5-13.5 [facility] Comment on above: Performed By: #### U AMIC #### [facility] [address] [place] [address] Dr. Francisco Laboy PLT 261 103/ul Normal 150-450 [facility] Comment on above: Performed By: #### U AMIC #### [facility] [address] [place] [address] Dr. Francisco Laboy RBC 4.57 106/ul Normal 4.20-5.40 [facility] Comment on above: Performed By: #### U AMIC #### [facility] [address] [place] [address] Dr. Francisco Laboy WBC 5.8 103/ul Normal 4.0-11.0 [facility] Comment on above: Performed By: #### U AMIC #### [facility] [address] [address] [address] Francisco Laboy LIPID PROFILEon 08-28-2021 CHOL-HDL RATIO NORM SEE BELOW Normal [facility] Comment on above: Result Comment: 3.3 - 4.4 LOW RISK 4.4 - 7.1 AVERAGE RISK 7.1 - 11.0 MODERATE RISK >11.0 HIGH RISK Performed By: #### T SH, LIPID, CMP #### [facility] [address] [address] [address] Francisco Laboy Cholesterol [Mass/Vol] 244 mg/dL Critically high <=200 [facility] Comment on above: Performed By: #### T SH, LIPID, CMP #### [facility] [address] [place] [address] Dr. Francisco Laboy Cholesterol in HDL [Mass/Vol] 47 mg/dL Normal 40-60 [facility] Comment on above: Performed By: #### T SH, LIPID, CMP #### [facility] [address] [address] [address] Francisco Laboy Cholesterol in LDL [Mass/Vol] 155.2 mg/dL Normal [facility] Comment on above: Performed By: #### T SH, LIPID, CMP #### [facility] [address] [address] [address] Francisco Laboy Cholesterol.total/C holesterol in HDL [Mass ratio] 5.2 {ratio} Normal [facility] Comment on above: Performed By: #### T SH, LIPID, CMP #### [facility] [address] [address] [address] Francisco Laboy HDL NORMAL > or = 60 mg/dl - LO W CARDIOVASCULAR RISK <40 mg/dl - HIGH CARDIOVASCULAR RISK Normal [facility] Comment on above: Performed By: #### T SH, LIPID, CMP #### [facility] [address] [address] [address] Francisco Laboy LDL CALC NORMAL SEE BELOW Normal [facility] Comment on above: Result Comment: <100 mg/dl OPTIMAL 100 - 129 mg/dl NEAR OR ABOVE OPTIMAL 130 - 159 mg/dl BORDERLINE HIGH 160 - 189 mg/dl HIGH >190 mg/dl VERY HIGH Performed By: #### T FEDE LIPID, CMP #### [facility] [address] [place] [address] Dr. Francisco Laboy Triglyceride [Mass/Vol] 209 mg/dL Critically high <=150 [facility] Comment on above: Performed By: #### T FEDE, LIPID, CMP #### [facility] [address] [place] [address] Dr. Francisco Laboy VLDL CALC 41.8 mg/dL Normal [facility] Comment on above: Performed By: #### T FEDE LIPID, CMP #### [facility] [address] [place] [address] Dr. Francisco Laboy PROF 14(COMP METB)on 022 Albumin [Mass/Vol] 4.0 g/dL Normal 3.4-5.[address] [facility] Comment on above: Performed By: #### T FEDE LIPID, CMP #### [facility] [address] [place] [address] Dr. Francisco Laboy Albumin/Globulin [Mass ratio] 1.3 {ratio} Normal [facility] Comment on above: Performed By: #### T FEDE LIPID, CMP #### [facility] [address] [place] [address] Dr. Francisco Laboy ALP [Catalytic activity/Vol] 84 U/L Normal 46-116 [facility] Comment on above: Performed By: #### T FEDE, LIPID, CMP #### [facility] [address] [place] [address] Dr. Francisco Laboy ALT [Catalytic activity/Vol] 24 U/L Normal 14-59 [facility] Comment on above: Performed By: #### T FEDE, LIPID, CMP #### [facility] [address] [place] [address] Dr. Francisoc Laboy Anion gap [Moles/Vol] 13.2 mmol/L Normal [facility] Comment on above: Performed By: #### T FEDE, LIPID, CMP #### [facility] [address] [address] [address] Francisco Laboy AST [Catalytic activity/Vol] 15 U/L Normal 15-37 [facility] Comment on above: Performed By: #### T SH, LIPID, CMP #### [facility] [address] [address] [address] Francisco Laboy Bilirubin [Mass/Vol] 0.3 mg/dL Normal 0.2-1.3 [facility] Comment on above: Performed By: #### T SH, LIPID, CMP #### [facility] [address] [address] [address] Francisco Laboy Calcium [Mass/Vol] 8.4 mg/dL Critically low 8.5-10.1 [facility] Comment on above: Performed By: #### T SH, LIPID, CMP #### [facility] [address] [place] [address] Dr. Francisco Laboy Chloride [Moles/Vol] 105 mmol/L Normal 98-107 [facility] Comment on above: Performed By: #### T SH, LIPID, CMP #### [facility] [address] [place] [address] Dr. Francisco Laboy CO2 [Moles/Vol] 26.8 mmol/L Normal 22.0-30.0 [facility] Comment on above: Performed By: #### T SH, LIPID, CMP #### [facility] [address] [place] [address] Dr. Francisco Laboy Creatinine [Mass/Vol] 0.84 mg/dL Normal 0.52-1.04 [facility] Comment on above: Performed By: #### T SH, LIPID, CMP #### [facility] [address] [place] [address] Dr. Francisco Laboy EGFR-AF COLOMBIAN >60 Normal >=60 [facility] Comment on above: Performed By: #### T SH, LIPID, CMP #### [facility] [address] [place] [address] Dr. Francisco Laboy EGFR-NON AF COLOMBIAN >60 Normal >=60 [facility] Comment on above: Performed By: #### T SH, LIPID, CMP #### [facility] [address] [address] [address] Francisco Laboy Globulin (S) [Mass/Vol] 3.0 g/dL Normal [facility] Comment on above: Performed By: #### T SH, LIPID, CMP #### [facility] [address] [address] [address] Francisco Laboy Glucose [Mass/Vol] 101 mg/dL Normal 74-106 [facility] Comment on above: Performed By: #### T SH, LIPID, CMP #### [facility] [address] [place] [address] Dr. Francisco Laboy Potassium [Moles/Vol] 4.0 mmol/L Normal 3.4-5.0 [facility] Comment on above: Performed By: #### T FEDE, LIPID, CMP #### [facility] [address] [place] [address] Dr. Francisco Laboy Protein [Mass/Vol] 7.0 g/dL Normal 6.1-8.2 [facility] Comment on above: Performed By: #### T FEDE, LIPID, CMP #### [facility] [address] [place] [address] Dr. Francisco Laboy Sodium [Moles/Vol] 141 mmol/L Normal 137-[address] [facility] Comment on above: Performed By: #### T FEDE, LIPID, CMP #### [facility] [address] [place] [address] Dr. Francisco Laboy Urea nitrogen [Mass/Vol] 15.0 mg/dL Normal 7.0-18.0 [facility] Comment on above: Performed By: #### T SH, LIPID, CMP #### [facility] [address] [place] [address] Dr. Francisco Laboy Urea nitrogen/Creatinine [Mass ratio] 17.9 mg/mg Normal [facility] Comment on above: Performed By: #### T SH, LIPID, CMP #### [facility] [address] [place] [address] Dr. Francisco Laboy TSHon 08-28-2021 TSH 3.809 uIU/mL Normal 0.470-4.680 [facility] Comment on above: Performed By: #### T SH, LIPID, CMP #### [facility] [address] [place] [address] Dr. Francisco Laboy TSH RANGE SEE BELOW Normal [facility] Comment on above: Result Comment: <0.3 4 UIU/ml HYPERTHYROID 0.34-5.60 UIU/ml EUTHYROID >5.60 UIU/ml HYPOTHYROID Performed By: #### T SH, LIPID, CMP #### [facility] [address] [place] [address] Dr. Francisco Laboy UA RANDOM W/MICROSCOPICon BACTERIA MODERATE Abnormal NONE SEEN [facility] Comment on above: Performed By: #### U AMIC #### [facility] [address] [place] [address] Dr. Francisco Laboy Bilirubin Ql (U) Negative Normal NEGATIVE [facility] Comment on above: Performed By: #### U AMIC #### [facility] [address] [place] [address] Dr. Francisco Laboy CAST NONE SEEN Normal NONE SEEN [facility] Comment on above: Performed By: #### U AMIC #### [facility] [address] [place] [address] Dr. Francisco Laboy Clarity (U) CLEAR Normal CLEAR [facility] Comment on above: Performed By: #### U AMIC #### [facility] [address] [place] [address] Dr. Francisco Laboy Color (U) LT. YELLOW Normal YELLOW [facility] Comment on above: Performed By: #### U AMIC #### [facility] [address] [place] [address] Dr. Francisco Laboy Crystals LM Nom (Urine sed) NONE SEEN Normal NONE SEEN [facility] Comment on above: Performed By: #### U AMIC #### [facility] [address] [place] [address] Dr. Francisco Laboy Epithelial cells LM Ql (Urine sed) RARE Normal NONE SEEN /RARE [facility] Comment on above: Performed By: #### U AMIC #### [facility] [address] [address] [address] Francisco Laboy Glucose Ql (U) Negative Normal NEGATIVE [facility] Comment on above: Performed By: #### U AMIC #### [facility] [address] [address] [address] Francisco Laboy Hemoglobin Ql (U) SMALL Abnormal NEGATIVE [facility] Comment on above: Performed By: #### U AMIC #### [facility] [address] [address] [address] Francisco Laboy Ketones Ql (U) Negative Normal NEGATIVE [facility] Comment on above: Performed By: #### U AMIC #### [facility] [address] [address] [address] Francisco Laboy LEUKOCYTES SMALL Abnormal NEGATIVE [facility] Comment on above: Performed By: #### U AMIC #### [facility] [address] [address] [address] Francisco Laboy MUCOUS SMALL Abnormal NONE SEEN [facility] Comment on above: Performed By: #### U AMIC #### [facility] [address] [address] [address] Francisco Laboy Nitrite Ql (U) Positive Abnormal NEGATIVE [facility] Comment on above: Performed By: #### U AMIC #### [facility] [address] [address] [address] Francisco Laboy pH (U) 6.5 [pH] Normal 5-9 [facility] Comment on above: Performed By: #### U AMIC #### [facility] [address] [address] [address] Francisco Laboy RBC 0-2 Normal 0-2 [facility] Comment on above: Performed By: #### U AMIC #### [facility] [address] [address] [address] Francisco Laboy SPEC GRAVITY 1.015 Normal 1.005-<=1.[address] [facility] [facility] Comment on above: Performed By: #### U AMIC #### [facility] [address] [address] [address] Francisco Laboy UA PROTEIN Negative Normal NEGATIVE/ TRACE [facility] Comment on above: Performed By: #### U AMIC #### [facility] [address] [address] [address] Francisco Laboy Urobilinogen Qn (U) 0.2 {Blanca'U}/dL Normal 0.2 - 1. 0 [facility] Comment on above: Performed By: #### U AMIC #### [facility] [address] [address] [address] Francisco Laboy WBC 5-10 Abnormal NONE SEEN [facility] Comment on above: Performed By: #### U AMIC #### [facility] [address] [address] [address] Francisco Laboy Vital Signs Date Time Vital Sign Value Performing Clinician Facility 10-12-2024 15:19-0400 Body height 151.1 cm Deidre Valdivia MARKETING AGENT Work Phone: [facility] 10-12-2024 15:19-0400 Body mass index (BMI) [Ratio] 24.27 kg/m2 Deidre Skip MARKETING AGENT Work Phone: [facility] 10-12-2024 15:19-0400 Body temperature 97.81 [degF] Deidre Valdivia MARKETING AGENT Work Phone: [facility] 10-12-2024 15:19-0400 Body weight 55.43 kg Deidre Valdivia MARKETING AGENT Work Phone: [facility] 10-12-2024 15:19-0400 Diastolic blood pressure 84 mm[Hg] Deidre Valdivia MARKETING AGENT Work Phone: [facility] 10-12-2024 15:19-0400 Heart rate 68 /min Deidre Valdivia MARKETING AGENT Work Phone: [facility] 10-12-2024 15:19-0400 Respiratory rate 18 /min Deidre Valdivia MARKETING AGENT Work Phone: [facility] 10-12-2024 15:19-0400 SaO2% (BldA) [Mass fraction] 98 % Deidre Jackieholz MARKETING AGENT Work Phone: [facility] 10-12-2024 15:19-0400 Systolic blood pressure 132 mm[Hg] Deidre Salhholz MARKETING AGENT Work Phone: [facility] 04-12-2024 15:28-0500 Body height 151.1 cm Deidre Salhholz MARKETING AGENT Work Phone: [facility] 04-12-2024 15:28-0500 Body mass index (BMI) [Ratio] 23.95 kg/m2 Deidre Salhholz MARKETING AGENT Work Phone: [facility] 04-12-2024 15:28-0500 Body temperature 98.29 [degF] Deidre Salhholz MARKETING AGENT Work Phone: [facility] 04-12-2024 15:28-0500 Body weight 54.7 kg Deidre Salhholz MARKETING AGENT Work Phone: [facility] 04-12-2024 15:28-0500 Diastolic blood pressure 82 mm[Hg] Deidre Aichholz MARKETING AGENT Work Phone: [facility] 04-12-2024 15:28-0500 Heart rate 78 /min Deidre Salhholz MARKETING AGENT Work Phone: [facility] 04-12-2024 15:28-0500 Respiratory rate 18 /min Deidre Salhholz MARKETING AGENT Work Phone: [facility] 04-12-2024 15:28-0500 SaO2% (BldA) [Mass fraction] 98 % Deidre Salhholz MARKETING AGENT Work Phone: [facility] 04-12-2024 15:28-0500 Systolic blood pressure 120 mm[Hg] Deidre Aichholz MARKETING AGENT Work Phone: [facility] 02-02-2024 15:35-0400 Body height 151.1 cm Deidre Aichholz MARKETING AGENT Work Phone: [facility] 02-02-2024 15:35-0400 Body mass index (BMI) [Ratio] 24.15 kg/m2 Deidredejuan Leez MARKETING AGENT Work Phone: [facility] 02-02-2024 15:35-0400 Body temperature 98.8 [degF] Deidre Mejiaholz MARKETING AGENT Work Phone: [facility] 02-02-2024 15:35-0400 Body weight 55.16 kg Deidredejuan Mejiaholz MARKETING AGENT Work Phone: [facility] 02-02-2024 15:35-0400 Diastolic blood pressure 78 mm[Hg] Deidre Salhholz MARKETING AGENT Work Phone: [facility] 02-02-2024 15:35-0400 Heart rate 64 /min Deidre Jackieholz MARKETING AGENT Work Phone: [facility] 02-02-2024 15:35-0400 Respiratory rate 18 /min Deidre Jackieholz MARKETING AGENT Work Phone: [facility] 02-02-2024 15:35-0400 SaO2% (BldA) [Mass fraction] 95 % Deidre Jackieholz MARKETING AGENT Work Phone: [facility] 02-02-2024 15:35-0400 Systolic blood pressure 118 mm[Hg] Deidre Jackieholz MARKETING AGENT Work Phone: [facility] 01-12-2024 16:31-0400 Body height 151.1 cm Deidre Jackieholz MARKETING AGENT Work Phone: [facility] 01-12-2024 16:31-0400 Body mass index (BMI) [Ratio] 23.55 kg/m2 Deidre Salhholz MARKETING AGENT Work Phone: [facility] 01-12-2024 16:31-0400 Body temperature 98.01 [degF] Deidre Mejiaholz MARKETING AGENT Work Phone: [facility] 01-12-2024 16:31-0400 Body weight 53.8 kg Deidre Jackieholz MARKETING AGENT Work Phone: [facility] 01-12-2024 16:31-0400 Diastolic blood pressure 76 mm[Hg] Deidre Aichholz MARKETING AGENT Work Phone: [facility] 01-12-2024 16:31-0400 Heart rate 68 /min Deidre Aichholz MARKETING AGENT Work Phone: [facility] 01-12-2024 16:31-0400 Respiratory rate 18 /min Deidre Aichholz MARKETING AGENT Work Phone: [facility] 01-12-2024 16:31-0400 SaO2% (BldA) [Mass fraction] 98 % Deidre Aichholz MARKETING AGENT Work Phone: [facility] 01-12-2024 16:31-0400 Systolic blood pressure 116 mm[Hg] Deidre Aichholz MARKETING AGENT Work Phone: [facility] 11-11-2023 11:22-0400 Blood Pressure Location SHANNEN CADEN [facility] 11-11-2023 11:22-0400 Diastolic blood pressure 72 mm[Hg] SHANNEN CADEN [facility] 11-11-2023 11:22-0400 Heart rate 68 /min SHANNEN CADEN [facility] 11-11-2023 11:22-0400 Respiratory rate 16 /min SHANNEN CADEN [facility] 11-11-2023 11:22-0400 Systolic blood pressure 130 mm[Hg] SHANNEN CADEN [facility] 09-09-2023 13:14-0400 Blood Pressure Location SHANNEN CADEN [facility] 09-09-2023 13:14-0400 Body temperature 98.24 [degF] SHANNEN CDAEN [facility] 09-09-2023 13:14-0400 Diastolic blood pressure 81 mm[Hg] SHANNEN CADEN [facility] 09-09-2023 13:14-0400 Heart rate 62 /min SHANNEN CADEN [facility] 09-09-2023 13:14-0400 Respiratory rate 16 /min SHANNEN CADEN [facility] 09-09-2023 13:14-0400 Systolic blood pressure 130 mm[Hg] SHANNEN CADEN [facility] 04-25-2023 09:25-0500 Body height 151.13 cm Stephanie Preethi Other [facility] Other 04-25-2023 09:25-0500 Body mass index (BMI) [Ratio] 22.88 kg/m2 Stephanie Preethi Other [facility] Other 04-25-2023 09:25-0500 Body temperature 98.9 [degF] Stephanie Preethi Other [facility] Other 04-25-2023 09:25-0500 Body weight 52.25 kg Stephanie Preethi Other [facility] Other 04-25-2023 09:25-0500 Diastolic blood pressure 79 mm[Hg] 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 Other [facility] Other 04-25-2023 09:25-0500 Respiratory rate 18 /min 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 Other [facility] Other 04-25-2023 09:25-0500 SaO2% (BldA) [Mass fraction] 98 % 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 Other [facility] Other 04-25-2023 09:25-0500 Systolic blood pressure 140 mm[Hg] 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 Other [facility] Other 03-15-2022 14:30-0400 Body height 151.13 cm 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 Other [facility] Other 03-15-2022 14:30-0400 Body mass index (BMI) [Ratio] 25.02 kg/m2 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 Other [facility] Other 03-15-2022 14:30-0400 Body temperature 99.6 [degF] 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 Other [facility] Other 03-15-2022 14:30-0400 Body weight 57.15 kg 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 Other [facility] Other 03-15-2022 14:30-0400 Respiratory rate 18 /min 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 Other [facility] Other 03-15-2022 14:30-0400 SaO2% (BldA) [Mass fraction] 97 % 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 Other [employer] Other Encounters Encounter Date Encounter Type Care Provider Facility Start: 10-12-2024 End: 10-12-2024 Periodic preventive med est patient 40-64yrs Deidre Valdivia MARKETING AGENT Work Phone: [facility] Comment on above: Encounter for adult wellness visit (Primary Dx); Migraine without aura and without status migrainosus, not intractable (CMS/HCC); Encounter for screening mammogram for malignant neoplasm of breast Start: 10-12-2024 End: 10-12-2024 ambulatory DEIDRE JACKIEHOLEmy Not Available Start: 10-12-2024 End: 10-12-2024 Bamboo flowsheet Deidre Skip MARKETING AGENT Work Phone: [facility] Start: 10-12-2024 End: 10-12-2024 Bamboo flowsheet Deidre Aicbetitoholz MARKETING AGENT Work Phone: [facility] Start: 10-12-2024 End: 10-12-2024 Patient encounter status Deidre Skip MARKETING AGENT Work Phone: [facility] Start: 04-15-2024 End: 04-16-2024 Refill Deidredejuan Valdivia MARKETING AGENT Work Phone: [facility] Comment on above: Migraine without aur a and without status migrainosus, not intractable (CMS/HCC) (Primary Dx) Start: 04-12-2024 End: 04-12-2024 Office outpatient visit 25 minutes Deidre Valdivia MARKETING AGENT Work Phone: [facility] Comment on above: Diverticulitis (Prim nahid Dx); Park's esophagus with dysplasia; Migraine without aura and without status migrainosus, not intractable (CMS/HCC); Right shoulder tendonitis Start: 04-12-2024 End: 04-12-2024 ambulatory DEIDRE AICHHOLZ Not Available Start: 04-12-2024 End: 04-12-2024 Bamboo flowsheet Deidre Salhholz MARKETING AGENT Work Phone: [facility] Start: 04-12-2024 End: 04-12-2024 Bamboo flowsheet Deidre Aichholz MARKETING AGENT Work Phone: [facility] Start: 04-01-2024 End: 04-01-2024 ambulatory [facility] Start: 03-22-2024 End: 03-25-2024 Clinisync Result Encounter Generic External Data Provider [facility] Unsolicited Start: 03-22-2024 End: 03-25-2024 Clinisync Result Encounter Generic External Data Provider [facility] Unsolicited Start: 02-02-2024 End: 02-02-2024 Office outpatient visit 15 minutes Deidre Valdivia MARKETING AGENT Work Phone: [facility] Comment on above: Recurrent UTI (urina ry tract infection) (Primary Dx); Migraine without aura and without status migrainosus, not intractable (CMS/HCC); Asymptomatic microscopic hematuria; Dyspareunia in female Start: 02-02-2024 End: 02-02-2024 ambulatory DEIDRE VALDIVIA Not Available Start: 02-02-2024 End: 02-02-2024 Bamboo flowsheet Deidre Valdivia MARKETING AGENT Work Phone: [facility] Start: 02-02-2024 End: 02-02-2024 Bamboo flowsheet Deidre Valdivia MARKETING AGENT Work Phone: [facility] Start: 01-14-2024 End: 01-14-2024 Refill Deidre Valdivia MARKETING AGENT Work Phone: [facility] Comment on above: Urinary tract infect ion, acute (Primary Dx) Start: 01-13-2024 End: 01-13-2024 Clinisync Result Encounter Deidre Valdivia MARKETING AGENT Work Phone: [facility] Unsolicited Start: 01-13-2024 End: 01-13-2024 Clinisync Result Encounter Deidre Valdivia MARKETING AGENT Work Phone: [facility] Unsolicited Start: 01-12-2024 End: 01-12-2024 Office outpatient visit 15 minutes Deidre Valdivia MARKETING AGENT Work Phone: [facility] Comment on above: Migraine without aur a and without status migrainosus, not intractable (CMS/HCC) (Primary Dx); Urinary tract infection, acute; Yeast infection Start: 01-12-2024 End: 01-12-2024 ambulatory DEIDRE AICHHOLZ Not Available Start: 01-12-2024 End: 01-12-2024 Bamboo flowsheet Deidre Aichholz MARKETING AGENT Work Phone: [facility] Start: 01-12-2024 End: 01-12-2024 Bamboo flowsheet Deidre Aichholz MARKETING AGENT Work Phone: [facility] Start: 12-02-2023 End: 12-02-2023 ambulatory DEIDRE AICHHOLZ Not Available Start: 11-11-2023 End: 11-11-2023 ambulatory SHANNEN E CADEN Facility:[facility] Start: 11-11-2023 End: 11-11-2023 Patient encounter procedure SHANNEN E CADEN [facility] Start: 09-16-2023 End: 09-16-2023 Lab Drop off SHANNEN E CADEN [facility] Start: 09-16-2023 End: 09-16-2023 ambulatory SHANNEN E CADEN Facility:[facility] Start: 09-16-2023 End: 09-16-2023 Patient encounter procedure SHANNEN E CADEN [facility] Start: 09-15-2023 ambulatory [facility] Start: 09-09-2023 End: 09-09-2023 ambulatory SHANNEN E CADEN Facility:[facility] Start: 09-09-2023 End: 09-09-2023 Patient encounter procedure SHANNEN E CADEN [facility] Start: 04-25-2023 Office outpatient vi sit 15 minutes 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 [facility] Start: 04-25-2023 End: 04-25-2023 ambulatory Stephanie Preethi [facility] [employer] Other Start: 05-08-2022 End: 05-09-2022 ambulatory KATH DUKE SALBetitoFABIÁN Facility:[facility] Start: 03-15-2022 End: 03-15-2022 Departed Referred MARKETING AGENT-C Stephanie Lazomond Work Phone: [facility] [place] Start: 03-15-2022 End: 03-15-2022 ambulatory MARKETING AGENT-C Stephanie Lazomond Work Phone: [facility] Work Phone: Start: 03-15-2022 Office outpatient ne w 20 minutes Stephanie Preethi [facility] Start: 11-08-2021 End: 11-09-2021 ambulatory KATH DEIDREDejuan VALDIVIA Facility:[facility] Start: 10-11-2021 Encounter for gynecological examination (general) (routine) without abnormal findings KATH DUKE [facility] Start: 10-09-2021 End: 10-10-2021 ambulatory KATH DUKE SKIP Facility:[facility] Start: 10-09-2021 End: 10-10-2021 Encounter for gynecological examination (general) (routine) without abnormal findings KATH DEIDRE SKIP Facility:[facility] Start: 10-02-2021 End: 10-02-[address] JESU CARO Facility:[facility] Start: 10-01-2021 End: 10-02-2021 ambulatory KATH VALDIVIA Facility:[facility] Start: 09-06-2021 End: 09-07-2021 ambulatory KATH DUKE SKIP Facility:[facility] Start: 08-31-2021 Encounter for genera l adult medical examination without abnormal findings [facility] Start: 08-28-2021 End: 08-29-2021 ambulatory LINE TECHNICIAN DEIDRE SKIP Facility:[facility] Start: 08-28-2021 End: 08-29-2021 Encounter for general adult medical examination without abnormal findings KATH VALDIVIA Facility:[facility] Procedures Date Procedure Procedure Detail Performing Clinician Start: 03-22-2024 Bacteria identified in Urine by Culture Generic External Data Provider Start: 01-13-2024 [facility] UA (CLEAN/CATCH) MICROSCOPIC IF INDICATE Deidre Valdivia MARKETING AGENT Work Phone: Start: 12-16-2023 Mammography Deidre burk MARKETING AGENT Work Phone: Start: 03-15-2022 Piperacillin/tazobactam Stephanietylor Oro Other Start: 12-18-2015 Colonoscopy Deidre burk MARKETING AGENT Work Phone: Start: 06-14-2015 Repair of stress inc ontinence by suprapubic sling SHANNEN NEGRETE Start: 05-26-2015 Transurethral cystoscopy SHANNEN NEGRETE Start: 05-17-2015 Urodynamic studies VICTORIANO ABEL CADEN Start: 06-30-2014 Cystourethroscopy wi th dilation of urethral stricture SHANNEN NEGRETE Start: 04-24-2010 Cystourethroscopy wi th dilation of urethral stricture SHANNEN NEGRETE Appendectomy SHANNEN NEGRETE Colonoscopy SHANNEN NEGRETE Hysterectomy SHANNEN NEGRETE Plan of Treatment Date Care Activity Detail Author Start: 12-17-2025 Screening for malign ant neoplasm of colon [facility] Start: 12-15-2024 Screening for malign ant neoplasm of breast Mammogram [facility] Start: 12-06-2024 End: 12-12-2025 MG Breast - bilateral Screening Bilateral screening mammogram Imaging Routine Encounter for screening mammogram for malignant neoplasm of breast Expected: 12/06/2024 (Approximate), Expires: 12/12/2025 [facility] Comment on above: Expected: 12/06/2024 (Approximate), Expires: 12/12/2025 Start: 10-12-2024 End: 10-12-2024 Patient encounter procedure [facility] Comment on above: Migraine without aur a and without status migrainosus, not intractable (CMS/HCC) (Primary Dx) Start: 10-12-2024 End: 10-12-2025 CBC W Auto Differential panel - Blood CBC and differential Lab Routine Encounter For Adult Wellness Visit Expected: 10/12/2024 (Approximate), Expires: 10/12/2025 [facility] Work Phone: Comment on above: Expected: 10/12/2024 (Approximate), Expires: 10/12/2025 Start: 10-12-2024 End: 10-12-2025 Comprehensive metabolic 2000 panel - Serum or Plasma Comprehensive metabolic panel Lab Routine Encounter For Adult Wellness Visit Expected: 10/12/2024 (Approximate), Expires: 10/12/2025 [facility] Comment on above: Expected: 10/12/2024 (Approximate), Expires: 10/12/2025 Start: 10-12-2024 End: 10-12-2025 Lipid 1996 panel - Serum or Plasma Lipid panel Lab Routine Encounter For Adult Wellness Visit Expected: 10/12/2024 (Approximate), Expires: 10/12/2025 [facility] Comment on above: Expected: 10/12/2024 (Approximate), Expires: 10/12/2025 Start: 10-12-2024 End: 10-12-2025 Urinalysis complete panel - Urine Urinalysis with reflex microscopic (clean catch) Lab Routine Encounter For Adult Wellness Visit Expected: 10/12/2024 (Approximate), Expires: 10/12/2025 [facility] Comment on above: Expected: 10/12/2024 (Approximate), Expires: 10/12/2025 Start: 06-14-2024 End: 06-14-2024 Patient encounter procedure 06/14/2024 3:00 PM EST [facility] Visit [facility] [address] [place] [id number] Kasandra Wade PA [address] [place] [address] [facility] Start: 04-12-2024 End: 04-12-2024 Patient encounter procedure [facility] Comment on above: Park's esophagus with dysplasia (Primary Dx); Migraine without aura and without status migrainosus, not intractable ([facility]/HCC); Diverticulitis Start: 03-18-2024 Influenza vaccination Influenza Vacc ine (#1) [facility] Comment on above: Postponed from 01/17 (Patient Does Not Have Time) Start: 02-02-2024 End: 02-02-2024 Patient encounter procedure [facility] Comment on above: Arrived Start: 01-28-2024 End: 01-13-2025 Bacteria identified in Urine by Culture Urine culture (clean catch) Microbiology Routine Urinary tract infection, acute Expected: 01/28/2024 (Approximate), Expires: 01/13/2025 [facility] Work Phone: Comment on above: Expected: 01/28/2024 (Approximate), Expires: 01/13/2025 Start: 01-18-2024 Influenza vaccination Influenza Vacc ine (#1) [facility] Start: 01-12-2024 End: 01-12-2024 Patient encounter procedure 01/12/2024 4:30 PM EDT Office Visit [facility] [address] [place] [address] Deidre Valdivia NP [address] [place] [phone] Arrived [facility] Comment on above: Arrived Start: 01-12-2024 End: 01-11-2025 Bacteria identified in Urine by Culture Urine culture (clean catch) Microbiology Routine Urinary tract infection, acute Expected: 01/12/2024 (Approximate), Expires: 01/11/2025 [facility] Comment on above: Expected: 01/12/2024 (Approximate), Expires: 01/11/2025 Start: 01-12-2024 End: 01-11-2025 Urinalysis complete panel - Urine Urinalysis with reflex microscopic (clean catch) Lab Routine Urinary tract infection, acute Expected: 01/12/2024 (Approximate), Expires: 01/11/2025 [facility] Work Phone: Comment on above: Expected: 01/12/2024 (Approximate), Expires: 01/11/2025 Start: 1960 Screening for malign ant neoplasm of colon [facility] Bacteria identified in Urine by Culture Urine Culture [facility] Immunizations Immunization Date Immunization Notes Care Provider Shai pisano 02-15-2024 influenza virus vaccine, unspecified formulation Deidre Aichholz MARKETING AGENT Work Phone: [facility] 07-05-2022 zoster vaccine recombinant SHANNEN CADEN [facility] 03-30-2022 influenza virus vaccine, unspecified formulation SHANNEN CADEN [facility] 03-30-2022 Influenza, injectabl e, Madin [place] Canine Kidney, preservative free, quadrivalent Deidre Aichholz MARKETING AGENT Work Phone: [facility] 03-30-2022 zoster vaccine recombinant SHANNEN CADEN [facility] 02-08-2021 influenza virus vaccine, unspecified formulation SHANNEN CADEN [facility] 02-08-2021 Influenza, injectabl e, Madin [place] Canine Kidney, preservative free, quadrivalent Deidre Aichholz MARKETING AGENT Work Phone: [facility] 02-13-2020 influenza virus vaccine, unspecified formulation SHANNEN CADEN [facility] 02-13-2020 influenza, injectabl e, quadrivalent, preservative free Deidre Aichholz MARKETING AGENT Work Phone: [facility] 02-27-2019 influenza virus vaccine, unspecified formulation SHANNEN CADEN [facility] 02-27-2019 influenza, injectabl e, quadrivalent, contains preservative Deidre Aichholz MARKETING AGENT Work Phone: [facility] 03-26-2015 influenza virus vaccine, unspecified formulation SHANNEN CADEN [facility] 03-26-2015 influenza, seasonal, injectable, preservative free Deidre Aichholz MARKETING AGENT Work Phone: [facility] 03-23-2014 influenza virus vaccine, unspecified formulation SHANNEN CADEN [facility] 03-23-2014 influenza, seasonal, injectable Deidre Aichholz MARKETING AGENT Work Phone: [facility] 05-22-2013 influenza virus vaccine, unspecified formulation SHANNEN CADEN [facility] 05-22-2013 influenza, seasonal, injectable Deidre Aichholz MARKETING AGENT Work Phone: [facility] Payers Date Payer Category Payer Private Health Insurance [facility] [id number] 2023 Unknown [employer] [id number] 2023-Present [phone] [address] [address] [place] [address] [id number] 2023 Self-pay 2022 Unknown [id number] [id number] 1962 Unknown [id number] 2.16.840.1.835815.3.579. 2.593 1962 Unknown [id number] 2.16.840.1.323299.3.579. 2.593 1962 Unknown [id number] 2.16.840.1.528537.3.579. 2.593 1962 Unknown [id number] 2.16.840.1.822490.3.579. 2.593 1962 Unknown [id number] 2.16.840.1.668647.3.579. 2.593 1962 Unknown [id number] 2.16.840.1.122616.3.579. 2.593 1962 Unknown [id number] 2.16.840.1.358024.3.579. 2.593 1962 Unknown [id number] 2.16.840.1.422226.3.579. 2.727 1962 Unknown [id number] 2.16.840.1.850050.3.579. 2.727 1962 Unknown [id number] 2.16.840.1.824216.3.579. 2.727 1962 Unknown [id number] 2.16.840.1.649141.3.579. 2.727 1962 Unknown [id number] 2.16.840.1.315545.3.579. 2.1286 1962 Unknown [id number] 2.16.840.1.826850.3.579. 2.1259 1962 Unknown [id number] 2.16.840.1.238444.3.579. 2.1259 1962 Unknown [id number] 2.16.840.1.247104.3.579. 2.1259 1962 Unknown [id number] 2.16.840.1.782734.3.579. 2.1259 1962 Unknown [id number] 2.16.840.1.750416.3.579. 2.1259 1959 Unknown [id number] 2.16.840.1.334758.19 Unknown [id number] 2.16.840.1.410700.3.579. 2.531 Social History Date Type Detail Facility Start: 01-27-2024 End: 04-06-2024 Sex Assigned At [facility] Start: 1960 Sex Assigned At Female F [facility] Start: 09-09-2023 End: 12-02-2023 Tobacco smoking status Never smoked tobacco (finding) [facility] Tobacco smoking status Never [facility] Start: 12-02-2023 Tobacco use and exposure Smokeless tobacco non-user [facility] Start: 02-02-2024 End: 10-12-2024 Alcoholic beverage intake Not Asked [facility] Start: 01-27-2024 End: 04-06-2024 History of Social function [facility] Are you now , , , , never or living with a partner? [facility] How often to you hav e a drink containing alcohol? Never [facility] Do you feel stress - tense, restless, nervous, or anxious, or unable to sleep at night because your mind is troubled all the time - these days [OSQ] Not at all [facility] (I/We) worried wheth er (my/our) food would run out before (I/we) got money to buy more. Never true [facility] In the past 12 month s, was there a time when you were not able to pay the mortgage or rent on time? No [facility] Start: 12-02-2023 Alcohol Comment caffine: no [facility] Start: 1960 Sex assigned at Not on file [facility] Functional Status Date Assessment Result Facility 11-11-2023 Functional Status N/A [facility] 09-09-2023 Functional Status N/A [facility] Clinical Notes 10-17-2021 to 10-12-2024 Deidre Valdivia NP - 10/12/2024 3:52 PM EDTHWYATT HERNANDEZ - 10/12/2024 3:00 PM Daniel Valdivia NP - 10/12/2024 3:00 PM Daniel Valdivia NP - 10/12/2024 7:36 AM EDTPatient Instructions Note Date & Type Note Facility 10-12-2024 History of Present illness Narrative Associated Problem(s): Encounter for adult wellness visit Reviewed Ht/Wt/BMI Recommend eye exam yearly Recommend dental exams twice a year Balance work/leisure activities Exercises is recommended most days of the week (appropriate as chronic conditions allow) Follow up yearly and prn Colonoscopy in October Pt is retiring 12/17 She would like to get blood work and whatever else needed done before she looses her insurance with her workplace this includes a wellness if time Images from the original note were not included. Monica Diaz is a 63 y.o. female presents [...] omeprazole (PRILOSEC) 20 mg, 2 times daily ALLERGIES: Allergies Allergen Reactions Nitrofurantoin Other Reaction(s): Vomiting REVIEW OF SYMPTOMS: Review of Systems Constitutional: Negative for appetite change, chills and fever. HENT: Negative for congestion, ear pain, sinus pressure and sore throat. Eyes: Positive for blurred vision and photophobia. Negative for pain, discharge, redness and visual disturbance. Respiratory: Negative for cough, shortness of breath and wheezing. Cardiovascular: Negative for chest pain, palpitations and leg swelling. Gastrointestinal: Positive for vomiting. Negative for abdominal pain, blood in stool, constipation, diarrhea and nausea. Genitourinary: Negative for difficulty urinating, [...] Size: Adult long) Pulse 68 Temp 97.8 F (Temporal) Resp 18 Ht 4' 11.5 Wt 122 lb 3.2 oz SpO2 98% BMI 24.27 kg/m OB Status Hysterectomy Smoking Status Never BSA 1.52 m Physical Exam Vitals and nursing note reviewed. [...] normal. Judgment: Judgment normal. ASSESSMENT AND PLAN: No follow-ups on file. Problem List Items Addressed This Visit Migraine without aura and without status migrainosus, not intractable (CMS/HCC) - Primary Current migraine days per month: Triggers: Missed work: Current meds: ubrelvy Encounter for screening mammogram for malignant neoplasm of breast Relevant Orders Bilateral screening mammogram Encounter for adult wellness visit Reviewed Ht/Wt/BMI Recommend eye exam yearly Recommend dental exams twice a year Balance work/leisure activities Exercises is recommended most days of the week (appropriate as chronic conditions allow) Follow up yearly and prn Relevant Orders CBC and differential Comprehensive metabolic panel Lipid panel Urinalysis with reflex microscopic (clean catch) Associated Problem(s): Migraine without aura and without status migrainosus, not intractable (CMS/HCC) Current migraine days per month: Triggers: Missed work: Current meds: ubrelvy documented in this encounter [facility] 10-12-2024 Instructions Deidre Valdivia NP - 10/12/2024 3:00 PM EDT Get labs fasting I will fax order to [facility] for mammogram: [phone] ext [phone] documented in this encounter [facility] 04-12-2024 History of Present illness Narrative Associated Problem(s): Right shoulder tendonitis OTC NSAID of choice take food Ice 2-3 times daily 20 minutes each, Stretching exercises Fu if not better Images from the original note were not included. Monica Diaz is a 63 y.o. female presents with chief complaint of Diverticulitis HPI: Here for recheck Since last visit to Er with dx diverticulitis, she was treated with flagyl and cipro. No acute abd pain, NV, no diarrhea or fever, no bloody stools. Saw Dr Rae, and has colonoscopy planned for 05/2024 Migraines: WILSON, treated with ubrelvey. Feels that this is helpful. Takes about 2 urbrelvey per month, minimal side effects with taking this Pain to the right upper bicep region, intermittent, sharp/achy, no NT, feels weaker at times, RHD SUBJECTIVE: MEDICATIONS: Current Outpatient Medications Medication Instructions Cranberry 500 MG capsule 1 each, Daily omeprazole (PRILOSEC) 20 mg, 2 times daily Ubrelvy 100 mg, Daily PRN ALLERGIES: Allergies Allergen Reactions Nitrofurantoin Other Reaction(s): Vomiting REVIEW OF SYMPTOMS: Review of Systems Constitutional: Negative for appetite change, chills and fever. HENT: Negative for congestion, ear pain and sore throat. Eyes: Negative for pain, discharge, redness and visual disturbance. Respiratory: Negative for cough, shortness of breath and wheezing. Cardiovascular: Negative for chest pain, palpitations and leg swelling. Gastrointestinal: Negative for abdominal pain, blood in stool, constipation, diarrhea, nausea and vomiting. Genitourinary: Negative for difficulty urinating, dysuria and frequency. Musculoskeletal: Positive for arthralgias. Negative for back pain, joint swelling and myalgias. Skin: Negative for rash and wound. Neurological: Positive for headaches. Negative for dizziness, tremors, seizures and syncope. Psychiatric/Behavioral: Negative for behavioral problems, self-injury and [...] not on file. OBJECTIVE: Visit Vitals BP 120/82 (BP Location: Left arm, Patient Position: Sitting, BP Cuff Size: Adult long) Pulse 78 Temp 98.3 F (Temporal) Resp 18 Ht 4' 11.5 Wt 120 lb 9.6 oz SpO2 98% BMI 23.95 kg/m OB Status Hysterectomy Smoking Status Never BSA 1.52 m Physical Exam Vitals and nursing note reviewed. [...] Tenderness: There is no abdominal tenderness. Musculoskeletal: Cervical back: Normal range of motion and neck supple. Comments: Right shoulder: limited extension not over 140, pain with internal rotation and external rotation Pain w empty can test Biceps tendon appears intact Skin: General: Skin is warm and dry. [...] Follow up in about 6 months (around 10/10/2024) for Recheck. Problem List Items Addressed This Visit Migraine without aura and without status migrainosus, not intractable (CMS/HCC) Will continue with prn ubrelvy Park's esophagus Continue with PPI Next EGD due 11/2026 Diverticulitis - Primary Recent ER visit at [facility] Treated, fu with Grillis Is scheduled for colonoscpy 2024 Right shoulder tendonitis OTC NSAID of choice take food Ice 2-3 times daily 20 minutes each, Stretching exercises Fu if not better Associated Problem(s): Diverticulitis Recent ER visit at [facility] Treated, fu with [facility] Is scheduled for colonoscpy 2024 Associated Problem(s): Migraine without aura and without status migrainosus, not intractable (CMS/HCC) Will continue with prn ubrelvy Associated Problem(s): Park's esophagus Continue with PPI Next EGD due 11/2026 documented in this encounter [facility] 04-12-2024 Instructions Deidre Valdivia NP - 04/12/2024 3:20 PM EST Stretches, ice and anti inflammatory and if after a 2-3 weeks not better let me know documented in this encounter [facility] 02-02-2024 History of Present illness Narrative Associated Problem(s): Recurrent UTI (urinary tract infection) No acute symptoms at this time Will have her trial adding premarin vag cream twice a week Associated Problem(s): Dyspareunia in female Will trial premarin cream Associated Problem(s): Asymptomatic microscopic hematuria Recheck urine in 8 weeks Associated Problem(s): Migraine without aura and without status migrainosus, not intractable (CMS/HCC) Will continue with prn ubrelvy Images from the original note were not included. Monica Diaz is a 63 y.o. female presents with chief complaint of No chief complaint on file. HPI: Here for a recheck, she denies any acute UTI sxs at this time, she has finished atb. Does not feel she needs a repeat culture, if sxs return will check urine. Does suffer from dysparunia and feels that some UTI's may occur after intercourse as well Migraine is doing well as well with ubrelvey SUBJECTIVE: MEDICATIONS: Current Outpatient Medications Medication Instructions Cranberry 500 MG capsule 1 each, Oral, Daily omeprazole (PRILOSEC) 20 mg, Oral, 2 times daily Premarin 0.5 g, Vaginal, 2 times weekly Ubrelvy 100 mg, Oral, Daily PRN ALLERGIES: Allergies Allergen Reactions Nitrofurantoin Other Reaction(s): Vomiting REVIEW OF SYMPTOMS: Review of Systems Constitutional: Negative for appetite change, chills and fever. HENT: Negative for congestion, ear pain and sore throat. Eyes: Negative for pain, discharge, redness and visual disturbance. Respiratory: Negative for cough, shortness of breath and wheezing. Cardiovascular: Negative for chest pain, palpitations and leg swelling. Gastrointestinal: Negative for abdominal pain, blood in stool, constipation, diarrhea, nausea and vomiting. Genitourinary: Positive for dyspareunia. Negative for difficulty urinating, dysuria and frequency. Musculoskeletal: Negative for arthralgias, back pain, joint swelling and myalgias. Skin: Negative for rash and wound. Neurological: Positive for headaches. Negative for dizziness, tremors, seizures and syncope. Psychiatric/Behavioral: Negative for behavioral problems, self-injury and [...] not on file. OBJECTIVE: Visit Vitals BP 118/78 (BP Location: Left arm, Patient Position: Sitting, BP Cuff Size: Adult long) Pulse 64 Temp 98.8 F (Temporal) Resp 18 Ht 4' 11.5 Wt 121 lb 9.6 oz SpO2 95% BMI 24.15 kg/m OB Status Hysterectomy Smoking Status Never BSA 1.52 m Physical Exam Vitals and nursing note reviewed. [...] normal. Judgment: Judgment normal. ASSESSMENT AND PLAN: No follow-ups on file. Problem List Items Addressed This Visit Migraine without aura and without status migrainosus, not intractable (CMS/HCC) - Primary Will continue with prn ubrelvy Asymptomatic microscopic hematuria Recheck urine in 8 weeks Dyspareunia in female Will trial premarin cream Relevant Medications Estrogens Conjugated (Premarin) 0.625 MG/GM cream Recurrent UTI (urinary tract infection) No acute symptoms at this time Will have her trial adding premarin vag cream twice a week documented in this encounter [facility] 01-12-2024 History of Present illness Narrative Associated Problem(s): Migraine without aura and without status migrainosus, not intractable (CMS/HCC) Will continue with prn ubrelvy If freq increases consider qlipta Associated Problem(s): Urinary tract infection, acute Repeat urine culture Pt was having greenish-yellow discharge starting night lasted for a couple days and causing itchiness. Pt is asking if she possibly has another uti or a yeast infection. No changes with headaches. Images from the original note were not included. Monica Diaz is a 63 y.o. female presents with chief complaint of No chief complaint on file. HPI: Here for a recheck: migraines are much better controlled with use of ubrelvey, she was able to get it picked up through pharmacy Finished atb, not sure if is getting another UTI or not. Had some yellowish discharge then white, and vag itching. Possible yeast infection SUBJECTIVE: MEDICATIONS: Current Outpatient Medications Medication Instructions Cranberry 500 MG capsule 1 each, Oral, Daily fluconazole (Diflucan) 150 MG tablet 1 dose, repeat again in 3 days omeprazole (PRILOSEC) 20 mg, Oral, 2 times daily SUMAtriptan (IMITREX) 25 mg, Oral, Daily PRN, May take 1 pill at onset of migraine WILSON, repeat in 2 hours if needed. No more than 2 pills in 24 hours, no more than twice a week ALLERGIES: Allergies Allergen Reactions Nitrofurantoin Other Reaction(s): Vomiting REVIEW OF SYMPTOMS: Review of Systems Constitutional: Negative for appetite change, chills and fever. HENT: Negative for congestion, ear pain and sore throat. Eyes: Negative for pain, discharge, redness and visual disturbance. Respiratory: Negative for cough, shortness of breath and wheezing. Cardiovascular: Negative for chest pain, palpitations and leg swelling. Gastrointestinal: Negative for abdominal pain, blood in stool, constipation, diarrhea, nausea and vomiting. Genitourinary: Positive for difficulty urinating. Negative for dysuria and frequency. Musculoskeletal: Negative for arthralgias, back pain, joint swelling and myalgias. Skin: Negative for rash and wound. Neurological: Negative for dizziness, tremors, seizures, syncope and headaches (migraine WILSON). Psychiatric/Behavioral: Negative for behavioral problems, self-injury and [...] not on file. OBJECTIVE: Visit Vitals BP 116/76 (BP Location: Left arm, Patient Position: Sitting, BP Cuff Size: Adult) Pulse 68 Temp 98 F (Temporal) Resp 18 Ht 4' 11.5 Wt 118 lb 9.6 oz SpO2 98% BMI 23.55 kg/m OB Status Hysterectomy Smoking Status Never BSA 1.5 m Physical Exam Vitals and nursing note reviewed. [...] is normal. Breath sounds: Normal breath sounds. No wheezing, rhonchi or rales. Chest: Chest wall: No tenderness. Abdominal: General: Bowel sounds are normal. There is no distension. Palpations: Abdomen is soft. There is no mass. Tenderness: There is no abdominal tenderness. Musculoskeletal: General: Normal range of motion. Cervical back: Normal range of motion and neck supple. Right lower leg: No edema. Left lower leg: No edema. Skin: General: Skin is warm and dry. Capillary Refill: Capillary refill takes 2 to 3 seconds. Findings: No rash. Neurological: General: No focal deficit present. Mental Status: She is alert and oriented to person, place, and time. Psychiatric: Mood and Affect: Mood normal. Behavior: Behavior normal. Thought Content: Thought content normal. Judgment: Judgment normal. ASSESSMENT AND PLAN: No follow-ups on file. Problem List Items Addressed This Visit Migraine without aura and without status migrainosus, not intractable ([facility]) Will continue with prn ubrelvy If freq increases consider qlipta Urinary tract infection, acute - Primary Repeat urine culture Relevant Orders Urinalysis with reflex microscopic (clean catch) Urine culture (clean catch) Yeast infection Relevant Medications fluconazole (Diflucan) 150 MG tablet documented in this encounter [facility] 11-11-2023 Hospital Discharge instructions Patient Education 11/11/2023 11:35:53 Urinary Tract [...] Treatment for this condition includes: Antibiotic medicine. [id number]-pee-[id number] medicines to treat discomfort. Drinking enough water [...] Follow these instructions at home: Medicines Take botw-doy-suairhi and prescription medicines only as told by [...] provider. Document Revised: 12/15/2020 Document Reviewed: 12/15/2020 [employer] Patient Education 2022 [employer]. Follow Up Care 09/09/2023 14:02:36 With:SHANNEN NEGRETE PA-C, URL Address: [address] [place] [address] When: Unknown [facility] 09-09-2023 Hospital Discharge instructions Patient Education 09/09/2023 13:56:26 Urinary Tract Infection, Adult, [id number] Urinary Tract Infection, Adult A urinary tract [...] Follow these instructions at home: Medicines Take [id number]-hnx-guznhyk and prescription medicines only as told by [...] provider. Document Revised: 12/15/2020 Document Reviewed: 12/15/2020 [employer] Patient Education 2022 [employer]. Follow Up Care 06/11/2023 16:21:28 With:SHANNEN NEGRETE PA-C, URL Address: [facility] [address] [place] [address] [phone] When: Unknown [facility] 04-25-2023 Evaluation note Encounter Date Diagnosis [...] no improvement in 2 to 3 days. [facility] Other 10-28-2022 Evaluation note* Encounter Date Diagnosis [...] R30.0) Feb, Hematuria, unspecified (ICD-10 - R31.9) [facility] Other 06-01-2022 History general Narrative - Reported* Type Description Date Medical History HTN Medical History hypercholesterolemia Medical History acid reflux Surgical History EGD OCTOBER 2021 [facility] Other Evaluation + Plan note Future Appointments Appointment Date:11/11/2023 03:40:00 PM Scheduled Provider:SHANNEN NEGRETE PA-C Location:[facility] Appointment Type:URO Office Visit [facility] evaluation + Plan note Future Appointments Appointment Date:11/11/2023 03:40:00 PM Scheduled Provider:SHANNEN NEGRETE PA-C Location:[facility] Appointment Type:URO Office Visit Diagnostic Tests Pending * [facility] Work Phone: Evaluation note* Diagnosis Migraine without aura and without status migrainosus, not intractable (CMS/HCC)- Primary Mixed hyperlipidemia (CMS/HCC) Mixed hyperlipidemia Asymptomatic microscopic hematuria Park's esophagus with dysplasia Encounter for screening mammogram for malignant neoplasm of breast Migraine without aura and without status migrainosus, not intractable (CMS/HCC)- Primary Urinary tract infection, acute Yeast infection Recurrent UTI (urinary tract infection)- Primary Migraine without aura and without status migrainosus, not intractable (CMS/HCC) Asymptomatic microscopic hematuria Dyspareunia in female Diverticulitis- Primary Diverticulitis of colon (without mention of hemorrhage) Park's esophagus with dysplasia Migraine without aura and without status migrainosus, not intractable (CMS/HCC) Right shoulder tendonitis [facility] Diagnosis Migraine without aura and without status migrainosus, not intractable (CMS/HCC)- Primary Mixed hyperlipidemia (CMS/HCC) Mixed hyperlipidemia Asymptomatic microscopic hematuria Park's esophagus with dysplasia Encounter for screening mammogram for malignant neoplasm of breast Migraine without aura and without status migrainosus, not intractable (CMS/HCC)- Primary Urinary tract infection, acute Yeast infection Recurrent UTI (urinary tract infection)- Primary Migraine without aura and without status migrainosus, not intractable (CMS/HCC) Asymptomatic microscopic hematuria Dyspareunia in female Diverticulitis- Primary Diverticulitis of colon (without mention of hemorrhage) Park's esophagus with dysplasia Migraine without aura and without status migrainosus, not intractable (CMS/HCC) Right shoulder tendonitis Migraine without aura and without status migrainosus, not intractable (CMS/HCC)- Primary documented in this encounter [facility] Healthcare[facility]* Diagnosis Recurrent UTI (urinary tract infection)- Primary Migraine without aura and without status migrainosus, not intractable (CMS/HCC) Asymptomatic microscopic hematuria Dyspareunia in female documented in this encounter [facility]* Diagnosis Migraine without aura and without status migrainosus, not intractable (CMS/HCC)- Primary Urinary tract infection, acute Yeast infection documented in [facility]* Diagnosis Urinary tract infection, acute- Primary documented in this encounter [facility]* Diagnosis Migraine without aura and without status migrainosus, not intractable (CMS/HCC)- Primary Mixed hyperlipidemia (CMS/HCC) Mixed hyperlipidemia Asymptomatic microscopic hematuria Park's esophagus with dysplasia Encounter for screening mammogram for malignant neoplasm of breast Migraine without aura and without status migrainosus, not intractable (CMS/HCC)- Primary Urinary tract infection, acute Yeast infection Recurrent UTI (urinary tract infection)- Primary Migraine without aura and without status migrainosus, not intractable (CMS/HCC) Asymptomatic microscopic hematuria Dyspareunia in female Diverticulitis- Primary Diverticulitis of colon (without mention of hemorrhage) Park's esophagus with dysplasia Migraine without aura and without status migrainosus, not intractable (CMS/HCC) Right shoulder tendonitis Encounter for adult wellness visit- Primary Migraine without aura and without status migrainosus, not intractable (CMS/HCC) Encounter for screening mammogram for malignant neoplasm of breast [facility] N[facility] No data available for this section [facility] Hospital Discharge instructions No data available for this section [facility] progress note No data available for this section [facility] Summary Purpose Family History No Family History Records FoundNo Family History Records Found No data available for this section No data available for this section No data available for this section No data available for this section No Family History Records FoundNo Family History Records FoundNo Family History Records Found Advance Directives No Advanced Directives Records FoundNo Advanced Directives Records FoundNo Advanced Directives Records FoundNo Advanced Directives Records FoundNo Advanced Directives Records Found Additional Source Comments REASON FOR VISIT (unrecogniz ed section and content) Reason Comments Diverticulitis Reason Comments Med Refill Reason Comments Follow-up Care Teams (unrecognized sec tion and content) Team Status: Inactive Member Role Status Dates 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 , JULIETA-C Attending Provider Active Tone Cabinet Assembler Relationship Specialty Start Date End Date Colin Nassar MD [address] [place] [phone] PCP - General Family Medicine 06/10/23 Tone Cabinet Assembler Relationship Specialty Start Date End Date Colin Nassar MD [address] [place] [phone] PCP - General Family Medicine 06/10/23 Tone Cabinet Assembler Relationship Specialty Start Date End Date Colin Nassar MD [address] [place] [phone] PCP - General Family Medicine 06/10/23 Tone Cabinet Assembler Relationship Specialty Start Date End Date Colin Nassar MD [address] [place] [phone] PCP - General Family Medicine 06/10/23 Tone Cabinet Assembler Relationship Specialty Start Date End Date Colin Nassar MD [address] [place] [phone] PCP - General Family Medicine 06/10/23 Tone Cabinet Assembler Relationship Specialty Start Date End Date Colin Nassar MD [address] [place] [address] PCP - General Family Medicine 06/10/23 Tone Cabinet Assembler Relationship Specialty Start Date End Date Colin Nassar MD [address] [place] [phone] PCP - General Family Medicine 06/10/23 Tone Cabinet Assembler Relationship Specialty Start Date End Date Colin Nassar MD [address] [place] [phone] PCP - General Family Medicine 06/10/23 Tone Cabinet Assembler Relationship Specialty Start Date End Date Colin Nassar MD [address] [place] [phone] PCP - General Family Medicine 06/10/23 Tone Cabinet Assembler Relationship Specialty Start Date End Date Colin Nassar MD [address] [place] [phone] PCP - General Family Medicine 06/10/23 Tone Cabinet Assembler Relationship Specialty Start Date End Date Coiln Nassar MD [address] [place] [phone] PCP - General Family Medicine 06/10/23 Goals (unrecognized section and content) Goals may be documented in a n alternate section INFORMATION SOURCE (unrecogn ized section and content) DATE CREATED AUTHOR 05/15/2022 [facility] DATE CREATED AUTHOR AUTHOR'S ORGANIZ ATION 05/03/2023 [facility] DATE CREATED AUTHOR AUTHOR'S ORGANIZ ATION 11/12/2023 [facility] DATE CREATED AUTHOR AUTHOR'S ORGANIZ ATION 04/03/2024 [facility] DATE CREATED AUTHOR AUTHOR'S NILSA BENEDICT 10/15/2024 [facility] FOR RECORDS PERTAINING TO PATIENTS WHO [...] BE BASED ON THE PRIMARY CLINICAL RECORDS. [place] [facility] provides no warranty or guarantee of the accuracy or completeness of information in this document.
--- OUTSIDE RECORDS SUMMARY | 2024-10-16 06:39 | XMS_ITS | Encounter Summary ---
Author Organization [facility] Address [address] [place] [address] Care Team Providers Care Pantry Chef Name Role Phone Colin Nassar MD Primary Care Provider [phone] Reason for Visit * Reason Comments Med Refill Encounter Details Date Type Department Care Team (Late st Contact Info) Description 06/26/2023 Refill [facility] [address] [place] [address] Deidre Valdivia, JULIETA [address] [place] [address] Social History Tobacco Use Types Packs/Day Years Used Date Smoking Tobacco: Never Assessed Comments No Sex and Gender Information Value Date Recorded Sex Assigned at Not on file Legal Sex Female 11:47 PM EDT Gender Identity Not on file Sexual Orientation Not on file documented as of this encounter Miscellaneous Notes * Telephone Encounter - Afua Norman - 06/26/2023 10:49 AM EST Medication refused due to failing protocol. Requested Prescriptions Pending Prescriptions Disp Refills ezetimibe (Zetia) 10 MG tablet [Pharmacy Med Name: EZETIMIBE 10MG TABLETS] 30 tablet Sig: TAKE 1 TABLET BY MOUTH DAILY Intestinal Cholesterol Absorption Inhibitors Protocol Failed - 06/26/2023 10:45 AM Failed - Visit with relevant provider in past 9 months or upcoming 90 days Recent Visits No visits were found meeting these conditions. Showing recent visits within past 270 days and meeting all other requirements Future Appointments No visits were found meeting these conditions. Showing future appointments within next 90 days and meeting all other requirements Failed - Lipid panel in past year No results found for: LDL , HIGH RISK LDL , HDL , TOTAL HDL-C DIRECT , CHOLESTEROL , SUM TOTAL CHOLESTEROL , TRIGLYCERIDES Failed - Active on medication list Failed - AST or ALT result on file in past 12 months No results found for: AST No results found for: ALT Passed - No active on record Passed - No test in the past 12 months or most recent test was negative Passed - Medication not refilled in past 45 days (1.5 months) No matching medication orders between 05/12/2023 10:49 AM and 06/26/2023 10:49 AM documented in this encounter Plan of Treatment Upcoming Encounters Date Type Department Care Team (Late st Contact Info) Description 04/12/2025 8:40 AM EST Office Visit [facility] [address] [place] [address] Deidre Valdivia, JULIETA [address] [place] [address] documented as of this encounter Visit Diagnoses Not on filedocumented in this encounter Care Teams Pantry Chef Relationship Specialty Start Date End Date Colin Nassar MD [address] [place] [address] PCP - General Family Medicine 06/10/23 documented as of this encounter
--- OUTSIDE RECORDS SUMMARY | 2024-10-16 06:39 | XMS_ITS | Encounter Summary ---
Author Organization [facility] Address [address] [facility] [place] [address] Care Team Providers Care Electronic Industrial Controls Mechanic Name Role Phone Colin Nassar MD Primary Care Provider [phone] Encounter Details Date Type Department Care Team ([facility] Contact Info) Description 09/17/2023 Orders Only [facility] [address] [place] [address] Deidre Valdivia, JULIETA [address] [place] [address] Social History Tobacco Use Types Packs/Day Years Used Date Smoking Tobacco: Never Assessed Comments No Sex and Gender Information Value Date Recorded Sex Assigned at Not on file Legal Sex Female 11:47 PM EDT Gender Identity Not on file Sexual Orientation Not on file documented as of this encounter Plan of Treatment Upcoming Encounters Date Type Department Care Team (Late Contact Info) Description 04/12/2025 8:40 AM EST Office Visit [facility] [address] [place] [address] Deidre Valdivia, EXCHANGE MECHANIC [address] [place] [address] documented as of this encounter Procedures Procedure Name Priority Date/Time Associated Diagnosis Comments CULTURE, URINE, ROUTINE Routine 09/17/2023 2:49 PM EDT documented in this encounter Results * Urine culture (09/17/2023 2:49 PM EDT) Urine Urine specimen obtained by clean catch procedure / Unknown us Deidre Valdivia EXCHANGE MECHANIC [facility] MICROBIOLOGY - GENERAL FREDDIEChristopher VIOLA Final Result documented in this encounter Visit Diagnoses Not on filedocumented in this encounter Care Teams Electronic Industrial Controls Mechanic Relationship Specialty Start Date End Date Colin Nassar MD [address] [place] [address] PCP - General Family Medicine 06/10/23 documented as of this encounter
--- OUTSIDE RECORDS SUMMARY | 2024-10-16 06:39 | XMS_ITS | Clinical Summary ---
Author Organization [employer] [facility] Address [facility] [id number] [address] [place] [address] Care Team Providers Care Emergency Technician Name Role Phone Deidre Valdivia APRN-SHUTTLER Primary Care Provider Allergies Active Allergy Reactions Criticality Noted Date Comments Nitrofurantoin Vomiting 03/19/2016 Medications omeprazole (PriLOSEC) 20 mg capsule Take 1 capsule (20 mg total) by mouth in the morning and 1 capsule (20 mg total) before bedtime. Active acetaminophen 500 mg coapsule Take 1 capsule (500 mg total) by mouth daily as needed for pain. Active UBRELVY 100 mg tablet Take 1 tablet by mouth daily as needed. TAKE 1 TABLET BY MOUTH AT ONSET OF HEADACHE. MAY REPEAT IN 2 HOURS IF NEEDED. NO MORE THAN 2 PILLS EVERY 24 HOURS Active ondansetron (ZOFRAN) 4 mg tablet Take 1 tablet (4 mg total) by mouth every 6 (six) hours as needed for nausea or vomiting. 03/23/2024 Active Active Problems Problem Noted Date Diagnosed Date VVF (vesicovaginal fistula) 03/19/2016 Overview (10/15/2016): Vesicle vaginal fistula after abdominal hysterectomy December 2015 Repaired April 2016 with placement of stent due to ureter orifice near fistula repair Stent removed Follow-up renal ultrasound shows no hydronephrosis. Successful repair of vesicovaginal fistula.Follow-up as needed Resolved Problems Problem Noted Date Diagnosed Date Resolved Date Vesicovaginal fistula 05/02/20162016 Encounters Date Type Department Care Team Description 10/07/2024 Telephone [facility] [address] [place] [address] Maya Cooley RMA from Last 3 Months Family History Medical History Relation Name Comments Endometrial cancer Daughter Alcohol abuse Father Diabetes Father Cancer Maternal Uncle Asthma Mother COPD Mother Parkinsonism Mother Anesthesia problems Neg Hx Relation Name Status Comments Daughter Alive Father Maternal Uncle Mother Social History Tobacco Use Types Packs/Day Years Used Date Smoking Tobacco: Never Smokeless Tobacco: Never Tobacco Cessation:Counseling Given: Not Answered Alcohol Use Standard Drinks/Week Comments No 0 (1 standard drink = 0.6 oz pur e alcohol) Childcare Answer Date Recorded Childcare Unknown 10/28/2018 Employment Answer Date Recorded Employment Unknown 10/28/2018 Hunger Screening Answer Date Recorded Within the past 12 months we worried whether our food would run out before we got money to buy more. Never True 04/01/2024 Within the past 12 months th e food we bought just didn't last and we didn't have money to get more. Never True 04/01/2024 Purpose - Life Answer Date Recorded Purpose and direction in life Unknown Comments No Sex and Gender Information Value Date Recorded Sex Assigned at Not on file Legal Sex Female 11:57 AM EDT Gender Identity Not on file Sexual Orientation Not on file Last Filed Vital Signs Vital Sign Reading Time Taken Comments Blood Pressure 143/77 04/01/2024 10:57 AM EST Pulse 64 04/01/2024 10:57 AM EST Temperature 36.8 C (98.3 F) 11/22/2021 7:25 AM EDT Respiratory Rate 17 11/22/2021 10:00 AM EDT Oxygen Saturation 96% 11/22/2021 10:00 AM EDT Inhaled Oxygen Concentration - - Weight 54.2 kg (119 lb 6.4 oz) 04/01/2024 10:57 AM EST Height 151.1 cm (4' 11.5 ) 04/01/2024 10:[address] Body Mass Index 23.71 04/01/2024 10:57 AM EST Plan of Treatment Upcoming Encounters Date Type Department Care Team (Latest Contact Info) Description 10/26/2024 11:30 AM EDT Office Visit [facility] [address] [place] [phone] Ros Reeves, DOCUMENTATION IMPROVEMENT SPECIALIST-SHUTTLER [address] [place], [place] [phone] 10/26/2024 3:50 PM EDT Support Visit [facility] - Pre Admit [address] [place] [address] 11/01/2024 8:15 AM EDT Hospital Encounter [facility] - Surgery [address] [place] [facility] [place] [address] Eduardo Rae, DO [address] [place], [place] [phone] 11/01/2024 8:15 AM EDT Anesthesia Event [facility] - Surgery [address] [place] [address] Rich Wheat, DO [address] [place] [address] 11/01/2024 8:15 AM EDT - 11/01/2024 8:45 AM EDT Surgery [facility] - Surgery [address] [place] [address] Eduardo Rae, DO [address] [place], [place] [phone] COLONOSCOPY DIAGNOSTIC / SCREENING [37474 (CPT )] Scheduled Procedures Name Priority Associated Diagnoses Date/Ti me COLONOSCOPY DIAGNOSTIC / SCREENING diverticulitis 11/01/2024 8:15 AM EDT Health Maintenance Due Date Last Done Comments Depression Screening 1974 DTaP,Tdap and Td Vaccines (1 - Tdap) 1981 Influenza Vaccine 01/17/2025 02/15/2024, , 02/08/2021, Additional history exists Adult BMI Screening 04/01/2025 04/01/2024 Tobacco Screening 10/12/2025 10/12/2024 Colonoscopy 11/16/2025 11/17/2015 Zoster (Shingles) Vaccine Completed 07/05/2022, 04/2022 Goals Goal Patient Goal Type Associated Problems Recent Progress Patient-Stated? Author Autogenera roger Goal Care Plan Autogenerated Problem No Parker, Josefina [employer] Implanted Type Area Stretch Box Tender Device Identifier Shelf Expiration Date Model / Serial / Lot Stent Percuflex Plus [id number] - [id number] Implanted:Qty: 1 on 05/02/2016 by David Kingsley MD at [facility] Stent Left: Ureter [employer] 02/26/2019 [id number] / / [id number] Additional Health Concerns Active Problems Noted Date Diagnosed Date Autogenerated Problem 10/07/2024 Insurance [employer] Care Teams Emergency Technician Relationship Specialty Start Date End Date Deidre Valdivia, DOCUMENTATION IMPROVEMENT SPECIALIST-SHUTTLER PCP - General Nurse Practitioner 11/02/21
--- OUTSIDE RECORDS SUMMARY | 2024-10-16 06:39 | XMS_ITS | Encounter Summary ---
Author Organization [facility] Address [address] [place] [address] Care Team Providers Care Polisher Implant Name Role Phone Colin Nassar MD Primary Care Provider [phone] Encounter Details Date Type Department Care Team (Late st Contact Info) Description 10/12/2024 Jasenboo flowsheet [facility] [address] [place] [address] Deidre Valdivia, JULIETA [address] [place] [address] Social History Tobacco Use Types Packs/Day Years [...] declined 04/06/2024 How often do you attend christian or congregation serv ices? Patient declined 04/06/2024 Do you belong to any clubs o r organizations such as christian groups, unions, fraternal or athletic groups, or [...] Recorded Patient Health Questionnaire-2 Score 0 12/02/2023 [facility] - Occupational Stress Questionnaire Answer Date Recorded [...] any time in the past 12 m [facility], were you homeless or living in a assisted (including now)? No 04/06/2024 Comments No Sex and Gender Information Value Date Recorded Sex Assigned at Not on file Legal Sex Female 11:47 PM EDT Gender Identity Not on file Sexual Orientation Not on file documented as of this encounter Plan of Treatment Upcoming Encounters Date Type Department Care Team (Late st Contact Info) Description 04/12/2025 8:40 AM EST Office Visit [facility] [address] [place] [address] Deidre Valdivia NP [address] [place] [address] documented as of this encounter Visit Diagnoses Not on filedocumented in this encounter Care Teams Polisher Implant Relationship Specialty Start Date End Date Colin Nassar MD [address] [place] [address] PCP - General Family Medicine 06/10/23 documented as of this encounter
--- OUTSIDE RECORDS SUMMARY | 2024-10-16 06:39 | XMS_ITS | Encounter Summary ---
Author Organization [facility] Address [address] [place] [address] Care Team Providers Care Guest Advisor Name Role Phone Colin Nassar MD Primary Care Provider [phone] Encounter Details Date Type Department Care Team ([facility] Contact Info) Description 12/16/2023 [facility] [address] [place] [address] Deidre Valdivia, JULIETA [address] [place] [address] Social History Tobacco Use Types Packs/Day Years Used Date Smoking Tobacco: Never Smokeless Tobacco: Never Alcohol Use Standard Drinks/Week Comments Not Asked 0 (1 standard drink = 0.6 oz pur e alcohol) caffine: no PHQ-2 Answer Date Recorded Patient Health Questionnaire-2 Score 0 12/02/2023 Comments No Sex and Gender Information Value Date Recorded Sex Assigned at Not on file Legal Sex Female 11:47 PM EDT Gender Identity Not on file Sexual Orientation Not on file documented as of this encounter Plan of Treatment Upcoming Encounters Date Type Department Care Team (Late Contact Info) Description 04/12/2025 8:40 AM EST Office Visit [facility] [address] [place] [address] Deidre Valdivia NP [address] [place] [address] documented as of this encounter Procedures Procedure Name Priority Date/Time Associated Diagnosis Comments BI MAMMOGRAM SCREENING TOMOSYNTHESIS BILATERAL Routine 12/16/2023 4:33 PM EDT documented in this encounter Results * Bilateral screening mammogram with tomosynthesis (12/16/2023 4:33 PM EDT) Anatomical Region Laterality Modality Breast Bilateral Mammography us Deidredejuan Valdivia ORDER RUNNER IMG BI PROCEDURES Final Result documented in this encounter Visit Diagnoses Not on filedocumented in this encounter Care Teams Guest Advisor Relationship Specialty Start Date End Date Colin Nassar MD [address] [place] [address] PCP - General Family Medicine 06/10/23 documented as of this encounter
--- OUTSIDE RECORDS SUMMARY | 2024-10-16 06:39 | XMS_ITS | Encounter Summary ---
Author Organization [employer] Address [id number] [address] [place] [address] Care Team Providers Care County Agent Name Role Phone SalbetitoThais clemensa Maicol HOME AND SCHOOL VISITOR-UNIT LEADER Primary Care Provider Encounter Details Date Type Department Care Team (Late st Contact Info) Description 10/07[facility]2024 [facility] [address] [place] [address] Maya Cooley RMA Social History Tobacco Use Types Packs/Day Years Used Date Smoking Tobacco: Never Smokeless Tobacco: Never Alcohol Use Standard Drinks/Week Comments No 0 [...] encounter Miscellaneous Notes * Telephone Encounter - UBALDO Baker - 10/07/2024 2:08 PM EDT Velma called into the office to reschedule her surgery that was previously scheduled May. We scheduled her surgery for 11/01/24 at 8:15 am with an arrival time of 6:15 am. We also scheduled a H & P office appointment for 10/26/24 at 11:30 am. The patient expressed a complete understanding of all instructions. documented in this encounter Plan of Treatment Upcoming Encounters Date Type Department Care Team (Latest Contact Info) Description 10/26/2024 11:30 AM EDT Office Visit [facility] General Surgery [address] [place] [phone] Ros Reeves APRN-KATH [address] [place] [address] 10/26/2024 3:50 PM EDT Support Visit [facility] - Pre Admit [address] [place] [address] 11/01/2024 8:15 AM EDT Hospital Encounter [facility] Surgery [address] [place] [address] Eduardo Rae, DO [address] [place] [address] 11/01/2024 8:15 AM EDT Anesthesia Event [facility] Surgery [address] [place] [address] Rich Wheat, DO [address] [place], [place] [phone] 11/01/2024 8:15 AM EDT - 11/01/2024 8:45 AM EDT Surgery [facility] Surgery [address] [place] [address] Eduardo Rae, DO [address] [place] [address] COLONOSCOPY DIAGNOSTIC / SCREENING [04109 (CPT )] Scheduled Procedures Name Priority Associated Diagnoses Date/Ti me COLONOSCOPY DIAGNOSTIC / SCREENING diverticulitis 11/01/2024 8:15 AM EDT documented as of this encounter Goals Goal Patient Goal Type Associated Problems Recent Progress Patient-Stated? Author Autogenera roger Goal Care Plan Autogenerated Problem No Josefina Parker documented as of this encounter Visit Diagnoses Not on filedocumented in this encounter Additional Health Concerns Active Problems Noted Date Diagnosed Date Autogenerated Problem 10/07/2024 documented as of this encounter Care Teams County Agent Relationship Specialty Start Date End Date Deidre Valdivia, HOME AND SCHOOL VISITOR-UNIT LEADER PCP - General Nurse Practitioner 11/02/21 documented as of this encounter
--- OUTSIDE RECORDS SUMMARY | 2024-10-16 06:39 | XMS_ITS | Clinical Summary ---
Author Organization [facility] Healthcare Address [address] [place] [address] Care Team Providers Care Site Safety Representative Name Role Phone Colin Nassar MD Primary Care Provider [phone] Allergies Active Allergy Reactions Criticality Noted Date Comments Nitrofurantoin 03/19/2016 Other Reaction(s): Vomiting Medications omeprazole (PriLOSEC) [address] capsule Take 20 mg by mouth in the morning and 20 mg in the evening. Active Cranberry 500 MG capsule Take 1 each by mouth in the morning. Active Ubrogepant (Ubrelvy) 100 MG tabletIndication s:Migraine without aura and without status migrainosus, not intractable (CMS/HCC) Take 100 mg by mouth Daily as needed (migraine WILSON) 16 tablet 1 5 11/12/19 25 Active Ubrogepant (Ubrelvy) 100 MG tablet Take 100 mg by mouth Daily as needed (migraine WILSON) 10/13/19 25 Discontinu ed(Reorder ) Active Problems Problem Noted Date Diagnosed Date Encounter for adult wellness visit 10/12/2024 Assessment & Plan (10/12/2024 3:52 PM EDT): Reviewed Ht/Wt/BMI Recommend eye exam yearly Recommend dental exams twice a year Balance work/leisure activities Exercises is recommended most days of the week (appropriate as chronic conditions allow) Follow up yearly and prn Diverticulitis 04/12/2024 Assessment & Plan (04/12/2024 7:51 AM EST): Recent ER visit at [facility] Treated, fu with Butch Is scheduled for colonoscpy 2024 Right shoulder tendonitis 04/12/2024 Assessment & Plan (04/12/2024 3:57 PM EST): OTC NSAID of choice take food Ice 2-3 times daily 20 minutes each, Stretching exercises Fu if not better Dyspareunia in female 02/02/2024 Assessment & Plan (02/02/2024 4:03 PM EDT): Will trial premarin cream Recurrent UTI (urinary tract infection) 02/02/20 24 Assessment & Plan (02/02/2024 4:06 PM EDT): No acute symptoms at this time Will have her trial adding premarin vag cream twice a week Yeast infection 01/12/2024 Wagner's esophagus 12/02/2023 Overview (04/12/2024): 2016: EGD wagner's esophagus 11/22/2021: short segment wagner's, repeat in 11/2026 Assessment & Plan (04/12/2024 7:49 AM EST): Continue with PPI Next EGD due 11/2026 Mixed hyperlipidemia 12/02/2023 Primary insomnia 12/02/2023 SBO (small bowel obstruction) 12/02/2023 Asymptomatic microscopic hematuria 12/02/2023 Assessment & Plan (02/02/2024 4:02 PM EDT): Recheck urine in 8 weeks Encounter for screening mamm ogram for malignant neoplasm of breast 12/02/2023 Migraine without aura and wi thout status migrainosus, not intractable 10/20/2023 Assessment & Plan (10/12/2024 7:36 AM EDT): Current migraine days per month: Triggers: Missed work: Current meds: ubrelvy Assessment & Plan (04/12/2024 7:50 AM EST): Will continue with prn ubrelvy Assessment & Plan (02/02/2024 4:02 PM EDT): Will continue with prn ubrelvy Assessment & Plan (01/12/2024 5:08 PM EDT): Will continue with prn ubrelvy If freq increases consider qlipta Assessment & Plan (12/02/2023 5:33 PM EDT): Will trial ubrelvy: tried the following in the past: sumatriptan, and nurtec 2 WILSON per month, may miss work with We will trial ubrelvy, for less side effects and ease of taking at work and may cont to work Fu in 2 months for recheck #4 samples Ubrelvy 100mg [id number], exp 05/12 VVF (vesicovaginal fistula) 03/19/2016 Overview (12/02/2023): Vesicle vaginal fistula after abdominal hysterectomy December 2015 Repaired April 2016 with placement of stent due to ureter orifice near fistula repair Stent removed Follow-up renal ultrasound shows no hydronephrosis. Successful repair of vesicovaginal fistula.Follow-up as needed Resolved Problems Problem Noted Date Diagnosed Date Resolved Date Urinary tract infection, acute 01/12/2024 10/12/2024 Assessment & Plan (01/12/2024 5:06 PM EDT): Repeat urine culture Acute cystitis without hematuria 12/24/2023 01/12/2024 Encounters Date Type Department Care Team Description 10/12/2024 3:00 PM EDT Office Visit [facility] [address] [place] [address] Deidre Valdivia NP Encounter for adult wellness visit (Primary Dx); Migraine without aura and without status migrainosus, not intractable (CMS/HCC); Encounter for screening mammogram for malignant neoplasm of breast 10/12/2024 Bamboo flowsheet [facility] [address] [place] [address] Deidre Valdivia NP from Last 3 Months Immunizations Immunization Administration Dates Next Due Influenza, injectable, MDCK, preservative free, quadrivalent 03/30/2022,02/08/2021 Influenza, injectable, quadrivalent 02/27/2019 Influenza, injectable, quadrivalent, preservativ e free 02/13/2020 Influenza, seasonal, injectable 03/23/2014,05/22 Influenza, seasonal, injectable, preservative fr ee 03/26/2015 Zoster, Recombinant 07/05/2022,03/30/2022 Social History Tobacco Use Types Packs/Day Years Used Date Smoking Tobacco: Never Smokeless Tobacco: Never Tobacco Cessation:Counseling Given: Not Answered Alcohol Use Standard Drinks/Week Comments Not Asked [...] declined 04/06/2024 How often do you attend lutheran or baptist serv ices? Patient declined 04/06/2024 Do you belong to any clubs o r organizations such as lutheran groups, unions, fraternal or athletic groups, or [...] Recorded Patient Health Questionnaire-2 Score 0 12/02/2023 [facility]er of Occupat ional [facility] - Occupational Stress Questionnaire Answer [...] any time in the past 12 m [facility], were you homeless or living in a residential (including now)? No 04/06/2024 Comments No Sex [...] Mass Index 24.27 10/12/2024 3:19 PM EDT Plan of Treatment Upcoming Encounters Date Type Department Care Team (Late st Contact Info) Description 04/12/2025 8:40 AM EST Office Visit [facility] [address] [place] [address] Deidre Valdivia, JULIETA [address] [place] [address] Health Maintenance Due Date Last Done Comments CT Colonography 1960 FIT-DNA 1962 FIT 1960 FOBT 1960 Sigmoidoscopy 1960 Mammogram 12/15/2024 12/16/2023, 11/18, 11/28/2022, Additional history exists Colonoscopy 12/17/2025 12/18/2015 Colorectal Cancer Screening 12/17/2025 Influenza Vaccine Completed 02/15/2024, , 02/08/2021, Additional history exists Procedures Procedure Name Priority Date/Time Associated Diagnosis Comments MM TOMOSYNTHESIS SCREENING BI 12/16/2023 4:24 PM EDT from Last 3 Months or Most Recently Relevant to Health Maintenance Results * MM TOMOSYNTHESIS SCREENING BI (12/16/2023 4:24 PM EDT) Anatomical Region Laterality Modality Other 12/16/2023 4:24 PM EDT Narrative 12/16/2023 4:25 PM EDT The [address] [address] Mammography Report Signed Patient: MONICA SMITH MR#: [id number] : 1960 Acct:[id number] Age/Sex: 63 / F ADM Date: 12/16/23 Loc: MAMMO Attending Dr: Deidre Valdivia NP Ordering Physician: Deidre Valdivia NP Results: Date of Service: 12/16/23 Follow Up: Procedure(s): MM tomosynthesis screening BI Accession Number(s): [id number] cc: Deidre Valdivia NP Patient Name: MONICA SMITH MR#: [id number] : 1960 Exam Date: 12/16/2023 Ordering Doctor: KATH Valdivia CNP RADIOLOGY REPORT PROCEDURE: MM TOMOSYNTHESIS SCREENING BI COMPARISON: MG MAMM SCREEN 3D KAROL CAD, 10/01/2021. MM TOMOSYNTHESIS SCREENING BI, 11/28/2022. INDICATIONS: Screening Calculator Name NCI Breast Cancer Risk Assessment Tool 5 Year Breast Cancer Risk 0.90% Lifetime Breast Cancer Risk 4.40% Personal Breast Cancer No Personal Ovarian Cancer No Treatments None Family Cancers Uncle-maternal with stomach cancer at age 40. LOCATION: [facility] BREAST COMPOSITION: The breasts are heterogeneously dense,which may obscure small masses. FINDINGS: DIAGNOSTIC CATEGORY 1--NEGATIVE. NO CHANGE FROM COMPARISON ASSESSMENT. Scattered benign-appearing calcifications are present. RIGHT BREAST: No significant suspicious finding. LEFT BREAST: No significant suspicious finding. RECOMMENDATIONS: ROUTINE MAMMOGRAM AND CLINICAL EVALUATION IN 12 MONTHS. PLEASE NOTE: A NORMAL MAMMOGRAM DOES NOT EXCLUDE THE POSSIBILITY OF BREAST CANCER. A CLINICALLY SUSPICIOUS PALPABLE LUMP SHOULD BE BIOPSIED. Dictated by: Lenny Padron MD on 12/16/2023 at 16:23 Approved by: Lenny Padron MD on 12/16/2023 at 16:24 Dictated By: Lenny Padron M.D. Signed By: 12/16/23 1625 DD/ 23 TD/TT: Improvement Spec: Procedure Note Radiology, Radiologist, - 12/16/2023 [place] [address] Mammography Report Signed Patient: MONICA SMITHMR#: [id number] : 1960Acct:[id number] Age/Sex: 63 / FADM Date: 12/16/23 Loc: MAMMO Attending Dr: Deidre Valdivia NP Ordering Physician: Deidre Valdivia NPResults: Date of Service: 12/16/23Follow Up: Procedure(s): MM tomosynthesis screening BI Accession Number(s): [id number] cc: Deidre Valdivia NP Patient Name: MONICA SMITH MR#: [id number] : 1960 Exam Date: 12/16/2023 Ordering Doctor: KATH Valdivia CNP RADIOLOGY REPORT PROCEDURE: MM TOMOSYNTHESIS SCREENING BI COMPARISON: MG MAMM SCREEN 3D KAROL CAD, 10/01/2021. MM TOMOSYNTHESIS SCREENING BI, 11/28/2022. INDICATIONS: Screening Calculator Name NCI Breast Cancer Risk Assessment Tool 5 Year Breast Cancer Risk 0.90% Lifetime Breast Cancer Risk 4.40% Personal Breast Cancer No Personal Ovarian Cancer No Treatments None Family Cancers Uncle-maternal with stomach cancer at age 40. LOCATION: [facility] BREAST COMPOSITION: The breasts are heterogeneously dense,which may obscure small masses. FINDINGS: DIAGNOSTIC CATEGORY 1--NEGATIVE. NO CHANGE FROM COMPARISON ASSESSMENT. Scattered benign-appearing calcifications are present. RIGHT BREAST: No significant suspicious finding. LEFT BREAST: No significant suspicious finding. RECOMMENDATIONS: ROUTINE MAMMOGRAM AND CLINICAL EVALUATION IN 12 MONTHS. PLEASE NOTE: A NORMAL MAMMOGRAM DOES NOT EXCLUDE THE POSSIBILITY OFBREAST CANCER. A CLINICALLY SUSPICIOUS PALPABLE LUMP SHOULD BE BIOPSIED. Dictated by: Lenny Padron MD on 12/16/2023 at 16:23 Approved by: Lenny Padron MD on 12/16/2023 at 16:24 Dictated By: Lenny Padron M.D. Signed By:12/16/23 1625 DD/ TD/TT: Improvement Spec: Deidre Valdivia NP [facility] Final Result from Last 3 Months or Most Recently Relevant to Health Maintenance Insurance [employer] Care Teams Site Safety Representative Relationship Specialty Start Date End Date oClin Nassar MD [address] [place] [address] PCP - General Family Medicine 06/10/23
--- OUTSIDE RECORDS SUMMARY | 2024-10-16 06:39 | XMS_ITS | Encounter Summary ---
Author Organization [employer] Address [id number] [address] [place] [address] Care Team Providers Care Belt Maker Name Role Phone SalbetitoThais clemensa Maicol RESIDENCY PROGRAM COORDINATOR-HOSPICE ENTRANCE ATTENDANT Primary Care Provider Encounter Details Date Type Department Care Team (Late st Contact Info) Description 05/24/2024 [facility] [address] [place] [address] Maya Cooley RMA Social History Tobacco Use [...] * Telephone Encounter - UBALDO Baker - 05/24/2024 4:01 PM EST Velma called into the office to cancel her surgery on 06/07/24 - she has to work - I called [facility] surgery coodinator and left a message to cancel the procedure. documented in this encounter Plan of Treatment Upcoming Encounters Date Type Department Care Team (Latest Contact Info) Description 10/26/2024 11:30 AM EDT Office Visit [facility] General Surgery [address] [place] [phone] Ros Reeves, RESIDENCY PROGRAM COORDINATOR-HOSPICE ENTRANCE ATTENDANT [address] [place], [place] [id number] 10/26/2024 3:50 PM EDT Support Visit [facility] - Pre Admit [address] [place] [address] 11/01/2024 8:15 AM EDT Hospital Encounter [facility] - Surgery [address] [place] [address] Eduardo Rae, DO [address] [place] [address] 11/01/2024 8:15 AM EDT Anesthesia Event [facility] Surgery [address] [place] [address] Rich Wheat, DO [address] [place] [address] 11/01/2024 8:15 AM EDT - 11/01/2024 8:45 AM EDT Surgery [facility] Surgery [address] [place] [address] Eduardo Rae, DO [address] [place] [address] COLONOSCOPY DIAGNOSTIC / SCREENING [93448 (CPT )] Scheduled Procedures Name Priority Associated Diagnoses Date/Ti mt COLONOSCOPY DIAGNOSTIC / SCREENING diverticulitis 11/01/2024 8:15 AM EDT documented as of this encounter Visit Diagnoses Not on filedocumented in this encounter Care Teams Belt Maker Relationship Specialty Start Date End Date Deidre Valdivia, ENOCH-HOSPICE ENTRANCE ATTENDANT PCP - General Nurse Practitioner 11/02/21 documented as of this encounter
--- OUTSIDE RECORDS SUMMARY | 2024-10-16 06:39 | XMS_ITS | Encounter Summary ---
Author Organization [facility] Address [address] [place] [address] Care Team Providers Care Ice Skater Name Role Phone Colin Nassar MD Primary Care Provider [phone] Encounter Details Date Type Department Care Team ([facility] Contact Info) Description 12/16/2023 Clinisync Result Encounter [facility] External Department Unsolicited Deidre Valdivia NP [address] [place] [address] Social History Tobacco Use Types Packs/Day [...] 8:40 AM EST Office Visit [facility] [address] [place] [address] Deidre Valdivia NP [address] [place] [address] documented as of this encounter Procedures Procedure Name Priority Date/Time Associated Diagnosis Comments MM TOMOSYNTHESIS SCREENING BI 12/16/2023 4:24 PM EDT documented in this encounter Results * MM TOMOSYNTHESIS SCREENING BI (12/16/2023 4:24 PM EDT) Anatomical Region Laterality Modality Other 12/16/2023 4:24 PM EDT Narrative 12/16/2023 4:25 [place] [address] Mammography Report Signed Patient: MONICA SMITH MR#: [id number] : 1960 Acct:[id number] Age/Sex: 63 / F ADM Date: 12/16/23 Loc: MAMMO Attending Dr: Deidre Valdivia NP Ordering Physician: Deidre Valdivia NP Results: Date of Service: 12/16/23 Follow Up: Procedure(s): MM tomosynthesis screening BI Accession Number(s): [id number] cc: Deidre Valdivia NP Patient Name: MONICA SMITH MR#: [id number] : 1960 Exam Date: 12/16/2023 Ordering Doctor: [...] stomach cancer at age 42. LOCATION: [facility] BREAST COMPOSITION: The breasts are heterogeneously [...] Signed By: 12/16/23 1625 DD/ 23 TD/TT: Investment Accounting Clerk: Procedure Note Radiology, Radiologist, - 12/16/2023 [place] [address] Mammography Report Signed Patient: MONICA SMITHMR#: [id number] : 1960Acct:[id number] Age/Sex: 63 / FADM Date: 12/16/23 Loc: MAMMO Attending Dr: Deidre Valdivia DEPUTY BAILIFF Ordering Physician: Deidre Valdiviaesults: Date of Service: 12/16/23Follow Up: Procedure(s): MM tomosynthesis screening BI Accession Number(s): [id number] cc: Deidre Valdivia NP Patient Name: MONICA SMITH MR#: [id number] : 1960 Exam Date: 12/16/2023 Ordering Doctor: KATH Valdivia DIRECTOR PRODUCT SAFETY RADIOLOGY REPORT PROCEDURE: MM TOMOSYNTHESIS SCREENING BI COMPARISON: MG MAMM SCREEN 3D KAROL CAD, 10/01/2021. MM TOMOSYNTHESIS SCREENING BI, 11/28/2022. INDICATIONS: Screening Calculator Name NCI Breast Cancer Risk Assessment Tool 5 Year Breast Cancer Risk 0.90% Lifetime Breast Cancer Risk 4.40% Personal Breast Cancer No Personal Ovarian Cancer No Treatments None Family Cancers Uncle-maternal with stomach cancer at age 40. LOCATION: [facility] BREAST COMPOSITION: The breasts are heterogeneously [...] Lenny Padron M.D. Signed By:12/16/23 1625 DD/ 1624 TD/TT: Investment Accounting Clerk: us Deidre Valdivia DEPUTY BAILIFF [facility] Final Result documented in this encounter Visit Diagnoses Not on filedocumented in this encounter Care Teams Ice Skater Relationship Specialty Start Date End Date Colin Nassar MD [address] [place] [address] PCP - General Family Medicine 06/10/23 documented as of this encounter
[2024-10-16 06:54] LABS: Basophils Percent Auto 0.7 % (0.2-2.0); Eosinophils Absolute Auto 0.2 10^3/uL (0.0-0.7); Eosinophils Percent Auto 3.7 % (0.9-7.0); Hematocrit 39.9 % (36.0-48.0); Hemoglobin 13.6 g/dL (12.0-16.0); Immature Granulocytes Abs Auto 0.01 10^3/uL (0.00-0.03); Immature Granulocytes Pct Auto 0.2 % (0.0-0.5); Lymphocytes Absolute Auto 1.9 10^3/uL (1.2-3.8); Lymphocytes Percent Auto 32.6 % (20.5-60.0); Mean Corpuscular HGB Conc 34.1 g/dL (29.9-35.2); Mean Corpuscular Hemoglobin 29.8 pg (26.7-34.0); Mean Corpuscular Volume 87.5 fL (81.0-99.0); Mean Platelet Volume 10.2 fL (9.5-13.5); Monocytes Absolute Auto 0.5 10^3/uL (0.3-0.8); Monocytes Percent Auto 8.1 % (1.7-12.0); Neutrophils Absolute Auto 3.1 10^3/uL (1.4-6.5); Neutrophils Percent Auto 54.7 % (43.0-75.0); Platelet Count 247 10^3/uL (150-450); Red Blood Count 4.56 10^6/uL (4.20-5.40); Red Cell Distribution Width 13.5 % (11.0-15.0); White Blood Count 5.7 10^3/uL (4.0-11.0)
[2024-10-16 07:01] LABS: Bilirubin Urine NEGATIVE (NEGATIVE); Blood Urine TRACE-I (NEGATIVE); Clarity Urine CLEAR (CLEAR); Color Urine YELLOW (YELLOW); Glucose Urine UA NEGATIVE (NEGATIVE); Ketones Urine NEGATIVE (NEGATIVE); Leukocyte Esterase Urine NEGATIVE (NEGATIVE); Nitrite Urine NEGATIVE (NEGATIVE); Protein Urine NEGATIVE (NEG/TRACE); Urobilinogen Urine 0.2 EU/dL (0.2-1.0)
[2024-10-16 07:05] LABS: Urine Microscopic Indicated YES
[2024-10-16 07:12] LABS: Bacteria Urine TRACE #/HPF (NONE SEEN); Cast Seen? NONE SEEN #/LPF (NONE SEEN); Crystals Seen? None Seen #/HPF (None Seen); Mucus Urine SMALL (NONE SEEN); RBC Urine 0-2 #/HPF (0-2); Squamous Epithelial Cell Urine FEW #/LPF (NONE/RARE); WBC Urine NONE SEEN #/HPF (NONE SEEN)
[2024-10-16 07:25] LABS: Alanine Aminotransferase 24 U/L (14-59); Albumin Globulin Ratio 1.2; Alkaline Phosphatase 91 U/L (46-116); Anion Gap 11.8; Aspartate Amino Transferase 19 U/L (15-37); Bilirubin Total 0.4 mg/dL (0.2-1.0); Calcium 9.2 mg/dL (8.5-10.1); Carbon Dioxide 28.2 mmol/L (21.0-32.0); Chloride 106 mmol/L (98-107); Chol HDL Ratio 3.5; Cholesterol 211 mg/dL (<=200); Estimated GFR (African America >60 (>=60 mL/min/1.73m^2); Estimated GFR (Non-African Ame >60 (>=60 mL/min/1.73m^2); Globulin 3.3 g/dL; Glucose 97 mg/dL (74-106); HDL Cholesterol 60 mg/dL (40-60); Sodium 142 mmol/L (136-145); Total Protein 7.3 g/dL (6.4-8.2); Triglycerides 71 mg/dL (<=150); VLDL CHOLESTEROL 14.2 mg/dL
== END 2024-10-16 06:35 | disposition home or self-care (01) ==
LOC: LAB 06:36
PROVIDERS: PCP Nurse Practitioner; Visit Provider Nurse Practitioner
DX: Z00.00 Encounter for general adult medical examination without abnormal findings (principal)
CPT/HCPCS: 36415; 80053; 80061; 81001; 85025

== ENCOUNTER 2024-12-29 09:23 | Outpatient (OUT) | payer OTHER, SELFPAY ==
--- NOTE | 2024-12-29 09:27 | MM_ITS ---
Patient Name: MONICA SMITH MR#: [id number] : 1960 Exam Date: 12/29/2024 Ordering Doctor: KATH LOPEZ CNP RADIOLOGY REPORT PROCEDURE: MM TOMOSYNTHESIS SCREENING BI COMPARISON: MM TOMOSYNTHESIS SCREENING BI, 12/16/2023. MM TOMOSYNTHESIS SCREENING BI, 11/28/2022. MG MAMM SCREEN 3D KAROL CAD, 10/01/2021. MG MAMM KAROL SCRN W CAD DIG, 08/06/2013. INDICATIONS: Screening Calculator Name NCI Breast Cancer Risk Assessment Tool 5 Year Breast Cancer Risk 0.90% Lifetime Breast Cancer Risk 4.30% Personal Breast Cancer No Personal Ovarian Cancer No Treatments None Family Cancers Uncle-maternal with stomach cancer at age 40. LOCATION: The BREAST COMPOSITION: The breasts are heterogeneously dense, which may obscure small masses. FINDINGS: RIGHT BREAST: No significant suspicious finding. LEFT BREAST: No significant suspicious finding. DIAGNOSTIC CATEGORY 1--NEGATIVE. RECOMMENDATIONS: ROUTINE MAMMOGRAM AND CLINICAL EVALUATION IN 12 MONTHS. PLEASE NOTE: A NORMAL MAMMOGRAM DOES NOT EXCLUDE THE POSSIBILITY OF BREAST CANCER. A CLINICALLY SUSPICIOUS PALPABLE LUMP SHOULD BE BIOPSIED. Dictated by: Yovany Motley MD on 12/29/2024 at 14:20 Approved by: Yovany Motley MD on 12/29/2024 at 14:24
--- OUTSIDE RECORDS SUMMARY | 2024-12-29 09:28 | XMS_ITS | CCD ---
Author Organization [facility] Care Team Providers Care Beverage Steward Name Role Phone 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 Unavailable AICHHOLZ, CLAIMS SERVICE ADJUSTOR DEIDRE Admitting Unavailable AICHHOLZ, CLAIMS SERVICE ADJUSTOR DEIDRE Attending Unavailable AICHHOLZ, CLAIMS SERVICE ADJUSTOR DEIDRE Primary Care Unavailable DR ANTWAN KNIGHT V Consulting Unavailable AICHHOLZ, CLAIMS SERVICE ADJUSTOR DEIDRE Consulting Unavailable GORDODR NAILS Admitting Unavailable GORDO, DR NAILS Attending Unavailable AICHHOLZ, CLAIMS SERVICE ADJUSTOR DEIDRE Primary Care Unavailable GORDODR NAILS Consulting Unavailable AICHHOLZ, CLAIMS SERVICE ADJUSTOR DEIDRE Admitting Unavailable AICHHOLZ, CLAIMS SERVICE ADJUSTOR DEIDRE Attending Unavailable AICHHOLZ, CLAIMS SERVICE ADJUSTOR DEIDRE Primary Care Unavailable AICHHOLZ, CLAIMS SERVICE ADJUSTOR DEIDRE Consulting Unavailable ANTWAN LAY Consulting Unavailable AICHHOLZ, CLAIMS SERVICE ADJUSTOR DEIDRE Admitting Unavailable AICHHOLZ, CLAIMS SERVICE ADJUSTOR DEIDRE Attending Unavailable AICHHOLZ, CLAIMS SERVICE ADJUSTOR DEIDRE Primary Care Unavailable AICHHOLZ, CLAIMS SERVICE ADJUSTOR DEIDRE Consulting Unavailable AICHHOLZ, CLAIMS SERVICE ADJUSTOR DEIDRE Admitting Unavailable AICHHOLZ, CLAIMS SERVICE ADJUSTOR DEIDRE Attending Unavailable AICHHOLZ, CLAIMS SERVICE ADJUSTOR DEIDRE Primary Care Unavailable AICHHOLZ, CLAIMS SERVICE ADJUSTOR DEIDRE Consulting Unavailable AICHHOLZ, CLAIMS SERVICE ADJUSTOR DEIDRE Admitting Unavailable AICHHOLZ, CLAIMS SERVICE ADJUSTOR DEIDRE Attending Unavailable AICHHOLZ, CLAIMS SERVICE ADJUSTOR DEIDRE Primary Care Unavailable AICHHOLZ, CLAIMS SERVICE ADJUSTOR DEIDRE Consulting Unavailable AICHHOLZ, CLAIMS SERVICE ADJUSTOR DEIDRE Admitting Unavailable AICHHOLZ, CLAIMS SERVICE ADJUSTOR DEIDRE Attending Unavailable AICHHOLZ, CLAIMS SERVICE ADJUSTOR DEIDRE Primary Care Unavailable AICHHOLZ, CLAIMS SERVICE ADJUSTOR DEIDRE Consulting Unavailable 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 Attending Unavailable 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 Admitting Unavailable NO FAMILY, PHYSICIAN Primary Care Unavailable AICHHOLZ, DEIDRE J Primary Care Physician [phone] SHANNEN NEGRETE Attending Unavailable SHANNEN NEGRETE Attending Unavailable SHANNEN NEGRETE Admitting Unavailable SHANNEN NEGRETE Attending Unavailable SHANNEN NEGRETE Attending Unavailable Colin Nsasar MD Primary Care Provider Skip KENDALLDeidre STOCKTON Primary Care Provider DEIDRE VALDIVIA Attending Unavailable AICHHOLZ, DEIDRE Attending Unavailable AICHHOLZ, DEIDRE Attending Unavailable AICHHOLZ, DEIDRE Attending Unavailable AICHHOLZ, DEIDRE Attending Unavailable Aichholz TONG SETTERDeidre STOCKTON Primary Care Provider ROS LEVIN Attending Unavailable SKIP, DEIDRE J Referring Unavailable AICHHOLZ, DEIDRE J Primary Care Unavailable ROS LEVIN Attending Unavailable AICHHOLEmy, DEIDRE Milian Referring Unavailable AICHHOLEmy, DEIDRE Milian Primary Care Unavailable PAPA IVORY Attending Unavailable SKIP, DEIDRE Milian Referring Unavailable AICHHOLEmy, DEIDRE J Primary Care Unavailable SKIP, DEIDRE J Referring Unavailable SKIP, DEIDRE iMlian Primary Care Unavailable PAPA IVORY Admitting Unavailable PAPA IVORY Attending Unavailable PAPA IVORY Referring Unavailable SKIP, DEIDRE Milian Primary Care Unavailable Allergies Allergy Classification Reported Allergen(s) Allergy Type Date of Onset Reaction(s) Facility (20 sources) Nitrofurantoin; Translations: [NITROFURANTOIN] Drug Allergy 03-19-2016 Vomiting [facility] Medications Current Medications Medication Drug Class(es) Dates Sig (Normalized) Sig (Original) acetaminophen 500 mg oral capsule (6 sources) take 1 capsule by mouth once daily as needed for pain acetaminophen 500 mg coapsule Take 1 capsule (500 mg total) by mouth daily as needed for pain. Active aspirin/acetaminoph en/caffeine (EXCEDRIN MIGRAINE ORAL) (3 sources) Start: 09-09-2023 aspirin/acetaminop hen/caffeine (EXCEDRIN MIGRAINE ORAL) Refill(s) 0 09/09/2023 Active ciprofloxacin 500 mg oral tablet (1 source) [...] Active cranberry preparation 500 mg oral capsule (20 sources) Non-Standardized Food Allergenic Extract, Non-Standardized Plant Allergenic Extract take 1 capsule by mouth in the morning cranberry 500 mg capsule Take 1 each by mouth in the morning. Active take 1 capsule by mouth in the m orning Cranberry 500 MG capsule Take 1 each by mouth in the morning. Active Excedrin Migraine (4 sources) Start: 09-09-2023 Excedrin Migraine Refill(s) 0 Start Date: 09/09/23 Status: Ordered lactobacillus acidoph & bulgar (LACTINEX) 100 million cell (3 sources) Start: 11-11-2023 take 1 tablet by mouth in the morning lactobacillus acidoph & bulgar (LACTINEX) 100 million cell Take 1 tablet by mouth in the morning and 1 tablet before bedtime. 11/11/2023 Active Lactobacillus acidophilus (1 source) Start: 11-11-2023 lactobacillus [...] 09/09/23 Status: Ordered take 1 capsule by [facility] in the morning, then take 1 capsule by mouth at bedtime omeprazole (PriLOSEC) 20 mg capsule Take 1 capsule (20 mg total) by mouth in the morning and 1 capsule (20 mg total) before bedtime. Active Omeprazole Not-T aking/PRN Omeprazole Activ e ondansetron 4 mg oral tablet (6 sources) Serotonin-3 Receptor Antagonist Start: 03-23-2024 take 1 tablet by mouth every six hours as needed for nausea and vomiting ondansetron (ZOFRAN) 4 mg tablet Take 1 tablet (4 mg total) by mouth every 6 (six) hours as needed for nausea or vomiting. 03/23/2024 Active peg 3350-sod sulf,jsnd-pgx-yls 178.7-7.3-0.5 gram recon soln (1 source) Start: 04-01-2024 End: 04-02-2024 peg 3350-sod sulf,nxoh-gvq-cwa 178.7-7.3-0.5 gram recon soln Indications: Sigmoid diverticulitis Take 1 kit by mouth once daily for 1 dose. Please see instructional sheet given by physicians office. 1 each 04/01/2024 04/02/2024 Active phenazopyridine hydrochloride 200 mg oral tablet [...] BID, # 60 tab(s), Refills(s) 11, Pharmacy: [id number], 150, cm, 09/09/23 13:24:00 EDT, Height/Length Dosing, 54, kg, 09/09/23 13:24:00 EDT, Weight Dosing Start Date: 09/09/23 Status: Ordered ubrogepant 100 mg oral tablet (20 sources) Start: 04-16-2024 End: 11-11-2024 take 1 tablet by mouth once daily as needed Ubrogepant (Ubrelvy) 100 MG tablet Indications: Migraine without aura and without status migrainosus, not intractable (CMS/HCC) Take 100 mg by mouth Daily as needed (migraine WILSON) 16 tablet 1 10/12/2024 11/11/2024 Active Completed/Discontinued Medications Medication Drug Class(es) Dates Sig (Normalized) Sig (Original) cefdinir 300 mg oral capsule (1 source) Cephalosporin Antibacterial Start: 03-16-2023 End: 04-01-2024 take 1 capsule by mouth in the morning, then take 1 capsule by mouth at bedtime cefDINIR (OMNICEF) 300 mg capsule Take 1 capsule (300 mg total) by mouth in the morning and 1 capsule (300 mg total) before bedtime. 03/16/2023 04/01/2024 Discontinued (Therapy completed) estrogens, conjugated (alf) 0.625 mg/ml vaginal cream (5 sources) Estrogen Start: 02-02-2024 End: 05-02-2024 Estrogens Conjugated (Premarin) 0.625 MG/GM cream Indications: Dyspareunia in female Insert 0.5 g into the vagina 2 (two) times a week 30 g 1 02/02/2024 04/12/2024 Discontinued (Therapy completed) ezetimibe 10 mg oral tablet (1 source) Dietary Cholesterol Absorption Inhibitor Start: 03-17-2023 End: 04-01-2024 take 1 tablet by mouth in the morning ezetimibe (ZETIA) 10 mg tablet Take 1 tablet (10 mg total) by mouth in the morning. 03/17/2023 04/01/2024 Discontinued (Patient Stopped On Own) fluconazole 150 mg oral tablet (7 sources) Azole Antifungal Start: 01-12-2024 End: 02-02-2024 fluconazole (Diflucan) 150 MG tablet Indications: Yeast infection 1 dose, repeat again in 3 days 2 tablet 01/12/2024 02/02/2024 Discontinued (Therapy completed) Simvastatin (4 sources) HMG-CoA Reductase Inhibitor Simvastatin Not-Taking/PRN Simvastatin Acti ve SUMAtriptan 25 mg oral tablet (12 sources) Serotonin-1b and Serotonin-1d Receptor Agonist Start: [...] fills(s) 0 Start Date: 09/09/23 Status: Ordered End: 04-01-2024 take 1 tablet by mouth every two hours as needed SUMAtriptan (IMITREX) 25 mg tablet Take 1 tablet (25 mg total) by mouth as needed for migraine. May repeat in 2 hours if unresolved. Do not exceed 200 mg in 24 hours. 04/01/2024 Discontinued (Discontinued by another clinician) tiZANidine 2 mg oral tablet (1 source) Central alpha-2 Adrenergic Agonist Start: 03-28-2023 End: 04-01-2024 tiZANidine (ZANAFLEX) 2 mg tablet Take 1 tablet (2 mg total) by mouth as needed. 03/28/2023 04/01/2024 Discontinued (Patient Stopped On Own) Problems Active Problems Problem Classification Problem Date Documented Date Episodic/Chronic Disorders of lipid metabolism (20 sources) Hyperlipidemia, unspecified; Translations: [Mixed hyperlipidemia] Onset: 05-08-2022 Chronic Diverticulosis and diverticulitis (15 sources) Diverticulitis; Translations: [Diverticulitis of intestine, part unspecified, without perforation or abscess without bleeding] Onset: 04-01-2024 04-12-2024 Chronic Esophageal disorders (20 sources) Park's esophagus; Translations: [Park's esophagus without dysplasia] Onset: 12-02-2023 12-02-2023 Chronic Esophageal disorders (1 source) Esophageal disorders; Translations: [Gastro-esophageal reflux disease with esophagitis, without bleeding] Onset: 11-01-2024 Headache; including migraine (20 sources) Migraine without aura, not refractory ; Translations: [Migraine without aura, not intractable, without status migrainosus] Onset: 10-20-2023 10-20-2023 Chronic Miscellaneous mental health disorders (17 sources) Primary insomnia; Translations: [Primary insomnia] Onset: 12-02-2023 12-02-2023 Chronic Other and unspecified benign neoplasm (1 source) Polyp of colon; Translations: [Polyp of colon] Onset: 11-01-2024 Episodic Other female genital disorders (20 sources) Vesicovaginal fistula; Translations: [Vesicovaginal fistula] Onset: 03-19-2016 Resolved: 07-16-2016 12-02-2023 Chronic Other female genital disorders (13 sources) Pain in female genitalia on intercourse; Translations: [Unspecified dyspareunia] Onset: 02-02-2024 02-02-2024 Chronic Other upper respiratory infections (4 sources) Streptococcal sore throat; Translations: [Strep pharyngitis] Episodic Unclassified (2 sources) Autogenerated Problem Onset: 10-07-2024 10-07-2024 Unclassified (1 source) Post-op Onset: 11-10-2024 Unclassified (1 source) Diverticulosis Onset: 04-01-2024 Unclassified (1 source) diverticulitis, Park's esophagus Onset: 11-01-2024 Past or Other Problems Problem Classification Problem Date Documented Date Episodic/Chronic Genitourinary symptoms and ill-defined conditions (20 sources) Dysuria; Translations: [Dysuria] Onset: 04-25-2023 Episodic Immunizations and screening for infectious disease (1 source) Encounter for screening for human papillomavirus (HPV); Translations: [ENC SCREENING HUMAN PAPILLOMAVIRUS] Onset: 10-05-2021 Episodic Intestinal obstruction without hernia (17 sources) Small bowel obstruction; Translations: [Unspecified intestinal obstruction, unspecified as to partial versus complete obstruction] Onset: 12-02-2023 12-02-2023 Episodic Mycoses (18 sources) Mycosis; Translations: [Candidiasis, unspecified] Onset: 01-12-2024 01-12-2024 Episodic Other connective tissue disease (9 sources) Tendonitis of right shoulder; Translations: [Other enthesopathies, not elsewhere classified] Onset: 04-12-2024 04-12-2024 Episodic Other screening for suspected conditions (not [...] Test Name Value Interpretation Reference Range Facility ALL CBC WITH AUTO DIFFon BASOPHILS ABSOLUTE AUTO 0 [facility] Basophils/100 WBC (Bld) 0.7 % 0.2 - 2.0 % [facility] Eosinophils/100 WBC (Bld) 3.7 % 0.9 - 7.0 % [facility] Erythrocyte distribution width (RBC) [Ratio] 13.5 % 11.0 - 15.0 % [facility] Hematocrit (Bld) [Volume fraction] 39.9 % 36.0 - 48.0 % [facility] Hemoglobin (Bld) [Mass/Vol] 13.6 g/dL 12.0 - 16.0 g/dL [facility] IMMATURE GRANULOCYTES ABS AUTO 0.01 [facility] Immature granulocytes/100 WBC (Bld) 0.2 % 0.0 - 0.5 % [facility] LYMPHOCYTES ABSOLUTE AUTO 1.9 [facility] Lymphocytes/100 WBC (Bld) 32.6 % 20.5 - 60.0 % [facility] MCH (RBC) [Entitic mass] 29.8 pg 26.7 - 34.0 pg [facility] MCHC (RBC) [Mass/Vol] 34.1 g/dL 29.9 - 35.2 g/dL [facility] MCV (RBC) [Entitic vol] 87.5 fL 81.0 - 99.0 fL [facility] MONOCYTES ABSOLUTE AUTO 0.5 [facility] Monocytes/100 WBC (Bld) 8.1 % 1.7 - 12.0 % [facility] NEUTROPHILS ABSOLUTE AUTO 3.1 [facility] Neutrophils/100 WBC (Bld) 54.7 % 43.0 - 75.0 % [facility] Plate[facility] mean volume (Bld) [Entitic vol] 10.2 fL 9.5 - 13.5 fL [facility] EO # 0.2 [facility] PLT 247 [facility] RBC 4.56 [facility] WBC 5.7 [facility] No Panel Informationon 10-16 [facility] UA (CLEAN/CATCH) MICROSC OPIC IF INDICATEon 10-16-2024 BILIRUBIN URINE Negative NEGATIVE [facility] BLOOD URINE TRACE-I NEGATIVE [facility] Clarity (U) CLEAR CLEAR [facility] Color (U) YELLOW YELLOW [facility] GLUCOSE URINE UA Negative NEGATIVE mg/dL [facility] Ketones Ql (U) Negative NEGATIVE mg/dL [facility] Leukocyte esterase Test strip Ql (U) Negative NEGATIVE [facility] NITRITE URINE Negative NEGATIVE [facility] pH (U) 6.0 [pH] 5.0 - 9.0 [facility] PROTEIN URINE Negative NEG/TRACE mg/dL [facility] SPECIFIC GRAVITY URINE 1.020 1.005 - 1.025 [facility] URINE MICROSCOPIC INDICATED YES [facility] UROBILINOGEN URINE 0.2 EU/dL 0.2 - 1.0 EU/dL [facility] URINE CULTURE, ROUTINEon Bacteria identified Cx Nom (U) Urine Culture, Routine [facility] Bacteria identified Cx Nom (U) Mixed urogenital staci [facility] Bacteria identified Cx Nom (U) 10,000-25,000 colony forming units per mL [facility] Bacteria identified Cx Nom (U) [facility] Bacteria identified Cx Nom (U) [address], [place] [id number] [facility] Bacteria identified Cx Nom (U) Child Therapist: Conrad Byrd PhD, Phone: [phone] [facility] UA (CLEAN/CATCH) MICROSC OPIC IF INDICATEon 01-13-2024 BILIRUBIN URINE Negative NEGATIVE [facility] BLOOD URINE TRACE-L NEGATIVE [facility] Clarity (U) CLEAR CLEAR [facility] Color (U) LT. YELLOW YELLOW [facility] GLUCOSE URINE UA Negative NEGATIVE mg/dL [facility] Interpretation and review of laboratory results Abnormal [facility] Ketones Ql (U) Negative NEGATIVE mg/dL [facility] Leukocyte esterase Test strip Ql (U) TRACE Abnormal NEGATIVE [facility] NITRITE URINE Positive Abnormal NEGATIVE [facility] pH (U) 6.0 [pH] 5.0 - 9.0 [facility] PROTEIN URINE Negative NEG/TRACE mg/dL [facility] SPECIFIC GRAVITY URINE 1.020 1.005 - 1.025 [facility] URINE MICROSCOPIC INDICATED YES [facility] UROBILINOGEN URINE 0.2 EU/dL 0.2 - 1.0 EU/dL [facility] Scre[facility] 11-12-2023 Screens [id number]#1 .00TIFF Normal Jose [facility] Patient Educationon 11-11-19 24 Patient Education Obstetrics and Gynecology Urinary Tract [...] this condition includes: ? Antibiotic medicine. ? Vhdl-pxi-hnetrix medicines to treat discomfort. ? Drinking enough [...] these instructions at home: Medicines ? Take tasq-ttr-unbpwok and prescription medicines only as told by [...] Document Revie (more content not included)... Normal Garcia [facility] Urology Office/Clinic Noteon 11-11-2023 Urology Office/Clinic [...] Contact Information CADEN HARRINGTON, SHANNEN White, URL [address] [facility] [place] [address] Additional Instructions: PRN Patient Education Urinary Tract Infection, Adult Documentation recorded by the nany Chau accurately reflects the services(s) I performed [...] 11:19:00) Specific (more content not included)... [facility] Comment on above: Result Comment: Elec [...] DATE/TIME: 09/16/2023 18:31 EDT FREE TEXT SOURCE: CADEN HARRINGTON, SHANNEN NEGRETE PA-C, SHANNEN White FINAL REPORTS Final Report [] Verified Date/Time: [...] Locations R1: This test was performed at: [facility], [address] [place] [address], [address] , [place], [facility] Comment on above: Performed By: #### 2 [id number] ####[facility] [address] [place] [address] Ambulatory Visit Summaryon 0 09-16-2023 Ambulatory Visit [...] SHANNEN NEGRETE PA-C Where: [facility] Screenson 09-15-2023 Screens [id number]# 1.00TIFF [facility] Screens [id number]# 1.00TIFF [facility] Lab Reportson 09-10-2023 Lab Reports [id number]# 1.00TIFF [facility] Lab Reports [id number]# 1.00TIFF [facility] Lab Reports [id number]# 1.00TIFF Normal [facility] Lab Reports [id number]# 1.00TIFF [facility] RAD - CT Reporton 09-10-2023 RAD - CT Report [id number]# 1.00TIFF [facility] RAD - CT Report [id number]#1 .00TIFF [facility] RAD - MISCon 09-10-2023 RAD - MISC [id number]# 1.00TIFF [facility] RAD - MISC [id number]# 1.00TIFF [facility] Patient Educationon 09-09-19 Patient Education Obstetrics [...] these instructions at home: Medicines ? Take oxsg-sen-gpqejzs and prescription medicines only as told by [...] provider. Document Revised: 12/15/2020 Document Reviewed: 12/15/2020 [employer] Patient Education ? 2022 [employer]. [facility] Urology Office/Clinic Noteon 09-09-2023 Urology Office/Clinic [...] mixed skin contaminants CT AP w/wo 03/11/23 [facility] - No renal stones or hydro. [...] consider cysto/UD Follow-up With When Contact Information CADEN HARRINGTON, SHANNEN White, URL [address] [place] [address] [phone] Additional Instructions: 3 mos (new med) Patient Education Urinary Tract Infection, Adult, Dxtl-ln-Erba Documentation recorded by the nany Lay accurately [...] (06/30/2014), Cys (more content not included)... [facility] Comment on above: Result Comment: Elec tronically Signed By: SHANNEN NEGRETE PA-C\.br\Date and Time Signed: 09/09/23 14:17 EDT\.br\Electronically Co-Signed By: Alejandra Lay\.br\Date and Time Co-Signed: 09/09/23 14:01 EDT Urinalysis - AUTOMATEDon Appearance (U) clear [facility] Other Bilirubin Ql (U) Negative [facility] Other Color (U) pale yellow [facility] Other Glucose Ql (U) Negative [facility] Other Hemoglobin Ql (U) trace-intact [facility] Other Ketones Ql (U) Negative [facility] Other Leukocyte esterase Test strip Ql (U) trace [facility] Other Nitrite Ql (U) Negative [facility] Other pH (U) 6.0 [pH] [facility] Other Protein Ql (U) Negative [facility] Other Specific gravity (U) [Rel density] 1.010 [facility] Other Urobilinogen (U) [Mass/Vol] 0.2 mg/dL [facility] Other Urinalysis - AUTOMATED [facility] Other Urine Cultureon 04-25-2023 Bacteria identified Cx Nom (U) Reason for Exam Dysuria Urine <10,000 colonies/ml mixed bacterial skin contaminants including mixed gram negative bacilli - 2 Days PERFORMED BY: [place] [address] PATHOLOGIST BARREL CUTTER DAVID PABLO M.D. [facility] Comment on above: Performed By: #### C UU #### [facility] [address] Bacteria identified Cx Nom (U) [facility] Other LIPID PROFILEon 05-08-2022 CHOL-HDL RATIO NORM SEE BELOW Normal [facility] Comment on above: Result Comment: 3.3 - 4.4 LOW RISK 4.4 - 7.1 AVERAGE RISK 7.1 - 11.0 MODERATE RISK >11.0 HIGH RISK Performed By: #### L IPID, AST, ALT #### [facility] [address] [address] [address] Francisco Laboy Cholesterol [Mass/Vol] 191 mg/dL Normal <=200 [facility] Comment on above: Performed By: #### L IPID, AST, ALT #### [facility] [address] [address] [address] Francisco Laboy Cholesterol in HDL [Mass/Vol] 56 mg/dL Normal 40-60 [facility] Comment on above: Performed By: #### L IPID, AST, ALT #### [facility] [address] [address] [address] Francisco Laboy Cholesterol in LDL [Mass/Vol] 94.2 mg/dL Normal [facility] Comment on above: Performed By: #### L IPID, AST, ALT #### [facility] [address] [address] [address] Francisco Laboy Cholesterol.total/C holesterol in HDL [Mass ratio] 3.4 {ratio} Normal [facility] Comment on above: Performed By: #### L IPID, AST, ALT #### [facility] [address] [address] [address] Francisco Laboy HDL NORMAL > or = 60 mg/dl - LO W CARDIOVASCULAR RISK <40 mg/dl - HIGH CARDIOVASCULAR RISK Normal [facility] Comment on above: Performed By: #### L IPID, AST, ALT #### [facility] [address] [address] [address] Francisco Laboy LDL CALC NORMAL SEE BELOW Normal [facility] Comment on above: Result Comment: <100 mg/dl OPTIMAL 100 - 129 mg/dl NEAR OR ABOVE OPTIMAL 130 - 159 mg/dl BORDERLINE HIGH 160 - 189 mg/dl HIGH >190 mg/dl VERY HIGH Performed By: #### L IPID, AST, ALT #### [facility] [address] [place] [address] Dr. Francisco Laboy Triglyceride [Mass/Vol] 204 mg/dL Critically high <=150 [facility] Comment on above: Performed By: #### L IPID, AST, ALT #### [facility] [address] [address] [address] Francisco Laboy VLDL CALC 40.8 mg/dL Normal [facility] Comment on above: Performed By: #### L IPID, AST, ALT #### [facility] [address] [place] [address] Dr. Francisco Laboy SGOTon 05-08-2022 AST [Catalytic activity/Vol] 20 U/L Normal 15-37 [facility] Comment on above: Performed By: #### L IPID, AST, ALT #### [facility] [address] [place] [address] Dr. [facility]08-2022 ALT [Catalytic activity/Vol] 23 U/L Normal 14-59 [facility] Comment on above: Performed By: #### L IPID, AST, ALT #### [facility] [address] [place] [address] Dr. Francisco Laboy SARS-CoV-2 (COVID-19) RNA NA A+probe Ql (Resp)on 03-15-2022 SARS-CoV-2 (COVID-19) RNA JAZ+probe Ql (Unsp spec) Positive [facility] Other Urinalysis - AUTOMATEDon Appearance (U) cloudy [facility] Other Bilirubin Ql (U) Negative [facility] [employer] Other Color (U) yellow [facility] Other Glucose Ql (U) Negative [facility] Other Hemoglobin Ql (U) moderate [place] [facility] Other Ketones Ql (U) trace [facility] Other Leukocyte esterase Test strip Ql (U) small [facility] Other Nitrite Ql (U) Positive [facility] Other pH (U) 5.5 [pH] [facility] Other Protein Ql (U) trace [facility] Other Specific gravity (U) [Rel density] 1.025 [facility] Other Urobilinogen (U) [Mass/Vol] 0.2 mg/dL [facility] Other Urinalysis - AUTOMATED [facility] Other Urine Cultureon 03-15-2022 Urine Culture >100,000 [facility] Other Urine Culture <16 Susceptible [facility] Other Urine Culture <8 Susceptible [facility] Other Urine Culture <4 Susceptible [facility] Other Urine Culture <2 Susceptible [facility] Other Urine Culture <1 Susceptible [facility] Other Urine Culture >2 Resistant [facility] Other Urine Culture <0.5 Susceptible [facility] Other Urine Culture >4 Resistant [facility] Other Urine Culture <32 Susceptible [employer] Other Urine Culture <2/38 Susceptible [facility] Other LIPID PROFILEon 11-08-2021 CHOL-HDL RATIO NORM SEE BELOW Normal [facility] Comment on above: Result Comment: 3.3 - 4.4 LOW RISK 4.4 - 7.1 AVERAGE RISK 7.1 - 11.0 MODERATE RISK >11.0 HIGH RISK Performed By: #### U AMIC #### [facility] [address] [address] [address] Francisco Laboy Cholesterol [Mass/Vol] 177 mg/dL Normal <=200 [facility] Comment on above: Performed By: #### U AMIC #### [facility] [address] [address] [address] Francisco Laboy Cholesterol in HDL [Mass/Vol] 47 mg/dL Normal 40-60 [facility] Comment on above: Performed By: #### U AMIC #### [facility] [address] [address] [address] Francisco Laboy Cholesterol in LDL [Mass/Vol] 92.2 mg/dL Normal [facility] Comment on above: Performed By: #### U AMIC #### [facility] [address] [address] [address] Francisco Laboy Cholesterol.total/C holesterol in HDL [Mass ratio] 3.8 {ratio} Normal [facility] Comment on above: Performed By: #### U AMIC #### [facility] [address] [address] [address] Francisco Laboy HDL NORMAL > or = 60 mg/dl - LO W CARDIOVASCULAR RISK <40 mg/dl - HIGH CARDIOVASCULAR RISK Normal [facility] Comment on above: Performed By: #### U AMIC #### [facility] [address] [address] [address] Francisco Laboy LDL CALC NORMAL SEE BELOW Normal [facility] Comment on above: Result Comment: <100 mg/dl OPTIMAL 100 - 129 mg/dl NEAR OR ABOVE OPTIMAL 130 - 159 mg/dl BORDERLINE HIGH 160 - 189 mg/dl HIGH >190 mg/dl VERY HIGH Performed By: #### U AMIC #### [facility] [address] [address] [address] Francisco Laboy Triglyceride [Mass/Vol] 189 mg/dL Critically high <=150 [facility] Comment on above: Performed By: #### U AMIC #### [facility] [address] [address] [address] Francisco Laboy VLDL CALC 37.8 mg/dL Normal [facility] Comment on above: Performed By: #### U AMIC #### [facility] [address] [address] [address] Francisco Laboy PROF 14(COMP METB)on 022 Albumin [Mass/Vol] 3.9 g/dL Normal 3.4-5.0 [facility] Comment on above: Performed By: #### U AMIC #### [facility] [address] [address] [address] Francisco Laboy Albumin/Globulin [Mass ratio] 1.2 {ratio} Normal [facility] Comment on above: Performed By: #### U AMIC #### [facility] [address] [place] [address] Dr. Francisco Laboy ALP [Catalytic activity/Vol] 88 U/L Normal 46-116 [facility] Comment on above: Performed By: #### U AMIC #### [facility] [address] [address] [address] Francisco Laboy ALT [Catalytic activity/Vol] 44 U/L Normal 14-59 [facility] Comment on above: Performed By: #### U AMIC #### [facility] [address] [address] [address] Francisco Laboy Anion gap [Moles/Vol] 12.7 mmol/L Normal [facility] Comment on above: Performed By: #### U AMIC #### [facility] [address] [address] [address] Francisco Laboy AST [Catalytic activity/Vol] 26 U/L Normal 15-37 [facility] Comment on above: Performed By: #### U AMIC #### [facility] [address] [address] [address] Francisco Laboy Bilirubin [Mass/Vol] 0.4 mg/dL Normal 0.2-1.0 [facility] Comment on above: Performed By: #### U AMIC #### [facility] [address] [address] [address] Francisco Laboy Calcium [Mass/Vol] 8.4 mg/dL Critically low 8.5-10.1 [facility] Comment on above: Performed By: #### U AMIC #### [facility] [address] [address] [address] Francisco Laboy Chloride [Moles/Vol] 107 mmol/L Normal 98-107 [facility] Comment on above: Performed By: #### U AMIC #### [facility] [address] [address] [address] Francisco Laboy CO2 [Moles/Vol] 24.3 mmol/L Normal 21.0-32.0 [facility] Comment on above: Performed By: #### U AMIC #### [facility] [address] [place] [address] Dr. Francisco Laboy Creatinine [Mass/Vol] 0.92 mg/dL Normal 0.55-1.02 [facility] Comment on above: Performed By: #### U AMIC #### [facility] [address] [address] [address] Francisco Laboy EGFR-AF COLOMBIAN >60 Normal >=60 [facility] Comment on above: Performed By: #### U AMIC #### [facility] [address] [address] [address] Francisco Laboy EGFR-NON AF COLOMBIAN >60 Normal >=60 [facility] Comment on above: Performed By: #### U AMIC #### [facility] [address] [place] [address] Dr. Francisco Laboy Globulin (S) [Mass/Vol] 3.3 g/dL Normal [facility] Comment on above: Performed By: #### U AMIC #### [facility] [address] [address] [address] Francisco Laboy Glucose [Mass/Vol] 95 mg/dL Normal 74-106 [facility] Comment on above: Performed By: #### U AMIC #### [facility] [address] [address] [address] Francisco Laboy Potassium [Moles/Vol] 4.0 mmol/L Normal 3.5-5.1 [facility] Comment on above: Performed By: #### U AMIC #### [facility] [address] [place] [address] Dr. Francisco Laboy Protein [Mass/Vol] 7.2 g/dL Normal 6.4-8.2 [facility] Comment on above: Performed By: #### U AMIC #### [facility] [address] [address] [address] Francisco Laboy Sodium [Moles/Vol] 140 mmol/L Normal 136-145 [facility] Comment on above: Performed By: #### U AMIC #### [facility] [address] [place] [address] Dr. Francisco Laboy Urea nitrogen [Mass/Vol] 11.0 mg/dL Normal 7.0-18.0 [facility] Comment on above: Performed By: #### U AMIC #### [facility] [address] [place] [address] Dr. Francisco Laboy Urea nitrogen/Creatinine [Mass ratio] 11.9 mg/mg Normal [facility] Comment on above: Performed By: #### U AMIC #### [facility] [address] [place] [address] Dr. Francisco Laboy XR DEXA BONE DENSITYon 10-09 XR DEXA BONE DENSITY DEXA Bone Density Study CLINICAL: Evaluate bone mineral density. Postmenopausal COMPARISON: None FINDINGS: The bone density study was assessed by dual-energy x-ray absorptiometry with the Sennari scanner. The test results are expressed in [...] by: ANTWAN LAY Date: 2021-10-09 08:51 Normal [facility] PAP ACOG PANEL 2: 30 to 65on 10-08-2021 . . Normal [facility] Comment on above: Result Comment: Perf ormed at: BA Performed By: #### U AMIC #### [facility] [address] [address] [address] Francisco Laboy Age Gdln ACOG Testing 30-65 Normal [facility] Comment on above: Performed By: #### U AMIC #### [facility] [address] [address] [address] Francisco Laboy DIAGNOSIS: Comment Normal [facility] Comment on above: Result Comment: UNSA TISFACTORY FOR EVALUATION. THIS SPECIMEN WAS RESCREENED PART OF OUR MEDICAL STAFF SPECIALIST PROGRAM. Performed at: BA Performed By: #### U AMIC #### [facility] [address] [address] [address] Francisco Laboy HPV Aptima Negative Normal Negative [facility] Comment on above: Result Comment: This nucleic acid amplification test detects fourteen high-risk HPV types (16,18,31,33,35,39,45,51,52,56,58,59,66,68) without differentiation. Performed at: =G Performed By: #### U AMIC #### [facility] [address] [place] [address] Dr. Francisco Laboy Methodology: Comment Normal [facility] Comment on above: Result Comment: This liquid based ThinPrep(R) pap test was screened with the use of an image guided system. Performed at: WB Performed By: #### U AMIC #### [facility] [address] [place] [address] Dr. Francisco Laboy Note: Comment Normal [facility] Comment on above: Result Comment: The [...] WB Performed By: #### U AMIC #### [facility] [address] [place] [address] Dr. Francisco Laboy Performed by: Comment Normal The [facility] Comment on above: Result Comment: Liang Houser Digital Circuit Designer (ASCP) Performed at: BA Performed By: #### U AMIC #### [facility] [address] [address] [address] Francisco Laboy QC reviewed by: Comment Normal [facility] Comment on above: Result Comment: Rusty Ortiz, Digital Circuit Designer (ASCP) Performed at: BA Performed By: #### U AMIC #### [facility] [address] [address] [address] Francisco Laboy Specimen adequacy: Comment Normal [facility] Comment on above: Result Comment: Spec imen processed and examined but unsatisfactory for evaluation of epithelial abnormality because of insufficient cellularity. Performed at: BA Performed By: #### U AMIC #### [facility] [address] [address] [address] Francisco Laboy MG MAMM SCREEN 3D KAROL CADon 10-01-2021 MG MAMM SCREEN 3D KAROL CAD Patient: MONICA AMOR Exam Date: 10/01/2021 : 1960 Gender:F Ordering : KATH [facility] Admission #: [id number] Family : Order #: [id number] CLICK HERE TO VIEW EXAM RADIOLOGY REPORT [...] stomach cancer at age 42. LOCATION: [facility] BREAST COMPOSITION: Heterogeneously dense,which may obscure [...] MD on 10/01/2021 at 08:44 Normal [facility] CULTURE URINEon 09-06-2021 CULTURE URINE Culture Observations : NO GROWTH. Normal [facility] Comment on above: Performed By: #### U AMIC #### [facility] [address] [address] [address] Francisco Laboy UA RANDOM W/MICROSCOPICon BACTERIA NONE SEEN Normal NONE SEEN [facility] Comment on above: Performed By: #### U AMIC #### [facility] [address] [place] [address] Dr. Francisco Laboy Bilirubin Ql (U) Negative Normal NEGATIVE [facility] Comment on above: Performed By: #### U AMIC #### [facility] [address] [address] [address] Francisco Laboy CAST NONE SEEN Normal NONE SEEN [facility] Comment on above: Performed By: #### U AMIC #### [facility] [address] [place] [address] Dr. Francisco Laboy Clarity (U) CLEAR Normal CLEAR [facility] Comment on above: Performed By: #### U AMIC #### [facility] [address] [address] [address] Francisco Laboy Color (U) LT. YELLOW Normal YELLOW [facility] Comment on above: Performed By: #### U AMIC #### [facility] [address] [address] [address] Francisco Laboy Crystals LM Nom (Urine sed) NONE SEEN Normal NONE SEEN [facility] Comment on above: Performed By: #### U AMIC #### [facility] [address] [place] [address] Dr. Francisco Laboy Epithelial cells LM Ql (Urine sed) FEW Abnormal NONE SEEN /RARE [facility] Comment on above: Performed By: #### U AMIC #### [facility] [address] [address] [address] Francisco Laboy Glucose Ql (U) Negative Normal NEGATIVE The [facility] Comment on above: Performed By: #### U AMIC #### [facility] [address] [address] [address] Francisco Laboy Hemoglobin Ql (U) Negative Normal NEGATIVE [facility] Comment on above: Performed By: #### U AMIC #### [facility] [address] [address] [address] Francisco Laboy Ketones Ql (U) Negative Normal NEGATIVE The [facility] Comment on above: Performed By: #### U AMIC #### [facility] [address] [address] [address] Francisco Laboy LEUKOCYTES Negative Normal NEGATIVE [facility] Comment on above: Performed By: #### U AMIC #### [facility] [address] [address] [address] Francisco Laboy MUCOUS NONE SEEN Normal NONE SEEN [facility] Comment on above: Performed By: #### U AMIC #### [facility] [address] [place] [address] Dr. Francisco Laboy Nitrite Ql (U) Negative Normal NEGATIVE The [facility] Comment on above: Performed By: #### U AMIC #### [facility] [address] [place] [address] Dr. Francisco Laboy pH (U) 6.0 [pH] Normal 5-9 [facility] Comment on above: Performed By: #### U AMIC #### [facility] [address] [address] [address] Francisco Laboy RBC NONE SEEN Abnormal 0-2 [facility] Comment on above: Performed By: #### U AMIC #### [facility] [address] [place] [address] Dr. Francisco Laboy SPEC GRAVITY <=1.005 Abnormal 1.005-<=1.025 [facility] Comment on above: Performed By: #### U AMIC #### [facility] [address] [place] [address] Dr. Francisco Laboy UA PROTEIN Negative Normal NEGATIVE/ TRACE [facility] Comment on above: Performed By: #### U AMIC #### [facility] [address] [place] [address] Dr. Francisco Laboy Urobilinogen Qn (U) 0.2 {Blanca'U}/dL Normal 0.2 - 1. 0 [facility] Comment on above: Performed By: #### U AMIC #### [facility] [address] [place] [address] Dr. Francisco Laboy WBC NONE SEEN Normal NONE SEEN [facility] Comment on above: Performed By: #### U AMIC #### [facility] [address] [place] [address] Dr. Francisco Laboy CULTURE URINEon 08-30-2021 CULTURE [...] Trimethoprim/Sulfamet hoxazole <=20 S F Normal [facility] Comment on above: Performed By: #### U RCX #### [facility] [address] [place] [address] Dr. Francisco Laboy CBC AUTO DIFFon 08-28-2021 BASO # 0.0 103/ul Normal 0.0-0.1 [facility] Comment on above: Performed By: #### U AMIC #### [facility] [address] [place] [address] Dr. Francisco Laboy Basophils/100 WBC (Bld) 0.7 % Normal 0.2-2.0 [facility] Comment on above: Performed By: #### U AMIC #### [facility] [address] [place] [address] Dr. Francisco Laboy EO # 0.2 103/ul Normal 0.0-0.7 [facility] Comment on above: Performed By: #### U AMIC #### [facility] [address] [place] [address] Dr. Francisco Laboy Eosinophils/100 WBC (Bld) 3.3 % Normal 0.9-7.0 [facility] Comment on above: Performed By: #### U AMIC #### [facility] [address] [address] [address] Francisco Laboy Erythrocyte distribution width (RBC) [Ratio] 13.6 % Normal 11.0-15.0 [facility] Comment on above: Performed By: #### U AMIC #### [facility] [address] [place] [address] Dr. Francisco Laboy Hematocrit (Bld) [Volume fraction] 40.9 % Normal 36.0-48.0 [facility] Comment on above: Performed By: #### U AMIC #### [facility] [address] [place] [address] Dr. Francisco Laboy Hemoglobin (Bld) [Mass/Vol] 13.3 g/dL Normal 12.0-16.0 [facility] Comment on above: Performed By: #### U AMIC #### [facility] [address] [place] [address] Dr. Francisco Laboy IG # 0.01 10e3/ul Normal 0.00-0.03 [facility] Comment on above: Performed By: #### U AMIC #### [facility] [address] [place] [address] Dr. Francisco Laboy IG % 0.2 % Normal 0.0-0.5 [facility] Comment on above: Performed By: #### U AMIC #### [facility] [address] [place] [address] Dr. Francisco Laboy LYMPH # 1.8 103/ul Normal 1.2-3.8 [facility] Comment on above: Performed By: #### U AMIC #### [facility] [address] [place] [address] Dr. Francisco Laboy Lymphocytes/100 WBC (Bld) 31.6 % Normal 20.5-60.0 [facility] Comment on above: Performed By: #### U AMIC #### [facility] [address] [place] [address] Dr. Francisco Laboy MANUAL DIFF REQ NO Normal [facility] Comment on above: Performed By: #### U AMIC #### [facility] [address] [address] [address] Francisco Laboy MCH (RBC) [Entitic mass] 29.1 pg Normal 26.7-34.0 [facility] Comment on above: Performed By: #### U AMIC #### [facility] [address] [address] [address] Francisco Laboy MCHC (RBC) [Mass/Vol] 32.5 g/dL Normal 29.9-35.2 [facility] Comment on above: Performed By: #### U AMIC #### [facility] [address] [address] [address] Francisco Laboy MCV (RBC) [Entitic vol] 89.5 fL Normal 81.0-99.0 [facility] Comment on above: Performed By: #### U AMIC #### [facility] [address] [place] [address] Dr. Francisco Laboy MONO # 0.5 103/ul Normal 0.3-0.8 [facility] Comment on above: Performed By: #### U AMIC #### [facility] [address] [place] [address] Dr. Francisco Laboy Monocytes/100 WBC (Bld) 8.7 % Normal 1.7-12.0 [facility] Comment on above: Performed By: #### U AMIC #### [facility] [address] [address] [address] Francisco Laboy NEUT # 3.2 103/ul Normal 1.4-6.5 [facility] Comment on above: Performed By: #### U AMIC #### [facility] [address] [address] [address] Francisco Laboy Neutrophils/100 WBC (Bld) 55.5 % Normal 43.0-75.0 [facility] Comment on above: Performed By: #### U AMIC #### [facility] [address] [place] [address] Dr. Francisco Laboy Platelet mean volume (Bld) [Entitic vol] 10.5 fL Normal 9.5-13.5 [facility] Comment on above: Performed By: #### U AMIC #### [facility] [address] [address] [address] Francisco Laboy PLT 261 103/ul Normal 150-450 [facility] Comment on above: Performed By: #### U AMIC #### [facility] [address] [place] [address] Dr. Francisco Laboy RBC 4.57 106/ul Normal 4.20-5.40 [facility] Comment on above: Performed By: #### U AMIC #### [facility] [address] [place] [address] Dr. Francisco Laboy WBC 5.8 103/ul Normal 4.0-11.0 [facility] Comment on above: Performed By: #### U AMIC #### [facility] [address] [place] [address] Dr. Francisco Laboy LIPID PROFILEon 08-28-2021 CHOL-HDL RATIO NORM SEE BELOW Normal [facility] Comment on above: Result Comment: 3.3 - 4.4 LOW RISK 4.4 - 7.1 AVERAGE RISK 7.1 - 11.0 MODERATE RISK >11.0 HIGH RISK Performed By: #### T SH, LIPID, CMP #### [facility] [address] [place] [address] Dr. Francisco Laboy Cholesterol [Mass/Vol] 244 mg/dL Critically high <=200 [facility] Comment on above: Performed By: #### T SH, LIPID, CMP #### [facility] [address] [place] [address] Dr. Francisco Laboy Cholesterol in HDL [Mass/Vol] 47 mg/dL Normal 40-60 [facility] Comment on above: Performed By: #### T SH, LIPID, CMP #### [facility] [address] [place] [address] Dr. Francisco Laboy Cholesterol in LDL [Mass/Vol] 155.2 mg/dL Normal [facility] Comment on above: Performed By: #### T SH, LIPID, CMP #### [facility] [address] [place] [address] Dr. Francisco Laboy Cholesterol.total/C holesterol in HDL [Mass ratio] 5.2 {ratio} Normal [facility] Comment on above: Performed By: #### T SH, LIPID, CMP #### [facility] [address] [place] [address] Dr. Francisco Laboy HDL NORMAL > or = 60 mg/dl - LO W CARDIOVASCULAR RISK <40 mg/dl - HIGH CARDIOVASCULAR RISK Normal [facility] Comment on above: Performed By: #### T SH, LIPID, CMP #### [facility] [address] [place] [address] Dr. Francisco Laboy LDL CALC NORMAL SEE BELOW Normal [facility] Comment on above: Result Comment: <100 mg/dl OPTIMAL 100 - 129 mg/dl NEAR OR ABOVE OPTIMAL 130 - 159 mg/dl BORDERLINE HIGH 160 - 189 mg/dl HIGH >190 mg/dl VERY HIGH Performed By: #### T FEDE, LIPID, CMP #### [facility] [address] [place] [address] Dr. Francisco Laboy Triglyceride [Mass/Vol] 209 mg/dL Critically high <=150 [facility] Comment on above: Performed By: #### T FEDE, LIPID, CMP #### [facility] [address] [place] [address] Dr. Francisco Laboy VLDL CALC 41.8 mg/dL Normal [facility] Comment on above: Performed By: #### T FEDE, LIPID, CMP #### [facility] [address] [place] [address] Dr. Francisco Laboy PROF 14(COMP METB)on 022 Albumin [Mass/Vol] 4.0 g/dL Normal 3.4-5.0 [facility] Comment on above: Performed By: #### T SH, LIPID, CMP #### [facility] [address] [place] [address] Dr. Francisco Laboy Albumin/Globulin [Mass ratio] 1.3 {ratio} Normal [facility] Comment on above: Performed By: #### T SH, LIPID, CMP #### [facility] [address] [place] [address] Dr. Francisco Laboy ALP [Catalytic activity/Vol] 84 U/L Normal 46-116 [facility] Comment on above: Performed By: #### T FEDE, LIPID, CMP #### [facility] [address] [place] [address] Dr. Francisco Laboy ALT [Catalytic activity/Vol] 24 U/L Normal 14-59 [facility] Comment on above: Performed By: #### T FEDE, LIPID, CMP #### [facility] [address] [place] [address] Dr. Francisco Laboy Anion gap [Moles/Vol] 13.2 mmol/L Normal [facility] Comment on above: Performed By: #### T FEDE, LIPID, CMP #### [facility] [address] [place] [address] Dr. Francisco Laboy AST [Catalytic activity/Vol] 15 U/L Normal 15-37 [facility] Comment on above: Performed By: #### T FEDE, LIPID, CMP #### [facility] [address] [place] [address] Dr. Francisco Laboy Bilirubin [Mass/Vol] 0.3 mg/dL Normal 0.2-1.3 [facility] Comment on above: Performed By: #### T FEDE, LIPID, CMP #### [facility] [address] [place] [address] Dr. Francisco Laboy Calcium [Mass/Vol] 8.4 mg/dL Critically low 8.5-10.1 [facility] Comment on above: Performed By: #### T FEDE, LIPID, CMP #### [facility] [address] [place] [address] Dr. Francisco Laboy Chloride [Moles/Vol] 105 mmol/L Normal 98-107 [facility] Comment on above: Performed By: #### T FEDE, LIPID, CMP #### [facility] [address] [place] [address] Dr. Francisco Laboy CO2 [Moles/Vol] 26.8 mmol/L Normal 22.0-30.0 [facility] Comment on above: Performed By: #### T FEDE, LIPID, CMP #### [facility] [address] [address] [address] Francisco Laboy Creatinine [Mass/Vol] 0.84 mg/dL Normal 0.52-1.04 [facility] Comment on above: Performed By: #### T SH, LIPID, CMP #### [facility] [address] [place] [address] Dr. Francisco Laboy EGFR-AF COLOMBIAN >60 Normal >=60 [facility] Comment on above: Performed By: #### T SH, LIPID, CMP #### [facility] [address] [address] [address] Francisco Laboy EGFR-NON AF COLOMBIAN >60 Normal >=60 [facility] Comment on above: Performed By: #### T SH, LIPID, CMP #### [facility] [address] [place] [address] Dr. Francisco Laboy Globulin (S) [Mass/Vol] 3.0 g/dL Normal [facility] Comment on above: Performed By: #### T SH, LIPID, CMP #### [facility] [address] [place] [address] Dr. Francisco Laboy Glucose [Mass/Vol] 101 mg/dL Normal 74-106 [facility] Comment on above: Performed By: #### T FEDE, LIPID, CMP #### [facility] [address] [place] [address] Dr. Francisco Laboy Potassium [Moles/Vol] 4.0 mmol/L Normal 3.4-5.0 [facility] Comment on above: Performed By: #### T SH, LIPID, CMP #### [facility] [address] [place] [address] Dr. Francisco Laboy Protein [Mass/Vol] 7.0 g/dL Normal 6.1-8.2 [facility] Comment on above: Performed By: #### T SH, LIPID, CMP #### [facility] [address] [place] [address] Dr. Francisco Laboy Sodium [Moles/Vol] 141 mmol/L Normal 137-145 [facility] Comment on above: Performed By: #### T SH, LIPID, CMP #### [facility] [address] [place] [address] Dr. Francisco Laboy Urea nitrogen [Mass/Vol] 15.0 mg/dL Normal 7.0-18.0 [facility] Comment on above: Performed By: #### T SH, LIPID, CMP #### [facility] [address] [place] [address] Dr. Francisco Laboy Urea nitrogen/Creatinine [Mass ratio] 17.9 mg/mg Normal [facility] Comment on above: Performed By: #### T SH, LIPID, CMP #### [facility] [address] [place] [address] Dr. Francisco Laboy TSHon 08-28-2021 TSH 3.809 uIU/mL Normal 0.470-4.[address] [facility] Comment on above: Performed By: #### T SH, LIPID, CMP #### [facility] [address] [place] [address] Dr. Francisco Laboy TSH RANGE SEE BELOW Normal [facility] Comment on above: Result Comment: <0.3 4 UIU/ml HYPERTHYROID 0.34-5.60 UIU/ml EUTHYROID >5.60 UIU/ml HYPOTHYROID Performed By: #### T SH, LIPID, CMP #### [facility] [address] [place] [address] Dr. Francisco Laboy UA RANDOM W/MICROSCOPICon BACTERIA MODERATE Abnormal NONE SEEN [facility] Comment on above: Performed By: #### U AMIC #### [facility] [address] [place] [address] Dr. Francisco Laboy Bilirubin Ql (U) Negative Normal NEGATIVE [facility] Comment on above: Performed By: #### U AMIC #### [facility] [address] [place] [address] Dr. Francisco Laboy CAST NONE SEEN Normal NONE SEEN [facility] Comment on above: Performed By: #### U AMIC #### [facility] [address] [place] [address] Dr. Francisco Laboy Clarity (U) CLEAR Normal CLEAR [facility] Comment on above: Performed By: #### U AMIC #### [facility] [address] [address] [address] Francisco Laboy Color (U) LT. YELLOW Normal YELLOW [facility] Comment on above: Performed By: #### U AMIC #### [facility] [address] [place] [address] Dr. Francisco Laboy Crystals LM Nom (Urine sed) NONE SEEN Normal NONE SEEN [facility] Comment on above: Performed By: #### U AMIC #### [facility] [address] [address] [address] Francisco Laboy Epithelial cells LM Ql (Urine sed) RARE Normal NONE SEEN /RARE [facility] Comment on above: Performed By: #### U AMIC #### [facility] [address] [place] [address] Dr. Francisco Laboy Glucose Ql (U) Negative Normal NEGATIVE [facility] Comment on above: Performed By: #### U AMIC #### [facility] [address] [address] [address] Francisco Laboy Hemoglobin Ql (U) SMALL Abnormal NEGATIVE [facility] Comment on above: Performed By: #### U AMIC #### [facility] [address] [place] [address] Dr. Francisco Laboy Ketones Ql (U) Negative Normal NEGATIVE [facility] Comment on above: Performed By: #### U AMIC #### [facility] [address] [address] [address] Francisco Laboy LEUKOCYTES SMALL Abnormal NEGATIVE [facility] Comment on above: Performed By: #### U AMIC #### [facility] [address] [address] [address] Francisco Laboy MUCOUS SMALL Abnormal NONE SEEN [facility] Comment on above: Performed By: #### U AMIC #### [facility] [address] [place] [address] Dr. Francisco Laboy Nitrite Ql (U) Positive Abnormal NEGATIVE [facility] Comment on above: Performed By: #### U AMIC #### [facility] [address] [place] [address] Dr. Francisco Laboy pH (U) 6.5 [pH] Normal 5-9 [facility] Comment on above: Performed By: #### U AMIC #### [facility] [address] [address] [address] Francisco Laboy RBC 0-2 Normal 0-2 [facility] Comment on above: Performed By: #### U AMIC #### [facility] [address] [address] [address] Francisco Laboy SPEC GRAVITY 1.015 Normal 1.005-<=1.025 [facility] Comment on above: Performed By: #### U AMIC #### [facility] [address] [address] [address] Francisco Laboy UA PROTEIN Negative Normal NEGATIVE/ TRACE [facility] Comment on above: Performed By: #### U AMIC #### [facility] [address] [address] [address] Francisco Laboy Urobilinogen Qn (U) 0.2 {Blanca'U}/dL Normal 0.2 - 1. 0 [facility] Comment on above: Performed By: #### U AMIC #### [facility] [address] [address] [address] Francisco Laboy WBC 5-10 Abnormal NONE SEEN [facility] Comment on above: Performed By: #### U AMIC #### [facility] [address] [address] [address] Francisco Laboy Vital Signs Date Time Vital Sign Value Performing Clinician Facility 11-10-2024 10:54-0400 Body height 151.1 cm Papa Ivory DO Work Phone: [facility] 11-10-2024 10:54-0400 Body mass index (BMI) [Ratio] 23.63 kg/m2 Papa Ivory DO Work Phone: [facility] 11-10-2024 10:54-0400 Body weight 53.98 kg Papa Ivory DO Work Phone: [facility] 11-10-2024 10:54-0400 Diastolic blood pressure 61 mm[Hg] Papa Ivory DO Work Phone: [facility] 11-10-2024 10:54-0400 Heart rate 66 /min Papa Ivory DO Work Phone: [facility] 11-10-2024 10:54-0400 Systolic blood pressure 129 mm[Hg] Papa Ivory DO Work Phone: [facility] 10-26-2024 11:19-0400 Body height 150.5 cm Ros Levin TONG SETTER-CLAIMS SERVICE ADJUSTOR Work Phone: [facility] 10-26-2024 11:19-0400 Body mass index (BMI) [Ratio] 24.07 kg/m2 Ros Levin TONG SETTER-CLAIMS SERVICE ADJUSTOR Work Phone: [facility] 10-26-2024 11:19-0400 Body weight 54.52 kg Ros Levin TONG SETTER-CLAIMS SERVICE ADJUSTOR Work Phone: [facility] 10-26-2024 11:19-0400 Diastolic blood pressure 71 mm[Hg] Ros Levin TONG SETTER-CLAIMS SERVICE ADJUSTOR Work Phone: [facility] 10-26-2024 11:19-0400 Systolic blood pressure 121 mm[Hg] Ros Levin TONG SETTER-CLAIMS SERVICE ADJUSTOR Work Phone: [facility] 10-25-2024 10:47-0400 Body height 151.1 cm Pmh 1 [facility] 10-25-2024 10:47-0400 Body mass index (BMI) [Ratio] 24.23 kg/m2 P[facility] 1 [facility] 10-25-2024 10:47-0400 Body weight 55.34 kg Pmh 1 [facility] 10-12-2024 15:19-0400 Body height 151.1 cm Deidre Valdivia LEAD 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 Work Phone: [facility] 10-12-2024 15:19-0400 Body mass index (BMI) [Ratio] 24.27 kg/m2 Deidre Valdivia LEAD 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 Work Phone: [facility] 10-12-2024 15:19-0400 Body temperature 97.81 [degF] Deidre Salhholz LEAD 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 Work Phone: [facility] 10-12-2024 15:19-0400 Body weight 55.43 kg Deidre Salhholz LEAD 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 Work Phone: [facility] 10-12-2024 15:19-0400 Diastolic blood pressure 84 mm[Hg] Deidre Aichholz LEAD 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 Work Phone: [facility] 10-12-2024 15:19-0400 Heart rate 68 /min Deidre Aichholz LEAD 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 Work Phone: [facility] 10-12-2024 15:19-0400 Respiratory rate 18 /min Deidre Salhholz LEAD 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 Work Phone: [facility] 10-12-2024 15:19-0400 SaO2% (BldA) [Mass fraction] 98 % Deidre Salhholz LEAD 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 Work Phone: [facility] 10-12-2024 15:19-0400 Systolic blood pressure 132 mm[Hg] Deidre Aichholz LEAD 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 Work Phone: [facility] 04-12-2024 15:28-0500 Body height 151.1 cm Deidre Salhholz LEAD 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 Work Phone: [facility] 04-12-2024 15:28-0500 Body mass index (BMI) [Ratio] 23.95 kg/m2 Deidre Salhholz LEAD 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 Work Phone: [facility] 04-12-2024 15:28-0500 Body temperature 98.29 [degF] Deidre Aichholz LEAD 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 Work Phone: [facility] 04-12-2024 15:28-0500 Body weight 54.7 kg Deidre Aichholz LEAD 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 Work Phone: [facility] 04-12-2024 15:28-0500 Diastolic blood pressure 82 mm[Hg] Deidre Aichholz LEAD 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 Work Phone: [facility] 04-12-2024 15:28-0500 Heart rate 78 /min Deidre Mejiajayleen LEAD 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 Work Phone: [facility] 04-12-2024 15:28-0500 Respiratory rate 18 /min Deidre Mejiajayleen LEAD 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 Work Phone: [facility] 04-12-2024 15:28-0500 SaO2% (BldA) [Mass fraction] 98 % Deidre Mejiajayleen LEAD 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 Work Phone: [facility] 04-12-2024 15:28-0500 Systolic blood pressure 120 mm[Hg] Deidre Mejiajayleen LEAD 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 Work Phone: [facility] 04-01-2024 10:57-0500 Body height 151.1 cm Ros Levin TONG SETTER-CLAIMS SERVICE ADJUSTOR Work Phone: [facility] 04-01-2024 10:57-0500 Body mass index (BMI) [Ratio] 23.71 kg/m2 Ros Levin TONG SETTER-CLAIMS SERVICE ADJUSTOR Work Phone: [facility] 04-01-2024 10:57-0500 Body weight 54.16 kg Ros Levin TONG SETTER-CLAIMS SERVICE ADJUSTOR Work Phone: [facility] 04-01-2024 10:57-0500 Diastolic blood pressure 77 mm[Hg] Ros Levin TONG SETTER-CLAIMS SERVICE ADJUSTOR Work Phone: [facility] 04-01-2024 10:57-0500 Heart rate 64 /min Ros Levin TONG SETTER-CLAIMS SERVICE ADJUSTOR Work Phone: [facility] 04-01-2024 10:57-0500 Systolic blood pressure 143 mm[Hg] Ros Levin TONG SETTER-CLAIMS SERVICE ADJUSTOR Work Phone: [facility] 02-02-2024 15:35-0400 Body height 151.1 cm Deidre Skip LEAD 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 Work Phone: [facility] 02-02-2024 15:35-0400 Body mass index (BMI) [Ratio] 24.15 kg/m2 Deidre Valdivia LEAD 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 Work Phone: [facility] 02-02-2024 15:35-0400 Body temperature 98.8 [degF] Deidre Leez LEAD 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 Work Phone: [facility] 02-02-2024 15:35-0400 Body weight 55.16 kg Deidre Leez LEAD 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 Work Phone: [facility] 02-02-2024 15:35-0400 Diastolic blood pressure 78 mm[Hg] Deidre Rosaz LEAD 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 Work Phone: [facility] 02-02-2024 15:35-0400 Heart rate 64 /min Deidre Leez LEAD 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 Work Phone: [facility] 02-02-2024 15:35-0400 Respiratory rate 18 /min Deidre Leez LEAD 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 Work Phone: [facility] 02-02-2024 15:35-0400 SaO2% (BldA) [Mass fraction] 95 % Deidre Leez LEAD 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 Work Phone: [facility] 02-02-2024 15:35-0400 Systolic blood pressure 118 mm[Hg] Deidre Leez LEAD 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 Work Phone: [facility] 01-12-2024 16:31-0400 Body height 151.1 cm Deidre Leez LEAD 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 Work Phone: [facility] 01-12-2024 16:31-0400 Body mass index (BMI) [Ratio] 23.55 kg/m2 Deidreashlee Mejiaholz LEAD 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 Work Phone: [facility] 01-12-2024 16:31-0400 Body temperature 98.01 [degF] Deidre Leez LEAD 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 Work Phone: [facility] 01-12-2024 16:31-0400 Body weight 53.8 kg Deidre Leez LEAD 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 Work Phone: [facility] 01-12-2024 16:31-0400 Diastolic blood pressure 76 mm[Hg] Deidre Aichholz LEAD 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 Work Phone: [facility] 01-12-2024 16:31-0400 Heart rate 68 /min Deidre Aichholz LEAD 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 Work Phone: [facility] 01-12-2024 16:31-0400 Respiratory rate 18 /min Deidre Aichholz LEAD 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 Work Phone: [facility] 01-12-2024 16:31-0400 SaO2% (BldA) [Mass fraction] 98 % Deidre Aichholz LEAD 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 Work Phone: [facility] 01-12-2024 16:31-0400 Systolic blood pressure 116 mm[Hg] Deidre Aichholz LEAD 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 Work Phone: [facility] 11-11-2023 11:22-0400 Blood Pressure Location SHANNEN CADEN [facility] 11-11-2023 11:22-0400 Diastolic blood pressure 72 mm[Hg] SHANNEN CADEN [facility] 11-11-2023 11:22-0400 Heart rate 68 /min SHANNEN CADEN [facility] 11-11-2023 11:22-0400 Respiratory rate 16 /min SHANNEN CADEN [facility] 11-11-2023 11:22-0400 Systolic blood pressure 130 mm[Hg] SHANNEN CADEN [facility] 09-09-2023 13:14-0400 Blood Pressure Location SHANNEN CADEN [facility] 09-09-2023 13:14-0400 Body temperature 98.24 [degF] SHANNEN CADEN [facility] 09-09-2023 13:14-0400 Diastolic blood pressure 81 mm[Hg] SHANNEN CADEN [facility] 09-09-2023 13:14-0400 Heart rate 62 /min SHANNEN CADEN [facility] 09-09-2023 13:14-0400 Respiratory rate 16 /min SHANNEN CADEN [facility] 09-09-2023 13:14-0400 Systolic blood pressure 130 mm[Hg] SHANNEN CADEN [facility] 04-25-2023 09:25-0500 Body height 151.13 cm 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 Other [employer] [facility] [employer] Other 04-25-2023 09:25-0500 Body mass index (BMI) [Ratio] 22.88 kg/m2 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 Other [facility] [employer] Other 04-25-2023 09:25-0500 Body temperature 98.9 [degF] 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 Other [facility] Other 04-25-2023 09:25-0500 Body weight 52.25 kg 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 Other [facility] Other 04-25-2023 09:25-0500 Diastolic blood pressure 79 mm[Hg] 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 Other [facility] Other 04-25-2023 09:25-0500 Respiratory rate 18 /min 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 Other [facility] Other 04-25-2023 09:25-0500 SaO2% (BldA) [Mass fraction] 98 % 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 Other [facility] Other 04-25-2023 09:25-0500 Systolic blood pressure 140 mm[Hg] Stephanie Lazomond Other [facility] Other 03-15-2022 14:30-0400 Body height 151.13 cm Stephanie Preethi Other [facility] Other 03-15-2022 14:30-0400 Body mass index (BMI) [Ratio] 25.02 kg/m2 Stephanie Lazomond Other [facility] Other 03-15-2022 14:30-0400 Body temperature 99.6 [degF] 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 Other [facility] Other 03-15-2022 14:30-0400 Body weight 57.15 kg 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 Other [facility] Other 03-15-2022 14:30-0400 Respiratory rate 18 /min Stephanie Lazomond Other [facility] Other 03-15-2022 14:30-0400 SaO2% (BldA) [Mass fraction] 97 % Stephanie Preethi Other [facility] Other Encounters Encounter Date Encounter Type Care Provider Facility Start: 11-10-2024 End: 11-10-2024 Telephone encounter [facility] Start: 11-10-2024 End: 11-10-2024 Office outpatient visit 15 minutes Papa Ivory DO Work Phone: [facility] Comment on above: Park's esophagus without dysplasia (Primary Dx); Diverticulosis; Gastroesophageal reflux disease, unspecified whether esophagitis present Start: 11-10-2024 End: 11-10-2024 [facility] Start: 11-01-2024 End: 11-01-2024 [facility] Start: 10-26-2024 End: 10-26-2024 ambulatory [facility] Pat Phone Call Provider [address] [facility] - Pre Ad[facility] Start: 10-26-2024 End: 10-26-2024 Office outpatient visit 15 minutes Ros Levin APRN-CLAIMS SERVICE ADJUSTOR Work Phone: [facility] Comment on above: Sigmoid diverticulit is (Primary Dx); Park's esophagus without dysplasia Start: 10-26-2024 End: 10-26-2024 ambulatory [facility] Ashlee LEVIN [facility] Start: 10-25-2024 End: [facility] Start: 10-16-2024 End: 10-16-2024 Clinisync Result Encounter Deidre Valdivia LEAD 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 Work Phone: [facility] Unsolicited Start: 10-16-2024 End: 10-16-2024 Clinisync Result Encounter Deidre Valdivia LEAD 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 Work Phone: [facility] Unsolicited Start: 10-12-2024 End: 10-12-2024 Periodic preventive med est patient 40-64yrs Deidre Valdivia LEAD 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 [facility] Comment on above: Encounter for adult wellness visit (Primary Dx); Migraine without aura and without status migrainosus, not intractable (CMS/HCC); Encounter for screening mammogram for malignant neoplasm of breast Start: 10-12-2024 End: 10-12-2024 ambulatory DEIDRE VALDIVIA Not Available Start: 10-12-2024 End: 10-12-2024 Bamboo flowsheet Deidre Salbetitojayleen LEAD 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 Work Phone: [facility] Start: 10-12-2024 End: 10-12-2024 Bamboo flowsheet Deidre Mejiajayleen LEAD 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 Work Phone: [facility] Start: 10-12-2024 End: 10-12-2024 Patient encounter status Deidre Mejiabeatrizemy LEAD 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 Work Phone: [facility] Start: 04-15-2024 End: 04-16-2024 Refill Deidre Skip LEAD 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 Work Phone: [facility] Comment on above: Migraine without aur a and without status migrainosus, not intractable (CMS/HCC) (Primary Dx) Start: 04-12-2024 End: 04-12-2024 Office outpatient visit 25 minutes Deidre Skip LEAD 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 Work Phone: [facility] Comment on above: Diverticulitis (Prim nahid Dx); Park's esophagus with dysplasia; Migraine without aura and without status migrainosus, not intractable (CMS/HCC); Right shoulder tendonitis Start: 04-12-2024 End: 04-12-2024 ambulatory DEIDRE SKIP Not Available Start: 04-12-2024 End: 04-12-2024 Bamboo flowsheet Deidre Salbetitojayleen LEAD 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 Work Phone: [facility] Start: 04-12-2024 End: 04-12-2024 Bamboo flowsheet Deidre Salbetitojayleen LEAD 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 Work Phone: [facility] Start: 04-06-2024 End: 04-06-2024 [facility] Start: 04-01-2024 End: 04-01-2024 Office outpatient new 30 minutes Ros Levin TONG SETTER-CLAIMS SERVICE ADJUSTOR Work Phone: [facility] Comment on above: Sigmoid diverticulit is (Primary Dx) Start: 04-01-2024 End: 04-01-2024 ambulatory [facility] Start: 03-22-2024 End: 03-25-2024 Clinisync Result Encounter Generic External Data Provider [facility] Unsolicited Start: 03-22-2024 End: 03-25-2024 Clinisync Result Encounter Generic External Data Provider [facility] Unsolicited Start: 02-02-2024 End: 02-02-2024 Office outpatient visit 15 minutes Deidre Valdivia LEAD 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 Work Phone: [facility] Comment on above: Recurrent UTI (urina ry tract infection) (Primary Dx); Migraine without aura and without status migrainosus, not intractable (CMS/HCC); Asymptomatic microscopic hematuria; Dyspareunia in female Start: 02-02-2024 End: 02-02-2024 ambulatory DEIDRE VALDIVIA Not Available Start: 02-02-2024 End: 02-02-2024 Bamboo flowsheet Deidre Valdivia LEAD 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 Work Phone: [facility] Start: 02-02-2024 End: 02-02-2024 Bamboo flowsheet Deidre Valdivia LEAD 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 Work Phone: [facility] Start: 01-14-2024 End: 01-14-2024 Refill Deidre Valdivia LEAD 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 Work Phone: [facility] Comment on above: Urinary tract infect ion, acute (Primary Dx) Start: 01-13-2024 End: 01-13-2024 Clinisync Result Encounter Deidre Valdivia LEAD 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 Work Phone: [facility] Unsolicited Start: 01-13-2024 End: 01-13-2024 Clinisync Result Encounter Deidre Valdivia LEAD 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 Work Phone: [facility] Unsolicited Start: 01-12-2024 End: 01-12-2024 Office outpatient visit 15 minutes Deidre Valdivia LEAD 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 Work Phone: [facility] Comment on above: Migraine without aur a and without status migrainosus, not intractable (CMS/HCC) (Primary Dx); Urinary tract infection, acute; Yeast infection Start: 01-12-2024 End: 01-12-2024 ambulatory DEIDRE AICHHOLZ Not Available Start: 01-12-2024 End: 01-12-2024 Bamboo flowsheet Deidre Aichholz LEAD 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 Work Phone: [facility] Start: 01-12-2024 End: 01-12-2024 Bamboo flowsheet Deidre Aichholz LEAD 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 Work Phone: [facility] Start: 12-02-2023 End: 12-02-2023 ambulatory DEIDRE AICHHOLZ Not Available Start: 11-11-2023 End: 11-11-2023 ambulatory SHANNEN E CADEN [facility] Start: 11-11-2023 End: 11-11-2023 Patient encounter procedure SHANNEN E CADEN [facility] Start: 09-16-2023 End: 09-16-2023 Lab Drop off SHANNEN E CADEN [facility] Start: 09-16-2023 End: 09-16-2023 ambulatory SHANNEN E CADEN Facility:[facility] Start: 09-16-2023 End: 09-16-2023 Patient encounter procedure [facility] Start: 09-15-2023 ambulatory SHANNEN CADEN Facility :[facility] Start: 09-09-2023 End: 09-09-2023 ambulatory SHANNEN E CADEN Facility: [facility] Start: 09-09-2023 End: 09-09-2023 Patient encounter procedure SHANNEN E CADEN [facility] Start: 04-25-2023 Office outpatient vi sit 15 minutes 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 [facility] Start: 04-25-2023 End: 04-25-2023 ambulatory Stehpanie Oro [facility] [employer] Other Start: 05-08-2022 End: 05-09-2022 ambulatory KATH DUKE SKIP Facility:[facility] Start: 03-15-2022 End: 03-15-2022 Departed Referred LEAD 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-C 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 Work Phone: [facility] [place] Start: 03-15-2022 End: 03-15-2022 ambulatory LEAD 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-C 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 Work Phone: [facility] Work Phone: Start: 03-15-2022 Office outpatient ne w 20 minutes 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 [facility] Start: 11-08-2021 End: 11-09-2021 ambulatory KATH VALDIVIA Facility:[facility] Start: 10-11-2021 Encounter for gynecological examination (general) (routine) without abnormal findings [facility] Start: 10-09-2021 End: 10-10-2021 ambulatory KATH VALDIVIA Facility:[facility] Start: 10-09-2021 End: 10-10-2021 Encounter for gynecological examination (general) (routine) without abnormal findings KATH RITCHIEA SKIP Facility:[facility] Start: 10-02-2021 End: 10-02-[address] JESU CARO Facility:[facility] Start: 10-01-2021 End: 10-02-2021 ambulatory KATH DEIDRE SKIP Facility:[facility] Start: 09-06-2021 End: 09-07-2021 ambulatory CLAIMS SERVICE ADJUSTOR DEIDRE SKIP Facility:[facility] Start: 08-31-2021 Encounter for genera l adult medical examination without abnormal findings [facility] Start: 08-28-2021 End: 08-29-2021 ambulatory CLAIMS SERVICE ADJUSTOR DEIDRE SKIP Facility:[facility] Start: 08-28-2021 End: 08-29-2021 Encounter for general adult medical examination without abnormal findings KATH RITCHIEA SKIP Facility:[facility] Procedures Date Procedure Procedure Detail Performing Clinician Start: 11-01-2024 Colonoscopy Krissy wright MEDICAL SAFETY DIRECTOR Start: 10-26-2024 Follow-up visit Follow-up ROS LEVIN Start: 10-16-2024 ALL CBC WITH AUTO DIFF Deidre Skip LEAD 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 Work Phone: Start: 10-16-2024 [facility] UA (CLEAN/CATCH) MICROSCOPIC IF INDICATE Deidre Skip LEAD 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 Work Phone: Start: 03-22-2024 Bacteria identified in Urine by Culture Generic External Data Provider Start: 01-13-2024 [facility] UA (CLEAN/CATCH) MICROSCOPIC IF INDICATE Deidre Rosaz LEAD 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 Work Phone: Start: 12-16-2023 Mammography Deidre Salhh olz LEAD 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 Work Phone: Start: 03-15-2022 Piperacillin/tazobactam 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 Other Start: 12-18-2015 Colonoscopy Deidre Salrobert catalanz LEAD 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 Work Phone: Start: 11-17-2015 Colonoscopy Ros wren TONG SETTER-CLAIMS SERVICE ADJUSTOR Work Phone: Start: 06-14-2015 Repair of stress inc ontinence by suprapubic sling SHANNEN HOFFMANRY Start: 05-26-2015 Transurethral cystoscopy SHANNEN HOFFMANRY Start: 05-17-2015 Urodynamic studies VICTORIANO NEGRETE Start: 06-30-2014 Cystourethroscopy wi th dilation of urethral stricture SHANNEN HOFFMANRY Start: 04-24-2010 Cystourethroscopy wi th dilation of urethral stricture SHANNEN HOFFMANRY Appendectomy SHANNEN NEGRETE Colonoscopy SHANNEN HOFFMANRY Hysterectomy SHANNEN HOFFMANRY Plan of Treatment Date Care Activity Detail Author Start: 11-01-2029 Screening for malignant neoplasm of colon Colonoscopy [facility] Start: 12-17-2025 Screening for malignant neoplasm of colon [facility] Start: 11-16-2025 Screening for malignant neoplasm of colon Colonoscopy [facility] Start: 11-10-2025 Adult BMI Screening Adult BMI Screening [facility] Start: 11-10-2025 Tobacco Screening Tobacco Screening [facility] Start: 10-26-2025 Adult BMI Screening Adult BMI Screening [facility] Start: 10-26-2025 Tobacco Screening Tobacco Screening [facility] Start: 04-12-2025 End: 04-12-2025 Patient encounter procedure 04/12/2025 8:40 AM EST Office Visit [facility] [address] [place] [address] Deidre Valdivia, LEAD 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 [address] [place] [phone] [facility] Start: 04-01-2025 Adult BMI Screening Adult BMI Screening [facility] Start: 04-01-2025 Tobacco Screening Tobacco Screening [facility] Start: 01-17-2025 Influenza vaccination Influenza Vaccine [facility] Start: 12-15-2024 Screening for malignant neoplasm of breast Mammogram [facility] Start: 12-06-2024 End: 12-12-2025 MG Breast - bilateral Screening Bilateral screening mammogram Imaging Routine Encounter for screening mammogram for malignant neoplasm of breast Expected: 12/06/2024 (Approximate), Expires: 12/12/2025 [facility] Comment on above: Expected: 12/06/2024 (Approximate), Expi res: 12/12/2025 Start: 11-01-2024 End: 11-01-2024 Admission to same day surgery center [facility] Comment on above: ESOPHAGOGASTRODUODENOSCOPY DIAGNOSTIC [4 3235 (CPT )] Start: 11-01-2024 End: 11-01-2024 Anesthesia consultation [facility] Start: 11-01-2024 End: 11-01-2024 Colonoscopy flx dx w/collj spec when pfrmd [facility] Start: 11-01-2024 End: 11-01-2024 Esophagogastroduodenoscopy transoral diagnostic [facility] Start: 11-01-2024 [facility] Start: 10-12-2024 End: 10-12-2024 Patient encounter procedure [facility] Comment on above: Migraine without aura and without status migrainosus, not intractable (CMS/HCC) (Primary Dx) Start: 10-12-2024 End: 10-12-2025 CBC W Auto Differential panel - Blood CBC and differential Lab Routine Encounter For Adult Wellness Visit Expected: 10/12/2024 (Approximate), Expires: 10/12/2025 [facility] Work Phone: Comment on above: Expected: 10/12/2024 (Approximate), Expi res: 10/12/2025 Start: 10-12-2024 End: 10-12-2025 Comprehensive metabolic 2000 panel - Serum or Plasma Comprehensive metabolic panel Lab Routine Encounter For Adult Wellness Visit Expected: 10/12/2024 (Approximate), Expires: 10/12/2025 [facility] Comment on above: Expected: 10/12/2024 (Approximate), Expi res: 10/12/2025 Start: 10-12-2024 End: 10-12-2025 Lipid 1996 panel - Serum or Plasma Lipid panel Lab Routine Encounter For Adult Wellness Visit Expected: 10/12/2024 (Approximate), Expires: 10/12/2025 [facility] Comment on above: Expected: 10/12/2024 (Approximate), Expi res: 10/12/2025 Start: 10-12-2024 End: 10-12-2025 Urinalysis complete panel - Urine Urinalysis with reflex microscopic (clean catch) Lab Routine Encounter For Adult Wellness Visit Expected: 10/12/2024 (Approximate), Expires: 10/12/2025 [facility] Comment on above: Expected: 10/12/2024 (Approximate), Expi res: 10/12/2025 Start: 06-14-2024 End: 06-14-2024 Patient encounter procedure 06/14/2024 3:00 PM EST Office Visit [facility] [address] [place] [address] Kasandra Wade PA [address] [place] [address] [facility] Start: 06-07-2024 End: 06-07-2024 Admission to same day surgery center 06/07/2024 7:30 AM EST - 06/07/2024 8:00 AM EST Surgery [facility] - Surgery [address] [place] [phone] Papa Ivory, DO [address] [place], [place] [id number] COLONOSCOPY DIAGNOSTIC / SCREENING [15095 (CPT )] [facility] Comment on above: COLONOSCOPY DIAGNOSTIC / SCREENING [4537 8 (CPT )] Start: 06-07-2024 End: 06-07-2024 Colonoscopy flx dx w/collj spec when pfrmd COLONOSCOPY DIAGNOSTIC / SCREENING diverticulitis 06/07/2024 7:30 AM EST [facility] Start: 06-07-2024 Subsequent hospital visit by physician 06/07/2024 7:30 AM EST Hospital Encounter [facility] - Surgery [address] [place] [phone] Papa Ivory, DO [address] [place], [place] [phone] [facility] Surgery Start: 06-01-2024 End: 06-01-2024 ambulatory 06/01/2024 3:50 PM EST Support Visit [facility] - Pre Admit [address] [place] [phone] [facility] - Pre Admit Start: 05-24-2024 End: 05-24-2024 Admission to same day surgery center 05/24/2024 7:30 AM EST - 05/24/2024 8:00 AM EST Surgery [facility] [address] [place] [address] Papa Ivory, DO [address] [place] [address] COLONOSCOPY DIAGNOSTIC / SCREENING [00758 (CPT )] [facility] Comment on above: COLONOSCOPY DIAGNOSTIC / SCREENING [4537 8 (CPT )] Start: 05-24-2024 End: 05-24-2024 Colonoscopy flx dx w/collj spec when pfrmd COLONOSCOPY DIAGNOSTIC / SCREENING diverticulitis 05/24/2024 7:30 AM EST [facility] Start: 05-24-2024 Subsequent hospital visit by physician 05/24/2024 7:30 AM EST Hospital Encounter [facility] [address] [place] [address] [phone] Papa Ivory, DO [address] [place] [address] [facility] Start: 05-18-2024 End: 05-18-2024 ambulatory 05/18/2024 3:30 PM EST Support Visit [facility] Admit [address] [place] [address] [facility] - Pre Admit Start: 04-12-2024 End: 04-12-2024 Patient encounter procedure [facility] Comment on above: Park's esophagus with dysplasia (Prim nahid Dx); Migraine without aura and without status migrainosus, not intractable (CMS/HCC); Diverticulitis Start: 03-18-2024 Influenza vaccination Influenza Vaccine (#1) [facility] Comment on above: Postponed from 01/18/2024 (Patient Does Not Have Time) Start: 02-02-2024 End: 02-02-2024 Patient encounter procedure [facility] Comment on above: Arrived Start: 01-28-2024 End: 01-13-2025 Bacteria identified in Urine by Culture Urine culture (clean catch) Microbiology Routine Urinary tract infection, acute Expected: 01/28/2024 (Approximate), Expires: 01/13/2025 [facility] Work Phone: Comment on above: Expected: 01/28/2024 (Approximate), Expi res: 01/13/2025 Start: 01-18-2024 Influenza vaccination Influenza Vaccine (#1) [facility] Start: 01-12-2024 End: 01-12-2024 Patient encounter procedure 01/12/2024 4:30 PM EDT Office Visit [facility] [address] [place] [phone] Deidre Valdivia NP [address] [place] [phone] Arrived [facility] Comment on above: Arrived Start: 01-12-2024 End: 01-11-2025 Bacteria identified in Urine by Culture Urine culture (clean catch) Microbiology Routine Urinary tract infection, acute Expected: 01/12/2024 (Approximate), Expires: 01/11/2025 [facility] Comment on above: Expected: 01/12/2024 (Approximate), Expi res: 01/11/2025 Start: 01-12-2024 End: 01-11-2025 Urinalysis complete panel - Urine Urinalysis with reflex microscopic (clean catch) Lab Routine Urinary tract infection, acute Expected: 01/12/2024 (Approximate), Expires: 01/11/2025 [facility] Work Phone: Comment on above: Expected: 01/12/2024 (Approximate), Expi res: 01/11/2025 Start: 1981 DTaP,Tdap and Td Vaccines (1 - Tdap) DTaP,Tdap and Td Vaccines (1 - Tdap) [facility] Start: 1974 Depression Screening Depression Screening [facility] Start: 1962 Screening for malignant neoplasm of colon [facility] Bacteria identified in Urine by Culture Urine Culture [facility] End: 03-31-2025 Colonoscopy Colonoscopy GI Routine Sigmoid diverticulitis 1 Occurrences starting 04/01/2024 until 03/31/2025 [facility] Work Phone: Comment on above: 1 Occurrences starting 04/01/2024 until 03/31/2025 Immunizations Immunization Date Immunization Notes Care Provider Shai pisano 02-15-2024 influenza virus vaccine, unspecified formulation Deidre Aichholz LEAD 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 Work Phone: [facility] 07-05-2022 zoster vaccine recombinant SHANNEN CADEN [facility] 03-30-2022 influenza virus vaccine, unspecified formulation SHANNEN CADEN [facility] 03-30-2022 Influenza, injectabl e, Madin [place] Canine Kidney, preservative free, quadrivalent Deidre Aichholz LEAD 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 Work Phone: [facility] 03-30-2022 zoster vaccine recombinant SHANNEN CADEN [facility] 02-08-2021 influenza virus vaccine, unspecified formulation SHANNEN CADEN [facility] 02-08-2021 Influenza, injectabl e, Madin [place] Canine Kidney, preservative free, quadrivalent Deidre Aichholz LEAD 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 Work Phone: [facility] 02-13-2020 influenza virus vaccine, unspecified formulation SHANNEN CADEN [facility] 02-13-2020 influenza, injectabl e, quadrivalent, preservative free Deidre Aichholz LEAD 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 Work Phone: [facility] 02-27-2019 influenza virus vaccine, unspecified formulation SHANNEN CADEN [facility] 02-27-2019 influenza, injectabl e, quadrivalent, contains preservative Deidre Aichholz LEAD 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 Work Phone: [facility] 03-26-2015 influenza virus vaccine, unspecified formulation SHANNEN CADEN [facility] 03-26-2015 influenza, seasonal, injectable, preservative free Deidre Aichholz LEAD 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 Work Phone: [facility] 03-23-2014 influenza virus vaccine, unspecified formulation SHANNEN CADEN [facility] 03-23-2014 influenza, seasonal, injectable Deidre Aichholz LEAD 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 Work Phone: [facility] 05-22-2013 influenza virus vaccine, unspecified formulation SHANNEN CADEN [facility] 05-22-2013 influenza, seasonal, injectable Deidre Aichholz LEAD 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 Work Phone: [facility] Payers Date Payer Category Payer Private Health Insurance [facility] [id number] 2023 Unknown [employer] [id number] 2023-Present [phone] [address] [address] [place] [address] [id number] 2023 Self-pay 2022 Managed Care Other (unspecified) [employer] [id number] 2022 Unknown [id number] 2.16.840.1.662115.19 1962 Unknown [id number] 2.16.840.1.984941.3.579. 2.593 1962 Unknown [id number] 2.16.840.1.996474.3.579. 2.593 1962 Unknown [id number] 2.16.840.1.836606.3.579. 2.593 1962 Unknown [id number] 2.16.840.1.339494.3.579. 2.593 1962 Unknown [id number] 2.16.840.1.245859.3.579. 2.593 1962 Unknown [id number] 2.16.840.1.262056.3.579. 2.593 1962 Unknown [id number] 2.16.840.1.261150.3.579. 2.593 1962 Unknown [id number] 2.16.840.1.758732.3.579. 2.727 1962 Unknown [id number] 2.16.840.1.613557.3.579. 2.727 1962 Unknown [id number] 2.16.840.1.555086.3.579. 2.727 1962 Unknown [id number] 2.16.840.1.457234.3.579. 2.727 1962 Unknown [id number] 2.16.840.1.951822.3.579. 2.1259 1962 Unknown [id number] 2.16.840.1.561781.3.579. 2.1259 1962 Unknown [id number] 2.16.840.1.846447.3.579. 2.1259 1962 Unknown [id number] 2.16.840.1.700636.3.579. 2.1259 1962 Unknown [id number] 2.16.840.1.509604.3.579. 2.1259 1962 Unknown [id number] 2.16.840.1.755242.3.579. 2.1286 1962 Unknown [id number] 2.16.840.1.186875.3.579. 2.1286 1962 Unknown [id number] 2.16.840.1.307495.3.579. 2.1286 1962 Unknown [id number] 2.16.840.1.899009.3.579. 2.1286 1962 Unknown [id number] 2.16.840.1.739677.3.579. 2.1286 1959 Unknown [id number] 2.16.840.1.847493.19 Unknown [id number] 2.16.840.1.342258.3.579. 2.531 Social History Date Type Detail Facility Start: 06-29-2020 End: 01-27-2024 Sex Assigned At [facility] Start: 1960 Sex Assigned At Female [facility] Start: 03-26-2023 End: 09-09-2023 Tobacco smoking status Never smoked tobacco (finding) [facility] Tobacco smoking status Never [facility] Start: 03-26-2023 End: 12-02-2023 Tobacco use and exposure Smokeless tobacco non-user [facility] Start: 02-02-2024 End: 10-12-2024 Alcoholic beverage intake Not Asked [facility] Start: 06-29-2020 End: 01-27-2024 History of Social function [facility] Are [...] at Not on file [facility] Start: 04-01-2024 End: 11-10-2024 Alcoholic beverage intake Current non-drinker of alcohol (finding) [facility] Start: 12-22-2014 Sex Female (finding) [facility] Medical Equipment Procedure Code Equipment Code Equipment Origin al Text Equipment Identifier Dates Stent Percuflex Plus 6x22 - [id number] Start: 05-02-2016 Goals Date Patient Goal Desired Activity /State Personal health goal Functional Status Date Assessment Result Facility 11-11-2023 Functional Status N/A [facility] 09-09-2023 Functional Status N/A [facility] Clinical Notes 10-17-2021 to 11-10-2024 Telephone Encounter - Krissy Cage, [facility] - 11/10/2024 1:20 PM EDTTelephone Encounter - Krissy Cage, [facility] - 11/10/2024 1:20 PM EDTTelephone Encounter - Krissy Cage [facility] - 11/10/2024 1:20 PM EDT Note Date & Type Note Facility 11-10-2024 Miscellaneous Notes ----- Message from Papa Ivory DO sent at 11/10/2024 11:39 AM EDT ----- Please call patient and let her know that we received her biopsies and she has chronic inactive gastritis and Barretts mucosa negative for dysplasia therefore I would recommend surveillance EGD in 3 years unless problems. She was asked to increase her omeprazole from 20 mg b.i.d. to 40 mg b.i.d. and avoid tomato based products. On colonoscopy she did have a tubular adenoma and I recommend surveillance colonoscopy in 5 years unless problems. The other biopsies were negative. Thanks, Dr. Plascencia ----- Message ----- From: Lab, Background User Sent: 11/10/2024 11:34 AM EDT To: Papa Ivory DO Spoke with patient regarding pathology results. Patient verbally understood and questions were answered. Recalls put in chart. documented in this encounter [facility] 11-10-2024 Telephone encounter Note ----- Message from Papa Ivory DO sent at 11/10/2024 11:39 AM EDT ----- Please call patient and let her know that we received her biopsies and she has chronic inactive gastritis and Barretts mucosa negative for dysplasia therefore I would recommend surveillance EGD in 3 years unless problems. She was asked to increase her omeprazole from 20 mg b.i.d. to 40 mg b.i.d. and avoid tomato based products. On colonoscopy she did have a tubular adenoma and I recommend surveillance colonoscopy in 5 years unless problems. The other biopsies were negative. ThanksDr. Plascencia ----- Message ----- From: Lab, Background User Sent: 11/10/2024 11:34 AM EDT To: Papa Ivory DO [facility] 11-10-2024 Telephone encounter Note Spoke with patient regarding pathology results. Patient verbally understood and questions were answered. Recalls put in chart. [facility] 11-10-2024 History of Present illness Narrative Images from the original note were not included. [facility] [address] [place] [address] progress NOTE CHIEF COMPLAINT Chief Complaint Patient presents with Post-op Post op EGD/Colonoscopy performed 11/01/24 at [facility] Monica Diaz is a 63 y.o. female who presents post EGD and colonoscopy with findings of continued Barretts esophagus without dysplasia pending biopsies and mild colitis pending biopsies. She states that she has indigestion and heartburn after eating a popsicle with citric acid in it. She is presently on omeprazole 20 mg in the morning and at night. We also discussed diverticular disease and that she is able to eat anything she wants even with seeds unless they bother her. She is currently pending mcc in 1 month. MEDICATION Current Outpatient Medications: acetaminophen 500 mg coapsule, Take 1 capsule (500 mg total) by mouth daily as needed for pain., Disp: , Rfl: aspirin/acetaminophen/caffeine (EXCEDRIN MIGRAINE ORAL), Refill(s) 0, Disp: , Rfl: cranberry 500 mg capsule, Take 1 each by mouth in the morning., Disp: , Rfl: lactobacillus acidoph & bulgar (LACTINEX) 100 million cell, Take 1 tablet by mouth in the morning and 1 tablet before bedtime., Disp: , Rfl: omeprazole (PriLOSEC) 20 mg capsule, Take 1 capsule (20 mg total) by mouth in the morning and 1 capsule (20 mg total) before bedtime., Disp: , Rfl: ondansetron (ZOFRAN) 4 mg tablet, Take 1 tablet (4 mg total) by mouth every 6 (six) hours as needed for nausea or vomiting., Disp: , Rfl: UBRELVY 100 mg tablet, Take 1 tablet by mouth daily as needed. TAKE 1 TABLET BY MOUTH AT ONSET OF HEADACHE. MAY REPEAT IN 2 HOURS IF NEEDED. NO MORE THAN 2 PILLS EVERY 24 HOURS, Disp: , Rfl: ALLERGY Allergies Allergen Reactions Nitrofurantoin Vomiting Other Reaction(s): Vomiting MEDICAL HISTORY Past Medical History: Diagnosis Date Anxiety Dental disease crowns Diverticulosis GERD (gastroesophageal reflux disease) Barretts Esophagus Hyperlipidemia Migraine Headaches Migraines MVP (mitral valve prolapse) Vaginal fistula vesicovaginal fistula Visual impairment wears glasses SURGICAL HISTORY Past Surgical History: Procedure Laterality Date APPENDECTOMY BLADDER SUSPENSION 06/14/2015 COLON SURGERY COLONOSCOPY COLONOSCOPY DIAGNOSTIC / SCREENING N/A 11/01/2024 Performed by Papa Ivory DO at [facility] CYSTOGRAM CYSTOSCOPY CYSTOSCOPY INSERTION URETERAL CATHETER Bilateral 05/02/2016 Performed by David Kingsley MD at [facility] CYSTOSCOPY RETROGRADE CYSTOGRAM Bilateral 03/19/2016 Performed by David Kingsley MD at [facility] CYSTOSCOPY W/ URETERAL STENT REMOVAL EGD N/A 05/18/2018 Performed by Papa Ivory DO at [facility] ESOPHAGOGASTRODUODENOSCOPY N/A 11/22/2021 Performed by Papa Ivory DO at [facility] ESOPHAGOGASTRODUODENOSCOPY DIAGNOSTIC N/A 11/01/2024 Performed by Papa Ivory DO at [facility] EXPLORATORY LAPAROTOMY 03/12/2023 HYSTERECTOMY 12/29/2015 BSO REPAIR ABDOMINAL APPROACH FISTULA VESICOVAGINAL/ N/A 05/02/2016 Performed by David Kingsley MD at [facility] SMALL INTESTINE SURGERY 03/12/2023 Small Bowel Resection TUBAL LIGATION SOCIAL HISTORY Social History Socioeconomic History Marital status: Spouse name: Not on file Number of children: Not on file Years of education: Not on file Highest education level: Not on file Occupational History Not on file Tobacco Use Smoking status: Never Smokeless tobacco: Never Vaping Use Vaping status: Never Used Substance and Sexual Activity Alcohol use: No Drug use: No Sexual activity: Yes Partners: Male control/protection: Surgical Other Topics Concern Not on file Social History Narrative Not on file Social Drivers of Health Financial Resource Strain: Low Risk (04/06/2024) Received from [facility] Overall Financial Resource Strain (CARDIA) Difficulty of Paying Living Expenses: Not hard at all Food Insecurity: No Food Insecurity (11/10/2024) Hunger Screening Food Insecurity - Worry: Never True Food Insecurity - Inability: Never True Transportation Needs: No Transportation Needs (04/06/2024) Received from [facility] PRAPARE - Transportation Lack of Transportation (Medical): No Lack of Transportation (Non-Medical): No Physical Activity: Insufficiently Active (04/06/2024) Received from [facility] Exercise Vital Sign Days of Exercise per Week: 3 days Minutes of Exercise per Session: 40 min Stress: No Stress Concern Present (01/27/2024) Received from [facility] - Occupational Stress Questionnaire Feeling of Stress : Not at all Social Connections: Unknown (04/06/2024) Received from [facility] Social Connection and Isolation Panel [NHANES] Frequency of Communication with Friends and Family: Patient declined Frequency of Social Gatherings with Friends and Family: Patient declined Attends Yazidi Services: Patient declined Active Member of Clubs or Organizations: Patient declined Attends Club or Organization Meetings: Patient declined Marital Status: Interpersonal Safety: Not on file Housing Instability: Low Risk (04/06/2024) Received from [facility] Housing Stability Vital Sign Unable to Pay for Housing in the Last Year: No Number of Times Moved in the Last Year: 0 Homeless in the Last Year: No FAMILY HISTORY Family History Problem Relation Age of Onset Asthma Mother COPD Mother Parkinsonism Mother Diabetes Father Alcohol abuse Father Endometrial cancer Daughter Cancer Maternal Uncle Anesthesia problems Neg Hx REVIEW OF SYSTEMS: Constitutional: Denies fevers, denies recent illnesses. Rest review of 10 systems negative except as above. PHYSICAL EXAM Constitutional: She is oriented to person, place, and time. Vital signs are normal. She appears well-developed and well-nourished. Abdomen soft nontender Neurological: She is alert and oriented to person, place, and time. Skin: Skin is warm, dry and intact. Psychiatric: She has a normal mood and affect. Her speech is normal and behavior is normal. Cognition and memory are normal. IMPRESSION 1. GERD with a history of Barretts esophagus short segment without dysplasia pending pathology 2. Diverticulosis ASSESSMENT & PLAN Recommend increasing omeprazole to 40 mg b.i.d. to control symptomatology of reflux disease and avoiding tomato based products and citric acid type products. We had a discussion on Gatorade and other supplements. Those bother her. I told her to read the labeled contents. Avoid lots of caffeine, chocolate, she does not drink alcohol or smoke tobacco. She will need follow up EGD in 3 years due to history of Barretts esophagus without dysplasia as long as pathology is negative. Evaluation included: Preparing to see the patient (e.g., review of tests) Obtaining and/or reviewing separately obtained history Performing a medically appropriate examination and/or evaluation Counseling and educating the patient/family/caregiver Referring and communicating with other health daycare provider - Papa Ivory DO 11/10/24 11:19 AM This note was created with the assistance of a speech recognition program. While intending to generate a timely document that accurately reflects the content of the visit, no guarantee can be provided that every grammatical or spelling mistake has been or will be identified or corrected. Thank you for your understanding. [facility] Miscellaneous Notes Preoperative Education Checklist- General Surgery date: 11/01/2024 Surgery time: 8:15 am Arrival time: 6:15 am 1. Bring a photo ID and your insurance card with you the day of surgery. You will check in at the main lobby of the [facility]- registration desk is straight ahead as soon as you walk in. Tell them you are here for surgery. 2. If you have a Living Will/Durable Power of Virtualization Engineer for Health Care that is not on file here, please bring a copy the day of surgery. 3. Please shower/bathe the night before surgery with the provided soap or wipes. Do not shower the morning of surgery- you will do use wipes when you arrive here at the hospital before getting into your surgical gown. Do not shave the area of your procedure for 2 days prior to your surgery. 4. NO powder, lotion, perfume/cologne, aftershave, make-up, deodorant, or hair products after you have bathed. 5. NO nail djiboutian/acrylic on at least one finger. If you are having a hand, wrist or foot surgery then all nail djiboutian and artificial/acrylic nails must be removed from that hand or foot. 6. Avoid ALL Aspirin and non-steroidal anti-inflammatory drugs and certain vitamins (Ibuprofen, Advil, Aleve, Excedrin, Meloxicam, Celebrex, fish/krill oil, etc.) for 7 days prior to surgery as instructed by your surgeon and/or your prescribing doctor. Tylenol IS ALLOWED. If you are on Ticlid, Xarelto, Eliquis, Pradaxa, Plavix or Coumadin, please check with your prescribing doctor for instructions for when to stop them. 7. If you use an inhaler, continue to use it routinely. 8. Nothing to eat or drink (not even water, gum, mints, or hard candy!) AFTER midnight prior to your surgery. 9. Take only medications that you are instructed to on the morning of surgery with a TINY SIP OF WATER. 10. Choose a responsible adult that will be able to drive you home when you are discharged from your hospital stay for your surgery and can stay with you in your home for 24 hours after your procedure. You must NOT drive any vehicle or operate any machinery for 24 hours after surgery. 11. When you dress for your appointment, please wear loose fitting clothing that is appropriate to accommodate your surgical area procedure. BRING WITH YOU ANY DEVICES YOU MAY NEED: ADAN hose, ice machine, sling/swath, brace or special shoe, oversized zip-up or button up shirt, CPAP machine if staying overnight. 12. Do NOT wear jewelry, watches, or any piercings or metal for surgery- leave these valuables and money at home. 13. Do NOT wear contact lenses for surgery- glasses are okay if needed. 14. The anesthesiologist will talk with you the day of surgery and will ask you to sign a Consent Form. 15. Refrain from smoking or any type of tobacco use for at least 8 hours and marijuana for 24 hours prior to arrival for your surgery. 16. Notify your surgeon if you develop any illness before your surgery. 17. If you are staying overnight, please DO NOT BRING your home medications with you. 18. If you have any questions prior to surgery, please call the Pread[facility] Testing office at [phone], Mon.-Fri. 7 a.m.-3 p.m. Leave a voicemail if needed. Pre-Surgery Instructions: Medication Instructions acetaminophen 500 mg coapsule Continue as prescribed, DO NOT take morning of procedure omeprazole (PriLOSEC) 20 mg capsule Continue as prescribed, take morning of procedure ondansetron (ZOFRAN) 4 mg tablet Continue as prescribed, DO NOT take morning of procedure UBRELVY 100 mg tablet Continue as prescribed, DO NOT take morning of procedure documented in this encounter [facility] 10-26-2024 Nurse Note Preoperative Education Checklist- General Surgery date: 11/01/2024 Surgery time: 8:15 am Arrival time: 6:15 am 1. Bring a photo ID and your insurance card with you the day of surgery. You will check in at the main lobby of the [facility]- registration desk is straight ahead as soon as you walk in. Tell them you are here for surgery. 2. If you have a Living Will/Durable Power of Virtualization Engineer for Health Care that is not on file here, please bring a copy the day of surgery. 3. Please shower/bathe the night before surgery with the provided soap or wipes. Do not shower the morning of surgery- you will do use wipes when you arrive here at the hospital before getting into your surgical gown. Do not shave the area of your procedure for 2 days prior to your surgery. 4. NO powder, lotion, perfume/cologne, aftershave, make-up, deodorant, or hair products after you have bathed. 5. NO nail djiboutian/acrylic on at least one finger. If you are having a hand, wrist or foot surgery then all nail djiboutian and artificial/acrylic nails must be removed from that hand or foot. 6. Avoid ALL Aspirin and non-steroidal anti-inflammatory drugs and certain vitamins (Ibuprofen, Advil, Aleve, Excedrin, Meloxicam, Celebrex, fish/krill oil, etc.) for 7 days prior to surgery as instructed by your surgeon and/or your prescribing doctor. Tylenol IS ALLOWED. If you are on Ticlid, Xarelto, Eliquis, Pradaxa, Plavix or Coumadin, please check with your prescribing doctor for instructions for when to stop them. 7. If you use an inhaler, continue to use it routinely. 8. Nothing to eat or drink (not even water, gum, mints, or hard candy!) AFTER midnight prior to your surgery. 9. Take only medications that you are instructed to on the morning of surgery with a TINY SIP OF WATER. 10. Choose a responsible adult that will be able to drive you home when you are discharged from your hospital stay for your surgery and can stay with you in your home for 24 hours after your procedure. You must NOT drive any vehicle or operate any machinery for 24 hours after surgery. 11. When you dress for your appointment, please wear loose fitting clothing that is appropriate to accommodate your surgical area procedure. BRING WITH YOU ANY DEVICES YOU MAY NEED: ADAN hose, ice machine, sling/swath, brace or special shoe, oversized zip-up or button up shirt, CPAP machine if staying overnight. 12. Do NOT wear jewelry, watches, or any piercings or metal for surgery- leave these valuables and money at home. 13. Do NOT wear contact lenses for surgery- glasses are okay if needed. 14. The anesthesiologist will talk with you the day of surgery and will ask you to sign a Consent Form. 15. Refrain from smoking or any type of tobacco use for at least 8 hours and marijuana for 24 hours prior to arrival for your surgery. 16. Notify your surgeon if you develop any illness before your surgery. 17. If you are staying overnight, please DO NOT BRING your home medications with you. 18. If you have any questions prior to surgery, please call the Preadmission Testing office at [phone], Mon.-Fri. 7 a.m.-3 p.m. Leave a voicemail if needed. Pre-Surgery Instructions: Medication Instructions acetaminophen 500 mg coapsule Continue as prescribed, DO NOT take morning of procedure omeprazole (PriLOSEC) 20 mg capsule Continue as prescribed, take morning of procedure ondansetron (ZOFRAN) 4 mg tablet Continue as prescribed, DO NOT take morning of procedure UBRELVY 100 mg tablet Continue as prescribed, DO NOT take morning of procedure [facility] [employer] [facility] 10-26-2024 History of Present illness Narrative Images from the original note were not included. Chief Complaint: Diverticulitis History of Present Illness Monica Diaz is a 63 y.o. female who presents to the office after diverticulitis flare up. She was originally having left lower quadrant pain and nausea. She was seen in the [place] ED for her symptoms on 03/22/2024. CT revealed acute uncomplicated sigmoid diverticulitis. She was discharged home on oral antibiotics. She completed the course. She denies any further abdominal pain. She denies any rectal bleeding. No abdominal constipation or diarrhea. This was her first diverticulitis flare up. Her last colonoscopy was in 2015. This showed scattered diverticulosis, but was otherwise normal. She is also asking about getting an EGD done as well. Six weeks ago she was eating something and had a burning sensation in her throat and felt like it took a long time to go down. She has a history of Barretts esophagus. Last EGD November 2021. Denies heartburn. She does take omeprazole at home. Review of Systems Constitutional: Negative for fever and unexpected weight change. HENT: Negative for trouble swallowing. Respiratory: Negative for shortness of breath. Cardiovascular: Negative for chest pain. Gastrointestinal: Negative for nausea, vomiting, abdominal pain, diarrhea, constipation, blood in stool and black tarry stool. Genitourinary: Negative for dysuria and difficulty urinating. Musculoskeletal: Negative for gait problem. Skin: Negative for rash and wound. Neurological: Negative for dizziness, weakness and light-headedness. Hematological: Does not bruise/bleed easily. Psychiatric/Behavioral: Negative for confusion. Past Medical History: Diagnosis Date Anxiety Dental disease crowns Diverticulosis GERD (gastroesophageal reflux disease) Barretts Esophagus Hyperlipidemia Migraine Headaches Migraines MVP (mitral valve prolapse) Vaginal fistula vesicovaginal fistula Visual impairment wears glasses Past Surgical History: Procedure Laterality Date APPENDECTOMY BLADDER SUSPENSION 06/14/2015 COLON SURGERY COLONOSCOPY CYSTOGRAM CYSTOSCOPY CYSTOSCOPY INSERTION URETERAL CATHETER Bilateral 05/02/2016 Performed by David Kingsley MD at [facility] CYSTOSCOPY RETROGRADE CYSTOGRAM Bilateral 03/19/2016 Performed by David Kingsley MD at [facility] CYSTOSCOPY W/ URETERAL STENT REMOVAL EGD N/A 05/18/2018 Performed by Papa Ivory DO at [facility] ESOPHAGOGASTRODUODENOSCOPY N/A 11/22/2021 Performed by Papa Ivory DO at [facility] EXPLORATORY LAPAROTOMY 03/12/2023 HYSTERECTOMY 12/29/2015 BSO REPAIR ABDOMINAL APPROACH FISTULA VESICOVAGINAL/ N/A 05/02/2016 Performed by David Kingsley MD at [facility] SMALL INTESTINE SURGERY 03/12/2023 Small Bowel Resection TUBAL LIGATION Allergies Allergen Reactions Nitrofurantoin Vomiting Other Reaction(s): Vomiting Current Outpatient Medications: acetaminophen 500 mg coapsule, Take 1 capsule (500 mg total) by mouth daily as needed for pain., Disp: , Rfl: aspirin/acetaminophen/caffeine (EXCEDRIN MIGRAINE ORAL), Refill(s) 0, Disp: , Rfl: cranberry 500 mg capsule, Take 1 each by mouth in the morning., Disp: , Rfl: lactobacillus acidoph & bulgar (LACTINEX) 100 million cell, Take 1 tablet by mouth in the morning and 1 tablet before bedtime., Disp: , Rfl: omeprazole (PriLOSEC) 20 mg capsule, Take 1 capsule (20 mg total) by mouth in the morning and 1 capsule (20 mg total) before bedtime., Disp: , Rfl: ondansetron (ZOFRAN) 4 mg tablet, Take 1 tablet (4 mg total) by mouth every 6 (six) hours as needed for nausea or vomiting., Disp: , Rfl: UBRELVY 100 mg tablet, Take 1 tablet by mouth daily as needed. TAKE 1 TABLET BY MOUTH AT ONSET OF HEADACHE. MAY REPEAT IN 2 HOURS IF NEEDED. NO MORE THAN 2 PILLS EVERY 24 HOURS, Disp: , Rfl: Social History Socioeconomic History Marital status: Spouse name: Not on file Number of children: Not on file Years of education: Not on file Highest education level: Not on file Occupational History Not on file Tobacco Use Smoking status: Never Smokeless tobacco: Never Vaping Use Vaping status: Never Used Substance and Sexual Activity Alcohol use: No Drug use: No Sexual activity: Yes Partners: Male control/protection: Surgical Other Topics Concern Not on file Social History Narrative Not on file Social Drivers of Health Financial Resource Strain: Low Risk (04/06/2024) Received from [facility] Overall Financial Resource Strain (CARDIA) Difficulty of Paying Living Expenses: Not hard at all Food Insecurity: No Food Insecurity (04/06/2024) Received from [facility] Hunger Vital Sign Worried About Running Out of Food in the Last Year: Never true Ran Out of Food in the Last Year: Never true Transportation Needs: No Transportation Needs (04/06/2024) Received from [facility] PRAPARE - Transportation Lack of Transportation (Medical): No Lack of Transportation (Non-Medical): No Physical Activity: Insufficiently Active (04/06/2024) Received from [facility] Exercise Vital Sign Days of Exercise per Week: 3 days Minutes of Exercise per Session: 40 min Stress: No Stress Concern Present (01/27/2024) Received from [facility] [place] [facility] - Occupational Stress Questionnaire Feeling of Stress : Not at all Social Connections: Unknown (04/06/2024) Received from [facility] Social Connection and Isolation Panel [NHANES] Frequency of Communication with Friends and Family: Patient declined Frequency of Social Gatherings with Friends and Family: Patient declined Attends Yazidi Services: Patient declined Active Member of Clubs or Organizations: Patient declined Attends Club or Organization Meetings: Patient declined Marital Status: Interpersonal Safety: Not on file Housing Instability: Low Risk (04/06/2024) Received from [facility] Housing Stability Vital Sign Unable to Pay for Housing in the Last Year: No Number of Times Moved in the Last Year: 0 Homeless in the Last Year: No Family History Problem Relation Age of Onset Asthma Mother COPD Mother Parkinsonism Mother Diabetes Father Alcohol abuse Father Endometrial cancer Daughter Cancer Maternal Uncle Anesthesia problems Neg Hx Objective Physical Exam Constitutional: General: She is not in acute distress. Appearance: Normal appearance. She is not ill-appearing. HENT: Head: Normocephalic and atraumatic. Mouth/Throat: Mouth: Mucous membranes are moist. Eyes: Pupils: Pupils are equal, round, and reactive to light. Cardiovascular: Rate and Rhythm: Normal rate. Pulmonary: Effort: Pulmonary effort is normal. No respiratory distress. Abdominal: General: There is no distension. Palpations: Abdomen is soft. Tenderness: There is no abdominal tenderness. There is no guarding. Musculoskeletal: General: Normal range of motion. Skin: General: Skin is warm and dry. Neurological: Mental Status: She is alert and oriented to person, place, and time. Mental status is at baseline. Vital Signs: Blood pressure 121/71, height 150.5 cm (4' 11.25 ), weight 54.5 kg (120 lb 3.2 oz). Respiratory Source: No data recorded Admission Weight: Weight: 54.5 kg (120 lb 3.2 oz) Labs Lab Results Component Value Date WBC 12.9 (H) 05/03/2016 HGB 11.2 (L) 05/03/2016 HCT 33.6 (L) 05/03/2016 MCV 83 05/03/2016 PLT 256 05/03/2016 Lab Results Component Value Date GLU 118 (H) 05/03/2016 CALCIUM 7.9 (L) 05/03/2016 K 3.7 05/03/2016 CO2 20 (L) 05/03/2016 CL 106 05/03/2016 BUN 10 05/03/2016 CREATININE 0.64 05/03/2016 No results found for: AMYLASE No results found for: LIPASE No results found for: ALT , AST , GGT , ALKPHOS , LABBILI No results found for: INR , PROTIME Assessment Diverticulitis, resolved Barretts esophagus without dysplasia Plan EGD and colonoscopy with possible biopsy and/or polypectomy. Risks, benefits, and alternatives discussed with patient. Patient verbalizes understanding and wishes to proceed. Evaluation included: Preparing to see the patient (e.g., review of tests) Obtaining and/or reviewing separately obtained history Performing a medically appropriate examination and/or evaluation Counseling and educating the patient/family/caregiver Referring and communicating with other health daycare provider Sigmoid diverticulitis [K57.32] LOUISE SOLORZANO [facility] [place] This note was created with the assistance of a speech recognition program. While intending to generate a timely document that accurately reflects the content of the visit, no guarantee can be provided that every grammatical or spelling mistake has been or will be identified or corrected. Thank you for your understanding. LOUISE Solorzano 10/26/24 1142 documented in this encounter [facility] 10-12-2024 History of Present illness Narrative Associated [...] Current meds: ubrelvy documented in this encounter [facility] 10-12-2024 Instructions Deidre Valdivia NP - 10/12/2024 3:00 PM EDT Get labs fasting I will fax order to [facility] for mammogram: [phone] ext [phone] documented in this encounter [facility] 04-12-2024 History of Present illness Narrative Associated [...] or fever, no bloody stools. Saw Dr Ivory, and has colonoscopy planned for 05/2024 Migraines: [...] Diverticulitis - Primary Recent ER visit at [facility] Treated, fu with Mikes Is scheduled for colonoscpy 2024 Right shoulder tendonitis OTC NSAID of choice take food Ice 2-3 times daily 20 minutes each, Stretching exercises Fu if not better Associated Problem(s): Diverticulitis Recent ER visit at [facility] Treated, fu with Mikes Is scheduled for colonoscpy 2024 Associated Problem(s): Migraine without aura and without status migrainosus, not intractable (CMS/HCC) Will continue with prn ubrelvy Associated Problem(s): Park's esophagus Continue with PPI Next EGD due 11/2026 documented in this encounter [facility] 04-12-2024 Instructions Deidre Valdivia NP - 04/12/2024 3:20 PM EST Stretches, ice and anti inflammatory and if after a 2-3 weeks not better let me know documented in this encounter [facility] 04-06-2024 Miscellaneous Notes Monica called into the office to reschedule her surgery on 05/24/[address] Ivory. She selected 06/07/24. A new instruction sheet was mailed out. documented in this encounter [facility] [employer] 04-06-2024 Telephone encounter Note Monica called into the office to reschedule her surgery on 05/24/[address] Ivory. She selected 06/07/24. A new instruction sheet was mailed out. [facility] 04-01-2024 History of Present illness Narrative Images from the original note were not included. Chief Complaint: Diverticulitis History of Present Illness Monica Diaz is a 63 y.o. female who presents to the office after diverticulitis flare up. She was originally having left lower quadrant pain and nausea. She was seen in the [place] ED for her symptoms on 03/22/2024. CT revealed acute uncomplicated sigmoid diverticulitis. She was discharged home on oral antibiotics. She completed the course. She denies any further abdominal pain. She denies any rectal bleeding. She reports looser stools. This was her first diverticulitis flare up. Her last colonoscopy was in 2015. This showed scattered diverticulosis, but was otherwise normal. Review of Systems Constitutional: Negative for fever and unexpected weight change. HENT: Negative for trouble swallowing. Respiratory: Negative for shortness of breath. Cardiovascular: Negative for chest pain. Gastrointestinal: Negative for nausea, vomiting, abdominal pain, diarrhea, constipation, blood in stool and black tarry stool. Genitourinary: Negative for dysuria and difficulty urinating. Musculoskeletal: Negative for gait problem. Skin: Negative for rash and wound. Neurological: Negative for dizziness, weakness and light-headedness. Hematological: Does not bruise/bleed easily. Psychiatric/Behavioral: Negative for confusion. Past Medical History: Diagnosis Date Anxiety Dental disease crowns Diverticulosis GERD (gastroesophageal reflux disease) Barretts Esophagus Hyperlipidemia Migraine Headaches Migraines MVP (mitral valve prolapse) Vaginal fistula vesicovaginal fistula Visual impairment wears glasses Past Surgical History: Procedure Laterality Date APPENDECTOMY BLADDER SUSPENSION 06/14/2015 CYSTOGRAM CYSTOSCOPY CYSTOSCOPY INSERTION URETERAL CATHETER Bilateral 05/02/2016 Performed by David Kingsley MD at [facility] CYSTOSCOPY RETROGRADE CYSTOGRAM Bilateral 03/19/2016 Performed by David Kingsley MD at [facility] CYSTOSCOPY W/ URETERAL STENT REMOVAL EGD N/A 05/18/2018 Performed by Papa Ivory DO at [facility] ESOPHAGOGASTRODUODENOSCOPY N/A 11/22/2021 Performed by Papa Ivory DO at [facility] EXPLORATORY LAPAROTOMY 03/12/2023 HYSTERECTOMY 12/29/2015 BSO REPAIR ABDOMINAL APPROACH FISTULA VESICOVAGINAL/ N/A 05/02/2016 Performed by David Kingsley MD at [facility] SMALL INTESTINE SURGERY 03/12/2023 Small Bowel Resection TUBAL LIGATION Allergies Allergen Reactions Nitrofurantoin Vomiting Current Outpatient Medications: acetaminophen 500 mg coapsule, Take 1 capsule (500 mg total) by mouth daily as needed for pain., Disp: , Rfl: omeprazole (PriLOSEC) 20 mg capsule, Take 1 capsule (20 mg total) by mouth in the morning and 1 capsule (20 mg total) before bedtime., Disp: , Rfl: ondansetron (ZOFRAN) 4 mg tablet, Take 1 tablet (4 mg total) by mouth every 6 (six) hours as needed for nausea or vomiting., Disp: , Rfl: UBRELVY 100 mg tablet, Take 1 tablet by mouth daily as needed. TAKE 1 TABLET BY MOUTH AT ONSET OF HEADACHE. MAY REPEAT IN 2 HOURS IF NEEDED. NO MORE THAN 2 PILLS EVERY 24 HOURS, Disp: , Rfl: peg 3350-sod sulf,dsos-dxi-wgg 178.7-7.3-0.5 gram recon soln, Take 1 kit by mouth once daily for 1 dose. Please see instructional sheet given by physicians office., Disp: 1 each, Rfl: 0 Social History Socioeconomic History Marital status: Spouse name: Not on file Number of children: Not on file Years of education: Not on file Highest education level: Not on file Occupational History Not on file Tobacco Use Smoking status: Never Smokeless tobacco: Never Vaping Use Vaping status: Never Used Substance and Sexual Activity Alcohol use: No Drug use: No Sexual activity: Yes Partners: Male control/protection: Surgical Other Topics Concern Not on file Social History Narrative Not on file Social Drivers of Health Financial Resource Strain: Low Risk (01/27/2024) Received from [facility] Overall Financial Resource Strain (CARDIA) Difficulty of Paying Living Expenses: Not hard at all Food Insecurity: No Food Insecurity (04/01/2024) Hunger Screening Food Insecurity - Worry: Never True Food Insecurity - Inability: Never True Transportation Needs: No Transportation Needs (01/27/2024) Received from [facility] PRAPARE - Transportation Lack of Transportation (Medical): No Lack of Transportation (Non-Medical): No Physical Activity: Insufficiently Active (01/27/2024) Received from [facility] Exercise Vital Sign Days of Exercise per Week: 3 days Minutes of Exercise per Session: 30 min Stress: No Stress Concern Present (01/27/2024) Received from [facility] [place] [employer] - Occupational Stress Questionnaire Feeling of Stress : Not at all Social Connections: Unknown (01/27/2024) Received from [facility] Social Connection and Isolation Panel [NHANES] Frequency of Communication with Friends and Family: Twice a week Frequency of Social Gatherings with Friends and Family: Patient declined Attends Yazidi Services: Never Active Member of Clubs or Organizations: Patient declined Attends Club or Organization Meetings: Never Marital Status: Interpersonal Safety: Not on file Housing Instability: Low Risk (01/27/2024) Received from [facility] Housing Stability Vital Sign Unable to Pay for Housing in the Last Year: No Number of Times Moved in the Last Year: 0 Homeless in the Last Year: No Family History Problem Relation Age of Onset Asthma Mother COPD Mother Parkinsonism Mother Diabetes Father Alcohol abuse Father Endometrial cancer Daughter Cancer Maternal Uncle Anesthesia problems Neg Hx Objective Physical Exam Constitutional: General: She is not in acute distress. Appearance: Normal appearance. She is not ill-appearing. HENT: Head: Normocephalic and atraumatic. Mouth/Throat: Mouth: Mucous membranes are moist. Eyes: Pupils: Pupils are equal, round, and reactive to light. Cardiovascular: Rate and Rhythm: Normal rate. Pulmonary: Effort: Pulmonary effort is normal. No respiratory distress. Abdominal: General: There is no distension. Palpations: Abdomen is soft. Tenderness: There is no abdominal tenderness. There is no guarding. Musculoskeletal: General: Normal range of motion. Skin: General: Skin is warm and dry. Neurological: Mental Status: She is alert and oriented to person, place, and time. Mental status is at baseline. Vital Signs: Blood pressure 143/77, pulse 64, height 151.1 cm (4' 11.5 ), weight 54.2 kg (119 lb 6.4 oz). Respiratory Source: No data recorded Admission Weight: Weight: 54.2 kg (119 lb 6.4 oz) Labs Lab Results Component Value Date WBC 12.9 (H) 05/03/2016 HGB 11.2 (L) 05/03/2016 HCT 33.6 (L) 05/03/2016 MCV 83 05/03/2016 PLT 256 05/03/2016 Lab Results Component Value Date GLU 118 (H) 05/03/2016 CALCIUM 7.9 (L) 05/03/2016 K 3.7 05/03/2016 CO2 20 (L) 05/03/2016 CL 106 05/03/2016 BUN 10 05/03/2016 CREATININE 0.64 05/03/2016 No results found for: AMYLASE No results found for: LIPASE No results found for: ALT , AST , GGT , ALKPHOS , LABBILI No results found for: INR , PROTIME Assessment Monica Diaz is a 63 y.o.female with diverticulitis, resolved. Plan Discussed diverticular diet. Schedule colonoscopy. Evaluation included: Preparing to see the patient (e.g., review of tests) Obtaining and/or reviewing separately obtained history Performing a medically appropriate examination and/or evaluation Counseling and educating the patient/family/caregiver Referring and communicating with other health daycare provider Sigmoid diverticulitis [K57.32] LOUISE SOLORZANO [facility] General Surgery [place] This note was created with the assistance of a speech recognition program. While intending to generate a timely document that accurately reflects the content of the visit, no guarantee can be provided that every grammatical or spelling mistake has been or will be identified or corrected. Thank you for your understanding. LOUISE Solorzano 04/01/24 1127 documented in this encounter [facility] 02-02-2024 History of Present illness Narrative Associated [...] twice a week documented in this encounter [facility] 01-12-2024 History of Present illness Narrative Associated [...] 150 MG tablet documented in this encounter [facility] 11-11-2023 Hospital Discharge instructions Patient Education 11/11/2023 [...] Treatment for this condition includes: Antibiotic medicine. Rhbb-fyl-yfpufmm medicines to treat discomfort. Drinking enough water [...] Follow these instructions at home: Medicines Take gyau-mip-gziteom and prescription medicines only as told by [...] provider. Document Revised: 12/15/2020 Document Reviewed: 12/15/2020 Embly Patient Education 2022 [employer]. Follow Up Care 09/09/2023 14:02:36 With:CADEN HARRINGTON, SHANNEN E, URL Address: [address] [place] [address] When: Unknown [facility] 09-09-2023 Hospital Discharge instructions Patient Education 09/09/2023 13:56:26 Urinary Tract Infection, Adult, Dnwb-jx-Yhvp Urinary Tract Infection, Adult A urinary tract [...] Follow these instructions at home: Medicines Take gwhc-cvl-kqbhcsc and prescription medicines only as told by [...] provider. Document Revised: 12/15/2020 Document Reviewed: 12/15/2020 [employer] Patient Education 2022 [employer]. Follow Up Care 06/11/2023 16:21:28 With:SHANNEN NEGRETE PA-C, URL Address: [address] [place] [phone] When: Unknown [facility] 04-25-2023 Evaluation note Encounter Date Diagnosis [...] no improvement in 2 to 3 days. [facility] Other 10-28-2022 Evaluation note* Encounter Date Diagnosis [...] R30.0) Feb, Hematuria, unspecified (ICD-10 - R31.9) [facility] Other 06-01-2022 History general Narrative - Reported* Type Description Date Medical History HTN Medical History hypercholesterolemia Medical History acid reflux Surgical History EGD OCTOBER 2021 [facility] Other Evaluation + Plan note Future Appointments Appointment Date:11/11/2023 03:40:00 PM Scheduled Provider:SHANNEN NEGRETE PA-C Location:[facility] Appointment Type:URO Office Visit [facility] evaluation + Plan note Future Appointments Appointment Date:11/11/2023 03:40:00 PM Scheduled Provider:SHANNEN NEGRETE PA-C Location:[facility] Appointment Type:URO Office Visit Diagnostic Tests Pending * [facility] Work Phone: Evaluation note* Diagnosis Migraine without [...] Right shoulder tendonitis documented in this encounter [facility]* Diagnosis Migraine without aura and [...] intractable (CMS/HCC)- Primary documented in this encounter [facility]* Diagnosis Recurrent UTI (urinary tract infection)- Primary Migraine without aura and without status migrainosus, not intractable (CMS/HCC) Asymptomatic microscopic hematuria Dyspareunia in female documented in this encounter [facility] Diagnosis Migraine without aura and without status migrainosus, not intractable (CMS/HCC)- Primary Urinary tract infection, acute Yeast infection documented in this encounter [facility]* Diagnosis Urinary tract infection, acute- Primary documented in this encounter [facility]* Diagnosis Sigmoid diverticulitis- Primary Diverticulitis of colon (without mention of hemorrhage) [facility] Migraine without aura and without [...] neoplasm of breast documented in this encounter [facility]* Diagnosis Sigmoid diverticulitis- Primary Diverticulitis of colon (without mention of hemorrhage) Park's esophagus without dysplasia [facility] Diagnosis Park's esophagus without dysplasia- Primary Diverticulosis Diverticulosis of colon (without mention of hemorrhage) Gastroesophageal reflux disease, unspecified whether esophagitis present [facility] N[facility]ative No data available for this section [facility] Hospital Discharge instructions No data available for this section [facility] InstructionsNot on filedocumented in this encounter [facility] filedocumented in this [facility] filedocumented in this [facility] filedocumented in this [facility] filedocumented in this [facility] No data available for this section [facility] Summary Purpose Family History No Family History [...] Diverticulitis Reason Comments Med Refill Reason Comments Diverticulosis Diverticulosis, [facility] ER 03/22/24, last colon 12/04/15, small bowel obstruction 03/12/23 Reason Comments Follow-up Reason Comments Follow-up H & P update surgery - colonoscopy with Grillis 11/01/24 -- PATIENT WAS PREVIOUSLY SCHEDULED 06/07/24 Reason Comments Post-op Post op EGD/Colonosc opy performed 11/01/24 at [facility] Care Teams (unrecognized sec tion and content) Team Status: Inactive Member Role Status Dates 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 NP-C Attending Provider Active Beverage Steward Relationship Specialty Start Date End Date Colin Nassar MD [address] [place] [address] PCP - General Family Medicine 06/10/23 Beverage Steward Relationship Specialty Start Date End Date Colin Nassar MD [address] [place] [address] PCP - General Family Medicine 06/10/23 Beverage Steward Relationship Specialty Start Date End Date Colin Nassar MD [address] [place] [address] PCP - General Family Medicine 06/10/23 Beverage Steward Relationship Specialty Start Date End Date Colin Nassar MD [address] [place] [address] PCP - General Family Medicine 06/10/23 Beverage Steward Relationship Specialty Start Date End Date Colin Nassar MD [address] [place] [address] PCP - General Family Medicine 06/10/23 Beverage Steward Relationship Specialty Start Date End Date Colin Nassar MD [address] [place] [phone] PCP - General Family Medicine 06/10/23 Beverage Steward Relationship Specialty Start Date End Date Colin Nassar MD [address] [place] [phone] PCP - General Family Medicine 06/10/23 Beverage Steward Relationship Specialty Start Date End Date Colin Nassar MD [address] [place] [address] PCP - General Family Medicine 06/10/23 Beverage Steward Relationship Specialty Start Date End Date Colin Nassar MD [address] [place] [address] PCP - General Family Medicine 06/10/23 Beverage Steward Relationship Specialty Start Date End Date Deidre Valdivia, TONG SETTER-CLAIMS SERVICE ADJUSTOR PCP - General Nurse Practitioner 11/02/21 Beverage Steward Relationship Specialty Start Date End Date Deidre Valdivia APRN-CLAIMS SERVICE ADJUSTOR PCP - General Nurse Practitioner 11/02/21 Beverage Steward Relationship Specialty Start Date End Date Colin Nassar MD [address] [place] [phone] PCP - General Family Medicine 06/10/23 Beverage Steward Relationship Specialty Start Date End Date Colin Nassar MD [address] [place] [phone] PCP - General Family Medicine 06/10/23 Beverage Steward Relationship Specialty Start Date End Date Colin Nassar MD [address] [place] [phone] PCP - General Family Medicine 06/10/23 Beverage Steward Relationship Specialty Start Date End Date Deidre Valdivia [facility] PCP - General Nurse Practitioner 11/02/21 Beverage Steward Relationship Specialty Start Date End Date Deidre Valdivia APRN-CLAIMS SERVICE ADJUSTOR PCP - General Nurse Practitioner 11/02/21 Goals (unrecognized section and content) Goals may be documented in a n alternate section INFORMATION SOURCE (unrecogn ized section and content) DATE CREATED AUTHOR 05/15/2022 [facility] DATE CREATED AUTHOR AUTHOR'S ORGANIZ ATION 05/03/2023 [facility] DATE CREATED AUTHOR AUTHOR'S ORGANIZ ATION 11/12/2023 [facility] DATE CREATED AUTHOR AUTHOR'S ORGANIZ ATION 10/15/2024 [facility] DATE CREATED AUTHOR AUTHOR'S ORGANIZ ATION 11/11/2024 [facility] DATE CREATED AUTHOR AUTHOR'S ORGANIZ ATION 11/11/2024 [facility] FOR RECORDS PERTAINING TO PATIENTS WHO [...] BE BASED ON THE PRIMARY CLINICAL RECORDS. [facility]. provides no warranty or guarantee of the accuracy or completeness of information in this document.
== END 2024-12-29 09:24 | disposition home or self-care (01) ==
LOC: MAMMO 09:23
PROVIDERS: PCP Nurse Practitioner; Visit Provider Nurse Practitioner
DX: Z12.31 Encounter for screening mammogram for malignant neoplasm of breast (principal); Z80.0 Family history of malignant neoplasm of digestive organs
CPT/HCPCS: 77063; 77067